=== PATIENT | male | born 1950 | race Caucasian/White ===

== ENCOUNTER 2021-01-20 10:29 | Emergency (ER) | payer MEDICARE, OTHER, SELFPAY ==
[2021-01-20 10:34] VITALS: BP 123/73; PULSE 59; RESP 14; TEMP 36.8; O2SAT 100; BMI 26.6
[2021-01-20 10:54] LABS: UTC Strep Screen (Rapid) Positive (Negative)
[2021-01-20 10:57] VITALS: BP 120/79; PULSE 62; RESP 14; TEMP 36.9
--- NOTE | 2021-01-20 10:59 | HMH.EDUTC ---
[facility] [place] Clinical Impression: Strep throat Disposition: Home, Self-Care Condition on Discharge: Good Instructions: DI for Strep Throat, Strep Throat Additional Instructions: Drink plenty of fluids. Take tylenol or ibuprofen for pain or fever. Take the medications as directed. Follow up with your regular doctor. GO TO THE ER FOR ANY WORSENING SYMPTOMS Prescriptions: Amoxicillin [Amoxicillin 500mg Tab] 500 mg PO TID 10 Days #30 tab Transmission Status: Pending to [id number] Referrals: Rita Scott [Primary Care Provider] - Time of Disposition: 11:08 Medical Decision Making - Medical Records Medical records reviewed: No: I reviewed the patient's medical records. - Arnold Inquiry Pt receiving controlled substance: No Vital Signs: 01/20/21 10:34 01/20/21 10:57 Temperature 98.3 F 98.4 F Temperature Source Oral Pulse Rate 62 Pulse Rate [Right] 59 L Respiratory Rate 14 14 Blood Pressure 120/79 Blood Pressure [Right Arm] 123/73 Blood Pressure Mean [Right Arm] 89 Blood Pressure Source [Right Arm] Automatic Cuff Blood Pressure Position [Right Arm] Sitting 02 Sat by Pulse Oximetry 100 Oxygen Delivery Method Room Air - Lab Data Lab results reviewed: Yes: I reviewed the patient's lab results. Lab Results 01/20/21 10:49: Strep Scn Rapid Clinic Positive A Orders (Tests/Meds): ORDERS Category Date Time Status Covid-19 Nasal PCR ([facility]) Routine Lab 01/20/21 10:49 [place] [facility] [place] - General Stated complaint: flu symptoms Time Seen by Provider: 01/20/21 10:59 Mode of Arrival: Ambulatory Source of Information: Patient Limitations: No Limitations Description of Symptoms (Recalled from Triage Doc. by RN): pt c/o SILVA, sore throat, and cough. HEENT Symptoms (Recalled from RN notes): Yes (SILVA and sore throat) Resp Symptoms (Recalled from RN notes): Yes (cough) Skin Symptoms (Recalled from RN notes): No MS Symptoms (Recalled from RN notes): No Functional Status (Recalled from RN notes): na - History of Present Illness Provider Complaint: He states that for the past 2 days he has felt bad and had a sore throat. - Related Data Previous Rx's Medication Instructions Recorded predniSONE [Prednisone 20mg 20 mg PO BID #10 tab 01/27/19 Tab] Amoxicillin [Amoxicillin 500mg Tab] 500 mg PO TID 10 Days #30 tab 01/20/21 Allergies Allergy/AdvReac Type Severity Reaction Status Date / Time bacitracin Allergy Intermediate I-RASH Verified 01/20/21 10:33 [From NEOSPORIN ([id number])] neomycin Allergy Intermediate I-RASH Verified 01/20/21 10:33 [From NEOSPORIN ([id number])] polymyxin B Allergy Intermediate I-RASH Verified 01/20/21 10:33 [From NEOSPORIN ([id number])] - Worker's Comp Is this a Worker's Comp case?: No [facility] History - Hepatitis A Screen Drug use history?: No High risk sexual behaviors?: No History of sexually transmitted infection?: No Currently employed?: No Childcare worker?: No Do you have indoor plumbing?: Yes Do you have electricity?: Yes Attestation statement:: This patient has been screened for Hepatitis A risk factors. I have reviewed the patient's past medical history: Yes Medical History: Reports:: Cancer - Social History Smoking Status: Never smoker Alcohol Intake: never Occupational Status: retired ROS Obtained: Yes All systems reviewed & no additional complaints - Constitutional Constitutional: Reports system reviewed and no additional complaints, except as docu - Eyes Eyes: Reports system reviewed and no additional complaints, except as docu - ENT Ears, Nose, Mouth, and Throat: Reports system reviewed and no additional complaints, except as docu - Cardiovascular Cardiovascular: Reports system reviewed and no additional complaints, except as docu - Respiratory Respiratory: Reports system reviewed and no additional complaints, except as docu - Gastrointe
== END 2021-01-20 11:27 | disposition home or self-care (01) ==
PROVIDERS: Emergency Provider Nurse Practitioner Family; PCP Family Medicine
DX: J02.0 Streptococcal pharyngitis (principal); Z20.822 Contact with and (suspected) exposure to COVID-19
CPT/HCPCS: G0463; 87880; 99202; J0561; U0003

== ENCOUNTER 2021-06-10 12:22 | Emergency (ER) | payer MEDICARE, OTHER, SELFPAY ==
[2021-06-10 12:28] VITALS: BP 118/62; PULSE 74; RESP 16; O2SAT 98; BMI 26.6
--- NOTE | 2021-06-10 12:45 | CA_ITS ---
APPROVED REPORT Right Lower Extremity Venous Study for DVT. Prototype Special Build: MICHAEL Indications Lower Extremity Pain: Right Pain in RLE x 3 days. Denies trauma. He says that pain is worse today and tender to touch in the thigh region of RLE. Risk Factors Patient had testicular and prostate cancer in the past. States he's in remission. Vein Imaging CFV (R): compressive, spontaneous, phasic, augmentation FEM (R): compressive, spontaneous, phasic, augmentation POP (R): compressive, spontaneous, phasic, augmentation PTV (R): Compressible GSV (R): compressive, spontaneous, phasic, augmentation Peroneals (R):Compressible Findings No evidence of DVT or superficial thrombophlebitis in the veins scanned of the right lower extremity. Conclusion No evidence of DVT or superficial thrombophlebitis in the veins scanned of the right lower extremity. Electronically signed by : Michael Hayden MD 06/10/2021 16:25:45
[2021-06-10 12:55] VITALS: BP 118/62; PULSE 74; RESP 16; TEMP 36.7; O2SAT 98; BMI 26.6
--- NOTE | 2021-06-10 13:59 | HMH.EDUTC ---
[facility] [place] Clinical Impression: Strain of calf muscle Qualifiers: Encounter type: initial encounter Laterality: right Qualified Code(s): S86.811A - Strain of other muscle(s) and tendon(s) at lower leg level, right leg, initial encounter Disposition: Home, Self-Care Condition on Discharge: Good Instructions: Calf Muscle Strain, DI for Calf Muscle Strain, How To Perform RICE (Rest, Ice, Compress, Elevate) Additional Instructions: *Ibuprofen hemant 6 hours with meal as needed for pain/inflammation if you can take it *Not additional anti-inflammatory like motrin, aleve, advil with the above amount of ibuprofen. You can still take Tylenol every 4 hours as needed if you need something else for pain *Ice 20 minutes every 2 hours for the first 48 hours after the initial injury followed by moist heat every 20 minutes 3-4 times a day to affected area Soaks in warm water and epson salt may help with spasms *Keep this area active, no movement leads to more stiffness, However take it easy and avoid heavy lifting pushing or pulling *Follow up with you family doctor if no improvement for further treatment Return if needed Straight to ER if any life threatening symptoms Referrals: Rita Scott [Primary Care Provider] - As needed Time of Disposition: 14:05 Medical Decision Making - Arnold Inquiry Pt receiving controlled substance: No Arnold was queried for this patient: No Vital Signs: 06/10/21 12:28 06/10/21 12:55 06/10/21 14:08 Temperature 98.0 F 98.0 F Temperature Source Oral Pulse Rate 74 Pulse Rate [Right] 74 74 Respiratory Rate 16 16 16 Blood Pressure 118/62 Blood Pressure [Right Arm] 118/62 118/62 Blood Pressure Mean [Right Arm] 80 80 Blood Pressure Source [Right Arm] Automatic Cuff Automatic Cuff Blood Pressure Position [Right Arm] Sitting Sitting 02 Sat by Pulse Oximetry 98 98 Oxygen Delivery Method Room Air - US Data US Images: Lower Extremity ED US Reviewed: Yes: I have reviewed the patient's US results Preliminary Findings: Normal/NAD Findings Narrative: Conclusion No evidence of DVT or superficial thrombophlebitis in the veins scanned of the right lower extremity. [facility] [place] HPI - General Stated complaint: possible blood clot rt leg Time Seen by Provider: 06/10/21 13:00 Mode of Arrival: Ambulatory Source of Information: Patient Limitations: No Limitations Description of Symptoms (Recalled from Triage Doc. by RN): PATIENT C/O RIGHT CALF PAIN X 3 DAYS. NO KNOWN INJURY HEENT Symptoms (Recalled from RN notes): No Resp Symptoms (Recalled from RN notes): No Skin Symptoms (Recalled from RN notes): No MS Symptoms (Recalled from RN notes): Yes Functional Status (Recalled from RN notes): WNL - History of Present Illness Provider Complaint: Patient states that he has been having pain in his right calf area for the last 3-4 days Denies known injury States that he does work around the house alot and has been up and down on ladders and step stools not sure if he may have pulled something or not States that he spoke with his Doctor at the [place] [facility] and they wanted him to come in and get checked for DVT - Related Data Home Medications Medication Instructions Recorded Confirmed Atorvastatin Calcium [Lipitor 80mg 40 mg PO DAILY 06/10/21 06/10/21 Tab] Citalopram Hydrobromide 40 mg PO DAILY 06/10/21 06/10/21 [Citalopram 40mg Tablet] Esomeprazole Magnesium [Nexium] 40 mg PO DAILY 06/10/21 06/10/21 buPROPion HCL [Wellbutrin SR 75mg 75 mg PO BID 06/10/21 06/10/21 Tablet] Allergies Allergy/AdvReac Type Severity Reaction Status Date / Time bacitracin Allergy Intermediate I-RASH Verified 01/20/21 10:33 [From NEOSPORIN ([id number])] neomycin Allergy Intermediate I-RASH Verified 01/20/21 10:33 [From NEOSPORIN ([id number])] polymyxin B Allergy Intermediate I-RASH Verified 01/20/21 10:33 [From NEOSPORIN ([id number])] - Worker's Comp Is
[2021-06-10 14:08] VITALS: BP 118/62; PULSE 74; RESP 16; TEMP 36.7; O2SAT 98
== END 2021-06-10 14:15 | disposition home or self-care (01) ==
LOC: ER 12:29 → UTC 12:30
PROVIDERS: Emergency Provider Nurse Practitioner; PCP Family Medicine
DX: S86.811A Strain of other muscle(s) and tendon(s) at lower leg level, right leg, initial encounter (principal)
CPT/HCPCS: G0463; 93971; 99202

== ENCOUNTER 2021-07-21 20:08 | Emergency (ER) | payer MEDICARE, OTHER, SELFPAY ==
[2021-07-21 20:10] VITALS: BP 121/76; PULSE 81; RESP 16; TEMP 36.7; O2SAT 99; BMI 25.8
--- NOTE | 2021-07-21 20:36 | HMH.EDEYEP ---
ED Disposition Clinical Impression: Corneal abrasion Qualifiers: Encounter type: initial encounter Laterality: left Qualified Code(s): S05.02XA - Injury of conjunctiva and corneal abrasion without foreign body, left eye, initial encounter Disposition: Home, Self-Care Condition on Discharge: Good Instructions: DI for Corneal Abrasion Additional Instructions: use ointment and see eye dr in am Referrals: Rita Scott [Primary Care Provider] - - Critical Care Critical Care Time: No Attestation: On , the high probability of a clinically significant, sudden or life threatening deterioration of the following system(s) required my full and direct attention, intervention and personal management. The time I documented below is in addition to time spent performing reported procedures but includes the following listed in this critical care notation. Medical Decision Making - Medical Records Medical records reviewed: Yes: I reviewed the patient's medical records. - Arnold Inquiry Pt receiving controlled substance: No Vital Signs: 07/21/21 20:10 Temperature 98.1 F Temperature Source Oral Pulse Rate [Right] 81 Respiratory Rate 16 Blood Pressure [Right Arm] 121/76 Blood Pressure Mean [Right Arm] 91 02 Sat by Pulse Oximetry 99 Medical Decision Narrative: will irrigate lt eye with casey lens and then ointment and call eye care provider in am Eye Problem HPI - General Chief complaint: Eye Problems Stated complaint: AO 07/21 possible wood chip R eye Time Seen by Provider: 07/21/21 20:20 Mode of Arrival: Ambulatory Source of Information: Patient, Medical Record Limitations: No Limitations Description of Symptoms (Recalled from ER Triage Doc. by RN): pt states was using a table saw and piece of wood flew up in lt eye. 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 chief complaint: foreign body Onset (ago): hour(s) Onset description: sudden Location: left eye Eye Symptoms: foreign body sensation Place: home Mechanism: occurred while hammering/grinding Severity: moderate Associated symptoms: none Treatments Prior to Arrival: irrigated eye - Related Data Patient tetanus UTD: Yes Home Medications Medication Instructions Recorded Confirmed Atorvastatin Calcium [Lipitor 80mg 40 mg PO DAILY 06/10/21 06/10/21 Tab] Citalopram Hydrobromide 40 mg PO DAILY 06/10/21 06/10/21 [Citalopram 40mg Tablet] Esomeprazole Magnesium [Nexium] 40 mg PO DAILY 06/10/21 06/10/21 buPROPion HCL [Wellbutrin SR 75mg 75 mg PO BID 06/10/21 06/10/21 Tablet] Allergies Allergy/AdvReac Type Severity Reaction Status Date / Time bacitracin Allergy Intermediate I-RASH Verified 01/20/21 10:33 [From NEOSPORIN ([id number])] neomycin Allergy Intermediate I-RASH Verified 01/20/21 10:33 [From NEOSPORIN ([id number])] polymyxin B Allergy Intermediate I-RASH Verified 01/20/21 10:33 [From NEOSPORIN ([id number])] [facility] History - Hepatitis A Screen Drug use history?: No High risk sexual behaviors?: No History of sexually transmitted infection?: No Currently employed?: No Childcare worker?: No Do you have indoor plumbing?: Yes Do you have electricity?: Yes Attestation statement:: This patient has been screened for Hepatitis A risk factors. I have reviewed the patient's past medical history: Yes Medical History: Reports:: Cancer - Social History Smoking Status: Never smoker Alcohol Intake: never Occupational Status: retired ROS Obtained: Yes All systems reviewed & no additional complaints - Constitutional Constitutional: Denies fever(s) - Eyes Eyes: Reports as per HPI, Denies change in vision, Reports irritation, Denies photophobia - ENT Ears, Nose, Mouth, and Throat: Denies neck pain - Cardiovascular Cardiovascular: Denies chest pain - Respiratory Respiratory: Denies shortness of breath
[2021-07-21 20:56] VITALS: BP 116/70; PULSE 59; RESP 14; TEMP 37.1; O2SAT 98
== END 2021-07-21 21:03 | disposition home or self-care (01) ==
PROVIDERS: Emergency Provider Emergency Medicine; PCP Family Medicine
DX: S05.02XA Injury of conjunctiva and corneal abrasion without foreign body, left eye, initial encounter (principal); W45.8XXA Other foreign body or object entering through skin, initial encounter
CPT/HCPCS: 99282

== ENCOUNTER → 2021-08-02 18:48 | Outpatient (CLI) | payer MEDICARE, OTHER, SELFPAY | PROVIDERS: Visit Provider Nurse Practitioner Family | DX: Z20.822 Contact with and (suspected) exposure to COVID-19 (principal) | CPT/HCPCS: C9803; U0003; U0005 ==

== ENCOUNTER → 2021-09-28 10:48 | Outpatient (CLI) | payer MEDICARE, OTHER, SELFPAY | PROVIDERS: Visit Provider Nurse Practitioner | DX: U07.1 COVID-19 (principal) | CPT/HCPCS: C9803; U0003; U0005 ==

== ENCOUNTER 2022-05-26 10:00 | Emergency (ER) | payer MEDICARE, OTHER, SELFPAY ==
[2022-05-26 10:08] VITALS: BP 105/51; PULSE 52; RESP 18; TEMP 36.9; O2SAT 97; BMI 24.7
[2022-05-26 10:45] VITALS: BP 105/51; PULSE 52; RESP 18; TEMP 36.9; O2SAT 97; BMI 25.5
--- NOTE | 2022-05-26 10:45 | XR_ITS ---
FINAL REPORT CLINICAL HISTORY: FALL last tuesday. right anterior rib pain FINDINGS: RIBS WITH CHEST A single PA view of the chest and three views of the right ribs were obtained. The heart and mediastinum within normal limits. The lungs are clear. There is no pneumothorax. There is no acute displaced rib fracture. IMPRESSION: No acute cardiopulmonary process or displaced rib fracture. Reviewed, Interpreted and Dictated by Miguel Chinchilla MD Transcribed by Tracy Mercedes Authenticated and [facility]
--- NOTE | 2022-05-26 11:13 | EXP.UTC ---
Discharge Plan Disposition Patient Disposition: Home, Self-Care Condition: Good Prescriptions Prescriptions: No Action atorvastatin 80 MG tablet 40 mg PO DAILY citalopram 40 MG tablet 40 mg PO DAILY esomeprazole magnesium 40 MG capsule,delayed release(DR/EC) 40 mg PO DAILY bupropion HCl 75 MG tablet 75 mg PO BID Referrals Follow up/Referrals: Rita Scott [Primary Care Provider] - See instructions Activity Restrictions/Add. Instructions Additional Instructions/Restrictions: *Ibuprofen hemant 6 hours with meal as needed for pain/inflammation *Ice 20 minutes every 2 hours for the first 48 hours after the initial injury followed by moist heat every 20 minutes 3-4 times a day to affected area *Keep this area active, no movement leads to more stiffness, However take it easy and avoid heavy lifting pushing or pulling *Follow up with you family doctor if no improvement for further treatment You May call back later this evening for the official reading of your xray ? Clinical Impressions Clinical Impression: Contusion of rib Instructions Patient Instructions: Contusion, DI for Contusion Discharge [place]ian[place] [facility] [place] General Stated complaint: AO 05/23@home@1200 hurts when deep breathing Mode of Arrival: Ambulatory Source of Information: Patient Limitations: No Limitations Time Seen by Provider: 05/26/22 11:13 Description of Symptoms (Recalled from Triage Doc. by RN): PATIENT C/O PAIN TO RIB AREA WHEN TAKING A DEEP BREATH. HE REPORTS HE FELL MOWING THE YARD ON TUESDAY. 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 06/10/21 06/10/21 citalopram 40 mg tablet 40 mg PO DAILY . 06/10/21 06/10/21 esomeprazole magnesium 40 mg 40 mg PO DAILY GERD 06/10/21 06/10/21 capsule,delayed release Allergies Allergy/AdvReac Type Severity Reaction Status Date / Time bacitracin Allergy Intermediate I-RASH Verified 01/20/21 10:33 [From NEOSPORIN ([id number])] neomycin Allergy Intermediate I-RASH Verified 01/20/21 10:33 [From NEOSPORIN ([id number])] polymyxin B Allergy Intermediate I-RASH Verified 01/20/21 10:33 [From NEOSPORIN ([id number])] Worker's Comp Is this a Worker's Comp case?: No PFSH PFSH Medical History (Updated 05/26/22 @ 11:55 by Lianne Lara APRN) Anxiety BPH (benign prostatic hyperplasia) Cancer Depression Surgical History (Updated 05/26/22 @ 10:57 by Tsering Guevara RN) H/O right heart catheterization History of open heart surgery Social History (Updated 05/26/22 @ 10:57 by Tsering Guevara RN) Smoking Status: Never smoker alcohol intake: current current occupational status: retired Travel in the last 8 weeks: None ROS Obtained: Yes All systems reviewed & no additional complaints except as documented and Yes Systems reviewed as appropriate & no additional complaints except as documented Constitutional Constitutional: Reports system reviewed and no additional complaints, except as documented and Reports as per HPI Cardiovascular Cardiovascular: Reports system reviewed and no additional complaints, except as documented, Reports as per HPI, Denies dysp
[2022-05-26 12:00] VITALS: BP 105/51; PULSE 52; RESP 18; TEMP 36.9; O2SAT 97
== END 2022-05-26 12:05 | disposition home or self-care (01) ==
PROVIDERS: Emergency Provider Nurse Practitioner; PCP Family Medicine
DX: S20.211A Contusion of right front wall of thorax, initial encounter (principal); R07.81 Pleurodynia; W01.0XXA Fall on same level from slipping, tripping and stumbling without subsequent striking against object, initial encounter
CPT/HCPCS: 71101; 99212; G0463

== ENCOUNTER 2022-06-18 11:36 | Emergency (ER) | payer MEDICARE, OTHER, SELFPAY ==
--- NOTE | 2022-06-18 11:55 | EXP.UTC ---
Discharge Plan Disposition Patient Disposition: Home, Self-Care Condition: Good Prescriptions Prescriptions: New cefdinir 300 mg capsule 300 mg PO BID Qty: 20 0RF No Action atorvastatin 80 MG tablet 40 mg PO DAILY citalopram 40 MG tablet 40 mg PO DAILY esomeprazole magnesium 40 MG capsule,delayed release(DR/EC) 40 mg PO DAILY bupropion HCl 75 MG tablet 75 mg PO BID Referrals Follow up/Referrals: ENT [Provider Group] - See instructions (Call for appointment ) Mac Huerta MD [Physician] - See instructions Rita Scott [Primary Care Provider] - 06/22/22 10:20 am Activity Restrictions/Add. Instructions Additional Instructions/Restrictions: Start Oral antiobiotics tomorrow Follow up Family Phyiscian as scheduled Make appointment [facility] ENT call today for appointment Return if needed Straight to ER if any worsening of sympotms Clinical Impressions Clinical Impression: Swelling of lymph nodes Instructions Patient Instructions: Cefdinir Discharge ED Provider: Lianne Lara [facility] General Stated complaint: right side pain behind ear Time Seen by Provider: 06/18/22 11:55 History of Present Illness Provider Complaint: Patient states that he has a swollen tender area behind the ear States that it has been there for a little bit but has got worse over the last few days and last night was more tender State that this morning it was still sore so he came in to get it checked out Related Data Home Medications Medication Instructions Recorded Confirmed atorvastatin 80 mg tablet 40 mg PO DAILY Cholesterol 06/10/21 06/18/22 bupropion HCl 75 mg tablet 75 mg PO BID . 06/10/21 06/18/22 citalopram 40 mg tablet 40 mg PO DAILY . 06/10/21 06/18/22 esomeprazole magnesium 40 mg 40 mg PO DAILY GERD 06/10/21 06/18/22 capsule,delayed release Previous Rx's Medication Instructions Recorded cefdinir 300 mg capsule 300 mg PO BID #20 caps 06/18/22 Allergies Allergy/AdvReac Type Severity Reaction Status Date / Time bacitracin Allergy Intermediate I-RASH Verified 06/18/22 12:00 [From NEOSPORIN ([id number])] neomycin Allergy Intermediate I-RASH Verified 06/18/22 12:00 [From NEOSPORIN ([id number])] polymyxin B Allergy Intermediate I-RASH Verified 06/18/22 12:00 [From NEOSPORIN ([id number])] PFSH PFSH Medical History (Updated 06/18/22 @ 12:35 by Lianne Lara APRN) Anxiety BPH (benign prostatic hyperplasia) Cancer Depression Surgical History (Updated 05/26/22 @ 10:57 by Tsering Guevara, RN) H/O right heart catheterization History of open heart surgery Social History (Updated 05/26/22 @ 10:57 by Tsering Guevara, RN) Smoking Status: Never smoker alcohol intake: current current occupational status: retired Travel in the last 8 weeks: None ROS Obtained: Yes All systems reviewed & no additional complaints except as documented and Yes Systems reviewed as appropriate & no additional complaints except as documented Constitutional Constitutional: Reports system reviewed and no additional complaints, except as documented, Reports as per HPI, Denies fever(s) and Denies headache(s) ENT Ears, Nose, Mouth, and Throat: Reports system reviewed and no additional complaints, except as documented, Reports as per HPI, Denies ear discharge, Denies otalgia, Denies headache(s) and Reports other (Pain and raised area behind right ear) Cardiovascular Cardiovascular: Reports system reviewed and no additional complaints, except as documented, Denies as per HPI and Denies acrocyanosis Respiratory Respiratory: Reports system reviewed and no additional complaints, except as documented and Reports as per HPI Musculoskeletal Musculoskeletal: Reports system reviewed and no additional complaints, except as documented and Reports as per HPI Neurologic Neurologic: Reports system reviewed and no additional complaints, except as documented, Reports
[2022-06-18 11:57] VITALS: BP 120/70; PULSE 56; RESP 17; TEMP 36.8; O2SAT 98; BMI 24.0
[2022-06-18 12:45] VITALS: BP 102/70; PULSE 56; RESP 17; TEMP 36.8
== END 2022-06-18 12:46 | disposition home or self-care (01) ==
PROVIDERS: Emergency Provider Nurse Practitioner; PCP Family Medicine
DX: R59.0 Localized enlarged lymph nodes (principal)
CPT/HCPCS: 96372; 99212; G0463; J0696

== ENCOUNTER 2022-07-30 16:20 | Emergency (ER) | payer MEDICARE, OTHER, SELFPAY ==
[2022-07-30 16:21] VITALS: BP 109/77; PULSE 60; RESP 16; TEMP 36.8; O2SAT 98; BMI 25.1
--- NOTE | 2022-07-30 16:47 | PC.NURSE ---
WALE ANTHONY at
--- NOTE | 2022-07-30 16:51 | HMH.EDGENADL ---
Discharge Plan Disposition Chief Complaint: Urogenital-Male Prescriptions Prescriptions: No Action atorvastatin 80 MG tablet 40 mg PO DAILY citalopram 40 MG tablet 40 mg PO DAILY esomeprazole magnesium 40 MG capsule,delayed release(DR/EC) 40 mg PO DAILY bupropion HCl 75 MG tablet 75 mg PO BID cefdinir 300 mg capsule 300 mg PO BID Qty: 20 0RF Referrals Follow up/Referrals: Rita Scott [Primary Care Provider] - See instructions Instructions Patient Instructions: DI for Urinary Tract Infection (UTI), DI for Urinary Tract Infection in Children Discharge ED Provider: Harinder Hart General Adult HPI General Chief complaint: Urogenital-Male Stated complaint: blood in urine Time Seen by Provider: 07/30/22 16:45 Mode of Arrival: Ambulatory Source of Information: Patient Limitations: No Limitations Description of Symptoms (Recalled from ER Triage Doc. by RN): pt reports blood noted in urine this morning and then again this afternoon. Pt states no pain with urination, no difficulty with urination. Pt reports does have hx of prostate cancer in the past. History of Present Illness HPI narrative: Patient presents complaining of blood in the urine that he first noticed earlier today. He notes some mild suprapubic discomfort. He denies fever, vomiting or diarrhea. He denies dysuria. Symptoms are described as mild to moderate without exacerbating or alleviating factors. Related Data Home Medications Medication Instructions Recorded Confirmed atorvastatin 80 mg tablet 40 mg PO DAILY Cholesterol 06/10/21 06/18/22 bupropion HCl 75 mg tablet 75 mg PO BID . 06/10/21 06/18/22 citalopram 40 mg tablet 40 mg PO DAILY . 06/10/21 06/18/22 esomeprazole magnesium 40 mg 40 mg PO DAILY GERD 06/10/21 06/18/22 capsule,delayed release Previous Rx's Medication Instructions Recorded cefdinir 300 mg capsule 300 mg PO BID #20 caps 06/18/22 Allergies Allergy/AdvReac Type Severity Reaction Status Date / Time bacitracin Allergy Intermediate I-RASH Verified 06/18/22 12:00 [From NEOSPORIN ([id number])] neomycin Allergy Intermediate I-RASH Verified 06/18/22 12:00 [From NEOSPORIN ([id number])] polymyxin B Allergy Intermediate I-RASH Verified 06/18/22 12:00 [From NEOSPORIN ([id number])] [facility] Medical History Anxiety BPH (benign prostatic hyperplasia) Cancer Depression Surgical History H/O right heart catheterization History of open heart surgery Social History Smoking Status: Never smoker alcohol intake: current current occupational status: retired Travel in the last 8 weeks: None ROS Obtained: Yes All systems reviewed & no additional complaints except as documented Physical Exam General General appearance: alert and in no apparent distress Head Head exam: atraumatic, normocephalic and normal inspection Eye Eye exam: Present normal appearance, PERRL and EOMI ENT ENT exam: Present normal exam, normal oropharynx, mucous membranes moist, TM's normal bilaterally and normal external ear exam Neck Neck exam: Present normal inspection, full ROM and trachea midline; Absent meningismus or lymphadenopathy Chest Chest inspection: Present normal inspection and symmetric chest wall rise; Absent tenderness Respiratory Respiratory exam: Present normal lung sounds bilaterally; Absent respiratory distress Cardiovascular Cardiovascular exam: Present regular rate and normal rhythm; Absent JVD Abdominal Exam Abdominal exam: Present soft and normal bowel sounds; Absent distention, tenderness or guarding Extremities Exam Extremities exam: Present normal inspection, full ROM and normal capillary refill; Absent calf tenderness Back Exam Back exam: Present normal inspection; Absent tenderness Neurological Exam
[2022-07-30 16:52] LABS: Microscopic, Urine URINE MICROSCOPIC (MICROSCOPIC)
[2022-07-30 16:53] LABS: Appearance,Urine SL CLOUDY (Clear); Bilirubin,Urine Negative (Negative); Blood, Urine 3+ (Negative); Color,Urine YELLOW (Yellow); Glucose,Urine (UA) Negative (Negative); Ketones,Urine Negative (Negative); Leukocyte Esterase,Urine Negative (Negative); Nitrate,Urine Negative (Negative); Protein,Urine Negative (Negative); Urobilinogen,Urine 0.2 EU/dl (0.2)
[2022-07-30 17:22] LABS: Chloride 107 mmol/L (98-107); Potassium 3.9 mmoL/L (3.5-5.1); Sodium 137 mmol/L (136-145)
[2022-07-30 17:25] LABS: Blood Urea Nitrogen 16 mg/dl (9-20); Creatinine Clearance Estimated 73 mL/min (50-200); Estimated Glomerular Filt Rate 95 ml/min (>60); GFR (African American) 115 ML/MIN (>60)
[2022-07-30 17:26] LABS: Anion Gap 9.9 mEq/L (5-15); Calcium 10.1 mg/dl (8.4-10.2); Carbon Dioxide 24 mmol/L (22.0-30.0); Glucose 81 mg/dl (74-100)
[2022-07-30 17:28] LABS: Basophils # 0.1 K/mm3 (0-0.2); Basophils % 0.8 % (0.1-2.0); Eosinophils # 0.3 K/mm3 (0.0-0.4); Eosinophils % 4.1 % (0.1-12.0); Hematocrit 34.9 % (42.0-52.0); Hemoglobin 11.7 g/dL (14.1-18.0); Lymphocytes # 1.9 K/mm3 (0.7-4.5); Lymphocytes % 30.4 % (10-50); Mean Corpuscular HGB Conc 33.4 g/dL (31.8-35.4); Mean Corpuscular Hemoglobin 28.9 pg (27.0-31.2); Mean Corpuscular Volume 86.6 fl (80-94); Mean Platelet Volume 7.3 fl (7.4-10.4); Monocytes # 0.6 K/mm3 (0.1-1.0); Monocytes % 9.2 % (1.7-9.3); Neutrophils # 3.6 K/mm3 (1.8-7.8); Neutrophils % 55.5 % (37.0-80.0); Platelet Count 191 K/mm3 (142-424); Red Blood Count 4.03 M/mm3 (4.60-6.20); Red Cell Distribution Width 13.7 % (11.5-17.5); White Blood Count 6.4 K/mm3 (4.8-10.8)
[2022-07-30 18:00] LABS: Squamous Epithelial Cell,Urine Occasional #/hpf (0-5); WBC,Urine Occasional #/hpf (0-3)
[2022-07-30 18:15] VITALS: BP 125/71; PULSE 54; RESP 16; TEMP 36.8; O2SAT 94
== END 2022-07-30 18:15 | disposition home or self-care (01) ==
PROVIDERS: Emergency Provider Emergency Medicine; PCP Family Medicine
DX: N39.0 Urinary tract infection, site not specified (principal); Z79.899 Other long term (current) drug therapy; Z88.1 Allergy status to other antibiotic agents
CPT/HCPCS: 80048; 81001; 85025; 99283

== ENCOUNTER 2022-09-20 16:39 | Emergency (ER) | payer MEDICARE, OTHER, SELFPAY ==
[2022-09-20] VITALS (9 sets, daily range): BP systolic 104–118; BP diastolic 60–69; PULSE 47–60; RESP 15; TEMP 36.9; O2SAT 94–99; BMI 24.3
--- NOTE | 2022-09-20 17:11 | PC.NURSE ---
pt ambulated to bathroom, but did not pee in cup. pt asked nurse to come look in toilet. urine is red in color. small clots noted.
[2022-09-20 17:41] LABS: Basophils # 0.1 K/mm3 (0-0.2); Eosinophils # 0.3 K/mm3 (0.0-0.4); Eosinophils % 5.4 % (0.1-12.0); Hematocrit 34.8 % (42.0-52.0); Hemoglobin 11.5 g/dL (14.1-18.0); Lymphocytes # 1.8 K/mm3 (0.7-4.5); Lymphocytes % 31.4 % (10-50); Mean Corpuscular HGB Conc 32.9 g/dL (31.8-35.4); Mean Corpuscular Hemoglobin 27.7 pg (27.0-31.2); Mean Corpuscular Volume 84.2 fl (80-94); Mean Platelet Volume 7.4 fl (7.4-10.4); Monocytes # 0.4 K/mm3 (0.1-1.0); Monocytes % 7.7 % (1.7-9.3); Neutrophils # 3.1 K/mm3 (1.8-7.8); Neutrophils % 54.5 % (37.0-80.0); Platelet Count 205 K/mm3 (142-424); Red Blood Count 4.13 M/mm3 (4.60-6.20); Red Cell Distribution Width 14.1 % (11.5-17.5); White Blood Count 5.8 K/mm3 (4.8-10.8)
[2022-09-20 17:47] LABS: Chloride 106 mmol/L (98-107); Sodium 139 mmol/L (136-145)
[2022-09-20 17:50] LABS: Alanine Aminotransferase 16 U/L (12-78); Albumin Level 4.2 g/dl (3.5-5.0); Albumin/Globulin Ratio 1.3 (1.1-1.8); Alkaline Phosphatase 102 U/L (38-126); Aspartate Amino Transferase 25 U/L (17-59); Bilirubin,Total 0.4 mg/dl (0.2-1.3); Blood Urea Nitrogen 22 mg/dl (9-20); Calcium 9.2 mg/dl (8.4-10.2); Carbon Dioxide 26 mmol/L (22.0-30.0); Creatinine Clearance Estimated 71 mL/min (50-200); Estimated Glomerular Filt Rate 83 ml/min (>60); GFR (African American) 100 ML/MIN (>60); Globulin 3.2 g/dL (1.3-3.2); Glucose 91 mg/dl (74-100); Total Protein,Serum 7.4 g/dl (6.3-8.2)
[2022-09-20 18:28] LABS: Microscopic, Urine URINE MICROSCOPIC (MICROSCOPIC)
[2022-09-20 18:36] LABS: Appearance,Urine CLOUDY (Clear); Blood, Urine 3+ (Negative); Color,Urine RED (Yellow); Glucose,Urine (UA) TRACE (Negative); Ketones,Urine 1+ (Negative); Leukocyte Esterase,Urine 2+ (Negative); Nitrate,Urine POSITIVE (Negative); Protein,Urine 3+ (Negative); Specific Gravity, Urine 1.015 (1.005-1.030); Urobilinogen,Urine >=8.0 EU/dl (0.2)
[2022-09-20 18:37] LABS: Bilirubin,Urine 1+ (Negative)
[2022-09-20 18:39] LABS: Bacteria,Urine Trace /lpf; RBC,Urine TNTC #/hpf (0-3); Squamous Epithelial Cell,Urine Occasional #/hpf (0-5)
--- NOTE | 2022-09-20 19:42 | CT_ITS ---
PROCEDURE INFORMATION: Exam: CT Abdomen And Pelvis Without Contrast Exam date and time: 09/20/2022 8:07 PM Age: 72 years old Clinical indication: Other: Hematuria, difficulty urinating; Prior surgery; Surgery type: Cyberknife on prostate TECHNIQUE: Imaging protocol: Computed tomography of the abdomen and pelvis without contrast. Radiation optimization: All CT scans at this facility use at least one of these dose optimization techniques: automated exposure control; mA and/or kV adjustment per patient size (includes targeted exams where dose is matched to clinical indication); or iterative reconstruction. COMPARISON: CR XR RIBS RT MIN 3V W CXR1V 05/26/2022 10:38 AM FINDINGS: Diaphragm: There is a small hiatal hernia. Multiple surgical clips are seen about the gastroesophageal junction. Liver: Normal. No mass. Gallbladder and bile ducts: Normal. No calcified stones. No ductal dilation. Pancreas: Normal. No ductal dilation. Spleen: Normal. No splenomegaly. Adrenal glands: Normal. No mass. Kidneys and ureters: Normal. No hydronephrosis. Stomach and bowel: There is a large amount of retained stool throughout the colon. There is significant diverticulosis throughout the distal colon. No evidence of bowel obstruction. Appendix: No evidence of appendicitis. Intraperitoneal space: Unremarkable. No free air. No significant fluid collection. Vasculature: Dense atherosclerotic calcification is noted throughout the distal aorta and iliac arteries. There is mild fusiform dilation of the terminal abdominal aorta and common iliac arteries with iliac diameter measuring 1.6 cm on the right and 1.7 cm on the left. Lymph nodes: Unremarkable. No enlarged lymph nodes. Urinary bladder: There is a 5.7 cm slightly hyperdense irregular mass within the posterior bladder lumen. Bladder is moderately distended but otherwise unremarkable. Reproductive: Unremarkable as visualized. Bones/joints: Mild scoliosis and degenerative disc changes noted in the lumbar spine. Soft tissues: Unremarkable. IMPRESSION: 1. 5.7 cm mass in the dependent portion of the urinary bladder with moderate bladder distention. Differential diagnosis would include bladder neoplasm (transitional cell carcinoma) versus large blood clot within the bladder lumen. No evidence of urolithiasis or renal mass. 2. Significant atherosclerotic disease with mild fusiform dilation of the terminal abdominal aorta and bilateral common iliac arteries. 3. Significant fecal retention throughout the colon and diffuse diverticulosis of the distal colon. No evidence of acute diverticulitis.
--- NOTE | 2022-09-20 20:11 | PC.NURSE ---
Pt back from RAD via wheelchair
--- NOTE | 2022-09-20 21:39 | HMH.EDGENADL ---
Discharge Plan Disposition Chief Complaint: Urogenital-Male Prescriptions Prescriptions: No Action atorvastatin 80 MG tablet 40 mg PO DAILY citalopram 40 MG tablet 40 mg PO DAILY esomeprazole magnesium 40 MG capsule,delayed release(DR/EC) 40 mg PO DAILY bupropion HCl 75 MG tablet 75 mg PO BID Referrals Follow up/Referrals: Provider,Referral, MD [Primary Care Provider] - See instructions Instructions Patient Instructions: DI for Urinary Tract Infection (UTI), DI for Urinary Tract Infection in Children Discharge ED Provider: Nikki Casillas General Adult HPI General Chief complaint: Urogenital-Male Stated complaint: blood in urine and cant urinate Time Seen by Provider: 09/20/22 19:47 Mode of Arrival: Ambulatory Source of Information: Patient Limitations: No Limitations Description of Symptoms (Recalled from ER Triage Doc. by RN): pt comes in with c/o blood clots/blood in urine. pt states that he has had this issue before and has been to this hospital for issue. pt reports clots have stopped but he feels like trying to pass a boulder. pt reports two days ago he was straining at work. 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 States around 1 PM earlier today, he started experience hematuria and was passing gibson clots. This has occurred 1 time previously after an acute episode of straining. He does admit to heavy lifting approximately 2 days ago. No associated dysuria. No fevers, chills, abdominal pain, changes in bowel movements. Related Data Home Medications Medication Instructions Recorded Confirmed atorvastatin 80 mg tablet 40 mg PO DAILY Cholesterol 06/10/21 09/20/22 bupropion HCl 75 mg tablet 75 mg PO BID . 06/10/21 09/20/22 citalopram 40 mg tablet 40 mg PO DAILY . 06/10/21 09/20/22 esomeprazole magnesium 40 mg 40 mg PO DAILY GERD 06/10/21 09/20/22 capsule,delayed release Allergies Allergy/AdvReac Type Severity Reaction Status Date / Time bacitracin Allergy Intermediate I-RASH Verified 09/20/22 17:11 [From NEOSPORIN ([id number])] neomycin Allergy Intermediate I-RASH Verified 09/20/22 17:11 [From NEOSPORIN ([id number])] polymyxin B Allergy Intermediate I-RASH Verified 09/20/22 17:11 [From NEOSPORIN ([id number])] [facility] Disclaimer: The information contained in this section may have been updated after the patient was seen, as this information can be updated by other users. Medical History Anxiety BPH (benign prostatic hyperplasia) Cancer Depression Surgical History H/O right heart catheterization History of open heart surgery Social History Smoking Status: Former smoker alcohol intake: current current occupational status: retired Travel in the last 8 weeks: None ROS Obtained: Yes All systems reviewed & no additional complaints except as documented Physical Exam General General appearance: alert and in no apparent distress Head Head exam: atraumatic, normocephalic and normal inspection Eye Eye exam: Present normal appearance, PERRL and EOMI ENT ENT exam: Present normal exam, normal oropharynx and mucous membranes moist Neck Neck exam: Present normal inspection, full ROM and trachea midline Chest Chest inspection: Present normal inspection and symmetric chest wall rise Respiratory Respiratory exam: Present normal lung sounds bilaterally; Absent respiratory distress Cardiovascular Cardiovascular exam: Present regular rate and normal rhythm Abdominal Exam Abdominal exam: Present soft and tenderness (mild tenderness to lower abdomen); Absent guarding Extremities Exam Extremities ex
--- NOTE | 2022-09-20 21:58 | PC.NURSE ---
spoke with misti @ [facility] for possible patient transferred
[2022-09-20 22:08] LABS: Coronavirus 19, PCR Not Detected (NotDetected); Influenza A, PCR Not Detected (NotDetected); Influenza B, PCR Not Detected (NotDetected)
--- NOTE | 2022-09-20 22:27 | PC.NURSE ---
Dr. Casillas speaking with Dr. Bush at the [facility]
--- NOTE | 2022-09-20 22:33 | PC.NURSE ---
Pt accepted to [facility] by Dr. Bush
--- NOTE | 2022-09-20 23:23 | PC.NURSE ---
Spoke with installation coordinator, Lexi, and advised her that his covid test was negative. She advised that she does not have a bed at this moment and will check back in about 30 minutes
--- NOTE | 2022-09-20 23:54 | PC.NURSE ---
Accepted to [facility] room [id number]. Attempted to call report [phone] with no answer
[2022-09-21 00:02] VITALS: BP 114/72; PULSE 54; O2SAT 94
--- NOTE | 2022-09-21 00:06 | PC.NURSE ---
Attempted to call report again. Nurse would like us to call back in 15-20 minutes
[2022-09-21 00:24] VITALS: BP 115/70; PULSE 57; RESP 16; TEMP 36.9; O2SAT 98
[2022-09-21 00:30] VITALS: BP 113/74; PULSE 51; O2SAT 91
--- NOTE | 2022-09-21 00:59 | PC.NURSE ---
Faxed face sheet for insurance pre-auth, received confirmation back.
== END 2022-09-21 01:23 | disposition short-term general hospital (02) ==
PROVIDERS: Emergency Medicine; Emergency Provider Student in an Organized Health Care Education/Training Program
DX: N50.9 Disorder of male genital organs, unspecified (principal); R31.9 Hematuria, unspecified; Z85.47 Personal history of malignant neoplasm of testis; Z92.21 Personal history of antineoplastic chemotherapy; F41.9 Anxiety disorder, unspecified; N40.1 Benign prostatic hyperplasia with lower urinary tract symptoms; Z86.79 Personal history of other diseases of the circulatory system; Z87.891 Personal history of nicotine dependence
CPT/HCPCS: 51702; 74176; 80053; 81001; 85025; 87086; 99285; C9803; U0003; U0005

== ENCOUNTER → 2023-06-29 09:22 | Outpatient (CLI) | payer MEDICARE, OTHER, SELFPAY | PROVIDERS: PCP Nurse Practitioner Family; Visit Provider Nurse Practitioner Family | DX: R35.0 Frequency of micturition (principal) | CPT/HCPCS: 87086 ==

== ENCOUNTER 2024-11-12 13:30 | Outpatient (CLI) | payer MEDICARE, OTHER, SELFPAY ==
[2024-11-12 14:44] LABS: Basophils # 0.1 K/mm3 (0-0.2); Basophils % 0.9 % (0.1-2.0); Eosinophils # 0.2 K/mm3 (0.0-0.4); Eosinophils % 3.5 % (0.1-12.0); Hemoglobin 9.9 g/dL (14.1-18.0); Lymphocytes # 1.8 K/mm3 (0.7-4.5); Lymphocytes % 27.4 % (10-50); Mean Corpuscular HGB Conc 29.1 g/dL (31.8-35.4); Mean Corpuscular Hemoglobin 23.8 pg (27.0-31.2); Mean Corpuscular Volume 81.7 fl (80-94); Mean Platelet Volume 9.3 fl (7.4-10.4); Monocytes # 0.6 K/mm3 (0.1-1.0); Monocytes % 8.8 % (1.7-9.3); Neutrophils # 3.9 K/mm3 (1.8-7.8); Neutrophils % 59.1 % (37.0-80.0); Platelet Count 202 K/mm3 (142-424); Red Blood Count 4.16 M/mm3 (4.60-6.20); White Blood Count 6.6 K/mm3 (4.8-10.8)
[2024-11-12 15:08] LABS: Iron 122 ug/dL (49-181)
[2024-11-12 15:21] LABS: Total Iron Binding Capacity 478 ug/dL (261-462)
[2024-11-12 15:42] LABS: Ferritin 11.5 ng/ml (17.9-464)
== END 2024-11-12 23:59 | disposition home or self-care (01) ==
LOC: LAB 13:31
PROVIDERS: Visit Provider Nurse Practitioner Family
DX: D50.9 Iron deficiency anemia, unspecified (principal)
CPT/HCPCS: 36415; 82728; 83540; 83550; 85025

== ENCOUNTER 2024-11-21 06:08 | Day surgery (SDC) | payer MEDICARE, OTHER, SELFPAY ==
--- NOTE | 2024-11-19 12:10 | SUR.PREOP ---
1205: Message left with Dr. Sanchez's office for cardiac clearance letter. Spoke with Marcella in Dr. Phillips office about need to obtain clearance.
[2024-11-19 12:12] VITALS: BMI 25.1
[2024-11-21 06:41] VITALS: BP 95/54; PULSE 49; RESP 18; TEMP 36.4; O2SAT 95
[2024-11-21] MEDS: LACTATED RINGERS 1000ML 1,000 ML 25 ML IV (06:55)
--- NOTE | 2024-11-21 07:04 | P.PNANES_ITS ---
[facility] Disclaimer: The information contained in this section may have been updated after the patient was seen, as this information can be updated by other users. Medical History Hx of cancer of lung Family hx of prostate cancer Hx of testicular cancer Hematuria Acute lower urinary tract infection Swelling of lymph nodes Contusion of rib Cancer Depression Anxiety BPH (benign prostatic hyperplasia) Corneal abrasion Strain of calf muscle Strep throat Contact dermatitis Surgical History History of sentinel lymph node dissection Hx of removal of testicle History of partial gastrectomy History of back surgery History of open heart surgery H/O right heart catheterization Family History Mother Heart disease Social History (Updated 11/21/24 @ 06:46 by Christine Rosales RN) Smoking Status: Former smoker alcohol intake: current alcohol intake frequency: a few times a week substance use type: denies use current occupational status: retired Travel in the last 8 weeks: None caffeine: Yes Have you lived/traveled outside [place] in past 30 days?: No Contact w/someone who lives/traveled outside US past 30 days?: No Exposure to someone with infectious disease in past 14 days?: No Do you have a fever (greater than 100.4 F or 38 C)?: No Have you tested positive for COVID-19: No Exposed to someone with COVID-19 in past 14 days?: No Do you have a sore throat?: No Do you have a cough?: No Do you have any weakness?: No Are you experiencing any nausea/vomitting?: No Do you have any diarrhea?: No Are you experiencing any unusual bleeding?: No Do you have any muscle aches/pain?: No Do you have any abdominal pain?: No Are you experiencing loss of taste or smell?: No [facility] Anesthesia Checklist Patient Identification Patient Identification: Arm Band and Family Structural Data Admitted From: Home Planned Operative Procedure/s: EGD Consent for Planned Operative Procedure(s) Verified: Yes Verified Documents: Surgical Consent NPO Status Verified Time NPO: 00:00 Additional verifications Patient : No Anesthesia Reactions: No Hx Blood Transfusions: Yes Blood Transfusion Reaction: No Cephalosporin Allergy: No Previous Colonoscopy: Yes Airway Assessment Mallampati Score:: Class II C-Spine Mobility Assessed: Yes TMJ Mobility Assessed: Yes Dentition: Good Dentition Neurological Assessment Level of Consciousness: Awake, Alert, Appropriate and Follows Commands Hx Seizures: No Numbness or tingling in extremities: No Anesthesia Plan Anesthesia Risk discussed: Yes ASA Class: III Anesthesia Type: MAC Preoperative Comments Pre-Operative Comments: History of CABG 2000
[2024-11-21 07:27] VITALS: O2SAT 100
--- NOTE | 2024-11-21 07:38 | P.HP_ITS ---
History of Present Illness *Admission Date: 11/21/24 *Reason for visit:: Iron deficiency anemia with history of peptic ulcer disease *History of present illness: Mr. Lr is a 74-year-old gentleman who is here for diagnostic EGD secondary to iron deficiency anemia and history of peptic ulcer disease. The examination is deemed medically necessary for iron deficiency. The patient has been seen, interviewed and examined prior to the procedure by both myself and the anesthesia provider. [facility] Disclaimer: The information contained in this section may have been updated after the patie nt was seen, as this information can be updated by other users. Medical History (Updated 11/21/24 @ 07:39 by Hernando Phillips II, MD) Hx of cancer of lung Family hx of prostate cancer Hx of testicular cancer Hematuria Acute lower urinary tract infection Swelling of lymph nodes Contusion of rib Cancer Depression Anxiety BPH (benign prostatic hyperplasia) Corneal abrasion Strain of calf muscle Strep throat Contact dermatitis Surgical History History of sentinel lymph node dissection Hx of removal of testicle History of partial gastrectomy History of back surgery History of open heart surgery H/O right heart catheterization Family History Mother Heart disease Social History (Updated 11/21/24 @ 06:46 by Christine Rosales RN) Smoking Status: Former smoker alcohol intake: current alcohol intake frequency: a few times a week substance use type: denies use current occupational status: retired Travel in the last 8 weeks: None caffeine: Yes Have you lived/traveled outside US in past 30 days?: No Contact w/someone who lives/traveled outside [place] past 30 days?: No Exposure to someone with infectious disease in past 14 days?: No Do you have a fever (greater than 100.4 F or 38 C)?: No Have you tested positive for COVID-19: No Exposed to someone with COVID-19 in past 14 days?: No Do you have a sore throat?: No Do you have a cough?: No Do you have any weakness?: No Are you experiencing any nausea/vomitting?: No Do you have any diarrhea?: No Are you experiencing any unusual bleeding?: No Do you have any muscle aches/pain?: No Do you have any abdominal pain?: No Are you experiencing loss of taste or smell?: No Other Medical History Have you received the Flu Vaccine for this season: Yes Have you received the Pneumonia Vaccine: Yes Review of Systems Review of Systems Review of systems (narrative): Negative *Cardiovascular Comments: Negative *Gastrointestinal Comments: Negative *Genitourinary Comments: Negative *Musculoskeletal Comments: Negative *Neurologic Comments: Negative Meds Home Medications and Allergies Home Medications ?Medication ?Instructions ?Recorded ?Confirmed ?Type atorvastatin 80 mg tablet 40 mg PO DAILY Cholesterol 06/10/21 11/21/24 History citalopram 40 mg tablet 40 mg PO DAILY . 06/10/21 11/19/24 History bupropion HCl 75 mg tablet 150 mg PO DAILY . 10/29/24 11/19/24 History famotidine 40 mg tablet 40 mg PO DAILY 10/29/24 11/19/24 History ferrous gluconate 324 mg (38 mg 324 mg PO DAILY 10/29/24 11/19/24 History iron) tablet New Prescriptions to Start Prescriptions: Allergies Allergy/AdvReac Type Severity Reaction Status Date / Time bacitracin (From NEOSPORIN Allergy Intermediate I-RASH Verified 11/21/24 06:45 ([id number])) neomycin (From NEOSPORIN Allergy Intermediate I-RASH Verified 11/21/24 06:45 ([id number])) polymyxin B (From NEOSPORIN Allergy Intermediate I-RASH Verified 11/21/24 06:45 ([id number])) Exam Data for Last 24 hours Vital signs and Labs for Last 24 Hours: Temp Pulse Resp BP Pulse Ox O2 Del Method O2 Flow Rate 97.5 F L 49 L 18 95/54 L 95 Nasal Cannula 5 11/21/24 06:41 11/21/24 06:41 11/21/24 06:41 11/21/24 06:41 11/21/24 06:41 11/21/24 07:27 11/21/24 07:27 I & O for Last 24 hours: Intake & Output 11/18/24 11/19/24 11/20/24 11/21/24 23:59 23:59 23:59 23:59 Weight 170 lb *Routine HEENT Exam Head: Present normocephalic Eye: Present EOMI and PERRL ENT: Present mucous membranes moist *Routine Neck Exam Neck: Present supple *Routine Respiratory Exam Respiratory: Present CTA bilaterally *Routine Cardiovascular Exam Cardiovascular: Present RRR *Routine Abdominal Exam Abdominal: Present soft and normoactive bowel sounds; Absent tenderness *Routine Rectal Exam Rectal:: deferred *Routine Genitalia Exam Genitalia:: deferred *Routine Extremities Exam Extremities: Absent cyanosis, clubbing or edema *Routine Skin Exam Skin: Present warm; Absent rash *Routine Neurological Exam Neurological: Present alert and oriented X3 Assessment and Plan *Assessment and plan (1) Iron deficiency anemia: Status: Acute Category: Medical Code(s): D50.9 - Iron deficiency anemia, unspecified (2) senior living (current) use of non-steroidal anti-inflammatories (nsaid): Status: Acute Category: Medical Code(s): Z79.1 - senior living (current) use of non-steroidal anti-inflammatories (NSAID) (3) History of gastric ulcer: Status: Acute Category: Medical Code(s): Z87.11 - Personal history of peptic ulcer disease (4) GERD (gastroesophageal reflux disease): Status: Acute Category: Medical Code(s): K21.9 - Gastro-esophageal reflux disease without esophagitis Plan A/P: 1. Iron deficiency anemia with history of gastric ulcer and GERD is the preprocedural diagnosis. The patient will be anesthetized/sedated using MAC sedation. The patient has been seen and examined. Cardiac and lung assessment prior to the examination is stable. Proceed with planned diagnostic EGD
--- NOTE | 2024-11-21 07:40 | HMH.PROCNOTE ---
[facility] Procedure Note Date: 11/21/24 Time: 07:46 Procedure Note:: Upper Endoscopy Procedure Report: Esophagogastroduodenoscopy with cold biopsies Endoscopost: Hernando Phillips II, MD Referring Physician: Rita Scott MD Date of Procedure: November 21, 2024 Equipment: Olympus GIF 190 standard upper endoscope Sedation: MAC sedation Indications: Mr. Lr is a 74-year-old gentleman who is here for diagnostic upper endoscopy secondary to iron deficiency anemia. The patient did have a perforated gastric ulcer in the and had antrectomy. The patient has had dyspnea on exertion and fatigue. He does take naproxen but not daily and uses this less than once weekly. His recent iron levels were low with ferritin 10.8 and iron saturation of 7%. His hemoglobin dropped from 9.6 to 7.8. The patient reports no abdominal pain. He does have GERD. He did have panendoscopy done at the [facility] last spring or summer. He did have a few colonic polyps. They were unable to complete the EGD because of retained gastric food content. He does get some postprandial nausea and fullness and early satiety. He does take famotidine 40 mg at night. He also has some chronic intermittent constipation. Procedure: Prior to the procedure, a history and physical exam was performed, and patient's medications and allergies were reviewed. The risks, benefits and alternatives of the sedation and procedure were discussed with the patient. All questions were answered and informed consent was obtained. The patient was brought to the procedure room. Patient identification and proposed procedure were verified by the physician and the nurse. The patient was placed in a left lateral decubitus position and the scope was passed under direct vision. Throughout the procedure, the patient's blood pressure, pulse, and oxygen saturations were monitored continuously. The upper GI endoscopy was accomplished without difficulty. The patient tolerated the procedure well. Findings: The scope was passed directly into the upper esophagus and advanced to the third portion of the duodenum. The post bulbar duodenum and duodenal bulb were normal with normal mucosa and conniventes. There was mild duodenal lymphoid stasis. The scope was withdrawn through a normal duodenal bulb into the stomach. There was evidence of prior antrectomy. There was mild distal gastropathy of the body of the stomach. There was also a lot of retained solid food content in the stomach suggestive of gastric dysmotility. Upon retroflexion there was a 2 to 3 cm hiatal hernia without Yunier's erosions. The scope was then withdrawn into the esophagus. There was no evidence of reflux esophagitis or Valdovinos's. Biopsies were taken from the GE junction. There were tertiary contractions and evidence of mild esophageal dysmotility. The remainder of the esophageal mucosa was normal. Impression: 1. Nonerosive GERD with moderate esophageal dysmotility and small 2 to 3 cm hiatal hernia 2. Prior antrectomy with evidence of mild reactive gastropathy and gastric dysmotility (retained gastric food content) Plan: There was no etiology for the patient's iron deficiency anemia. I would recommend Hemoccult testing. I would also consider parenteral iron infusion. I will follow-up the biopsies. I do feel that this may be related to prior naproxen use and Excedrin. I will discuss the findings with the patient and family. I would recommend routine MiraLAX plus Metamucil daily as well.
[2024-11-21 07:52] VITALS: BP 91/49; PULSE 46; RESP 18; TEMP 36.3; O2SAT 95
[2024-11-21 08:02] VITALS: BP 97/53; PULSE 45; RESP 18; O2SAT 96
[2024-11-21 08:12] VITALS: BP 101/59; PULSE 74; RESP 18; O2SAT 97
[2024-11-21 08:22] VITALS: BP 106/61; PULSE 46; RESP 18; TEMP 36.3; O2SAT 98
== END 2024-11-21 08:33 | disposition home or self-care (01) ==
PROVIDERS: Visit Provider Internal Medicine Gastroenterology
PROC: 0DJ08ZZ Inspection of Upper Intestinal Tract, Via Natural or Artificial Opening Endoscopic (ICD-10-PCS; CPT 43239; principal; 2024-11-21 07:30)
DX: D50.9 Iron deficiency anemia, unspecified (principal); Z87.11 Personal history of peptic ulcer disease; K21.9 Gastro-esophageal reflux disease without esophagitis; K22.4 Dyskinesia of esophagus; K44.9 Diaphragmatic hernia without obstruction or gangrene; K31.9 Disease of stomach and duodenum, unspecified; K31.5 Obstruction of duodenum
CPT/HCPCS: 43239; J7120

== ENCOUNTER 2024-12-04 11:59 | Outpatient (CLI) | payer MEDICARE, OTHER, SELFPAY ==
[2024-12-04 12:11] VITALS: BP 110/56; PULSE 55; RESP 16; TEMP 36.8; O2SAT 98
[2024-12-04] MEDS: SODIUM CHLORIDE 0.9% 10ML FLUSH SYRINGE 10 ML IV (12:11)
[2024-12-04] MEDS: IRON SUCROSE COMPLEX 300 MG in 0.9 % SODIUM CHLORIDE 250 ML 176.667 MG IV (12:11)
[2024-12-04] MEDS: SODIUM CHLORIDE 0.9% 50ML BAG 50 ML IV (12:11)
[2024-12-04 12:40] VITALS: BP 123/59; PULSE 52; RESP 14; O2SAT 98
[2024-12-04 13:10] VITALS: BP 129/64; PULSE 58; RESP 14; O2SAT 97
[2024-12-04 13:45] VITALS: BP 121/70; PULSE 50; RESP 16; TEMP 36.7; O2SAT 98
== END 2024-12-04 13:50 | disposition home or self-care (01) ==
LOC: INF 12:00
PROVIDERS: PCP Family Medicine; Visit Provider Internal Medicine Gastroenterology
DX: D50.9 Iron deficiency anemia, unspecified (principal)
CPT/HCPCS: 96365; J1756

== ENCOUNTER 2024-12-18 12:31 | Outpatient (CLI) | payer MEDICARE, OTHER, SELFPAY ==
--- OUTSIDE RECORDS SUMMARY | 2024-12-18 12:33 | XMS_ITS ---
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 This section includes the names of all active insurance providers for the patient. Insurance Provider Type of Coverage Plan Name Start of Policy Coverage End of Policy Coverage Group Number Member ID Insurance Provider's Telephone Number Policy Tariq's Name Patient's Relationship to Policy Tariq [facility] [place] ([facility]U[place]ARD) PREFERRED PROVIDER ORGANIZAT ION (PPO) TOYOT A [employer]OR [employer] AC Sep 05, 2014 [id number] [place] BUSTAMANTE PATIENT [employer] ([id number]) PRESCRIPT ION TMMK ACTIV E PPO Sep 05, 2014 [place] [id number] [phone] [place] BUSTAMANTE PATIENT INGENIO RX PRESCRIPT ION NONE* Sep 05, 2014 NONE [id number] [place] BUSTAM[place]TE PATIENT MEDICARE (WNR) MEDICARE (M) PART A Apr 05, 2015 PART A [id number] [phone] [place] BUSTAM[place]TE PATIENT MEDICARE (WNR) MEDICARE (M) PART B Apr 05, 2015 PART B [id number] [facility] DIANNACHARLOTTE Galo PATIENT Selected Encounter This section includes the information on record at [place] for the Encounter. Date/Time Encounter Type Encounter Description Reason Provider Source Nov 30, 2024 12:30 PM EVOKED AUDITORY TST COMPLETE AUDIOLOGY ICD-10-CM H90.3 Sensorineural hearing loss, bilateral MARIELY DENNISON IHE Encounter Template Text not used by [place] Assessments - Encounter Diagnoses This section includes the primary and secondary diagnoses documented for the Encounter. Date/Time Primary/Secondary Diagnosis Diagnosis Name Provider Source Nov 30, 2024 01:23 PM PRIMARY Sensorineural hearing loss, bilateral KIKI ZULETA [facility] Plan of Treatment: Future Appointments (+ 6 months) and Future Tests (+/- 45 days) The Plan of Treatment section includes future care activities for the [facility] [place] [facility] This section includes future appointments and future orders which are active, pending or scheduled. Future Appointments This section includes appointments that were scheduled to occur 6 months from the date of the Encounter, up to a maximum of 20 appointments. The data comes from all [facility]. Appointment Date/Time Appointment Type Appointme nt Facility Name Dec 05, 2024 09:00 AM [facility] Dec 19, 2024 02:00 PM [facility] Dec 27, 2024 07:30 AM [facility] Active, Pending, and Scheduled Orders This section includes a listing of several types of active, pending, and scheduled orders, including clinic medications orders, diagnostic test orders, procedure orders and consult orders; where the start date of the order is 45 days before the date of the Encounter or 45 days after the date of theEncounter. The data comes from all [facility]. Test Date/Time Test Type Test Details Facility Name Nov 30, 2024 01:30 PM Consult Order ENT HEARING LOSS OUTPATIENT Cons Supervisor [employer] [facility] Dec 05, 2024 09:30 AM Procedure Order CP WIRELESS CAPSULE CP WIRELESS CAPSULE Proc Supervisor [employer] [facility] Dec 13, 2024 01:47 PM Consult Order MED CARDIOLOGY OUTPATIENT Cons Supervisor [employer] [facility] Dec 14, 2024 01:23 PM Consult Order MED GASTROENTEROLOGY OUTPATIENT Cons Supervisor [employer] [facility] Dec 27, 2024 07:30 AM Imaging - CT Scan Order CT CHEST W/CONTRAST [facility] Lab Results: +/- 30 days of the encounter This section includes the Chemistry and Hematology Lab Results on record with [place] for the patient. Radiology Reports and Pathology Reports are provided separately, in subsequent sections. Lab Results This section contains the Chemistry/Hematology Results that were resulted 30 days before or 30 daysafter the date of the Encounter. Date/Time Source Result Type Result - Unit Interpretation Reference Range Specimen Type Comment Nov 06, 2024 03:32 PM [facility] WN TRANSFERRIN SERUM Specimen Type: SERUM No comment entered. Ordering Provider: BLAYNE SANDHU Report Released Date/Time: Nov 06, 2024 02:56 PM Reporting Lab: [facility] [address] [facility] [id number] Performing Lab: [facility] [address] [place] [id number] TRANSFERRIN 386 mg/dL H 177-329 Nov 06, 2024 03:32 PM [facility] FOLATE PLASMA Specimen Type: PLASM A Comment: Estimated Glomerular Filtration Rate (eGFR) calculated using the 2020 Chronic Kidney Disease-Epidemiology (CKD-EPI) Collaboration creatinine equation; units of measure are mL/min/1.73 m2. Results are only valid for adults (>=18 years) whose serum creatinine is in a steady state. eGFR calculations are not valid for patients with acute kidney injury and for patients on dialysis. Creatinine-based estimates of kidney function may also be inaccurate in patients with reduced creatinine generation due to decreased muscle mass (e.g., malnutrition, severe hypoalbuminemia, sarcopenia, chronic neuromuscular disease, amputations, severe heart failure or liver disease) and in patients with increased creatinine generation due to increased muscle mass (e.g., muscle builders, anabolic steroids) or increased dietary intake. As drug clearance is proportional to total GFR and not GFR indexed to body surface area (BSA), in individuals with a BSA substantially different than 1.73 m2, drug dosing should be based on the reported eGFR value de-indexed from BSA by multiplying by the individual's BSA and dividing by 1.73. CKD is diagnosed based on abnormalities of kidney structure or function, present for >3 months, with implications for health and disease. CKD is classified and staged based on cause, eGFR and albuminuria (quantified as urine albumin to creatinine ratio). An eGFR >60 mL/min/1.73 m2 in the absence of increased urine albumin excretion or structural abnormalities does not represent CKD. eGFR CKD Interpretation (mL/min/1.73 m2) stage >=90 G1 Normal 60-89 G2 Mild decrease 45-59 G3A Mild to moderate decrease 30-44 G3B Moderate to severe decrease 15-29 G4 Severe decrease <15 G5 Kidney failure Ordering Provider: BLAYNE SANDHU Report Released Date/Time: Nov 06, 2024 02:56 PM Reporting Lab: [address] [phone] Performing Lab: [address] [phone] FOLATE 8.2 ng/mL 7.0-31.4 Nov 06, 2024 03:32 PM [facility] IR[facility]/TIBC PLASMA Specimen Type: PLASM A Comment: Estimated Glomerular Filtration Rate (eGFR) calculated using the 2020 Chronic Kidney Disease-Epidemiology (CKD-EPI) Collaboration creatinine equation; units of measure are mL/min/1.73 m2. Results are only valid for adults (>=18 years) whose serum creatinine is in a steady state. eGFR calculations are not valid for patients with acute kidney injury and for patients on dialysis. Creatinine-based estimates of kidney function may also be inaccurate in patients with reduced creatinine generation due to decreased muscle mass (e.g., malnutrition, severe hypoalbuminemia, sarcopenia, chronic neuromuscular disease, amputations, severe heart failure or liver disease) and in patients with increased creatinine generation due to increased muscle mass (e.g., muscle builders, anabolic steroids) or increased dietary intake. As drug clearance is proportional to total GFR and not GFR indexed to body surface area (BSA), in individuals with a BSA substantially different than 1.73 m2, drug dosing should be based on the reported eGFR value de-indexed from BSA by multiplying by the individual's BSA and dividing by 1.73. CKD is diagnosed based on abnormalities of kidney structure or function, present for >3 months, with implications for health and disease. CKD is classified and staged based on cause, eGFR and albuminuria (quantified as urine albumin to creatinine ratio). An eGFR >60 mL/min/1.73 m2 in the absence of increased urine albumin excretion or structural abnormalities does not represent CKD. eGFR CKD Interpretation (mL/min/1.73 m2) stage >=90 G1 Normal 60-89 G2 Mild decrease 45-59 G3A Mild to moderate decrease 30-44 G3B Moderate to severe decrease 15-29 G4 Severe decrease <15 G5 Kidney failure Ordering Provider: BLAYNE SANDHU Report Released Date/Time: Nov 06, 2024 02:56 PM Reporting Lab: [address] [phone] Performing Lab: [address] [address] IRON 358 ug/dL H 65-175 TIBC 433 mg/dL H 250-425 IRON SATURATION 83 H 20-50 Nov 06, 2024 03:32 PM [facility] FERRITIN PLASMA Specimen Type: PLASM A Comment: Estimated Glomerular Filtration Rate (eGFR) calculated using the 2020 Chronic Kidney Disease-Epidemiology (CKD-EPI) Collaboration creatinine equation; units of measure are mL/min/1.73 m2. Results are only valid for adults (>=18 years) whose serum creatinine is in a steady state. eGFR calculations are not valid for patients with acute kidney injury and for patients on dialysis. Creatinine-based estimates of kidney function may also be inaccurate in patients with reduced creatinine generation due to decreased muscle mass (e.g., malnutrition, severe hypoalbuminemia, sarcopenia, chronic neuromuscular disease, amputations, severe heart failure or liver disease) and in patients with increased creatinine generation due to increased muscle mass (e.g., muscle builders, anabolic steroids) or increased dietary intake. As drug clearance is proportional to total GFR and not GFR indexed to body surface area (BSA), in individuals with a BSA substantially different than 1.73 m2, drug dosing should be based on the reported eGFR value de-indexed from BSA by multiplying by the individual's BSA and dividing by 1.73. CKD is diagnosed based on abnormalities of kidney structure or function, present for >3 months, with implications for health and disease. CKD is classified and staged based on cause, eGFR and albuminuria (quantified as urine albumin to creatinine ratio). An eGFR >60 mL/min/1.73 m2 in the absence of increased urine albumin excretion or structural abnormalities does not represent CKD. eGFR CKD Interpretation (mL/min/1.73 m2) stage >=90 G1 Normal 60-89 G2 Mild decrease 45-59 G3A Mild to moderate decrease 30-44 G3B Moderate to severe decrease 15-29 G4 Severe decrease <15 G5 Kidney failure Ordering Provider: BLAYNE SANDHU Report Released Date/Time: Nov 06, 2024 02:56 PM Reporting Lab: [address] [address] Performing Lab: [address] [address] FERRITIN 15.7 ng/mL L 21.8-274.7 Nov 06, 2024 03:32 PM [facility] CBC/PLT BLOOD Specimen Type: BLOOD No comment entered. Ordering Provider: BLAYNE SANDHU Report Released Date/Time: Nov 06, 2024 02:56 PM Reporting Lab: [address] [address] Performing Lab: [address] [address] WBC 8.3 10*3/uL 5.0-10.0 RBC 3.81 10*6/uL L 4.6-6.2 HGB 9.1 g/dL L 14.0-18.0 HCT 30.9 L 42.0-52.0 MCV 81.1 fL 80.0-94.0 MCH 23.9 pg L 27.0-31.0 MCHC 29.4 g/dL L 32.0-36.0 PLT 215 10*3/uL 150-450 MPV 9.7 fL 9.0-13.1 RDW 19.0 H 11.0-16.0 NRBC 0.0 0.0-0.0 Nov 06, 2024 03:32 PM [facility] PAN[facility] 5 PLASMA Specimen Type: PLASM A Comment: Estimated Glomerular Filtration Rate (eGFR) calculated using the 2020 Chronic Kidney Disease-Epidemiology (CKD-EPI) Collaboration creatinine equation; units of measure are mL/min/1.73 m2. Results are only valid for adults (>=18 years) whose serum creatinine is in a steady state. eGFR calculations are not valid for patients with acute kidney injury and for patients on dialysis. Creatinine-based estimates of kidney function may also be inaccurate in patients with reduced creatinine generation due to decreased muscle mass (e.g., malnutrition, severe hypoalbuminemia, sarcopenia, chronic neuromuscular disease, amputations, severe heart failure or liver disease) and in patients with increased creatinine generation due to increased muscle mass (e.g., muscle builders, anabolic steroids) or increased dietary intake. As drug clearance is proportional to total GFR and not GFR indexed to body surface area (BSA), in individuals with a BSA substantially different than 1.73 m2, drug dosing should be based on the reported eGFR value de-indexed from BSA by multiplying by the individual's BSA and dividing by 1.73. CKD is diagnosed based on abnormalities of kidney structure or function, present for >3 months, with implications for health and disease. CKD is classified and staged based on cause, eGFR and albuminuria (quantified as urine albumin to creatinine ratio). An eGFR >60 mL/min/1.73 m2 in the absence of increased urine albumin excretion or structural abnormalities does not represent CKD. eGFR CKD Interpretation (mL/min/1.73 m2) stage >=90 G1 Normal 60-89 G2 Mild decrease 45-59 G3A Mild to moderate decrease 30-44 G3B Moderate to severe decrease 15-29 G4 Severe decrease <15 G5 Kidney failure Ordering Provider: BLAYNE SANDHU Report Released Date/Time: Nov 06, 2024 02:56 PM Reporting Lab: [address] [address] Performing Lab: [address] [address] CREATININE 0.93 mg/dL 0.72-1.25 UREA NITROGEN 17 mg/dL 9-25 GLUCOSE 89 mg/dL 74-100 SODIUM 140 mmol/L 136-145 POTASSIUM 4.3 mmol/L 3.5-5.1 CHLORIDE 108 mmol/L H 98-107 CO2 22 mmol/L 22-29 CALCIUM 10.1 mg/dL 8.4-10.2 TOTAL PROTEIN 7.6 g/dL 6.4-8.3 ALBUMIN 3.9 g/dL 3.5-5.2 TOTAL BILIRUBIN 0.5 mg/dL 0.2-1.2 AST 15 U/L 5-34 ALT 14 U/L 0-55 ANION GAP 10 meq/L 3-19 ALK PHOS 105 U/L 40-150 eGFR (CKD-EPI) 86 Nov 06, 2024 03:32 PM [facility] AUTOMATED DIFF BLOOD Specimen Type: BLOOD No comment entered. Ordering Provider: BLAYNE SANDHU Report Released Date/Time: Nov 06, 2024 02:56 PM Reporting Lab: [address] [address] Performing Lab: [address] [address] A-LYMPH % 25.2 24.0-44.0 A-MONO % 9.4 H 0.1-6.0 A-GRAN % 60.4 42.0-75.0 A-LYMPH # 2.10 10*3/uL 1.20-3.40 A-MONO # 0.78 10*3/uL H 0.00-0.60 A-GRAN # 5.03 10*3/uL 1.40-6.50 A-BASO % 0.8 0.0-3.0 A-BASO # 0.07 10*3/uL 0.00-0.20 A-EOS % 3.8 0.0-10.0 A-EOS # 0.32 10*3/uL 0.00-0.70 A-IG % 0.4 0.0-0.5 A-IG # 0.03 10*3/uL 0.00-0.06 Social History: Smoking Status (Most current) and Tobacco Use (All prior to encounter date) This section includes the most current, and the historical, smoking and tobacco- related health factors from the [place] facility where the Encounter took place. Current Smoking Status This section includes the most current smoking, or tobacco-related health factor, from the [place] facility where the Encounter took place. Date/Time Current Smoking Status Comment Henry ity Nov 06, 2024 02:30 PM VA-TOBACCO NEVER U SED OTHER TYPE [facility] Tobacco Use History This section includes a history of the smoking, or tobacco-related health factors, that were collected on or before the date of the Encounter. The data comes from the [place] facility where the Encounter took place. Date/Time Smoking Status/Tobacco Use Comment Mary cid Nov 06, 2024 02:30 PM VA-TOBACCO USE FOR CASTRO CIGARETTES [facility] Jun 11, 2022 08:30 AM VA-TOBACCO FORMER USER [facility] Jun 11, 2022 08:30 AM VA-TOBACCO QUIT 15 YRS OR MORE [facility] Jun 17, 2021 09:30 AM VA-TOBACCO FORMER USER [facility] Jun 17, 2021 09:30 AM VA-TOBACCO QUIT 15 YRS OR MORE [facility] Sep 20, 2019 08:27 AM VA-TOBACCO FORMER USER [facility] Sep 20, 2019 08:27 AM VA-TOBACCO QUIT 15 YRS OR MORE [facility] Feb 17, 2018 08:09 AM V9 LIFETIME NON-USER OF TOBACCO [facility] Feb 16, 2017 10:14 AM V9 QUIT TOBACCO >7 YEARS AGO [facility] Dec 05, 2015 08:59 AM V9 LIFETIME NON-USER OF TOBACCO [facility] January 03, 2015 08:38 AM V9 QUIT TOBACCO >7 YEARS AGO [facility] Dec 31, 2013 09:49 AM V9 QUIT TOBACCO >7 YEARS AGO [facility] Nov 27, 2012 09:16 AM V9 QUIT TOBACCO >7 YEARS AGO [facility] Oct 12, 2011 09:04 AM V9 QUIT TOBACCO >7 YEARS AGO [facility] Encounter Notes: All associated encounter notes This section contains the clinical notes associated to the Encounter. Date/Time Encounter Note(s) Provider Source Nov 30, 2024 01:12 PM AUDIOLOGY E & M NO TE: LOCAL TITLE: AUDIOLOGICAL EVALUATION NOTE STANDARD TITLE: AUDIOLOGY E & M NOTE DATE OF NOTE: NOV 30, 2024@13:12 ENTRY DATE: NOV 30, 2024@13:13:02 AUTHOR: MARIE ZULETA COSIGNER: MARIELY DENNISON URGENCY: STATUS: COMPLETED AUDIOLOGICAL EVALUATION NOTE Has ADDENDA S: [place] requested evaluation of their hearing and consideration for amplification. The reported that he has noticed a gradual decline in hearing bilaterally over the past several years and that his right ear is better than his left. The is new to Audiology -Previous hearing aid use: Denied -Family Hx. of HL: Denied -Tinnitus: Occasional bilateral ringing/crickets -Dizziness/Vertigo: Denied -Ear Infection/Surgery: Denied -Sinus/Allergies: Denied -Head Trauma: About 10 years ago passed out at work, fell, and hit his head. No diagnosis of TBI or concussion but reported needing 17 kanwal in scalp. 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 Tympanograms: right ear: Type A left ear: Type A Ipsilateral Acoustic Reflexes right ear: 500Hz - 85 1000Hz - 85 2000Hz - 85 4000Hz - 95 left ear: 500Hz - 105+ 1000Hz - 95 2000Hz - 100 4000Hz - 85 DPOAEs (12 frequency; .5-10kHz) right ear: Present .5-3kHz left ear: Absent .5-10kHz SRT: right ear: 15 dBHL left ear: 20 dBHL Pure tone threshold range right ear: 5-70 dBHL left ear: 10-80 dBHL Word recognition testing right ear: 96% @ 65 dBHL left ear: 96% @ 65 dBHL SEE AUDIOGRAM DISPLAY IN TOOL BAR FOR FULL AUDIOMETRIC DATA. A: Comprehensive pure tone air/bone conduction test results revealed a bilateral sensory hearing loss beginning at 2kHz and whose degree impairment was mild to severe. Word recognition scores were excellent bilaterally. Tympanograms were within normal limits bilaterally. There is a 10-20 dBHL asymmetry from 2-8kHz; left ear worse. The results of the evaluation were discussed with the . The was educated and has adequate knowledge about his type and degree of hearing loss and its impact on communication. Communication strategies were discussed. The benefits/limitations of amplification were discussed. The meets [place] Central Office Criteria for amplification. It was recommended the be evaluated by ENT prior to pursuing binaural amplification due to the high-frequency asymmetry. The agreed. P: ENT consult entered. Once is medically cleared by ENT for binaural amplification, he will call to schedule a 30-minute hearing aid discussion with [facility]. [place] was advised to wear hearing protection when exposed to high levels of noise. I have seen and evaluated this patient with Dr. Mariely Dennison who agrees with the assessment and plan above. /saji/ MARIE ZULETA AUDIOLOGY ANIMAL CARE ASSISTANT Signed: 11/30/2024 13:38 /saji/ Ariadna Aguilar, [facility]-A Staff Guideman Cosigned: 11/30/2024 13:44 11/30/2024 ADDENDUM STATUS: COMPLETED I discussed this patient with AUD ANIMAL CARE ASSISTANT Marie Zuleta and agree with her assessment and plan. /saji/ Ariadna Aguilar, CCC-A Staff Guideman Signed: 11/30/2024 13:44 MARIE ZULETA [facility]
--- OUTSIDE RECORDS SUMMARY | 2024-12-18 12:33 | XMS_ITS | Encounter Summary ---
Author Name [facility] [place] Organization [place] Address [address] [place] [id number] Care Team Providers Care Installation Service Representative Name Role Phone NIYAH CALLEJAS Primary Care [...] Tariq's Name Patient's Relationship to Policy Tariq [facility] [place] (BLUECARD[place] PREFERRED PROVIDER ORGANIZAT ION (PPO) TOYOT A MOTOR MANUF AC Sep 05, 2014 [id number] [phone] [place] BUSTAMANTE PATIENT EXPRESS SCRIPTS ([id number]) PRESCRIPT ION TMMK ACTIV E PPO Sep 05, 2014 [place] [id number] [phone] [place] BUSTAMANTE PATIENT INGENIO RX PRESCRIPT ION NONE* Sep 05, 2014 NONE [id number] [phone] [place] BUSTAMANTE PATIENT MEDICARE (WNR) MEDICARE (M) PART A Apr 05, 2015 PART A [id number] [place] BUSTAMANTE PATIENT MEDICARE (WNR) MEDICARE (M) PART B Apr 05, 2015 PART B [id number] [facility] [place] BUSTAMANTE PATIENT Selected Encounter This section includes the information on record at [place] for the Encounter. Date/Time Encounter Type Encounter Description Reason Pro vider Source Dec 12, 2024 03:55 PM Outpatient Encounter TELEPHONE PRIMARY CARE IHE Encounter Template Text not used by [place] Plan of Treatment: Future Appointments (+ 6 months) and Future Tests (+/- 45 days) The Plan of Treatment section includes future care activities for the patient from all [place] [facility]. This section includes future appointments and future orders which are active, pending or scheduled. Future Appointments This section includes appointments that were scheduled to occur 6 months from the date of the Encounter, up to a maximum of 20 appointments. The data comes from all [facility] facilities. Appointment Date/Time Appointment Type Appointme nt Facility Name Dec 19, 2024 02:00 PM [facility] Dec 27, 2024 07:30 AM [facility] [facility] Active, Pending, and Scheduled Orders This section includes a listing of several types of active, pending, and scheduled orders, including clinic medications orders, diagnostic test orders, procedure orders and consult orders; where the start date of the order is 45 days before the date of the Encounter or 45 days after the date of theEncounter. The data comes from all [facility]. Test Date/Time Test Type Test Details Facility Name Nov 30, 2024 01:30 PM Consult Order ENT HEARING LOSS OUTPATIENT Cons Lump Room Supervisor's Choice [facility] Dec 05, 2024 09:30 AM Procedure Order CP WIRELESS CAPSULE CP WIRELESS CAPSULE Proc Lump Room Supervisor's Choice [facility] Dec 13, 2024 01:47 PM Consult Order MED CARDIOLOGY OUTPATIENT Cons Lump Room Supervisor's Choice [facility] Dec 14, 2024 01:23 PM Consult Order MED GASTROENTEROLOGY OUTPATIENT Cons Lump Room Supervisor's Choice [facility] Dec 27, 2024 07:30 AM Imaging - CT Scan Order CT CHEST W/CONTRAST [facility] Social History: Smoking Status (Most current) and Tobacco Use (All prior to encounter date) This section includes the most current, and the historical, smoking and tobacco- related health factors from the [place] facility where the Encounter took place. Current Smoking Status This section includes the most current smoking, or tobacco-related health factor, from the [place] facility where the Encounter took place. Date/Time Current Smoking Status Comment Henry ko Nov 06, 2024 02:30 PM VA-TOBACCO NEVER U SED OTHER TYPE [facility] Tobacco Use History This section includes a history of the smoking, or tobacco-related health factors, that were collected on or before the date of the Encounter. The data comes from the [place] facility where the Encounter took place. Date/Time Smoking Status/Tobacco Use Comment Mary cid Nov 06, 2024 02:30 PM VA-TOBACCO USE FOR CASTRO CIGARETTES [facility] Jun 11, 2022 08:30 AM VA-TOBACCO FORMER USER [facility] Jun 11, 2022 08:30 AM VA-TOBACCO QUIT 15 YRS OR MORE [facility] Jun 17, 2021 09:30 AM VA-TOBACCO FORMER USER [facility] Jun 17, 2021 09:30 AM VA-TOBACCO QUIT 15 YRS OR MORE [facility] Sep 20, 2019 08:27 AM VA-TOBACCO FORMER USER [facility] Sep 20, 2019 08:27 AM VA-TOBACCO QUIT 15 YRS OR MORE [facility] Feb 17, 2018 08:09 AM V9 LIFETIME NON-USER OF TOBACCO [facility] Feb 16, 2017 10:14 AM V9 QUIT TOBACCO >7 YEARS AGO [facility] Dec 05, 2015 08:59 AM V9 LIFETIME NON-USER OF TOBACCO [facility] January 03, 2015 08:38 AM V9 QUIT TOBACCO >7 YEARS AGO [facility] Dec 31, 2013 09:49 AM V9 QUIT TOBACCO >7 YEARS AGO [facility] Nov 27, 2012 09:16 AM V9 QUIT TOBACCO >7 YEARS AGO [facility] Oct 12, 2011 09:04 AM V9 QUIT TOBACCO >7 YEARS AGO [facility] Encounter Notes: All associated encounter notes This section contains the clinical notes associated to the Encounter. Date/Time Encounter Note(s) Provider Source Dec 12, 2024 03:55 PM PRIMARY CARE ADMINISTRATIVE NOTE: LOCAL TITLE: PC ADMINISTRATIVE NOTE STANDARD TITLE: PRIMARY CARE ADMINISTRATIVE NOTE DATE OF NOTE: DEC 12, 2024@15:55 ENTRY DATE: DEC 12, 2024@15:56:06 AUTHOR: FUAD CORDERO EXP COSIGNER: URGENCY: STATUS: COMPLETED Attempted to call , NO answer, NO voicemail. VOICEMAIL BOX NOT SET UP /es/ TARIK ANDREWS,RN PC HEALTH CARE SPECIALIST Signed: 12/12/2024 15:56 FUAD CORDERO [facility]
--- OUTSIDE RECORDS SUMMARY | 2024-12-18 12:33 | XMS_ITS | Encounter Summary ---
Author Name [facility] [place] [facility] [place] Address [address] [place] [address] Care Team Providers Care Ssn/Ssbn Assistant Navigator Name Role Phone NIYAH CALLEJAS Primary Care [...] Tariq's Name Patient's Relationship to Policy Tariq [facility] [place] ([place]ARD[place] PREFERRED PROVIDER ORGANIZAT ION (PPO) SUMEETOT A MOTOR MANUF AC Sep 05, 2014 [id number] [phone] [place] PATIENT EXPRESS SCRIPTS ([id number]) PRESCRIPT ION TMMK ACTIV E PPO Sep 05, 2014 [place] [id number] [place] PATIENT INGENIO RX PRESCRIPT ION NONE* Sep 05, 2014 NONE [id number] [place] LR PATIENT MEDICARE (WNR) MEDICARE (M) PART A Apr 05, 2015 PART A [id number] [phone] [place] PATIENT MEDICARE (WNR) MEDICARE (M) PART B Apr 05, 2015 PART B [id number] [place]TE [place] PATIENT Selected Encounter This section includes the information on record at [place] for the Encounter. Date/Time Encounter Type Encounter Description Reason Provider Source January 27, 2024 10:45 AM INTRM OPH EXAM NEW PATIENT OPHTHALMOLOGY ICD-10-CM H40.1112 Primary open-angle glaucoma, right eye, moderate stage REMBERTO SALCEDO IHE Encounter Template Text not used by [facility] Assessments - Encounter Diagnoses This section includes the primary and secondary diagnoses documented for the Encounter. Date/Time Primary/Secondary Diagnosis Diagnosis Name Provider Source January 27, 2024 01:11 PM PRIMARY Primary open-angle glaucoma, right eye, moderate stage SARA KABA [facility] Plan of Treatment: Future Appointments (+ 6 months) and Future Tests (+/- 45 days) The Plan of Treatment section includes future care activities for the patient from all [place] treatmentfacilities. This section includes future appointments and future orders which are active, pending or scheduled. Future Appointments This section includes appointments that were scheduled to occur 6 months from the date of the Encounter, up to a maximum of 20 appointments. The data comes from all [place] treatment facilities. Appointment Date/Time Appointment Type Appointme nt Facility Name May 08, 2024 11:30 AM AMBULATORY - MEDICINE [facility] Social History: Smoking Status (Most current) and Tobacco Use (All prior to encounter date) This section includes the most current, and the historical, smoking and tobacco- related health factors from the [place] facility where the Encounter took place. Current Smoking Status This section includes the most current smoking, or tobacco-related health factor, from the [place] facility where the Encounter took place. Date/Time Current Smoking Status Comment Henry ko Sep 08, 2023 09:30 AM VA-TOBACCO NEVER USED [facility] Tobacco Use History This section includes a history of the smoking, or tobacco-related health factors, that were collected on or before the date of the Encounter. The data comes from the [place] facility where the Encounter took place. Date/Time Smoking Status/Tobacco Use Comment F acility Dec 12, 2006 07:57 AM V9 LIFETIME NON-US ER OF TOBACCO [facility] Aug 21, 2004 09:09 AM HF V9 CURRENT NON-SMOKER quit smoking 5 yrs ago [facility] May 28, 2003 10:30 AM HF V9 CURRENT NON-SMOKER quit 5 years ago [place] Jun 23, 2001 08:08 AM HF V9 CURRENT NON-SMOKER quit 1 1/2year ago [place] Encounter Notes: All associated encounter notes This section contains the clinical notes associated to the Encounter. Date/Time Encounter Note(s) Provider Source January 27, 2024 01:04 PM OPHTHALMOLOGY CONS ULT: LOCAL TITLE: OPHTHALMOLOGY CONSULT RESPONSE STANDARD TITLE: OPHTHALMOLOGY CONSULT DATE OF NOTE: JANUARY 27, 2024@13:04 ENTRY DATE: JANUARY 27, 2024@13:04:36 AUTHOR: SARA KABA COSIGNER: REMBERTO SALCEDO URGENCY: STATUS: COMPLETED OPHTHALMOLOGY CONSULT RESPONSE Has ADDENDA Consult for Glaucoma eval Date VA:OD ^ VA:OS IOP Notes 01/27/24 25-2/-- ^ 20-/-- Sub-specialty Specific Hx: Right Eye: # age related NS - not VS. obs # POAG, mild - HVF 10/2023 with SAS - IOP 22 18 on no gtts - RNFL with inf polar thinning OU - plan for SLT OD. 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 Will bring back in one month for slt od. Left Eye: # age related NS - not VS. obs # POAG, mild - HVF 10/2023 with full field - pt intolerant of Lprost. Has been off for three months. - IOP 22 18 on no gtts - RNFL with inf polar thinning OU - plan for SLT OD. 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 Will bring back in one month for slt od. Plan: bring back in one month for slt od F/U: 1 month for slt od * In VA column= without correction * In IOP column= didn't take most recent dose, or otherwise non-adherent In A/P= Not Addressed at this visit /saji/ SARA KABA RESIDENT Signed: 01/27/2024 13:11 /saji/ REMBERTO SALCEDO ATTENDING PHYSICIAN Cosigned: 02/07/2024 08:36 01/31/2024 ADDENDUM STATUS: COMPLETED Johnny Ophthal/Gla/Att1/Cd 02/27/2024@09:15 Future RTC GLAUCOMA ONE MONTH FOR SLT OD PER 01/27/24 RTC ORDERS /saji/ GARFIELD JACKSON Signed: 01/31/2024 13:49 02/15/2024 ADDENDUM STATUS: COMPLETED Johnny Ophthal/Gla/Att1/Cd 02/27/2024@09:15 Cancelled By Clinic Johnny Ophthal/Gla/Att1/Cd 03/26/2024@11:00 Above scheduled with patient on phone per rtc order. /saji/ LUZ CHOE [employer] Agent Signed: 02/15/2024 10:25 [facility] January 27, 2024 10:59 AM OPHTHALMOLOGY NOTE : LOCAL TITLE: OPHTHALMOLOGY NURSE/TECH CLINIC NOTE STANDARD TITLE: OPHTHALMOLOGY NOTE DATE OF NOTE: JANUARY 27, 2024@10:59 ENTRY DATE: JANUARY 27, 2024@10:59:08 AUTHOR: EJ RODRIGUEZ EXP COSIGNER: URGENCY: STATUS: COMPLETED OPHTHALMOLOGY NURSE/TECH CLINIC NOTE Has ADDENDA Consult for Glaucoma eval Date VA:OD ^ VA:OS IOP Notes 01/27/24 25-2/-- ^ 20-/- Sub-specialty Specific Hx: Right Eye: Left Eye: Plan: F/U: * In VA column= without correction * In IOP column= didn't take most recent dose, or otherwise non-adherent In A/P= Not Addressed at this visit /saji/ EJ RODRIGUEZ Ophthalmology tech Signed: 01/27/2024 11:05 01/27/2024 ADDENDUM STATUS: COMPLETED I evaluated Mr. Lr with the glaucoma team and agree with the assessment and plan as detailed in the scanned note. 01/27/24: In brief, a 73 yo phakic gentleman with glaucoma referred for progressive disease and poor tolerance of drops. Endorses trying lprost on several occasions and too much burning to be able to tolerate. No drops in several months. Not yet bothered by vision or interested in CE/IOL. No FH glaucoma, no trauma. Loves to woodwork. IOP 22/18. CCT 594/600. RNFL I<1%, N <5%, avg 65; I<1%, avg 81. HVF 12/28 SAS RE, MD -4.55 with concern for progression; full MD -2.14. Exam as described with 0.9 RE with polar thinning, 0.75/0.8 LE. GOnio with some crowding but good view of SS/PTM x 360 with 2-3 TMP. Discussed and wants to proceed with SLT - will come back with truck driver teamster. CE/IOL with MIGS when ready/needed (discussed). Mod, Mild/Mod OAG R/L Tmax high 20s Intolerant of drops CCT 594/600 Lives in [place] /saji/ REMBERTO SALCEDO ATTENDING PHYSICIAN Signed: 01/27/2024 12:04 EJ RODRIGUEZ-[facility] January 27, 2024 09:36 AM SURGERY SCANNED NO TE: LOCAL TITLE: OPHTHALMOLOGY SCANNING NOTE STANDARD TITLE: SURGERY SCANNED NOTE DATE OF NOTE: JANUARY 27, 2024@09:36 ENTRY DATE: JANUARY 31, 2024@09:36:15 AUTHOR: TRICIA,PEPITO A EXP COSIGNER: URGENCY: STATUS: COMPLETED The scanned document may be viewed in [employer]. /saji/ PEPITO CLARKE [employer]S ENGINEER Signed: 01/31/2024 09:36 PEPITO CLARKE-[facility]
--- OUTSIDE RECORDS SUMMARY | 2024-12-18 12:33 | XMS_ITS | Encounter Summary ---
Author Name [facility] [place] Organization [place] Address [address] [place] [id number] Care Team Providers Care Group Home Supervisor Name Role Phone NIYAH CALLEJAS Primary Care [...] Tariq's Name Patient's Relationship to Policy Tariq BS [place] (BLU[place]ARD) PREFERRED PROVIDER ORGANIZAT ION (PPO) TOYOT A MOTOR MANUF AC Sep 05, 2014 [id number] [phone] [place] BUSTAMANTE PATIENT EXPRESS SCRIPTS ([id number]) PRESCRIPT ION TMMK ACTIV E PPO Sep 05, 2014 [place] [id number] [phone] [place] BUSTAMANTE PATIENT INGENIO RX PRESCRIPT ION NONE* Sep 05, 2014 NONE [id number] [phone] [place] BUSTAMANTE PATIENT MEDICARE (WNR) MEDICARE (M) PART A Apr 05, 2015 PART A [id number] [place] BUSTAMANTE PATIENT MEDICARE (WNR) MEDICARE (M) PART B Apr 05, 2015 PART B [id number] [phone] [place] BUSTAMANTE PATIENT Selected Encounter This section includes the information on record at [place] for the Encounter. Date/Time Encounter Type Encounter Description Reason Pro vider Source Dec 18, 2024 08:34 AM Outpatient Encounter GI ENDOSCOPY IHE Encounter Template Text not used by [place] Plan of Treatment: Future Appointments (+ 6 months) and Future Tests (+/- 45 days) The Plan of Treatment section includes future care activities for the patient from all [place] [facility]. This section includes future appointments and future orders which are active, pending or scheduled. Future Appointments This section includes appointments that were scheduled to occur 6 months from the date of the Encounter, up to a maximum of 20 appointments. The data comes from all [place] treatment facilities. Appointment Date/Time Appointment Type Appointme nt Facility Name Dec 19, 2024 02:00 PM [facility] Dec 27, 2024 07:30 AM [facility] [place] [facility] Active, Pending, and Scheduled Orders This section includes a listing of several types of active, pending, and scheduled orders, including clinic medications orders, diagnostic test orders, procedure orders and consult orders; where the start date of the order is 45 days before the date of the Encounter or 45 days after the date of theEncounter. The data comes from all [facility]. Test Date/Time Test Type Test Details Facility Name Nov 30, 2024 01:30 PM Consult Order ENT HEARING LOSS OUTPATIENT Cons Monomer Recovery Operator's Choice [facility] Dec 05, 2024 09:30 AM Procedure Order CP WIRELESS CAPSULE CP WIRELESS CAPSULE Proc Monomer Recovery Operator's Choice [facility] Dec 13, 2024 01:47 PM Consult Order MED CARDIOLOGY OUTPATIENT Cons Monomer Recovery Operator's Choice [facility] Dec 14, 2024 01:23 PM Consult Order MED GASTROENTEROLOGY OUTPATIENT Cons Monomer Recovery Operator's Choice [facility] Dec 27, 2024 07:30 AM Imaging - CT Scan Order CT CHEST W/CONTRAST [facility] Social History: Smoking Status (Most current) and Tobacco Use (All prior to encounter date) This section includes the most current, and the historical, smoking and tobacco- related health factors from the [place] facility where the Encounter took place. Current Smoking Status This section includes the most current smoking, or tobacco-related health factor, from the [place] facility where the Encounter took place. Date/Time Current Smoking Status Comment Facil ity Sep 08, 2023 09:30 AM VA-TOBACCO NEVER USED [facility] Tobacco Use History This section includes a history of the smoking, or tobacco-related health factors, that were collected on or before the date of the Encounter. The data comes from the [place] facility where the Encounter took place. Date/Time Smoking Status/Tobacco Use Comment F acility Dec 12, 2006 07:57 AM V9 LIFETIME NON-US ER OF TOBACCO [facility] Aug 21, 2004 09:09 AM HF V9 CURRENT NON-SMOKER quit smoking 5 yrs ago [facility] May 28, 2003 10:30 AM HF V9 CURRENT NON-SMOKER quit 5 years ago [facility] Jun 23, 2001 08:08 AM HF V9 CURRENT NON-SMOKER quit 1 1/2year ago [facility] Encounter Notes: All associated encounter notes This section contains the clinical notes associated to the Encounter. Date/Time Encounter Note(s) Provider Source Dec 18, 2024 08:34 AM LETTERS: LOCAL TITLE: SPECIALTY CONTACT LETTER STANDARD TITLE: LETTERS DATE OF NOTE: DEC 18, 2024@08:34 ENTRY DATE: DEC 18, 2024@08:34:20 AUTHOR: DEBBIE JONES COSIGNER: URGENCY: STATUS: COMPLETED [facility] [address] [place] [address] Mr. ANEUDY BUSTAMANTE [address] [place] [address] DEC 18, 2024 Dear ANEUDY BUSTAMANTE, We have been unable to contact you by telephone to schedule an appointment in our Endo Endoscopy clinic. Your health and well-being are important to us. Please call us at or . Select Option #2 and then #3. We look forward to hearing from you soon. Sincerely yours, Endo Endoscopy [facility] DEBBIE JONES [facility]
--- OUTSIDE RECORDS SUMMARY | 2024-12-18 12:34 | XMS_ITS ---
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 Date/Time Encounter Type Encounter Description Reason Pro vider Source Nov 13, 2024 12:18 PM Outpatient Encounter ADMIN PAT ACTIVTIES (MASNONCT) IHE Encounter Template Text not used by OR Plan of Treatment: Future Appointments (+ 6 months) and Future Tests (+/- 45 days) The Plan of Treatment section includes future care activities for the [facility] This section includes future appointments and future orders which are active, pending or scheduled. Future Appointments This section includes appointments that were scheduled to occur 6 months from the date of the Encounter, up to a maximum of 20 appointments. The data comes from all [facility]. Appointment Date/Time Appointment Type Appointme nt Facility Name Nov 30, 2024 12:30 PM AMBULATORY - REHAB MEDICIN E [facility] Dec 05, 2024 09:00 AM [facility] Dec [facility], 2024 02:00 PM [facility] Dec 27, 2024 07:30 AM [facility] Active, Pending, and Scheduled Orders This section includes a listing of several types of active, pending, and scheduled orders, including clinic medications orders, diagnostic test orders, procedure orders and consult orders; where the start date of the order is 45 days before the date of the Encounter or 45 days after the date of theEncounter. The data comes from all [facility]. Test Date/Time Test Type Test Details Facility Name Nov 30, 2024 01:30 PM Consult Order ENT HEARING LOSS OUTPATIENT Cons [facility] Dec 05, 2024 09:30 AM Procedure Order CP WIRELESS CAPSULE CP WIRELESS CAPSULE Proc [facility] Dec 13, 2024 01:47 PM Consult Order MED CARDIOLOGY OUTPATIENT Cons [facility] Dec 14, 2024 01:23 PM Consult Order MED GASTROENTEROLOGY OUTPATIENT Cons [facility] Dec 27, 2024 07:30 AM Imaging - CT Scan Order CT CHEST W/CONTRAST [facility] Lab Results: +/- 30 days of the encounter This section includes the Chemistry and Hematology Lab Results on record with OR for the patient. Radiology Reports and Pathology Reports are provided separately, in subsequent sections. Lab Results This section contains the Chemistry/Hematology Results that were resulted 30 days before or 30 daysafter the date of the Encounter. Date/Time Source Result Type Result - Unit Interpretation Reference Range Specimen Type Comment Nov 06, 2024 03:32 PM [facility] WN TRANSFERRIN SERUM Specimen Type: SERUM No comment entered. Ordering Provider: BLAYNE ASNDHU Report Released Date/Time: Nov 06, 2024 02:56 PM Reporting Lab: [facility] [address] [facility] [address] Performing Lab: [facility] [address] [facility] [address] TRANSFERRIN 386 mg/dL H 177-329 Nov 06, 2024 03:32 PM [facility] FOLATE PLASMA Specimen Type: PLASM A Comment: [...] Nov 06, 2024 02:56 PM Reporting Lab: [address] [address] Performing Lab: [address] [address] FOLATE 8.2 ng/mL 7.0-31.4 Nov 06, 2024 03:32 PM [facility] IRON/TIBC PLASMA Specimen Type: PLASM A Comment: [...] Nov 06, 2024 02:56 PM Reporting Lab: [address] [address] Performing Lab: [address] [address] IRON 358 ug/dL H 65-175 TIBC 433 mg/dL H 250-425 IRON SATURATION 83 H 20-50 Nov 06, 2024 03:32 PM [facility] FERRITIN PLASMA Specimen Type: PLASM A [...] Nov 06, 2024 02:56 PM Reporting Lab: [address] [address] Performing Lab: [address] [address] FERRITIN 15.7 ng/mL L 21.8-274.7 Nov 06, 2024 03:32 PM [facility] CBC/PLT BLOOD Specimen Type: BLOOD No comment entered. Ordering Provider: BLAYNE SANDHU Report Released Date/Time: Nov 06, 2024 02:56 PM Reporting Lab: [address] [address] Performing Lab: [address] [address] WBC 8.3 10*3/uL 5.0-10.0 RBC 3.81 10*6/uL L 4.6-6.2 HGB 9.1 g/dL L 14.0-18.0 HCT 30.9 L 42.0-52.0 MCV 81.1 fL 80.0-94.0 MCH 23.9 pg L 27.0-31.0 MCHC 29.4 g/dL L 32.0-36.0 PLT 215 10*3/uL 150-450 MPV 9.7 fL 9.0-13.1 RDW 19.0 H 11.0-16.0 NRBC 0.0 0.0-0.0 Nov 06, 2024 03:32 PM [facility] AUTOMATED DIFF BLOOD Specimen Type: BLOOD No comment entered. Ordering Provider: BLAYNE SANDHU Report Released Date/Time: Nov 06, 2024 02:56 PM Reporting Lab: [address] [address] Performing Lab: [address] [address] A-LYMPH % 25.2 24.0-44.0 A-MONO % 9.4 H 0.1-6.0 A-GRAN % 60.4 42.0-75.0 A-LYMPH # 2.10 10*3/uL 1.20-3.40 A-MONO # 0.78 10*3/uL H 0.00-0.60 A-GRAN # 5.03 10*3/uL 1.40-6.50 A-BASO % 0.8 0.0-3.0 A-BASO # 0.07 10*3/uL 0.00-0.20 A-EOS % 3.8 0.0-10.0 A-EOS # 0.32 10*3/uL 0.00-0.70 A-IG % 0.4 0.0-0.5 A-IG # 0.03 10*3/uL 0.00-0.06 Nov 06, 2024 03:32 PM [facility] PANEL 5 PLASMA Specimen Type: PLASM A [...] Nov 06, 2024 02:56 PM Reporting Lab: [address] [address] Performing Lab: [address] [address] CREATININE 0.93 mg/dL 0.72-1.25 UREA NITROGEN 17 [...] PHOS 105 U/L 40-150 eGFR (CKD-EPI) 86 Social History: Smoking Status (Most current) and Tobacco Use (All prior to encounter date) This section includes the most current, and the historical, smoking and tobacco- related health factors from the OR facility where the Encounter took place. Current Smoking Status This section includes the most current smoking, or tobacco-related health factor, from the [facility] where the Encounter took place. Date/Time Current Smoking Status Comment Henry ko Sep 08, 2023 09:30 AM VA-TOBACCO NEVER USED [facility] Tobacco Use History This section includes a history of the smoking, or tobacco-related health factors, that were collected on or before the date of the Encounter. The data comes from the OR facility where the Encounter took place. Date/Time Smoking Status/Tobacco Use Comment F acility Dec 12, 2006 07:57 AM V9 LIFETIME NON-US ER OF TOBACCO [facility] Aug 21, 2004 09:09 AM HF V9 CURRENT NON-SMOKER quit smoking 5 yrs ago [facility] May 28, 2003 10:30 AM HF V9 CURRENT NON-SMOKER quit 5 years ago [facility] Jun 23, 2001 08:08 AM HF V9 CURRENT NON-SMOKER quit 1 1/2year ago [facility] Encounter Notes: All associated encounter notes This section contains the clinical notes associated to the Encounter. 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 Ordered. Pt is aware of that. /saji/ NIYAH CALLEJAS MD Signed: 11/30/2024 13:50 Receipt Acknowledged By: 11/30/2024 15:25 /es/ Nellie Koch interlocking and signal mechanic RN for FUAD CORDERO --- Original Document --- 11/13/24 CLERICAL/ADMIN NOTE: Attempted to contact to schedule CT CHEST W/O PER 11/09 DD, was at his local [facility] and said he would have to call back. LOC mailed- if [place] fails to respond by 11/28/24, will notify requesting provider. ORDER PLACED ON HOLD PER SOP GUIDELINES. /saji/ Anusha Gutierrez Advanced Director Financial Planning Signed: 11/13/2024 12:18 11/19/2024 ADDENDUM STATUS: COMPLETED Pt's returned call to schedule, however she declined b/c the order is for Chest CT w/o and pt normally has Ct for Abd/Chest WITH cont. Wants to double check that the order is correct before scheduling. Please contact. Thanks! /saji/ YARELIS ALVARADO Director Financial Planning Signed: 11/19/2024 09:21 Receipt Acknowledged By: 11/19/2024 09:39 /heri Gutierrez Advanced Director Financial Planning 11/19/2024 14:35 /heri SANDHU APRN family nurse practitioner 11/19/2024 ADDENDUM STATUS: COMPLETED The last 2 ct of chest have been without contrast. Is vet willing to do ct without contrast? /heri SANDHU APRN family nurse practitioner Signed: 11/19/2024 14:34 Receipt Acknowledged By: 11/21/2024 10:16 /TARIK Silva,RN PC APPLICATIONS DEVELOPMENT ANALYST 11/21/2024 ADDENDUM STATUS: COMPLETED Spoke with r/t provider comments above. [place] does NOT want to do CT W/O contrast. [place] is REQUESTING CT W/CONTRAST. Advised he may need to have some blood work prior to CT W/CONTRAST, is agreeable if provider wants to order. No other issues or concerns at this time. /TARIK Silva,RN PC APPLICATIONS DEVELOPMENT ANALYST Signed: 11/21/2024 10:18 Receipt Acknowledged By: 11/22/2024 06:42 /heri SANDHU APRN family nurse practitioner 11/22/2024 ADDENDUM STATUS: COMPLETED defer to pcp /heri SANDHU APRN family nurse practitioner Signed: 11/22/2024 06:42 Receipt Acknowledged By: 11/25/2024 09:09 /heri CALLEJAS MD 11/25/2024 ADDENDUM STATUS: COMPLETED Please verify with pt if he still F/U urology for his h/o prostate cancer and F/U thoracic oncolgy for his h/o lung cancer! if so the above cancers need to have surveillance and f/u by the above surgical services and no indication for PCP to intervene or do any F/Us CTs at this time. Thank you. /heri CALLEJAS MD Signed: 11/25/2024 09:17 Receipt Acknowledged By: 11/26/2024 10:09 /TARIK Silva,RN PC APPLICATIONS DEVELOPMENT ANALYST 11/26/2024 ADDENDUM STATUS: COMPLETED Spoke with r/t pcp statement above. Per he does NOT see urology, thoracic oncology or pulmonology. was ordered LDCT w/o contrast, [place] is REQUESTING LDCT W/CONTRAST. Will alert provider to review for LDCT. No other issues or concerns at this time. /TARIK Silva,RN PC APPLICATIONS DEVELOPMENT ANALYST Signed: 11/26/2024 10:12 Receipt Acknowledged By: 11/30/2024 13:48 /heri CALLEJAS MD 11/28/2024 ADDENDUM STATUS: COMPLETED We have attempted to contact the [place] to schedule CT CHEST W/O PER 11/09/24 DD, the patient has failed to respond to our calls and LOC. We have cancelled the order and a new one will need to be placed if wishes to proceed with scheduling. /heri Escoto Advanced Director Financial Planning Signed: 11/28/2024 09:12 Receipt Acknowledged By: 11/28/2024 09:42 /saji/ BLAYNE SANDHU APRN family nurse practitioner * AWAITING SIGNATURE * NIYAH CALLEJAS [facility] Nov 28, 2024 09:11 AM ADDENDUM: LOCAL TITLE: Addendum STANDARD TITLE: ADDENDUM DATE OF NOTE: NOV 28, 2024@09:11:49 ENTRY DATE: NOV 28, 2024@09:11:50 AUTHOR: NIDHI ESCOTO EXP COSIGNER: URGENCY: STATUS: COMPLETED We have attempted to contact the [place] to schedule CT CHEST W/O PER 11/09/24 DD, the patient has failed to respond to our calls and LOC. We have cancelled the order and a new one will need to be placed if wishes to proceed with scheduling. /saji/ Nidhi Escoto Advanced Director Financial Planning Signed: 11/28/2024 09:12 Receipt Acknowledged By: 11/28/2024 09:42 /saji/ BLAYNE SANDHU APRN family nurse practitioner 12/03/2024 05:54 /saji/ NIYAH CALLEJAS MD --- Original Document --- 11/13/24 CLERICAL/ADMIN NOTE: Attempted to contact [place] to schedule CT CHEST W/O PER 11/09 DD, [place] was at his local [facility] and said he would have to call back. LOC mailed- if [place] fails to respond by 11/28/24, will notify requesting provider. ORDER PLACED ON HOLD PER SOP GUIDELINES. /saji/ Anusha Gutierrez Advanced Director Financial Planning Signed: 11/13/2024 12:18 11/19/2024 ADDENDUM STATUS: COMPLETED Pt's returned call to schedule, however she declined b/c the order is for Chest CT w/o and pt normally has Ct for Abd/Chest WITH cont. Wants to double check that the order is correct before scheduling. Please contact. Thanks! /saji/ YARELIS ALVARADO Director Financial Planning Signed: 11/19/2024 09:21 Receipt Acknowledged By: 11/19/2024 09:39 /saji/ Anusha Gutierrez Advanced Director Financial Planning 11/19/2024 14:35 /saji/ BLAYNE SANDHU APRN family nurse practitioner 11/19/2024 ADDENDUM STATUS: COMPLETED The last 2 ct of chest have been without contrast. Is vet willing to do ct without contrast? /saji/ BLAYNE SANDHU APRN family nurse practitioner Signed: 11/19/2024 14:34 Receipt Acknowledged By: 11/21/2024 10:16 /TARIK Silva,RN PC APPLICATIONS DEVELOPMENT ANALYST 11/21/2024 ADDENDUM STATUS: COMPLETED Spoke with r/t provider comments above. [place] does NOT want to do CT W/O contrast. [place] is REQUESTING CT W/CONTRAST. Advised he may need to have some blood work prior to CT W/CONTRAST, is agreeable if provider wants to order. No other issues or concerns at this time. /TARIK Silva,RN PC APPLICATIONS DEVELOPMENT ANALYST Signed: 11/21/2024 10:18 Receipt Acknowledged By: 11/22/2024 06:42 /heri SANDHU APRN family nurse practitioner 11/22/2024 ADDENDUM STATUS: COMPLETED defer to pcp /heri SANDHU APRN family nurse practitioner Signed: 11/22/2024 06:42 Receipt Acknowledged By: 11/25/2024 09:09 /heri CALLEJAS MD 11/25/2024 ADDENDUM STATUS: COMPLETED Please verify with pt if he still F/U urology for his h/o prostate cancer and F/U thoracic oncolgy for his h/o lung cancer! if so the above cancers need to have surveillance and f/u by the above surgical services and no indication for PCP to intervene or do any F/Us CTs at this time. Thank you. /heri CALLEJAS MD Signed: 11/25/2024 09:17 Receipt Acknowledged By: 11/26/2024 10:09 /TARIK Silva,RN PC APPLICATIONS DEVELOPMENT ANALYST 11/26/2024 ADDENDUM STATUS: COMPLETED Spoke with r/t pcp statement above. Per he does NOT see urology, thoracic oncology or pulmonology. [place] was ordered LDCT w/o contrast, [place] is REQUESTING LDCT W/CONTRAST. Will alert provider to review for LDCT. No other issues or concerns at this time. /TARIK Silva,RN PC APPLICATIONS DEVELOPMENT ANALYST Signed: 11/26/2024 10:12 Receipt Acknowledged By: 11/30/2024 13:48 /heri CALLEJAS MD 11/30/2024 ADDENDUM STATUS: COMPLETED Pt walked in to the 3rd floor building 1 front end ui developer requesting to have chest CT with contrast be done. Ordered. Pt is aware of that. /saji/ NIYAH CALLEJAS MD Signed: 11/30/2024 13:50 Receipt Acknowledged By: 11/30/2024 15:25 /saji/ Nellie Koch interlocking and signal mechanic RN for NIDHI LADD-[place] [facility] Nov 26, 2024 10:09 AM ADDENDUM: LOCAL TITLE: Addendum STANDARD TITLE: ADDENDUM DATE OF NOTE: NOV 26, 2024@10:09:39 ENTRY DATE: NOV 26, 2024@10:09:41 AUTHOR: FUAD CORDERO COSIGNER: URGENCY: STATUS: COMPLETED Spoke with r/t pcp statement above. Per he does NOT see urology, thoracic oncology or pulmonology. [place] was ordered LDCT w/o contrast, is REQUESTING LDCT W/CONTRAST. Will alert provider to review for LDCT. No other issues or concerns at this time. /saji/ TARIK ANDREWS,RN PC APPLICATIONS DEVELOPMENT ANALYST Signed: 11/26/2024 10:12 Receipt Acknowledged By: 11/30/2024 13:48 /saji/ NIYAH CALLEJAS MD --- Original Document --- 11/13/24 CLERICAL/ADMIN NOTE: Attempted to contact [place] to schedule CT CHEST W/O PER 11/09 DD, was at his local [employer] and said he would have to call back. LOC mailed- if fails to respond by 11/28/24, will notify requesting provider. ORDER PLACED ON HOLD PER SOP GUIDELINES. /saji/ Anusha Gutierrez Advanced Director Financial Planning Signed: 11/13/2024 12:18 11/19/2024 ADDENDUM STATUS: COMPLETED Pt's returned call to schedule, however she declined b/c the order is for Chest CT w/o and pt normally has Ct for Abd/Chest WITH cont. Wants to double check that the order is correct before scheduling. Please contact. Thanks! /heri ALVARADO Director Financial Planning Signed: 11/19/2024 09:21 Receipt Acknowledged By: 11/19/2024 09:39 /saji/ Anusha Gutierrez Advanced Director Financial Planning 11/19/2024 14:35 /saji/ BLAYNE SANDHU APRN family nurse practitioner 11/19/2024 ADDENDUM STATUS: COMPLETED The last 2 ct of chest have been without contrast. Is vet willing to do ct without contrast? /heri SANDHU APRN family nurse practitioner Signed: 11/19/2024 14:34 Receipt Acknowledged By: 11/21/2024 10:16 /TARIK Silva,RN PC APPLICATIONS DEVELOPMENT ANALYST 11/21/2024 ADDENDUM STATUS: COMPLETED Spoke with r/t provider comments above. does NOT want to do CT W/O contrast. is REQUESTING CT W/CONTRAST. Advised he may need to have some blood work prior to CT W/CONTRAST, is agreeable if provider wants to order. No other issues or concerns at this time. /TARIK Silva,RN PC APPLICATIONS DEVELOPMENT ANALYST Signed: 11/21/2024 10:18 Receipt Acknowledged By: 11/22/2024 06:42 /heri SANDHU APRN family nurse practitioner 11/22/2024 ADDENDUM STATUS: COMPLETED defer to pcp /heri SANDHU APRN family nurse practitioner Signed: 11/22/2024 06:42 Receipt Acknowledged By: 11/25/2024 09:09 /saji/ NIYAH CALLEJAS MD 11/25/2024 ADDENDUM STATUS: COMPLETED Please verify with pt if he still F/U urology for his h/o prostate cancer and F/U thoracic oncolgy for his h/o lung cancer! if so the above cancers need to have surveillance and f/u by the above surgical services and no indication for PCP to intervene or do any F/Us CTs at this time. Thank you. /heri CALLEJAS MD Signed: 11/25/2024 09:17 Receipt Acknowledged By: 11/26/2024 10:09 /saji/ TARIK ANDREWS,RN PC APPLICATIONS DEVELOPMENT ANALYST 11/28/2024 ADDENDUM STATUS: COMPLETED We have attempted to contact the [place] to schedule CT CHEST W/O PER 11/09/24 DD, the patient has failed to respond to our calls and LOC. We have cancelled the order and a new one will need to be placed if [place] wishes to proceed with scheduling. /saji/ Nidhi Escoto Advanced Director Financial Planning Signed: 11/28/2024 09:12 Receipt Acknowledged By: 11/28/2024 09:42 /saji/ BLAYNE SANDHU APRN family nurse practitioner * AWAITING SIGNATURE * NIYAH CALLEJAS 11/30/2024 ADDENDUM STATUS: UNSIGNED You may not VIEW this UNSIGNED Addendum. [facility] Nov 25, 2024 09:14 AM ADDENDUM: LOCAL TITLE: Addendum STANDARD TITLE: ADDENDUM DATE OF NOTE: NOV 25, 2024@09:14:13 ENTRY DATE: NOV 25, 2024@09:14:13 AUTHOR: NIYAH CALLEJAS EXP COSIGNER: URGENCY: STATUS: COMPLETED Please verify with pt if he still F/U urology for his h/o prostate cancer and F/U thoracic oncolgy for his h/o lung cancer! if so the above cancers need to have surveillance and f/u by the above surgical services and no indication for PCP to intervene or do any F/Us CTs at this time. Thank you. /heri CALLEJAS MD Signed: 11/25/2024 09:17 Receipt Acknowledged By: 11/26/2024 10:09 /saji/ TARIK ANDREWS,RN PC APPLICATIONS DEVELOPMENT ANALYST --- Original Document --- 11/13/24 CLERICAL/ADMIN NOTE: Attempted to contact to schedule CT CHEST W/O PER 11/09 DD, [place] was at his local [employer] and said he would have to call back. LOC mailed- if fails to respond by 11/28/24, will notify requesting provider. ORDER PLACED ON HOLD PER SOP GUIDELINES. /heri Gutierrez Advanced Director Financial Planning Signed: 11/13/2024 12:18 11/19/2024 ADDENDUM STATUS: COMPLETED Pt's returned call to schedule, however she declined b/c the order is for Chest CT w/o and pt normally has Ct for Abd/Chest WITH cont. Wants to double check that the order is correct before scheduling. Please contact. Thanks! /saji/ YARELIS ALVARADO Director Financial Planning Signed: 11/19/2024 09:21 Receipt Acknowledged By: 11/19/2024 09:39 /heri Gutierrez Advanced Director Financial Planning 11/19/2024 14:35 /heri SANDHU APRN family nurse practitioner 11/19/2024 ADDENDUM STATUS: COMPLETED The last 2 ct of chest have been without contrast. Is vet willing to do ct without contrast? /heri SANDHU APRN family nurse practitioner Signed: 11/19/2024 14:34 Receipt Acknowledged By: 11/21/2024 10:16 /TARIK Silva,RN PC APPLICATIONS DEVELOPMENT ANALYST 11/21/2024 ADDENDUM STATUS: COMPLETED Spoke with r/t provider comments above. [place] does NOT want to do CT W/O contrast. is REQUESTING CT W/CONTRAST. Advised he may need to have some blood work prior to CT W/CONTRAST, is agreeable if provider wants to order. No other issues or concerns at this time. /TARIK Silva,RN PC APPLICATIONS DEVELOPMENT ANALYST Signed: 11/21/2024 10:18 Receipt Acknowledged By: 11/22/2024 06:42 /heri SANDHU APRN family nurse practitioner 11/22/2024 ADDENDUM STATUS: COMPLETED defer to pcp /heri SANDHU APRN family nurse practitioner Signed: 11/22/2024 06:42 Receipt Acknowledged By: 11/25/2024 09:09 /heri CALLEJAS MD 11/26/2024 ADDENDUM STATUS: UNSIGNED You may not VIEW this UNSIGNED Addendum. NIYAH CALLEJAS-CDD [facility] Nov 22, 2024 06:42 AM ADDENDUM: LOCAL TITLE: Addendum STANDARD TITLE: ADDENDUM DATE OF NOTE: NOV 22, 2024@06:42:41 ENTRY DATE: NOV 22, 2024@06:42:42 AUTHOR: BLAYNE SANDHU COSIGNER: URGENCY: STATUS: COMPLETED defer to pcp /heri SANDHU APRN family nurse practitioner Signed: 11/22/2024 06:42 Receipt Acknowledged By: 11/25/2024 09:09 /heri CALLEJAS MD --- Original Document --- 11/13/24 CLERICAL/ADMIN NOTE: Attempted to contact [place] to schedule CT CHEST W/O PER 11/09 DD, was at his local [facility] and said he would have to call back. LOC mailed- if fails to respond by 11/28/24, will notify requesting provider. ORDER PLACED ON HOLD PER SOP GUIDELINES. /saji/ Anusha Gutierrez Advanced Director Financial Planning Signed: 11/13/2024 12:18 11/19/2024 ADDENDUM STATUS: COMPLETED Pt's returned call to schedule, however she declined b/c the order is for Chest CT w/o and pt normally has Ct for Abd/Chest WITH cont. Wants to double check that the order is correct before scheduling. Please contact. Thanks! /heri ALVARADO Director Financial Planning Signed: 11/19/2024 09:21 Receipt Acknowledged By: 11/19/2024 09:39 /heri Gutierrez Advanced Director Financial Planning 11/19/2024 14:35 /heri SANDHU APRN family nurse practitioner 11/19/2024 ADDENDUM STATUS: COMPLETED The last 2 ct of chest have been without contrast. Is vet willing to do ct without contrast? /heri SANDHU APRN family nurse practitioner Signed: 11/19/2024 14:34 Receipt Acknowledged By: 11/21/2024 10:16 /TARIK Silva,RN PC APPLICATIONS DEVELOPMENT ANALYST 11/21/2024 ADDENDUM STATUS: COMPLETED Spoke with r/t provider comments above. [place] does NOT want to do CT W/O contrast. is REQUESTING CT W/CONTRAST. Advised he may need to have some blood work prior to CT W/CONTRAST, is agreeable if provider wants to order. No other issues or concerns at this time. /TARIK Silva,RN PC APPLICATIONS DEVELOPMENT ANALYST Signed: 11/21/2024 10:18 Receipt Acknowledged By: 11/22/2024 06:42 /heri SANDHU APRN family nurse practitioner BLAYNE SANDHU-[place] Nov 21, 2024 10:16 AM ADDENDUM: LOCAL TITLE: Addendum STANDARD TITLE: ADDENDUM DATE OF NOTE: NOV 21, 2024@10:16:27 ENTRY DATE: NOV 21, 2024@10:16:28 AUTHOR: FUAD CORDERO COSIGNER: URGENCY: STATUS: COMPLETED Spoke with r/t provider comments above. [place] does NOT want to do CT W/O contrast. [place] is REQUESTING CT W/CONTRAST. Advised he may need to have some blood work prior to CT W/CONTRAST, is agreeable if provider wants to order. No other issues or concerns at this time. /TARIK Silva,RN PC APPLICATIONS DEVELOPMENT ANALYST Signed: 11/21/2024 10:18 Receipt Acknowledged By: 11/22/2024 06:42 /heri SANDHU APRN family nurse practitioner --- Original Document --- 11/13/24 CLERICAL/ADMIN NOTE: Attempted to contact to schedule CT CHEST W/O PER 11/09 DD, was at his local [employer] and said he would have to call back. LOC mailed- if fails to respond by 11/28/24, will notify requesting provider. ORDER PLACED ON HOLD PER SOP GUIDELINES. /saji/ Anusha Gutierrez Advanced Director Financial Planning Signed: 11/13/2024 12:18 11/19/2024 ADDENDUM STATUS: COMPLETED Pt's returned call to schedule, however she declined b/c the order is for Chest CT w/o and pt normally has Ct for Abd/Chest WITH cont. Wants to double check that the order is correct before scheduling. Please contact. Thanks! /saji/ YARELIS ALVARADO Director Financial Planning Signed: 11/19/2024 09:21 Receipt Acknowledged By: 11/19/2024 09:39 /saji/ Anusha Gutierrez Advanced Director Financial Planning 11/19/2024 14:35 /saji/ BLAYNE SANDHU APRN family nurse practitioner 11/19/2024 ADDENDUM STATUS: COMPLETED The last 2 ct of chest have been without contrast. Is vet willing to do ct without contrast? /heri SANDHU APRN family nurse practitioner Signed: 11/19/2024 14:34 Receipt Acknowledged By: 11/21/2024 10:16 /saji/ TARIK ANDREWS,RN PC APPLICATIONS DEVELOPMENT ANALYST 11/22/2024 ADDENDUM STATUS: UNSIGNED You may not VIEW this UNSIGNED Addendum. FUAD CORDERO-CDD [facility] Nov 19, 2024 02:33 PM ADDENDUM: LOCAL TITLE: Addendum STANDARD TITLE: ADDENDUM DATE OF NOTE: NOV 19, 2024@14:33:15 ENTRY DATE: NOV 19, 2024@14:33:16 AUTHOR: BLAYNE SANDHU COSIGNER: URGENCY: STATUS: COMPLETED The last 2 ct of chest have been without contrast. Is vet willing to do ct without contrast? /heri SANDHU APRN family nurse practitioner Signed: 11/19/2024 14:34 Receipt Acknowledged By: 11/21/2024 10:16 /es/ TARIK ANDREWS,RN PC APPLICATIONS DEVELOPMENT ANALYST --- Original Document --- 11/13/24 CLERICAL/ADMIN NOTE: Attempted to contact [place] to schedule CT CHEST W/O PER 11/09 DD, [place] was at his local [employer] and said he would have to call back. LOC mailed- if fails to respond by 11/28/24, will notify requesting provider. ORDER PLACED ON HOLD PER SOP GUIDELINES. /saji/ Anusha Gutierrez Advanced Director Financial Planning Signed: 11/13/2024 12:18 11/19/2024 ADDENDUM STATUS: COMPLETED Pt's returned call to schedule, however she declined b/c the order is for Chest CT w/o and pt normally has Ct for Abd/Chest WITH cont. Wants to double check that the order is correct before scheduling. Please contact. Thanks! /saji/ YARELIS ALVARADO Director Financial Planning Signed: 11/19/2024 09:21 Receipt Acknowledged By: 11/19/2024 09:39 /es/ Anusha Gutierrez Advanced Director Financial Planning 11/19/2024 14:35 /es/ BLAYNE SANDHU APRN family nurse practitioner [facility] Nov 19, 2024 09:20 AM ADDENDUM: LOCAL TITLE: Addendum STANDARD TITLE: ADDENDUM DATE OF NOTE: NOV 19, 2024@09:20:42 ENTRY DATE: NOV 19, 2024@09:20:42 AUTHOR: YARELIS ALVARADO COSIGNER: URGENCY: STATUS: COMPLETED Pt's returned call to schedule, however she declined b/c the order is for Chest CT w/o and pt normally has Ct for Abd/Chest WITH cont. Wants to double check that the order is correct before scheduling. Please contact. Thanks! /heri ALVARADO Director Financial Planning Signed: 11/19/2024 09:21 Receipt Acknowledged By: 11/19/2024 09:39 /heri Gutierrez Advanced Director Financial Planning 11/19/2024 14:35 /heri SANDHU APRN family nurse practitioner --- Original Document --- 11/13/24 CLERICAL/ADMIN NOTE: Attempted to contact to schedule CT CHEST W/O PER 11/09 DD, [place] was at his local [employer] and said he would have to call back. LOC mailed- if fails to respond by 11/28/24, will notify requesting provider. ORDER PLACED ON HOLD PER SOP GUIDELINES. /saji/ Anusha Gutierrez Advanced Director Financial Planning Signed: 11/13/2024 12:18 11/19/2024 ADDENDUM STATUS: COMPLETED The last 2 ct of chest have been without contrast. Is vet willing to do ct without contrast? /saji/ BLAYNE SANDHU APRN family nurse practitioner Signed: 11/19/2024 14:34 Receipt Acknowledged By: * AWAITING SIGNATURE * FUAD CORDERO ALL[place] [facility] Nov 13, 2024 12:19 PM LETTERS: LOCAL TITLE: SPECIALTY CONTACT LETTER STANDARD TITLE: LETTERS DATE OF NOTE: NOV 13, 2024@12:19 ENTRY DATE: NOV 13, 2024@12:19:12 AUTHOR: ANUSHA GUTIERREZ COSIGNER: URGENCY: STATUS: COMPLETED [facility] [address] [place] [address] Abdiaziz ANEUDY BUSTAMANTE [address] [place] [id number] NOV 13, 2024 Dear ANEUDY BUSTAMANTE, We have been unable to contact you by telephone to schedule an appointment in our Radiology clinic. Your health and well-being are important to us. Please call us at or . Select Option #2 and then #3. We look forward to hearing from you soon. Sincerely yours, Radiology [facility] ANUSHA GUTIERREZ-CDD [facility] Nov 13, 2024 12:18 PM ADMINISTRATIVE NOT E: LOCAL TITLE: CLERICAL/ADMIN NOTE STANDARD TITLE: ADMINISTRATIVE NOTE DATE OF NOTE: NOV 13, 2024@12:18 ENTRY DATE: NOV 13, 2024@12:18:26 AUTHOR: ANUSHA GUTIERREZ EXP COSIGNER: URGENCY: STATUS: COMPLETED CLERICAL/ADMIN NOTE Has ADDENDA Attempted to contact to schedule CT CHEST W/O PER 11/09 DD, [place] was at his local [employer] and said he would have to call back. LOC mailed- if [place] fails to respond by 11/28/24, will notify requesting provider. ORDER PLACED ON HOLD PER SOP GUIDELINES. /saji/ Anusha Gutierrez Advanced Director Financial Planning Signed: 11/13/2024 12:18 11/19/2024 ADDENDUM STATUS: COMPLETED Pt's returned call to schedule, however she declined b/c the order is for Chest CT w/o and pt normally has Ct for Abd/Chest WITH cont. Wants to double check that the order is correct before scheduling. Please contact. Thanks! /saji/ YARELIS ALVARADO Director Financial Planning Signed: 11/19/2024 09:21 Receipt Acknowledged By: 11/19/2024 09:39 /saji/ Anusha Gutierrez Advanced Director Financial Planning 11/19/2024 14:35 /saji/ BLAYNE SANDHU APRN family nurse practitioner 11/19/2024 ADDENDUM STATUS: COMPLETED The last 2 ct of chest have been without contrast. Is vet willing to do ct without contrast? /saji/ BLAYNE SANDHU APRN family nurse practitioner Signed: 11/19/2024 14:34 Receipt Acknowledged By: 11/21/2024 10:16 /saji/ CARLOS ANDREWSN,RN PC APPLICATIONS DEVELOPMENT ANALYST 11/21/2024 ADDENDUM STATUS: COMPLETED Spoke with r/t provider comments above. [place] does NOT want to do CT W/O contrast. [place] is REQUESTING CT W/CONTRAST. Advised he may need to have some blood work prior to CT W/CONTRAST, is agreeable if provider wants to order. No other issues or concerns at this time. /TARIK Silva,RN PC APPLICATIONS DEVELOPMENT ANALYST Signed: 11/21/2024 10:18 Receipt Acknowledged By: 11/22/2024 06:42 /heri SANDHU APRN family nurse practitioner 11/22/2024 ADDENDUM STATUS: COMPLETED defer to pcp /heri SANDHU APRN family nurse practitioner Signed: 11/22/2024 06:42 Receipt Acknowledged By: 11/25/2024 09:09 /heri CALLEJAS MD 11/25/2024 ADDENDUM STATUS: COMPLETED Please verify with pt if he still F/U urology for his h/o prostate cancer and F/U thoracic oncolgy for his h/o lung cancer! if so the above cancers need to have surveillance and f/u by the above surgical services and no indication for PCP to intervene or do any F/Us CTs at this time. Thank you. /heri CALLEJAS MD Signed: 11/25/2024 09:17 Receipt Acknowledged By: 11/26/2024 10:09 /TARIK Silva,RN PC APPLICATIONS DEVELOPMENT ANALYST 11/26/2024 ADDENDUM STATUS: COMPLETED Spoke with r/t pcp statement above. Per he does NOT see urology, thoracic oncology or pulmonology. [place] was ordered LDCT w/o contrast, is REQUESTING LDCT W/CONTRAST. Will alert provider to review for LDCT. No other issues or concerns at this time. /TARIK Silva,RN PC APPLICATIONS DEVELOPMENT ANALYST Signed: 11/26/2024 10:12 Receipt Acknowledged By: 11/30/2024 13:48 /heri CALLEJAS MD 11/28/2024 ADDENDUM STATUS: COMPLETED We have attempted to contact the [place] to schedule CT CHEST W/O PER 11/09/24 DD, the patient has failed to respond to our calls and LOC. We have cancelled the order and a new one will need to be placed if wishes to proceed with scheduling. 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 Ordered. Pt is aware of that. /es/ NIYAH CALLEJAS MD Signed: 11/30/2024 13:50 Receipt Acknowledged By: * AWAITING SIGNATURE * FUAD CORDERO,ANUSHA AVENDANO-REBEKA [facility]
--- OUTSIDE RECORDS SUMMARY | 2024-12-18 12:34 | XMS_ITS ---
Author Name [facility] [place] [facility] [facility] [place] Address [address] [place] [address] Care Team Providers Care Teletype Operator Name Role Phone NIYAH CALLEJAS Primary Care [...] A MOTOR MANUF AC Sep 05, 2014 [id number] [place] BUSTAM[place] PATIENT EXPRESS SCRIPTS ([id number]) PRESCRIPT ION TMMK ACTIV E PPO Sep 05, 2014 [place] [id number] [place] PATIENT INGENIO RX PRESCRIPT ION NONE* Sep 05, 2014 NONE [id number] [phone] [place] PATIENT MEDICARE (WNR) MEDICARE (M) PART A Apr 05, 2015 PART A [id number] [phone] [place] PATIENT MEDICARE (WNR) MEDICARE (M) PART B Apr 05, 2015 PART B [id number] [place] PATIENT Selected Encounter This section includes the information on record at CT for the Encounter. Date/Time Encounter Type Encounter Description Reason Pro vider Source Oct 10, 2024 08:44 AM Outpatient Encounter ADMIN PAT ACTIVTIES (MASNONCT) IHE Encounter Template Text not used by CT Plan of Treatment: Future Appointments (+ 6 months) and Future Tests (+/- 45 days) The Plan of Treatment section includes future care activities for the patient from all CT treatmentfacilities. This section includes future appointments and future orders which are active, pending or scheduled. Future Appointments This section includes appointments that were scheduled to occur 6 months from the date of the Encounter, up to a maximum of 20 appointments. The data comes from all CT treatment facilities. Appointment Date/Time Appointment Type Appointme nt Facility Name Nov 06, 2024 02:30 PM AMBULATORY - NONE [facility] N [facility] Nov 30, 2024 12:30 PM AMBULATORY - REHAB MEDICIN E [facility] Dec 05, 2024 09:00 AM [facility] - [facility] Dec 19, 2024 02:00 PM [facility] Dec 27, 2024 07:30 AM AMBULATORY - NONE [facility] Lab Results: +/- 30 days of the encounter This section includes the Chemistry and Hematology Lab Results on record with CT for the patient. Radiology Reports and Pathology Reports are provided separately, in subsequent sections. Lab Results This section contains the Chemistry/Hematology Results that were resulted 30 days before or 30 daysafter the date of the Encounter. Date/Time Source Result Type Result - Unit Interpretation Reference Range Specimen Type Comment Nov 06, 2024 03:32 PM [facility] WN TRANSFERRIN SERUM Specimen Type: SERUM No comment entered. Ordering Provider: BLAYNE SANDHU Report Released Date/Time: Nov 06, 2024 02:56 PM Reporting Lab: [facility] [address] [facility] [address] Performing Lab: [facility] [address] [facility] [address] TRANSFERRIN 386 mg/dL H 177-329 Nov 06, 2024 03:32 PM [facility] FOLATE PLASMA Specimen Type: PLASM A [...] Nov 06, 2024 02:56 PM Reporting Lab: [address] [address] Performing Lab: [address] [address] FOLATE 8.2 ng/mL 7.0-31.4 Nov 06, 2024 03:32 PM [facility] IRON/TIBC PLASMA Specimen Type: PLASM A [...] Nov 06, 2024 02:56 PM Reporting Lab: [address] [address] Performing Lab: [address] [address] IRON 358 ug/dL H 65-175 TIBC 433 mg/dL H 250-425 IRON SATURATION 83 H 20-50 Nov 06, 2024 03:32 PM [facility] FERRITIN PLASMA Specimen Type: PLASM A [...] Nov 06, 2024 02:56 PM Reporting Lab: [facility] [address] [facility] [address] Performing Lab: [address] [address] FERRITIN 15.7 ng/mL L 21.8-274.7 Nov 06, 2024 03:32 PM [facility] CBC/PLT BLOOD Specimen Type: BLOOD No comment entered. Ordering Provider: BLAYNE SANDHU Report Released Date/Time: Nov 06, 2024 02:56 PM Reporting Lab: [address] [address] Performing Lab: [place] [id number] WBC 8.3 10*3/uL 5.0-10.0 RBC 3.81 10*6/uL L 4.6-6.2 HGB 9.1 g/dL L 14.0-18.0 HCT 30.9 L 42.0-52.0 MCV 81.1 fL 80.0-94.0 MCH 23.9 pg L 27.0-31.0 MCHC 29.4 g/dL L 32.0-36.0 PLT 215 10*3/uL 150-450 MPV 9.7 fL 9.0-13.1 RDW 19.0 H 11.0-16.0 NRBC 0.0 0.0-0.0 Nov 06, 2024 03:32 PM [facility] AUTOMATED DIFF BLOOD Specimen Type: BLOOD No comment entered. Ordering Provider: BLAYNE SANDHU Report Released Date/Time: Nov 06, 2024 02:56 PM Reporting Lab: [address] [address] Performing Lab: [address] [address] A-LYMPH % 25.2 24.0-44.0 A-MONO % 9.4 H 0.1-6.0 A-GRAN % 60.4 42.0-75.0 A-LYMPH # 2.10 10*3/uL 1.20-3.40 A-MONO # 0.78 10*3/uL H 0.00-0.60 A-GRAN # 5.03 10*3/uL 1.40-6.50 A-BASO % 0.8 0.0-3.0 A-BASO # 0.07 10*3/uL 0.00-0.20 A-EOS % 3.8 0.0-10.0 A-EOS # 0.32 10*3/uL 0.00-0.70 A-IG % 0.4 0.0-0.5 A-IG # 0.03 10*3/uL 0.00-0.06 Nov 06, 2024 03:32 PM [facility] PANEL 5 PLASMA Specimen Type: PLASM [...] Nov 06, 2024 02:56 PM Reporting Lab: [address] [address] Performing Lab: [address] [address] CREATININE 0.93 mg/dL 0.72-1.25 UREA NITROGEN 17 [...] and tobacco- related health factors from the CT facility where the Encounter took place. Current Smoking Status This section includes the most current smoking, or tobacco-related health factor, from the CT facility where the Encounter took place. Date/Time Current Smoking Status Comment Henry ity Sep 08, 2023 09:30 AM VA-TOBACCO NEVER USED [facility] Tobacco Use History This section includes a history of the smoking, or tobacco-related health factors, that were collected on or before the date of the Encounter. The data comes from the CT facility where the Encounter took place. Date/Time Smoking Status/Tobacco Use Comment F acility Dec 12, 2006 07:57 AM V9 LIFETIME NON-US ER OF TOBACCO [facility] Aug 21, 2004 09:09 AM HF V9 CURRENT NON-SMOKER quit smoking 5 yrs ago [facility] May 28, 2003 10:30 AM HF V9 CURRENT NON-SMOKER quit 5 years ago [facility] Jun 23, 2001 08:08 AM HF V9 CURRENT NON-SMOKER quit 1 1/2year ago [facility] Radiology Reports: +/- 30 days of the encounter Radiology Reports For cases when an order for radiology services may have been completed prior to the date of the Encounter, the report list includes the Radiology Reports that were completed up to 30 days before dateof the Encounter. For cases when an order for radiology services may have been completed after the date of the Encounter, the report list also includes the Radiology Reports that were completed up to30 days after date of the Encounter. The data comes from all CT treatment facilities. Date/Time Radiology Report Provider Source Oct 10, 2024 10:00 AM [id number] RADIOLOGY EX AM PERF/INTER BY OTHER FACILITY: ANEUDY BUSTAMANTE [id number] -1950 M Exm Date: OCT 10, 2024@10:00 Req Phys: NIYAH CALLEJAS Pat Loc: POLLY PACT ALPHA 1-3 (Req'g Loc) Img Loc: OUTSIDE2 LD RAD Service: Unknown (Case [id number] COMPLETE) [id number] RADIOLOGY EXAM PERF/INTER B(RAD Detailed) CPT:55447 Reason for Study: EXAM PERFORMED BY OUTSIDE FACILITY Clinical History: EXAM PERFORMED BY OUTSIDE FACILITY XR CHEST 1 VW EXAM SENT BY [facility] Report Status: Electronically Filed Date Reported: DEC 17, 2024 Report: Electronically generated report for outside study. Impression: Electronically generated report for outside study. Primary Diagnostic Code: VERIFIED BY: / *ELECTRONICALLY FILED* [facility] Oct 08, 2024 09:[address] PERFORMED BY OTHER FACILITY: ANEUDY BUSTAMANTE [id number] -1950 M Exm Date: OCT 08, 2024@09:09 Req Phys: DANTE CALLEJASTA Pat Loc: POLLY PACT ALPHA 1-3 (Req'g Loc) Img Loc: OUTSIDE2 LD CT Service: Unknown (Case [id number] COMPLETE) [address] CT PERFORMED BY OTHER FACIL(CT Detailed) CPT:47248 Reason for Study: EXAM PERFORMED BY OUTSIDE FACILITY Clinical History: EXAM PERFORMED BY OUTSIDE FACILITY CT ANGIOGRAM CHEST EXAM SENT BY [facility] Report Status: Electronically Filed Date Reported: DEC 17, 2024 Report: Electronically generated report for outside study. Impression: Electronically generated report for outside study. Primary Diagnostic Code: VERIFIED BY: / *ELECTRONICALLY FILED* [facility] Oct 08, 2024 08:[id number] PERFORMED BY OTHER FACILITY: ANEUDY BUSTAMANTE [id number] -1950 M Exm Date: OCT 08, 2024@08:00 Req Phys: KOUSADANTETA Pat Loc: POLLY PACT ALPHA 1-3 (Req'g Loc) Img Loc: OUTSIDE2 LD CT Service: Unknown (Case [id number] COMPLETE) [address] CT PERFORMED BY OTHER FACIL(CT Detailed) CPT:55316 Reason for Study: EXAM PERFORMED BY OUTSIDE FACILITY Clinical History: EXAM PERFORMED BY OUTSIDE FACILITY CT ABDOMEN PELVIS W CONTRAST EXAM SENT BY [facility] Report Status: Electronically Filed Date Reported: DEC 17, 2024 Report: Electronically generated report for outside study. Impression: Electronically generated report for outside study. Primary Diagnostic Code: VERIFIED BY: / *ELECTRONICALLY FILED* [facility] Oct 08, 2024 07:33 AM [id number] RADIOLOGY EX AM PERF/INTER BY OTHER FACILITY: ANEUDY BUSTAMANTE [id number] -1950 M Exm Date: OCT 08, 2024@07:33 Req Phys: KOUSA,KITTA Pat Loc: POLLY PACT ALPHA 1-3 (Req'g Loc) Img Loc: OUTSIDE2 LD RAD Service: Unknown (Case [id number] COMPLETE) 11837 RADIOLOGY EXAM PERF/INTER B(RAD Detailed) CPT:27193 Reason for Study: EXAM PERFORMED BY OUTSIDE FACILITY Clinical History: EXAM PERFORMED BY OUTSIDE FACILITY XR CHEST 1 VW EXAM SENT BY [facility] Report Status: Electronically Filed Date Reported: DEC 17, 2024 Report: Electronically generated report for outside study. Impression: Electronically generated report for outside study. Primary Diagnostic Code: VERIFIED BY: / *ELECTRONICALLY FILED* [facility] Encounter Notes: All associated encounter notes This section contains the clinical notes associated to the Encounter. Date/Time Encounter Note(s) Provider Source Oct 10, 2024 10:54 AM ADDENDUM: LOCAL TITLE: Addendum STANDARD TITLE: ADDENDUM DATE OF NOTE: OCT 10, 2024@10:54:18 ENTRY DATE: OCT 10, 2024@10:54:19 AUTHOR: FUAD CORDERO COSIGNER: URGENCY: STATUS: COMPLETED Called for follow up. Per he is still not feeling great, has appt with outside development writer, Dr. Sanchez - [facility]. [place] is agreeable to see CT PCP for annual visit and follow up but wanted to see Review Engineer first. Call forwarded to [facility]CT [facility] to assist with scheduling appt and to request records for provider to review from Dr. Sanchez. /saji/ TARIK ANDREWS,RN PC ETHNOARCHAEOLOGIST Signed: 10/10/2024 11:00 Receipt Acknowledged By: 10/10/2024 11:06 /saji/ Kimi Vega AMSA --- Original Document --- 10/08/24 [facility] CARE COORD PLAN NOTE: Emergency Notification Intake Date Presenting to the Facility: Oct Method of Contact: Notified from [employer] worklist Notification ID: [id number] [facility] Call [facility] makes eligibility determination and sends payment authorization and/or denial information directly to the healthcare provider. ANY QUESTIONS REGARDING DETERMINATION, CLAIMS, AND BILLING MAY BE MADE TO THE FOLLOWING [facility] Telephone Number: [phone] ([phone]) POM (Payment Operations and Management) Claims Status Line: [facility] Provider Services Region 2: [facility] Hospital Name: Hospital: [facility] Address: City: [place] State: [place] Zip Code: Phone : Community Facility Point of Contact: Name: Phone: Chief complaint: SOA Primary Diagnosis: Disposition ED DC Handoff to PACT/PCP [facility] Care was informed this was seen for emergent care. Records requested for upload and review: Pursuant to 38 CFR 17.4020(c) Authorized emergency treatments. Handoff to PACT/PCP for follow up/care coordination as deemed appropriate by the PACT/PCP. SUMMARY OF ED VISIT PER EPIC BELOW: Medical Decision Making Pt is a 74 yo male presenting to ED with complaints of SOB and weakness with vomiting. I had a discussion with the patient / family regarding ED course, diagnosis, diagnostic results and treatment plan including medications and admission / discharge. Discussed if new or worse symptoms / concerns to return to ED for further evaluation. Discussed need for close follow up with PCP / specialists. DDx SBO, ACS, PE, Dissection, NSTEMI, CHF< Pneumonia, Reflux, Flu, Covid, Sepsis Problems Addressed: Acute gastritis without hemorrhage, unspecified gastritis type: complicated acute illness or injury Generalized weakness: complicated acute illness or injury History of coronary artery disease: complicated acute illness or injury Nausea and vomiting, unspecified vomiting type: complicated acute illness or injury SOB (shortness of breath) on exertion: complicated acute illness or injury Amount and/or Complexity of Data Reviewed External Data Reviewed: notes. Details: Reviewed previous non ED visits including prior labs, imaging, available notes, medications, allergies and surgical hx. PCP 10-04-24 SOB Labs: ordered. Decision-making details documented in ED Course. Radiology: ordered and independent interpretation performed. Decision-making details documented in ED Course. ECG/medicine tests: ordered and independent interpretation performed. Decision- making details documented in ED Course. Risk Prescription drug management. Final diagnoses: SOB (shortness of breath) on exertion Generalized weakness Nausea and vomiting, unspecified vomiting type Acute gastritis without hemorrhage, unspecified gastritis type History of coronary artery disease ED Disposition ED Disposition ED Disposition Discharge Condition Stable Comment --Nikki Collins PA Physician Glass Installer Technician Emergency Medicine ED Provider Notes The patient can view the shared note after they get an active [email or web address] account This note has been shared with the patient Attested Date of Service: 10/08/24 1359 /saji/ Yun MONTANEZ cardboard inserter Nurse Coordinator Signed: 10/10/2024 08:50 Receipt Acknowledged By: * AWAITING SIGNATURE * KEVSARAYNIYAH 10/10/2024 10:54 /saji/ TARIK ANDREWS,RN PC ETHNOARCHAEOLOGIST [facility] Oct 08, 2024 01:48 PM NONVA NOTE: LOCAL TITLE: [facility] SELF PRESENTING CARE COORD PLAN STANDARD TITLE: NONVA NOTE DATE OF NOTE: OCT 08, 2024@13:48 ENTRY DATE: OCT 10, 2024@08:45:15 AUTHOR: YUN JOSHUA EXP COSIGNER: URGENCY: STATUS: COMPLETED [facility] SELF PRESENTING CARE COORD PLAN NOTE Has ADDENDA Emergency Notification Intake Date Presenting to the Facility: Oct Method of Contact: Notified from [employer] worklist Notification ID: [id number] [facility] makes eligibility determination and sends payment authorization and/or denial information directly to the healthcare provider. ANY QUESTIONS REGARDING DETERMINATION, CLAIMS, AND BILLING MAY BE MADE TO THE FOLLOWING [facility] Telephone Number: [phone] ([phone]) POM (Payment Operations and Management) Claims Status Line: [facility] Provider Services Region 2: [facility] Hospital Name: Hospital: [facility] Address: City: [place] State: [place] Zip Code: Phone : Community Facility Point of Contact: Name: Phone: Chief complaint: SOA Primary Diagnosis: Disposition ED DC Handoff to PACT/PCP [facility] was informed this was seen for emergent care. Records requested for upload and review: Pursuant to 38 CFR 17.4020(c) Authorized emergency treatments. Handoff to PACT/PCP for follow up/care coordination as deemed appropriate by the PACT/PCP. SUMMARY OF ED VISIT PER [facility] BELOW: Medical Decision Making Pt is a 74 yo male presenting to ED with complaints of SOB and weakness with vomiting. I had a discussion with the patient / family regarding ED course, diagnosis, diagnostic results and treatment plan including medications and admission / discharge. Discussed if new or worse symptoms / concerns to return to ED for further evaluation. Discussed need for close follow up with PCP / specialists. DDx SBO, ACS, PE, Dissection, NSTEMI, CHF< Pneumonia, Reflux, Flu, Covid, Sepsis Problems Addressed: Acute gastritis without hemorrhage, unspecified gastritis type: complicated acute illness or injury Generalized weakness: complicated acute illness or injury History of coronary artery disease: complicated acute illness or injury Nausea and vomiting, unspecified vomiting type: complicated acute illness or injury SOB (shortness of breath) on exertion: complicated acute illness or injury Amount and/or Complexity of Data Reviewed External Data Reviewed: notes. Details: Reviewed previous non ED visits including prior labs, imaging, available notes, medications, allergies and surgical hx. PCP 10-04-24 SOB Labs: ordered. Decision-making details documented in ED Course. Radiology: ordered and independent interpretation performed. Decision-making details documented in ED Course. ECG/medicine tests: ordered and independent interpretation performed. Decision- making details documented in ED Course. Risk Prescription drug management. Final diagnoses: SOB (shortness of breath) on exertion Generalized weakness Nausea and vomiting, unspecified vomiting type Acute gastritis without hemorrhage, unspecified gastritis type History of coronary artery disease ED Disposition ED Disposition ED Disposition Discharge Condition Stable Comment --Nikki Collins PA Physician Glass Installer Technician Emergency Medicine ED Provider Notes The patient can view the shared note after they get an active [employer] account This note has been shared with the patient Attested Date of Service: 10/08/24 1359 /es/ Yun MONTANEZ cardboard inserter Nurse Coordinator Signed: 10/10/2024 08:50 Receipt Acknowledged By: 10/10/2024 11:17 /es/ NIYAH CALLEJAS MD 10/10/2024 10:54 /es/ TARIK ANDREWS,RN PC ETHNOARCHAEOLOGIST 10/10/2024 ADDENDUM STATUS: COMPLETED Called for follow up. Per he is still not feeling great, has appt with outside development writer, Dr. Sanchez - [facility]. is agreeable to see CT PCP for annual visit and follow up but wanted to see Review Engineer first. Call forwarded to [facility] to assist with scheduling appt and to request records for provider to review from Dr. Sanchez. /saji/ TARIK ANDREWS,RN PC ETHNOARCHAEOLOGIST Signed: 10/10/2024 11:00 Receipt Acknowledged By: 10/10/2024 11:06 /heri HULL 10/10/2024 ADDENDUM STATUS: COMPLETED Spoke w/[place] and per his request plus DD/T, scheduled the following for past due annual recall: POLLY PACT ALPHA 1-3 Nov 06, 2024@2:30 PM EST FUTURE PPDD/T LETTER MAILED /heri HULL Signed: 10/10/2024 11:08 10/25/2024 ADDENDUM STATUS: COMPLETED Records received from Dr. Sanchez's office. Total of 5 pages. Originals placed in scan box for medical records in building [address], 3rd floor. [place] has an appointment on November 06 with PC. /heri HULL Signed: 10/25/2024 14:56 [facility]UN JOSHUA[facility]
--- OUTSIDE RECORDS SUMMARY | 2024-12-18 12:34 | XMS_ITS ---
Author Name [facility] [place] [facility] [place] Address [address] [place] [address] Care Team Providers Care Box Stacker Name Role Phone NIYAH CALLEJAS Primary Care [...] A MOTOR MANUF AC Sep 05, 2014 [id number] [place] BUSTAMANTE PATIENT [employer] ([id number]) PRESCRIPT ION TMMK ACTIV E PPO Sep 05, 2014 [place] [id number] [place] BUSTAMANTE PATIENT INGENIO RX PRESCRIPT ION NONE* Sep 05, 2014 NONE [id number] [place] BUSTAMANTE PATIENT MEDICARE (WNR) MEDICARE (M) PART A Apr 05, 2015 PART A [id number] [place] BUSTAMANTE PATIENT MEDICARE (WNR) MEDICARE (M) PART B Apr 05, 2015 PART B [id number] [place] BUSTAMANTE PATIENT Selected Encounter This section includes the information on record at [place] for the Encounter. Date/Time Encounter Type Encounter Description Reason Pro vider Source Dec 04, 2024 10:42 AM Outpatient Encounter ADMIN PAT ACTIVTIES (MASNONCT) I[facility] Encounter Template Text not used by [place] Plan of Treatment: Future Appointments (+ 6 months) and Future Tests (+/- 45 days) The Plan of Treatment section includes future care activities for the patient [facility] [place] [facility] This section includes future appointments and future orders which are active, pending or scheduled. Future Appointments This section includes appointments that were scheduled to occur 6 months from the date of the Encounter, up to a maximum of 20 appointments. The data comes from all [place] treatment facilities. Appointment Date/Time Appointment Type Appointme nt Facility Name Dec 05, 2024 09:00 AM [facility] Dec 19, 2024 02:00 PM [facility] Dec 27, [...] of theEncounter. The data comes from all [facility]. Test Date/Time Test Type Test Details Facility Name Nov 30, 2024 01:30 PM Consult Order ENT HEARING LOSS OUTPATIENT Cons Ssn/Ssbn Assistant Navigator's Choice [facility] Dec 05, 2024 09:30 AM Procedure Order CP WIRELESS CAPSULE CP WIRELESS CAPSULE Proc Ssn/Ssbn Assistant Navigator's Choice [facility] Dec 13, 2024 01:47 PM Consult Order MED CARDIOLOGY OUTPATIENT Cons Ssn/Ssbn Assistant Navigator's Choice [facility] Dec 14, 2024 01:23 PM Consult Order MED GASTROENTEROLOGY OUTPATIENT Cons Ssn/Ssbn Assistant Navigator's Choice [facility] Dec 27, 2024 07:30 AM Imaging - CT Scan Order CT CHEST W/CONTRAST [facility] Lab Results: +/- 30 days of the encounter This section includes the Chemistry and Hematology Lab Results on record with [place] for the patient. Radiology Reports and Pathology Reports are provided separately, in subsequent sections. Lab Results This section contains the Chemistry/Hematology Results that were resulted 30 days before or 30 daysafter the date of the Encounter. Date/Time Source Result Type Result - Unit Interpretation Reference Range Specimen Type Comment Nov 06, 2024 03:32 PM [facility] TRANSFERRIN SERUM Specimen Type: SERUM No comment entered. Ordering Provider: BLAYNE SANDHU Report Released Date/Time: Nov 06, 2024 02:56 PM Reporting Lab: [facility] [address] [facility] [address] Performing Lab: [facility] [address] [facility] [address] TRANSFERRIN 386 mg/dL H 177-329 Nov 06, 2024 03:32 PM [facility] FOLATE PLASMA Specimen Type: PLASM A Comment: [...] Nov 06, 2024 02:56 PM Reporting Lab: [address] [address] Performing Lab: [address] [address] FOLATE 8.2 ng/mL 7.0-31.4 Nov 06, 2024 03:32 PM [facility] IRON/TIBC PLASMA Specimen Type: PLASM A Comment: [...] Nov 06, 2024 02:56 PM Reporting Lab: [address] [address] Performing Lab: [address] [address] IRON 358 ug/dL H 65-175 TIBC 433 mg/dL H 250-425 IRON SATURATION 83 H 20-50 Nov 06, 2024 03:32 PM [facility] FERRITIN PLASMA Specimen Type: PLASM A Comment: [...] Nov 06, 2024 02:56 PM Reporting Lab: [address] [address] Performing Lab: [address] [address] FERRITIN 15.7 ng/mL L 21.8-274.7 Nov 06, 2024 03:32 PM [facility] CBC/PLT BLOOD Specimen Type: BLOOD No comment entered. Ordering Provider: BLAYNE SANDHU Report Released Date/Time: Nov 06, 2024 02:56 PM Reporting Lab: [address] [address] Performing Lab: [address] [address] WBC 8.3 10*3/uL 5.0-10.0 RBC 3.81 10*6/uL L 4.6-6.2 HGB 9.1 g/dL L 14.0-18.0 HCT 30.9 L 42.0-52.0 MCV 81.1 fL 80.0-94.0 MCH 23.9 pg L 27.0-31.0 MCHC 29.4 g/dL L 32.0-36.0 PLT 215 10*3/uL 150-450 MPV 9.7 fL 9.0-13.1 RDW 19.0 H 11.0-16.0 NRBC 0.0 0.0-0.0 Nov 06, 2024 03:32 PM [facility] AUTOMATED DIFF BLOOD Specimen Type: BLOOD No comment entered. Ordering Provider: BLAYNE SANDHU Report Released Date/Time: Nov 06, 2024 02:56 PM Reporting Lab: [facility] [address] [place] [address] Performing Lab: [address] [address] A-LYMPH % 25.2 24.0-44.0 A-MONO % 9.4 H 0.1-6.0 A-GRAN % 60.4 42.0-75.0 A-LYMPH # 2.10 10*3/uL 1.20-3.40 A-MONO # 0.78 10*3/uL H 0.00-0.60 A-GRAN # 5.03 10*3/uL 1.40-6.50 A-BASO % 0.8 0.0-3.0 A-BASO # 0.07 10*3/uL 0.00-0.20 A-EOS % 3.8 0.0-10.0 A-EOS # 0.32 10*3/uL 0.00-0.70 A-IG % 0.4 0.0-0.5 A-IG # 0.03 10*3/uL 0.00-0.06 Nov 06, 2024 03:32 PM [facility] PLASMA Specimen Type: PLASM [...] Nov 06, 2024 02:56 PM Reporting Lab: [address] [address] Performing Lab: [address] [address] CREATININE 0.93 mg/dL 0.72-1.25 UREA NITROGEN 17 [...] and tobacco- related health factors from the [place] facility where the Encounter took place. Current Smoking Status This section includes the most current smoking, or tobacco-related health factor, from the [place] facility where the Encounter took place. Date/Time Current Smoking Status Comment Henry ity Sep 08, 2023 09:30 AM VA-TOBACCO NEVER USED [facility] Tobacco Use History This section includes a history of the smoking, or tobacco-related health factors, that were collected on or before the date of the Encounter. The data comes from the [place] facility where the Encounter took place. Date/Time Smoking Status/Tobacco Use Comment F acility Dec 12, 2006 07:57 AM V9 LIFETIME NON-US ER OF TOBACCO [facility] Aug 21, 2004 09:09 AM HF V9 CURRENT NON-SMOKER quit smoking 5 yrs ago [facility] May 28, 2003 10:30 AM HF V9 CURRENT NON-SMOKER quit 5 years ago [facility] Jun 23, 2001 08:08 AM HF V9 CURRENT NON-SMOKER quit 1 1/2year ago [facility] Encounter Notes: All associated encounter notes This section contains the clinical notes associated to the Encounter. Date/Time Encounter Note(s) Provider Source Dec 04, 2024 10:42 AM LETTERS: LOCAL TITLE: SPECIALTY CONTACT LETTER STANDARD TITLE: LETTERS DATE OF NOTE: DEC 04, 2024@10:42 ENTRY DATE: DEC 04, 2024@10:42:33 AUTHOR: WINNIE JOLLY COSIGNER: URGENCY: STATUS: COMPLETED [facility] [address] [place] [address] Mr. ANEUDY BUSTAMANTE [address] [place] [address] DEC 04, 2024 Dear ANEUDY BUSTAMANTE, We have been unable to contact you by telephone to schedule an appointment in our ENT/Head/Neck clinic. Your health and well-being are important to us. Please call us at or . Select Option #2 and then #3. We look forward to hearing from you soon. Sincerely yours, ENT/Head/Neck [facility] LISSA JOLLY [facility]
--- OUTSIDE RECORDS SUMMARY | 2024-12-18 12:34 | XMS_ITS | Continuity of Care Document ---
Author Name [facility] Organization [facility] Care Team Providers Care Senior Marketing Associate Name Role Phone [facility] Unavailable Unavailable Problems Combined list of problems from Department of Defense and Veterans Affairs facilities. It does not include entries that were removed or entered in error. 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) Active Condition [facility] Back pain (SNOMED CT 921482811) Active Condition [place] Carcinoma of prostate (SNOMED CT 511649542) Active Condition [facility] Depression (SNOMED CT 98968500) [facility] Gastroesophageal reflux disease Active Condition [facility] H/O: malignant neoplasm of male genital organ (SNOMED CT 963748033) Active Condition [facility] History of colonoscopy Active Condition February 01, 2024 Entered By: HALEY WHITLEY Comment: Cscope 12/12/23 - Tics otherwise wnl - No further screen/surv due to age. [facility] History of malignant neoplasm of lung (SNOMED CT 060147596) Active Condition [facility] Hyperlipidemia (SNOMED CT 29541556) Active Condition [place] Iron deficiency anemia (SNOMED CT 98360812) Active Condition [place] Open angle glaucoma Active Condition [facility] Postherpetic neuralgia [facility] Abdominal Aortic Aneurysm, Ruptured Inactive Condition 12/05/2015 IRA[facility] COUGHLIN [facility] Abdominal Aortic Aneurysm, without Rupture Inactive Condition 07/09/2016 [facility] Cataract Inactive Condition 02/12/2022 [place] [facility] Degeneration of posterior vitreous body Inactive Condition 02/12/2022 [facility] Depressive disorder Inactive Condition 12/12/2006 [facility] Dissection of Abdominal Aorta Inactive Condition 12/05/2015 [facility] Diagnosis: ICD-10-CM D64.9 Anemia, unspecified Active Diagnosis [facility] Diagnosis: ICD-10-CM Z71.89 Other specified counseling Active Diagnosis [facility] Diagnosis: ICD-10-CM D64.89 Other specified anemias Active Diagnosis [facility] Diagnosis: ICD-10-CM H90.3 Sensorineural hearing loss, bilateral Active Diagnosis [facility] Diagnosis: ICD-10-CM D50.9 Iron deficiency anemia, unspecified Active Diagnosis [facility] Diagnosis: ICD-10-CM K21.00 Gastro-esophageal reflux dis with esophagitis, without bleed Active Diagnosis [facility] Diagnosis: ICD-10-CM H40.1112 Primary open-angle glaucoma, right eye, moderate stage Active Diagnosis [facility] Diagnosis: ICD-10-CM Z98.890 Other specified postprocedural states Active Diagnosis [facility] Diagnosis: ICD-10-CM K21.9 Gastro-esophageal reflux disease without esophagitis Active Diagnosis [facility] Diagnosis: ICD-10-CM Z01.818 Encounter for other preprocedural examination Active Diagnosis [facility] Medications Combined list of outpatient medications from Department of Defense and [facility] Affairs facilities.Medications provided include 1) outpatient medications from the last 15 months, and 2) patient-reported medications. Medication Details Route Status Patient Instructions Prescription Expires Prescription Number Last Dispense Date Ordering Provider Order Date Order Qty Source APAP 250MG/ASA 250MG/CAFN 65MG TAB TAKE TWO TABLETS BY MOUTH PRN ORAL ACTIVE Chiquita DIAZ 2017 [place] [facility] ASCORBIC ACID 500MG TAB TAKE ONE TABLET BY MOUTH DAILY FOR NUTRITIO N ORAL SUSPEND ED 11/08/2025 [id number] WINNIE SANDHU 2024 100 [place] [facility] ATORVASTATI N CA 80MG TAB TAKE ONE-HALF TABLET BY MOUTH DAILY FOR CHOLESTE ROL -DO NOT DRINK GRAPEFRU IT JUICE WHILE ON THIS DRUG ORAL 11/23/2024 [id number] 5 Harjinder BENÍTEZ 2023 45 [place] BISACODYL 5MG TAB,EC TAKE FOUR TABLETS BY MOUTH DIRECTED FOR BOWEL PREP AT 7PM THE NIGHT BEFORE YOUR COLONOSC OPY. DO NOT TAKE UNTIL YOU RECEIVE YOUR APPT. DATE AND INSTRUCT IONS IN MAIL. AT 7PM THE NIGHT BEFORE YOUR COLONOSC OPY. DO NOT TAKE UNTIL YOU RECEIVE YOUR APPT. DATE AND INSTRUCT IONS IN MAIL. ORAL 11/12/2023 [id number] YOIM PAPPAS 2023 4 [place] BUPROPION HCL 75MG TAB TAKE TWO TABLETS BY MOUTH DAILY FOR MOOD OR SMOKING CESSATIO N ORAL ACTIVE 11/05/2025 [id number] 5 DANTE CALLEJAS 2024 60 [place] [facility] [place] BUPROPION HCL 75MG TAB TAKE TWO TABLETS BY MOUTH DAILY FOR MOOD OR SMOKING CESSATIO N ORAL DISCONT INUED 08/26/2025 [id number] 5 DANTE CALLEJAS 2024 60 [place] [facility] [place] BUPROPION HCL 75MG TAB TAKE TWO TABLETS BY MOUTH DAILY FOR MOOD OR SMOKING CESSATIO N ORAL DISCONT INUED 06/22/2025 [id number] 4 DANTE CALLEJAS 2023 60 [place] [facility] [place] BUPROPION HCL 75MG TAB TAKE TWO TABLETS BY MOUTH DAILY FOR MOOD OR SMOKING CESSATIO N ORAL DISCONT INUED 01/25/2025 [id number] 4 Harjinder BENÍTEZ 2023 60 [place] [facility] [place] BUPROPION HCL 75MG TAB TAKE TWO TABLETS BY MOUTH DAILY FOR MOOD OR SMOKING CESSATIO N ORAL DISCONT INUED 05/13/2024 [id number] 4 Harjinder BENÍTEZ 2022 60 [place] [facility] [place] CARBOXYMETH YLCELLULOSE NA 1% GEL,OPH 0.4ML APPLY 1 DROP TO BOTH EYES FOUR TIMES A DAY FOR DRY EYES OPHTHA LMIC ACTIVE 09/26/2024 [id number] BENITO MCCORD A 2023 30 [place] [facility] CITALOPRAM HYDROBROMID E 40MG TAB TAKE ONE TABLET BY MOUTH DAILY FOR MOOD ORAL SUSPEND ED 03/05/2025 [id number] 5 Harjinder BENÍTEZ A 2023 90 [place] [facility] [place] CITALOPRAM HYDROBROMID E 40MG TAB TAKE ONE TABLET BY MOUTH DAILY FOR MOOD ORAL DISCONT INUED 03/03/2024 [id number] Harjinder BENÍTEZ A 2022 90 [place] [facility] [place] FAMOTIDINE 40MG TAB TAKE ONE TABLET BY MOUTH AT BEDTIME NEEDED FOR STOMACH ORAL ACTIVE 12/06/2025 [id number] 5 ELYSE ,YOMI 2024 90 [place] FAMOTIDINE 40MG TAB TAKE ONE TABLET BY MOUTH AT BEDTIME NEEDED FOR STOMACH ORAL DISCONT INUED (EDIT) 05/09/2025 [id number] 5 ELYSE ,YOMI 2023 90 [place] FAMOTIDINE 40MG TAB TAKE ONE TABLET BY MOUTH AT BEDTIME NEEDED FOR STOMACH ORAL DISCONT INUED (EDIT) 12/12/2024 [id number] 4 JENNA, PETE 2023 90 [place] FERROUS SO4 324MG TAB,EC TAKE ONE TABLET BY MOUTH DAILY FOR IRON SUPPLEME NT TAKE WITH VIT C ORAL DISCONT INUED BY PROVIDE R 11/08/2025 [id number] 5 WINNIE SANDHU 2024 100 [place] [facility] [place] NAPROXEN 250MG TAB TAKE ONE TABLET BY MOUTH PRN ORAL ACTIVE Chiquita DIAZ 2017 [place] [facility] PANTOPRAZOL E NA 40MG TAB,EC TAKE ONE TABLET BY MOUTH TWICE A DAY FOR HEARTBUR N -TAKE ON AN EMPTY STOMACH. ORAL SUSPEND ED 12/06/2025 [id number] 5 ELYSE ,YOMI 2024 180 [place] PANTOPRAZOL E NA 40MG TAB,EC TAKE ONE TABLET BY MOUTH TWICE A DAY FOR HEARTBUR N -TAKE ON AN EMPTY STOMACH. ORAL DISCONT INUED (EDIT) 05/09/2025 [id number] 5 ELYSE ,YOMI 2023 180 [place] PANTOPRAZOL E NA 40MG TAB,EC TAKE ONE TABLET BY MOUTH TWICE A DAY BEFORE MEALS FOR HEARTBUR N -TAKE ON AN EMPTY STOMACH. ORAL DISCONT INUED (EDIT) 12/12/2024 [id number] 4 PETE WEST 2023 180 [place] PEG-3350/EL ECTROLYTES PWDR TAKE COLONOSC OPY PREP BY MOUTH DIRECTED FOR BOWEL PREP -TAKE PER WRITTEN DIRECTIO NS PROVIDED BY CLINIC. WRITTEN INSTRUCT IONS FROM CLINIC WILL COME SEPARATE WITH YOUR APPOINTM ENT LETTER. DO NOT TAKE UNTIL YOU RECEIVE YOUR APPOINTM ENT DATE AND INSTRUCT IONS IN MAIL. ORAL 11/12/2023 [id number] 4 ELYSE ,YOMI 2023 1 [place] [facility] POLYETHYLEN E GLYCOL 3350 PWDR,ORAL MIX 1 HEAPING TABLESPO ONFUL IN LIQUID AND TAKE BY MOUTH DAILY ORAL ACTIVE Chiquita DIAZ 2017 [place] [facility] Allergies, Adverse Reactions, Alerts Combined list of allergies from Department of Defense and Veterans Affairs facilities. It does not include entries that were removed or entered in error. Substance Category Reaction Severity Reaction type Status Date Reported Comments Source TOPAMAX 25MG TABLET Propensity to adverse reactions to drug (finding) Sedated, Abdominal pain, Disturbance in speech active 1 [facility] Immunizations Combined list of available immunizations from the Department of Defense and Veterans Affairs facilities. Immunization Series Date Given Administered By Site Reaction Lot Number CVX Code Drug Fire Adjuster Status Comments Source INFLUENZA, HIGH-DOSE, TRIVALENT, PF 2024 JOSHUA JO RRA E RIGHT DELTO ID [id number] 135 complet ed [facility] [place] [facility] COVID-19 (MODERNA), MRNA, LNP-S, PF, 50 MCG/0.5 ML (AGES 12+ YEARS) 2024 JOSHUA JO RRA E LEFT DELTO ID [id number] 312 complet ed [facility] [place] [facility] PNEUMOCOCCAL CONJUGATE PCV20, POLYSACCHARID E [id number] CONJUGATE, ADJUVANT, PF 2022 LEDA TOBIAS RIGHT DELTO ID [id number] 216 complet ed Completed Series, [facility] [place] [facility] COVID-19, MRNA, LNP-S, BIVALENT BOOSTER, PF, 30 MCG/0.3 ML DOSE 1 2021 300 complet ed PFR; [id number]; 3 [place] [facility] INFLUENZA, INJECTABLE, QUADRIVALENT, PRESERVATIVE FREE 2021 150 complet ed [place] [facility] TDAP 2021 115 complet ed [place] [facility] COVID-19 (PFIZER), MRNA, LNP-S, PF, 30 MCG/0.3 ML DOSE 3 2020 208 complet ed PFR; [id number]; 2 [place] [facility] INFLUENZA, INJECTABLE, QUADRIVALENT, PRESERVATIVE FREE 2020 150 complet ed [place] [facility] COVID-19 (PFIZER), MRNA, LNP-S, PF, 30 MCG/0.3 ML DOSE 2 2020 208 complet ed PFR; [id number]; 1 [place] [facility] COVID-19 (PFIZER), MRNA, LNP-S, PF, 30 MCG/0.3 ML DOSE 1 2020 208 complet ed PFR; [id number]; 1 [place] [facility] INFLUENZA, INJECTABLE, QUADRIVALENT, PRESERVATIVE FREE 2019 150 complet ed [place] [facility] PNEUMOCOCCAL POLYSACCHARID E [id number] 2019 33 complet ed [place] [facility] INFLUENZA, INJECTABLE, QUADRIVALENT, PRESERVATIVE FREE 4 2018 150 complet ed HISTORICA L INFORMATI ON - FROM OTHER REGISTRY, [place] [facility] INFLUENZA, SEASONAL, INJECTABLE 2018 141 complet ed computer [place] [facility] INFLUENZA, UNSPECIFIED FORMULATION 3 2018 88 complet ed HISTORICA L INFORMATI ON - FROM OTHER REGISTRY, [place] [facility] INFLUENZA, HIGH DOSE SEASONAL 2 2017 135 complet ed HISTORICA L INFORMATI ON - FROM OTHER REGISTRY, [place] [facility] INFLUENZA A & B (HISTORICAL) 2017 88 complet ed [place] [facility] INFLUENZA, INJECTABLE, QUADRIVALENT, PRESERVATIVE FREE 1 2015 150 complet ed HISTORICA L INFORMATI ON - FROM OTHER REGISTRY, [place] [facility] INFLUENZA A & B (HISTORICAL) 2015 88 complet ed [place] [facility] [id number] (HISTORICAL) 2015 133 complet ed [place] [facility] INFLUENZA A & B (HISTORICAL) 2014 88 complet ed [place] [facility] INFLUENZA A & B (HISTORICAL) 2013 88 complet ed [place] [facility] [id number] (HISTORICAL) 2013 33 complet ed [place] [facility] PNEUMOCOCCAL, UNSPECIFIED FORMULATION 2013 109 complet ed [place] [facility] INFLUENZA A & B (HISTORICAL) 2012 88 complet ed [place] [facility] FLU,3 YRS (HISTORICAL) 2012 88 complet ed [place] [facility] TDAP 2011 115 complet ed computer [place] [facility] INFLUENZA A & B (HISTORICAL) 2010 88 complet ed [place] [facility] TDAP (HISTORICAL) 2010 115 complet ed [place] [facility] INFLUENZA A & B (HISTORICAL) 2009 88 complet ed [place] [facility] FLU,3 YRS (HISTORICAL) 2008 88 complet ed [place] [facility] TD(ADULT) UNSPECIFIED FORMULATION 2008 NONE 139 complet ed Booster for Series, lot# [id number] 12-04-2009 [place] [facility] NOVEL INFLUENZA-H1N -, ALL FORMULATIONS 2008 128 complet ed work [place] [facility] [place] INFLUENZA A & B (HISTORICAL) 2007 88 complet ed COMPLETE [place] [facility] INFLUENZA A & B (HISTORICAL) 2006 88 complet ed [place] [facility] PNEUMOCOCCAL, UNSPECIFIED FORMULATION 2006 109 complet ed COMPLETE [place] [facility] INFLUENZA A & B (HISTORICAL) 2005 88 complet ed [place] [facility] INFLUENZA A & B (HISTORICAL) 2004 88 complet ed [place] [facility] INFLUENZA, UNSPECIFIED FORMULATION 2002 88 complet ed [place] [facility] INFLUENZA, UNSPECIFIED FORMULATION 2001 88 complet ed flu shot given in (R) deltoid no reaction noted [place] [facility] TD(ADULT) UNSPECIFIED FORMULATION 1998 139 complet ed [place] [facility] Results Combined list of recent chemistry, hematology and other laboratory results from Department of Defense and Veterans Affairs, ranging from 15 months to all on record, depending upon the facility. Order Name Results Value Reference Range Date Interpretation Specimen Comments Source TRANSFERR IN TRANSFERRIN [MASS/VOLUM E] IN SERUM OR PLASMA 386 mg/dL 177 - 329 11/06 H Specimen Type: SERUM No comment entered. Ordering Provider: LUCRECIA SANDHU Report Released Date/Time: Nov 06, 2024 02:56 PM Reporting Lab: [facility] [address] [address] Performing Lab: [facility] [address] [address] [facility] FOLATE FOLATE [MASS/VOLUM E] IN SERUM OR PLASMA 8.2 ng/mL 7.0 - 31.4 11/06 Specimen Type: PLASMA Comment: Estimated Glomerular Filtration Rate (eGFR) calculated using the 2020 Chronic Kidney Disease-Epi demiology (CKD-EPI) Collaborati on creatinine equation; units of measure are mL/min/1.73 m2. Results are only valid for adults (>=18 years) whose serum creatinine is in a steady state. eGFR calculation s are not valid for patients with acute kidney injury and for patients on dialysis. Creatinine- based estimates of kidney function may also be inaccurate in patients with reduced creatinine generation due to decreased muscle mass (e.g., malnutritio n, severe hypoalbumin emia, sarcopenia, chronic neuromuscul ar disease, amputations , severe heart failure or liver disease) and in patients with increased creatinine generation due to increased muscle mass (e.g., muscle builders, anabolic steroids) or increased dietary intake. As drug clearance is proportiona l to total GFR and not GFR indexed to body surface area (BSA), in individuals with a BSA substantial ly different than 1.73 m2, drug dosing should be based on the reported eGFR value de-indexed from BSA by multiplying by the individual' s BSA and dividing by 1.73. CKD is diagnosed based on abnormaliti es of kidney structure or function, present for >3 months, with implication s for health and disease. CKD is classified and staged based on cause, eGFR and albuminuria (quantified as urine albumin to creatinine ratio). An eGFR >60 mL/min/1.73 m2 in the absence of increased urine albumin excretion or structural abnormaliti es does not represent CKD. eGFR CKD Interpretat ion (mL/min/1.7 3 m2) stage >=90 G1 Normal 60-89 G2 Mild decrease 45-59 G3A Mild to moderate decrease 30-44 G3B Moderate to severe decrease 15-29 G4 Severe decrease <15 G5 Kidney failure Ordering Provider: LUCRECIA SANDHU Report Released Date/Time: Nov 06, 2024 02:56 PM Reporting Lab: [facility] [address] [address] Performing Lab: [facility] [address] [address] [facility] IRON/TIBC IRON [MOLES/VOLU ME] IN SERUM OR PLASMA 358 ug/dL 65 - 175 11/06 H Specimen Type: PLASMA Comment: Estimated Glomerular Filtration Rate (eGFR) calculated using the 2020 Chronic Kidney Disease-Epi demiology (CKD-EPI) Collaborati on creatinine equation; units of measure are mL/min/1.73 m2. Results are only valid for adults (>=18 years) whose serum creatinine is in a steady state. eGFR calculation s are not valid for patients with acute kidney injury and for patients on dialysis. Creatinine- based estimates of kidney function may also be inaccurate in patients with reduced creatinine generation due to decreased muscle mass (e.g., malnutritio n, severe hypoalbumin emia, sarcopenia, chronic neuromuscul ar disease, amputations , severe heart failure or liver disease) and in patients with increased creatinine generation due to increased muscle mass (e.g., muscle builders, anabolic steroids) or increased dietary intake. As drug clearance is proportiona l to total GFR and not GFR indexed to body surface area (BSA), in individuals with a BSA substantial ly different than 1.73 m2, drug dosing should be based on the reported eGFR value de-indexed from BSA by multiplying by the individual' s BSA and dividing by 1.73. CKD is diagnosed based on abnormaliti es of kidney structure or function, present for >3 months, with implication s for health and disease. CKD is classified and staged based on cause, eGFR and albuminuria (quantified as urine albumin to creatinine ratio). An eGFR >60 mL/min/1.73 m2 in the absence of increased urine albumin excretion or structural abnormaliti es does not represent CKD. eGFR CKD Interpretat ion (mL/min/1.7 3 m2) stage >=90 G1 Normal 60-89 G2 Mild decrease 45-59 G3A Mild to moderate decrease 30-44 G3B Moderate to severe decrease 15-29 G4 Severe decrease <15 G5 Kidney failure Ordering Provider: LUCRECIA SANDHU Report Released Date/Time: Nov 06, 2024 02:56 PM Reporting Lab: [facility] [address] [facility] [address] Performing Lab: [facility] [address] [facility] [address] [facility] IRON/TIBC IRON BINDING CAPACITY [MASS/VOLUM E] IN SERUM OR PLASMA 433 mg/dL 250 - 425 11/06 H Specimen Type: PLASMA Comment: Estimated Glomerular Filtration Rate (eGFR) calculated using the 2020 Chronic Kidney Disease-Epi demiology (CKD-EPI) Collaborati on creatinine equation; units of measure are mL/min/1.73 m2. Results are only valid for adults (>=18 years) whose serum creatinine is in a steady state. eGFR calculation s are not valid for patients with acute kidney injury and for patients on dialysis. Creatinine- based estimates of kidney function may also be inaccurate in patients with reduced creatinine generation due to decreased muscle mass (e.g., malnutritio n, severe hypoalbumin emia, sarcopenia, chronic neuromuscul ar disease, amputations , severe heart failure or liver disease) and in patients with increased creatinine generation due to increased muscle mass (e.g., muscle builders, anabolic steroids) or increased dietary intake. As drug clearance is proportiona l to total GFR and not GFR indexed to body surface area (BSA), in individuals with a BSA substantial ly different than 1.73 m2, drug dosing should be based on the reported eGFR value de-indexed from BSA by multiplying by the individual' s BSA and dividing by 1.73. CKD is diagnosed based on abnormaliti es of kidney structure or function, present for >3 months, with implication s for health and disease. CKD is classified and staged based on cause, eGFR and albuminuria (quantified as urine albumin to creatinine ratio). An eGFR >60 mL/min/1.73 m2 in the absence of increased urine albumin excretion or structural abnormaliti es does not represent CKD. eGFR CKD Interpretat ion (mL/min/1.7 3 m2) stage >=90 G1 Normal 60-89 G2 Mild decrease 45-59 G3A Mild to moderate decrease 30-44 G3B Moderate to severe decrease 15-29 G4 Severe decrease <15 G5 Kidney failure Ordering Provider: LUCRECIA SANDHU Report Released Date/Time: Nov 06, 2024 02:56 PM Reporting Lab: [facility] [address] [address] Performing Lab: [facility] [address] [address] [facility] IRON/TIBC IRON SATURATION [MOLAR FRACTION] IN SERUM OR PLASMA 83 20 - 50 11/06 H Specimen Type: PLASMA Comment: Estimated Glomerular Filtration Rate (eGFR) calculated using the 2020 Chronic Kidney Disease-Epi demiology (CKD-EPI) Collaborati on creatinine equation; units of measure are mL/min/1.73 m2. Results are only valid for adults (>=18 years) whose serum creatinine is in a steady state. eGFR calculation s are not valid for patients with acute kidney injury and for patients on dialysis. Creatinine- based estimates of kidney function may also be inaccurate in patients with reduced creatinine generation due to decreased muscle mass (e.g., malnutritio n, severe hypoalbumin emia, sarcopenia, chronic neuromuscul ar disease, amputations , severe heart failure or liver disease) and in patients with increased creatinine generation due to increased muscle mass (e.g., muscle builders, anabolic steroids) or increased dietary intake. As drug clearance is proportiona l to total GFR and not GFR indexed to body surface area (BSA), in individuals with a BSA substantial ly different than 1.73 m2, drug dosing should be based on the reported eGFR value de-indexed from BSA by multiplying by the individual' s BSA and dividing by 1.73. CKD is diagnosed based on abnormaliti es of kidney structure or function, present for >3 months, with implication s for health and disease. CKD is classified and staged based on cause, eGFR and albuminuria (quantified as urine albumin to creatinine ratio). An eGFR >60 mL/min/1.73 m2 in the absence of increased urine albumin excretion or structural abnormaliti es does not represent CKD. eGFR CKD Interpretat ion (mL/min/1.7 3 m2) stage >=90 G1 Normal 60-89 G2 Mild decrease 45-59 G3A Mild to moderate decrease 30-44 G3B Moderate to severe decrease 15-29 G4 Severe decrease <15 G5 Kidney failure Ordering Provider: LUCRECIA SANDHU Report Released Date/Time: Nov 06, 2024 02:56 PM Reporting Lab: [facility] [address] [facility] [address] Performing Lab: [address] [address] [facility] FERRITIN FERRITIN [MASS/VOLUM E] IN SERUM OR PLASMA 15.7 ng/mL 21.8 - 274.7 11/06 L Specimen Type: PLASMA Comment: Estimated Glomerular Filtration Rate (eGFR) calculated using the 2020 Chronic Kidney Disease-Epi demiology (CKD-EPI) Collaborati on creatinine equation; units of measure are mL/min/1.73 m2. Results are only valid for adults (>=18 years) whose serum creatinine is in a steady state. eGFR calculation s are not valid for patients with acute kidney injury and for patients on dialysis. Creatinine- based estimates of kidney function may also be inaccurate in patients with reduced creatinine generation due to decreased muscle mass (e.g., malnutritio n, severe hypoalbumin emia, sarcopenia, chronic neuromuscul ar disease, amputations , severe heart failure or liver disease) and in patients with increased creatinine generation due to increased muscle mass (e.g., muscle builders, anabolic steroids) or increased dietary intake. As drug clearance is proportiona l to total GFR and not GFR indexed to body surface area (BSA), in individuals with a BSA substantial ly different than 1.73 m2, drug dosing should be based on the reported eGFR value de-indexed from BSA by multiplying by the individual' s BSA and dividing by 1.73. CKD is diagnosed based on abnormaliti es of kidney structure or function, present for >3 months, with implication s for health and disease. CKD is classified and staged based on cause, eGFR and albuminuria (quantified as urine albumin to creatinine ratio). An eGFR >60 mL/min/1.73 m2 in the absence of increased urine albumin excretion or structural abnormaliti es does not represent CKD. eGFR CKD Interpretat ion (mL/min/1.7 3 m2) stage >=90 G1 Normal 60-89 G2 Mild decrease 45-59 G3A Mild to moderate decrease 30-44 G3B Moderate to severe decrease 15-29 G4 Severe decrease <15 G5 Kidney failure Ordering Provider: LUCRECIA SANDHU Report Released Date/Time: Nov 06, 2024 02:56 PM Reporting Lab: [place] [address] Performing Lab: [address] CBC/PLT LEUKOCYTES [#/VOLUME] IN BLOOD BY AUTOMATED COUNT 8.3 10*3/u L 5.0 - 10.0 11/06 Specimen Type: BLOOD No comment entered. Ordering Provider: LUCRECIA SANDHU Report Released Date/Time: Nov 06, 2024 02:56 PM Reporting Lab: [address] Performing Lab: [address] CBC/PLT ERYTHROCYTE S [#/VOLUME] IN BLOOD BY AUTOMATED COUNT 3.81 10*6/u L 4.6 - 6.2 11/06 L Specimen Type: BLOOD No comment entered. Ordering Provider: LUCRECIA SANDHU Report Released Date/Time: Nov 06, 2024 02:56 PM Reporting Lab: [place] [id number] Performing Lab: [address] CBC/PLT HEMOGLOBIN [MASS/VOLUM E] IN BLOOD 9.1 g/dL 14.0 - 18.0 11/06 L Specimen Type: BLOOD No comment entered. Ordering Provider: LUCRECIA SANDHU Report Released Date/Time: Nov 06, 2024 02:56 PM Reporting Lab: [place] [address] Performing Lab: [place] [id number] CBC/PLT HEMATOCRIT [VOLUME FRACTION] OF BLOOD BY AUTOMATED COUNT 30.9 42.0 - 52.0 11/06 L Specimen Type: BLOOD No comment entered. Ordering Provider: LUCRECIA SANDHU Report Released Date/Time: Nov 06, 2024 02:56 PM Reporting Lab: [address] Performing Lab: [address] CBC/PLT MCV [ENTITIC VOLUME] BY AUTOMATED COUNT 81.1 fL 80.0 - 94.0 11/06 Specimen Type: BLOOD No comment entered. Ordering Provider: LUCRECIA SANDHU Report Released Date/Time: Nov 06, 2024 02:56 PM Reporting Lab: [place] [id number] Performing Lab: [place] [id number] CBC/PLT MCH [ENTITIC MASS] BY AUTOMATED COUNT 23.9 pg 27.0 - 31.0 11/06 L Specimen Type: BLOOD No comment entered. Ordering Provider: LUCRECIA SANDHU Report Released Date/Time: Nov 06, 2024 02:56 PM Reporting Lab: [place] [id number] Performing Lab: [place] [id number] [place] [address] CBC/PLT MCHC [MASS/VOLUM E] BY AUTOMATED COUNT 29.4 g/dL 32.0 - 36.0 11/06 L Specimen Type: BLOOD No comment entered. Ordering Provider: LUCRECIA SANDHU Report Released Date/Time: Nov 06, 2024 02:56 PM Reporting Lab: [address] [address] Performing Lab: [address] [address] [facility] CBC/PLT PLATELETS [#/VOLUME] IN BLOOD 215 10*3/u L 150 - 450 11/06 Specimen Type: BLOOD No comment entered. Ordering Provider: LUCRECIA SANDHU Report Released Date/Time: Nov 06, 2024 02:56 PM Reporting Lab: [address] [address] Performing Lab: [address] [address] [facility] CBC/PLT PLATELET MEAN VOLUME [ENTITIC VOLUME] IN BLOOD 9.7 fL 9.0 - 13.1 11/06 Specimen Type: BLOOD No comment entered. Ordering Provider: LUCRECIA SANDHU Report Released Date/Time: Nov 06, 2024 02:56 PM Reporting Lab: [address] [address] Performing Lab: [address] [address] [facility] CBC/PLT ERYTHROCYTE DISTRIBUTIO N WIDTH [ENTITIC VOLUME] BY AUTOMATED COUNT 19.0 11.0 - 16.0 11/06 H Specimen Type: BLOOD No comment entered. Ordering Provider: LUCRECIA SANDHU Report Released Date/Time: Nov 06, 2024 02:56 PM Reporting Lab: [address] [address] Performing Lab: [address] [address] [facility] CBC/PLT NUCLEATED ERYTHROCYTE S/100 ERYTHROCYTE S IN BLOOD 0.0 0.0 - 0.0 11/06 Specimen Type: BLOOD No comment entered. Ordering Provider: LUCRECIA SANDHU Report Released Date/Time: Nov 06, 2024 02:56 PM Reporting Lab: [address] [address] Performing Lab: [address] [address] [facility] AUTOMATED DIFF LYMPHOCYTES /100 LEUKOCYTES IN BLOOD BY AUTOMATED COUNT 25.2 24.0 - 44.0 11/06 Specimen Type: BLOOD No comment entered. Ordering Provider: LUCRECIA SANDHU Report Released Date/Time: Nov 06, 2024 02:56 PM Reporting Lab: [place] [id number] Performing Lab: [place] [id number] [facility] AUTOMATED DIFF MONOCYTES/1 00 LEUKOCYTES IN BLOOD BY AUTOMATED COUNT 9.4 0.1 - 6.0 11/06 H Specimen Type: BLOOD No comment entered. Ordering Provider: LUCRECIA SANDHU Report Released Date/Time: Nov 06, 2024 02:56 PM Reporting Lab: [place] [id number] Performing Lab: [place] [id number] [facility] AUTOMATED DIFF GRANULOCYTE S/100 LEUKOCYTES IN BLOOD BY AUTOMATED COUNT 60.4 42.0 - 75.0 11/06 Specimen Type: BLOOD No comment entered. Ordering Provider: LUCRECIA SANDHU Report Released Date/Time: Nov 06, 2024 02:56 PM Reporting Lab: [place] [id number] Performing Lab: [place] [id number] [facility] AUTOMATED DIFF LYMPHOCYTES [#/VOLUME] IN BLOOD BY AUTOMATED COUNT 2.10 10*3/u L 1.20 - 3.40 11/06 Specimen Type: BLOOD No comment entered. Ordering Provider: LUCRECIA SANDHU Report Released Date/Time: Nov 06, 2024 02:56 PM Reporting Lab: [place] [id number] Performing Lab: [place] [id number] [facility] AUTOMATED DIFF MONOCYTES [#/VOLUME] IN BLOOD BY AUTOMATED COUNT 0.78 10*3/u L 0.00 - 0.60 11/06 H Specimen Type: BLOOD No comment entered. Ordering Provider: LUCRECIA SANDHU Report Released Date/Time: Nov 06, 2024 02:56 PM Reporting Lab: [place] [address] Performing Lab: [address] AUTOMATED DIFF GRANULOCYTE S [#/VOLUME] IN BLOOD BY AUTOMATED COUNT 5.03 10*3/u L 1.40 - 6.50 11/06 Specimen Type: BLOOD No comment entered. Ordering Provider: LUCRECIA SANDHU Report Released Date/Time: Nov 06, 2024 02:56 PM Reporting Lab: [place] [address] Performing Lab: [address] AUTOMATED DIFF BASOPHILS/1 00 LEUKOCYTES IN BLOOD BY AUTOMATED COUNT 0.8 0.0 - 3.0 11/06 Specimen Type: BLOOD No comment entered. Ordering Provider: LUCRECIA SANDHU Report Released Date/Time: Nov 06, 2024 02:56 PM Reporting Lab: [address] Performing Lab: [address] AUTOMATED DIFF BASOPHILS [#/VOLUME] IN BLOOD BY AUTOMATED COUNT 0.07 10*3/u L 0.00 - 0.20 11/06 Specimen Type: BLOOD No comment entered. Ordering Provider: LUCRECIA SANDHU Report Released Date/Time: Nov 06, 2024 02:56 PM Reporting Lab: [address] Performing Lab: [address] AUTOMATED DIFF EOSINOPHILS /100 LEUKOCYTES IN BLOOD BY AUTOMATED COUNT 3.8 0.0 - 10.0 11/06 Specimen Type: BLOOD No comment entered. Ordering Provider: LUCRECIA SANDHU Report Released Date/Time: Nov 06, 2024 02:56 PM Reporting Lab: [place] [id number] Performing Lab: [place] [id number] [facility] AUTOMATED DIFF EOSINOPHILS [#/VOLUME] IN BLOOD BY AUTOMATED COUNT 0.32 10*3/u L 0.00 - 0.70 11/06 Specimen Type: BLOOD No comment entered. Ordering Provider: LUCRECIA SANDHU Report Released Date/Time: Nov 06, 2024 02:56 PM Reporting Lab: [place] [id number] Performing Lab: [place] [id number] [facility] AUTOMATED DIFF IMMATURE GRANULOCYTE S/100 LEUKOCYTES IN BLOOD 0.4 0.0 - 0.5 11/06 Specimen Type: BLOOD No comment entered. Ordering Provider: LUCRECIA SANDHU Report Released Date/Time: Nov 06, 2024 02:56 PM Reporting Lab: [place] [id number] Performing Lab: [place] [id number] [facility] AUTOMATED DIFF IMMATURE GRANULOCYTE S [#/VOLUME] IN BLOOD 0.03 10*3/u L 0.00 - 0.06 11/06 Specimen Type: BLOOD No comment entered. Ordering Provider: LUCRECIA SANDHU Report Released Date/Time: Nov 06, 2024 02:56 PM Reporting Lab: [place] [id number] Performing Lab: [place] [id number] [facility] PANEL 5 CREATININE [MASS/VOLUM E] IN SERUM OR PLASMA 0.93 mg/dL 0.72 - 1.25 11/06 Specimen Type: PLASMA Comment: Estimated Glomerular Filtration Rate (eGFR) calculated using the 2020 Chronic Kidney Disease-Epi demiology (CKD-EPI) Collaborati on creatinine equation; units of measure are mL/min/1.73 m2. Results are only valid for adults (>=18 years) whose serum creatinine is in a steady state. eGFR calculation s are not valid for patients with acute kidney injury and for patients on dialysis. Creatinine- based estimates of kidney function may also be inaccurate in patients with reduced creatinine generation due to decreased muscle mass (e.g., malnutritio n, severe hypoalbumin emia, sarcopenia, chronic neuromuscul ar disease, amputations , severe heart failure or liver disease) and in patients with increased creatinine generation due to increased muscle mass (e.g., muscle builders, anabolic steroids) or increased dietary intake. As drug clearance is proportiona l to total GFR and not GFR indexed to body surface area (BSA), in individuals with a BSA substantial ly different than 1.73 m2, drug dosing should be based on the reported eGFR value de-indexed from BSA by multiplying by the individual' s BSA and dividing by 1.73. CKD is diagnosed based on abnormaliti es of kidney structure or function, present for >3 months, with implication s for health and disease. CKD is classified and staged based on cause, eGFR and albuminuria (quantified as urine albumin to creatinine ratio). An eGFR >60 mL/min/1.73 m2 in the absence of increased urine albumin excretion or structural abnormaliti es does not represent CKD. eGFR CKD Interpretat ion (mL/min/1.7 3 m2) stage >=90 G1 Normal 60-89 G2 Mild decrease 45-59 G3A Mild to moderate decrease 30-44 G3B Moderate to severe decrease 15-29 G4 Severe decrease <15 G5 Kidney failure Ordering Provider: LUCRECIA SANDHU Report Released Date/Time: Nov 06, 2024 02:56 PM Reporting Lab: [facility] [address] [address] Performing Lab: [facility] [address] [address] [facility] PANEL 5 UREA NITROGEN [MASS/VOLUM E] IN SERUM OR PLASMA 17 mg/dL 9 - 25 11/06 Specimen Type: PLASMA Comment: Estimated Glomerular Filtration Rate (eGFR) calculated using the 2020 Chronic Kidney Disease-Epi demiology (CKD-EPI) Collaborati on creatinine equation; units of measure are mL/min/1.73 m2. Results are only valid for adults (>=18 years) whose serum creatinine is in a steady state. eGFR calculation s are not valid for patients with acute kidney injury and for patients on dialysis. Creatinine- based estimates of kidney function may also be inaccurate in patients with reduced creatinine generation due to decreased muscle mass (e.g., malnutritio n, severe hypoalbumin emia, sarcopenia, chronic neuromuscul ar disease, amputations , severe heart failure or liver disease) and in patients with increased creatinine generation due to increased muscle mass (e.g., muscle builders, anabolic steroids) or increased dietary intake. As drug clearance is proportiona l to total GFR and not GFR indexed to body surface area (BSA), in individuals with a BSA substantial ly different than 1.73 m2, drug dosing should be based on the reported eGFR value de-indexed from BSA by multiplying by the individual' s BSA and dividing by 1.73. CKD is diagnosed based on abnormaliti es of kidney structure or function, present for >3 months, with implication s for health and disease. CKD is classified and staged based on cause, eGFR and albuminuria (quantified as urine albumin to creatinine ratio). An eGFR >60 mL/min/1.73 m2 in the absence of increased urine albumin excretion or structural abnormaliti es does not represent CKD. eGFR CKD Interpretat ion (mL/min/1.7 3 m2) stage >=90 G1 Normal 60-89 G2 Mild decrease 45-59 G3A Mild to moderate decrease 30-44 G3B Moderate to severe decrease 15-29 G4 Severe decrease <15 G5 Kidney failure Ordering Provider: LUCRECIA SANDHU Report Released Date/Time: Nov 06, 2024 02:56 PM Reporting Lab: [facility] [address] [address] Performing Lab: [facility] [address] [address] [facility] PANEL 5 GLUCOSE [MASS/VOLUM E] IN SERUM OR PLASMA 89 mg/dL 74 - 100 03/04 /2025 Specimen Type: PLASMA Comment: Estimated Glomerular Filtration Rate (eGFR) calculated using the 2020 Chronic Kidney Disease-Epi demiology (CKD-EPI) Collaborati on creatinine equation; units of measure are mL/min/1.73 m2. Results are only valid for adults (>=18 years) whose serum creatinine is in a steady state. eGFR calculation s are not valid for patients with acute kidney injury and for patients on dialysis. Creatinine- based estimates of kidney function may also be inaccurate in patients with reduced creatinine generation due to decreased muscle mass (e.g., malnutritio n, severe hypoalbumin emia, sarcopenia, chronic neuromuscul ar disease, amputations , severe heart failure or liver disease) and in patients with increased creatinine generation due to increased muscle mass (e.g., muscle builders, anabolic steroids) or increased dietary intake. As drug clearance is proportiona l to total GFR and not GFR indexed to body surface area (BSA), in individuals with a BSA substantial ly different than 1.73 m2, drug dosing should be based on the reported eGFR value de-indexed from BSA by multiplying by the individual' s BSA and dividing by 1.73. CKD is diagnosed based on abnormaliti es of kidney structure or function, present for >3 months, with implication s for health and disease. CKD is classified and staged based on cause, eGFR and albuminuria (quantified as urine albumin to creatinine ratio). An eGFR >60 mL/min/1.73 m2 in the absence of increased urine albumin excretion or structural abnormaliti es does not represent CKD. eGFR CKD Interpretat ion (mL/min/1.7 3 m2) stage >=90 G1 Normal 60-89 G2 Mild decrease 45-59 G3A Mild to moderate decrease 30-44 G3B Moderate to severe decrease 15-29 G4 Severe decrease <15 G5 Kidney failure Ordering Provider: LUCRECIA SANDHU Report Released Date/Time: Nov 06, 2024 02:56 PM Reporting Lab: [facility] [address] [address] Performing Lab: [facility] [address] [place] [address] [facility] PANEL 5 SODIUM [MOLES/VOLU ME] IN SERUM OR PLASMA 140 mmol/L 136 - 145 11/06 Specimen Type: PLASMA Comment: Estimated Glomerular Filtration Rate (eGFR) calculated using the 2020 Chronic Kidney Disease-Epi demiology (CKD-EPI) Collaborati on creatinine equation; units of measure are mL/min/1.73 m2. Results are only valid for adults (>=18 years) whose serum creatinine is in a steady state. eGFR calculation s are not valid for patients with acute kidney injury and for patients on dialysis. Creatinine- based estimates of kidney function may also be inaccurate in patients with reduced creatinine generation due to decreased muscle mass (e.g., malnutritio n, severe hypoalbumin emia, sarcopenia, chronic neuromuscul ar disease, amputations , severe heart failure or liver disease) and in patients with increased creatinine generation due to increased muscle mass (e.g., muscle builders, anabolic steroids) or increased dietary intake. As drug clearance is proportiona l to total GFR and not GFR indexed to body surface area (BSA), in individuals with a BSA substantial ly different than 1.73 m2, drug dosing should be based on the reported eGFR value de-indexed from BSA by multiplying by the individual' s BSA and dividing by 1.73. CKD is diagnosed based on abnormaliti es of kidney structure or function, present for >3 months, with implication s for health and disease. CKD is classified and staged based on cause, eGFR and albuminuria (quantified as urine albumin to creatinine ratio). An eGFR >60 mL/min/1.73 m2 in the absence of increased urine albumin excretion or structural abnormaliti es does not represent CKD. eGFR CKD Interpretat ion (mL/min/1.7 3 m2) stage >=90 G1 Normal 60-89 G2 Mild decrease 45-59 G3A Mild to moderate decrease 30-44 G3B Moderate to severe decrease 15-29 G4 Severe decrease <15 G5 Kidney failure Ordering Provider: LUCRECIA SANDHU Report Released Date/Time: Nov 06, 2024 02:56 PM Reporting Lab: [facility] [address] [facility] [address] Performing Lab: [facility] [address] [facility] [address] [facility] PANEL 5 POTASSIUM [MOLES/VOLU ME] IN SERUM OR PLASMA 4.3 mmol/L 3.5 - 5.1 11/06 Specimen Type: PLASMA Comment: Estimated Glomerular Filtration Rate (eGFR) calculated using the 2020 Chronic Kidney Disease-Epi demiology (CKD-EPI) Collaborati on creatinine equation; units of measure are mL/min/1.73 m2. Results are only valid for adults (>=18 years) whose serum creatinine is in a steady state. eGFR calculation s are not valid for patients with acute kidney injury and for patients on dialysis. Creatinine- based estimates of kidney function may also be inaccurate in patients with reduced creatinine generation due to decreased muscle mass (e.g., malnutritio n, severe hypoalbumin emia, sarcopenia, chronic neuromuscul ar disease, amputations , severe heart failure or liver disease) and in patients with increased creatinine generation due to increased muscle mass (e.g., muscle builders, anabolic steroids) or increased dietary intake. As drug clearance is proportiona l to total GFR and not GFR indexed to body surface area (BSA), in individuals with a BSA substantial ly different than 1.73 m2, drug dosing should be based on the reported eGFR value de-indexed from BSA by multiplying by the individual' s BSA and dividing by 1.73. CKD is diagnosed based on abnormaliti es of kidney structure or function, present for >3 months, with implication s for health and disease. CKD is classified and staged based on cause, eGFR and albuminuria (quantified as urine albumin to creatinine ratio). An eGFR >60 mL/min/1.73 m2 in the absence of increased urine albumin excretion or structural abnormaliti es does not represent CKD. eGFR CKD Interpretat ion (mL/min/1.7 3 m2) stage >=90 G1 Normal 60-89 G2 Mild decrease 45-59 G3A Mild to moderate decrease 30-44 G3B Moderate to severe decrease 15-29 G4 Severe decrease <15 G5 Kidney failure Ordering Provider: LUCRECIA SANDHU Report Released Date/Time: Nov 06, 2024 02:56 PM Reporting Lab: [facility] [address] [facility] [address] Performing Lab: [facility] [address] [place] [address] [facility] PANEL 5 CHLORIDE [MOLES/VOLU ME] IN SERUM OR PLASMA 108 mmol/L 98 - 107 11/06 H Specimen Type: PLASMA Comment: Estimated Glomerular Filtration Rate (eGFR) calculated using the 2020 Chronic Kidney Disease-Epi demiology (CKD-EPI) Collaborati on creatinine equation; units of measure are mL/min/1.73 m2. Results are only valid for adults (>=18 years) whose serum creatinine is in a steady state. eGFR calculation s are not valid for patients with acute kidney injury and for patients on dialysis. Creatinine- based estimates of kidney function may also be inaccurate in patients with reduced creatinine generation due to decreased muscle mass (e.g., malnutritio n, severe hypoalbumin emia, sarcopenia, chronic neuromuscul ar disease, amputations , severe heart failure or liver disease) and in patients with increased creatinine generation due to increased muscle mass (e.g., muscle builders, anabolic steroids) or increased dietary intake. As drug clearance is proportiona l to total GFR and not GFR indexed to body surface area (BSA), in individuals with a BSA substantial ly different than 1.73 m2, drug dosing should be based on the reported eGFR value de-indexed from BSA by multiplying by the individual' s BSA and dividing by 1.73. CKD is diagnosed based on abnormaliti es of kidney structure or function, present for >3 months, with implication s for health and disease. CKD is classified and staged based on cause, eGFR and albuminuria (quantified as urine albumin to creatinine ratio). An eGFR >60 mL/min/1.73 m2 in the absence of increased urine albumin excretion or structural abnormaliti es does not represent CKD. eGFR CKD Interpretat ion (mL/min/1.7 3 m2) stage >=90 G1 Normal 60-89 G2 Mild decrease 45-59 G3A Mild to moderate decrease 30-44 G3B Moderate to severe decrease 15-29 G4 Severe decrease <15 G5 Kidney failure Ordering Provider: LUCRECIA SANDHU Report Released Date/Time: Nov 06, 2024 02:56 PM Reporting Lab: [facility] [address] [address] Performing Lab: [facility] [address] [address] [facility] PANEL 5 CARBON DIOXIDE, TOTAL [MOLES/VOLU ME] IN SERUM OR PLASMA 22 mmol/L 11/06 Specimen Type: PLASMA Comment: Estimated Glomerular Filtration Rate (eGFR) calculated using the 2020 Chronic Kidney Disease-Epi demiology (CKD-EPI) Collaborati on creatinine equation; units of measure are mL/min/1.73 m2. Results are only valid for adults (>=18 years) whose serum creatinine is in a steady state. eGFR calculation s are not valid for patients with acute kidney injury and for patients on dialysis. Creatinine- based estimates of kidney function may also be inaccurate in patients with reduced creatinine generation due to decreased muscle mass (e.g., malnutritio n, severe hypoalbumin emia, sarcopenia, chronic neuromuscul ar disease, amputations , severe heart failure or liver disease) and in patients with increased creatinine generation due to increased muscle mass (e.g., muscle builders, anabolic steroids) or increased dietary intake. As drug clearance is proportiona l to total GFR and not GFR indexed to body surface area (BSA), in individuals with a BSA substantial ly different than 1.73 m2, drug dosing should be based on the reported eGFR value de-indexed from BSA by multiplying by the individual' s BSA and dividing by 1.73. CKD is diagnosed based on abnormaliti es of kidney structure or function, present for >3 months, with implication s for health and disease. CKD is classified and staged based on cause, eGFR and albuminuria (quantified as urine albumin to creatinine ratio). An eGFR >60 mL/min/1.73 m2 in the absence of increased urine albumin excretion or structural abnormaliti es does not represent CKD. eGFR CKD Interpretat ion (mL/min/1.7 3 m2) stage >=90 G1 Normal 60-89 G2 Mild decrease 45-59 G3A Mild to moderate decrease 30-44 G3B Moderate to severe decrease 15-29 G4 Severe decrease <15 G5 Kidney failure Ordering Provider: LUCRECIA SANDHU Report Released Date/Time: Nov 06, 2024 02:56 PM Reporting Lab: [facility] [address] [address] Performing Lab: [facility] [address] [address] [facility] PANEL 5 CALCIUM [MASS/VOLUM E] IN SERUM OR PLASMA 10.1 mg/dL 8.4 - 10.2 11/06 Specimen Type: PLASMA Comment: Estimated Glomerular Filtration Rate (eGFR) calculated using the 2020 Chronic Kidney Disease-Epi demiology (CKD-EPI) Collaborati on creatinine equation; units of measure are mL/min/1.73 m2. Results are only valid for adults (>=18 years) whose serum creatinine is in a steady state. eGFR calculation s are not valid for patients with acute kidney injury and for patients on dialysis. Creatinine- based estimates of kidney function may also be inaccurate in patients with reduced creatinine generation due to decreased muscle mass (e.g., malnutritio n, severe hypoalbumin emia, sarcopenia, chronic neuromuscul ar disease, amputations , severe heart failure or liver disease) and in patients with increased creatinine generation due to increased muscle mass (e.g., muscle builders, anabolic steroids) or increased dietary intake. As drug clearance is proportiona l to total GFR and not GFR indexed to body surface area (BSA), in individuals with a BSA substantial ly different than 1.73 m2, drug dosing should be based on the reported eGFR value de-indexed from BSA by multiplying by the individual' s BSA and dividing by 1.73. CKD is diagnosed based on abnormaliti es of kidney structure or function, present for >3 months, with implication s for health and disease. CKD is classified and staged based on cause, eGFR and albuminuria (quantified as urine albumin to creatinine ratio). An eGFR >60 mL/min/1.73 m2 in the absence of increased urine albumin excretion or structural abnormaliti es does not represent CKD. eGFR CKD Interpretat ion (mL/min/1.7 3 m2) stage >=90 G1 Normal 60-89 G2 Mild decrease 45-59 G3A Mild to moderate decrease 30-44 G3B Moderate to severe decrease 15-29 G4 Severe decrease <15 G5 Kidney failure Ordering Provider: LUCRECIA SANDHU Report Released Date/Time: Nov 06, 2024 02:56 PM Reporting Lab: [facility] [address] [address] Performing Lab: [facility] ALBERTOBakari [address] [address] [facility] PANEL 5 PROTEIN [MASS/VOLUM E] IN SERUM OR PLASMA 7.6 g/dL 6.4 - 8.3 11/06 Specimen Type: PLASMA Comment: Estimated Glomerular Filtration Rate (eGFR) calculated using the 2020 Chronic Kidney Disease-Epi demiology (CKD-EPI) Collaborati on creatinine equation; units of measure are mL/min/1.73 m2. Results are only valid for adults (>=18 years) whose serum creatinine is in a steady state. eGFR calculation s are not valid for patients with acute kidney injury and for patients on dialysis. Creatinine- based estimates of kidney function may also be inaccurate in patients with reduced creatinine generation due to decreased muscle mass (e.g., malnutritio n, severe hypoalbumin emia, sarcopenia, chronic neuromuscul ar disease, amputations , severe heart failure or liver disease) and in patients with increased creatinine generation due to increased muscle mass (e.g., muscle builders, anabolic steroids) or increased dietary intake. As drug clearance is proportiona l to total GFR and not GFR indexed to body surface area (BSA), in individuals with a BSA substantial ly different than 1.73 m2, drug dosing should be based on the reported eGFR value de-indexed from BSA by multiplying by the individual' s BSA and dividing by 1.73. CKD is diagnosed based on abnormaliti es of kidney structure or function, present for >3 months, with implication s for health and disease. CKD is classified and staged based on cause, eGFR and albuminuria (quantified as urine albumin to creatinine ratio). An eGFR >60 mL/min/1.73 m2 in the absence of increased urine albumin excretion or structural abnormaliti es does not represent CKD. eGFR CKD Interpretat ion (mL/min/1.7 3 m2) stage >=90 G1 Normal 60-89 G2 Mild decrease 45-59 G3A Mild to moderate decrease 30-44 G3B Moderate to severe decrease 15-29 G4 Severe decrease <15 G5 Kidney failure Ordering Provider: LUCRECIA SANDHU Report Released Date/Time: Nov 06, 2024 02:56 PM Reporting Lab: [facility] [address] [address] Performing Lab: [facility] [address] [address] [facility] PANEL 5 ALBUMIN [MASS/VOLUM E] IN SERUM OR PLASMA 3.9 g/dL 3.5 - 5.2 11/06 Specimen Type: PLASMA Comment: Estimated Glomerular Filtration Rate (eGFR) calculated using the 2020 Chronic Kidney Disease-Epi demiology (CKD-EPI) Collaborati on creatinine equation; units of measure are mL/min/1.73 m2. Results are only valid for adults (>=18 years) whose serum creatinine is in a steady state. eGFR calculation s are not valid for patients with acute kidney injury and for patients on dialysis. Creatinine- based estimates of kidney function may also be inaccurate in patients with reduced creatinine generation due to decreased muscle mass (e.g., malnutritio n, severe hypoalbumin emia, sarcopenia, chronic neuromuscul ar disease, amputations , severe heart failure or liver disease) and in patients with increased creatinine generation due to increased muscle mass (e.g., muscle builders, anabolic steroids) or increased dietary intake. As drug clearance is proportiona l to total GFR and not GFR indexed to body surface area (BSA), in individuals with a BSA substantial ly different than 1.73 m2, drug dosing should be based on the reported eGFR value de-indexed from BSA by multiplying by the individual' s BSA and dividing by 1.73. CKD is diagnosed based on abnormaliti es of kidney structure or function, present for >3 months, with implication s for health and disease. CKD is classified and staged based on cause, eGFR and albuminuria (quantified as urine albumin to creatinine ratio). An eGFR >60 mL/min/1.73 m2 in the absence of increased urine albumin excretion or structural abnormaliti es does not represent CKD. eGFR CKD Interpretat ion (mL/min/1.7 3 m2) stage >=90 G1 Normal 60-89 G2 Mild decrease 45-59 G3A Mild to moderate decrease 30-44 G3B Moderate to severe decrease 15-29 G4 Severe decrease <15 G5 Kidney failure Ordering Provider: LUCRECIA SANDHU Report Released Date/Time: Nov 06, 2024 02:56 PM Reporting Lab: [facility] [address] [address] Performing Lab: [facility] [address] [address] [facility] PANEL 5 BILIRUBIN.T OTAL [MASS/VOLUM E] IN SERUM OR PLASMA 0.5 mg/dL 0.2 - 1.2 11/06 Specimen Type: PLASMA Comment: Estimated Glomerular Filtration Rate (eGFR) calculated using the 2020 Chronic Kidney Disease-Epi demiology (CKD-EPI) Collaborati on creatinine equation; units of measure are mL/min/1.73 m2. Results are only valid for adults (>=18 years) whose serum creatinine is in a steady state. eGFR calculation s are not valid for patients with acute kidney injury and for patients on dialysis. Creatinine- based estimates of kidney function may also be inaccurate in patients with reduced creatinine generation due to decreased muscle mass (e.g., malnutritio n, severe hypoalbumin emia, sarcopenia, chronic neuromuscul ar disease, amputations , severe heart failure or liver disease) and in patients with increased creatinine generation due to increased muscle mass (e.g., muscle builders, anabolic steroids) or increased dietary intake. As drug clearance is proportiona l to total GFR and not GFR indexed to body surface area (BSA), in individuals with a BSA substantial ly different than 1.73 m2, drug dosing should be based on the reported eGFR value de-indexed from BSA by multiplying by the individual' s BSA and dividing by 1.73. CKD is diagnosed based on abnormaliti es of kidney structure or function, present for >3 months, with implication s for health and disease. CKD is classified and staged based on cause, eGFR and albuminuria (quantified as urine albumin to creatinine ratio). An eGFR >60 mL/min/1.73 m2 in the absence of increased urine albumin excretion or structural abnormaliti es does not represent CKD. eGFR CKD Interpretat ion (mL/min/1.7 3 m2) stage >=90 G1 Normal 60-89 G2 Mild decrease 45-59 G3A Mild to moderate decrease 30-44 G3B Moderate to severe decrease 15-29 G4 Severe decrease <15 G5 Kidney failure Ordering Provider: LUCRECIA SANDHU Report Released Date/Time: Nov 06, 2024 02:56 PM Reporting Lab: [facility] [address] [address] Performing Lab: [facility] [address] [address] [facility] PANEL 5 ASPARTATE AMINOTRANSF ERASE [ENZYMATIC ACTIVITY/VO LUME] IN SERUM OR PLASMA 15 U/L 5 - 34 11/06 Specimen Type: PLASMA Comment: Estimated Glomerular Filtration Rate (eGFR) calculated using the 2020 Chronic Kidney Disease-Epi demiology (CKD-EPI) Collaborati on creatinine equation; units of measure are mL/min/1.73 m2. Results are only valid for adults (>=18 years) whose serum creatinine is in a steady state. eGFR calculation s are not valid for patients with acute kidney injury and for patients on dialysis. Creatinine- based estimates of kidney function may also be inaccurate in patients with reduced creatinine generation due to decreased muscle mass (e.g., malnutritio n, severe hypoalbumin emia, sarcopenia, chronic neuromuscul ar disease, amputations , severe heart failure or liver disease) and in patients with increased creatinine generation due to increased muscle mass (e.g., muscle builders, anabolic steroids) or increased dietary intake. As drug clearance is proportiona l to total GFR and not GFR indexed to body surface area (BSA), in individuals with a BSA substantial ly different than 1.73 m2, drug dosing should be based on the reported eGFR value de-indexed from BSA by multiplying by the individual' s BSA and dividing by 1.73. CKD is diagnosed based on abnormaliti es of kidney structure or function, present for >3 months, with implication s for health and disease. CKD is classified and staged based on cause, eGFR and albuminuria (quantified as urine albumin to creatinine ratio). An eGFR >60 mL/min/1.73 m2 in the absence of increased urine albumin excretion or structural abnormaliti es does not represent CKD. eGFR CKD Interpretat ion (mL/min/1.7 3 m2) stage >=90 G1 Normal 60-89 G2 Mild decrease 45-59 G3A Mild to moderate decrease 30-44 G3B Moderate to severe decrease 15-29 G4 Severe decrease <15 G5 Kidney failure Ordering Provider: LUCRECIA SANDHU Report Released Date/Time: Nov 06, 2024 02:56 PM Reporting Lab: [facility] [address] [phone] Performing Lab: [facility] [address] [address] [facility] PANEL 5 ALANINE AMINOTRANSF ERASE [ENZYMATIC ACTIVITY/VO LUME] IN SERUM OR PLASMA 14 U/L 0 - 55 11/06 Specimen Type: PLASMA Comment: Estimated Glomerular Filtration Rate (eGFR) calculated using the 2020 Chronic Kidney Disease-Epi demiology (CKD-EPI) Collaborati on creatinine equation; units of measure are mL/min/1.73 m2. Results are only valid for adults (>=18 years) whose serum creatinine is in a steady state. eGFR calculation s are not valid for patients with acute kidney injury and for patients on dialysis. Creatinine- based estimates of kidney function may also be inaccurate in patients with reduced creatinine generation due to decreased muscle mass (e.g., malnutritio n, severe hypoalbumin emia, sarcopenia, chronic neuromuscul ar disease, amputations , severe heart failure or liver disease) and in patients with increased creatinine generation due to increased muscle mass (e.g., muscle builders, anabolic steroids) or increased dietary intake. As drug clearance is proportiona l to total GFR and not GFR indexed to body surface area (BSA), in individuals with a BSA substantial ly different than 1.73 m2, drug dosing should be based on the reported eGFR value de-indexed from BSA by multiplying by the individual' s BSA and dividing by 1.73. CKD is diagnosed based on abnormaliti es of kidney structure or function, present for >3 months, with implication s for health and disease. CKD is classified and staged based on cause, eGFR and albuminuria (quantified as urine albumin to creatinine ratio). An eGFR >60 mL/min/1.73 m2 in the absence of increased urine albumin excretion or structural abnormaliti es does not represent CKD. eGFR CKD Interpretat ion (mL/min/1.7 3 m2) stage >=90 G1 Normal 60-89 G2 Mild decrease 45-59 G3A Mild to moderate decrease 30-44 G3B Moderate to severe decrease 15-29 G4 Severe decrease <15 G5 Kidney failure Ordering Provider: LUCRECIA SANDHU Report Released Date/Time: Nov 06, 2024 02:56 PM Reporting Lab: [facility] [address] [address] Performing Lab: [facility] [address] [address] [facility] PANEL 5 ANION GAP 3 IN SERUM OR PLASMA 10 meq/L 3 - 19 11/06 Specimen Type: PLASMA Comment: Estimated Glomerular Filtration Rate (eGFR) calculated using the 2020 Chronic Kidney Disease-Epi demiology (CKD-EPI) Collaborati on creatinine equation; units of measure are mL/min/1.73 m2. Results are only valid for adults (>=18 years) whose serum creatinine is in a steady state. eGFR calculation s are not valid for patients with acute kidney injury and for patients on dialysis. Creatinine- based estimates of kidney function may also be inaccurate in patients with reduced creatinine generation due to decreased muscle mass (e.g., malnutritio n, severe hypoalbumin emia, sarcopenia, chronic neuromuscul ar disease, amputations , severe heart failure or liver disease) and in patients with increased creatinine generation due to increased muscle mass (e.g., muscle builders, anabolic steroids) or increased dietary intake. As drug clearance is proportiona l to total GFR and not GFR indexed to body surface area (BSA), in individuals with a BSA substantial ly different than 1.73 m2, drug dosing should be based on the reported eGFR value de-indexed from BSA by multiplying by the individual' s BSA and dividing by 1.73. CKD is diagnosed based on abnormaliti es of kidney structure or function, present for >3 months, with implication s for health and disease. CKD is classified and staged based on cause, eGFR and albuminuria (quantified as urine albumin to creatinine ratio). An eGFR >60 mL/min/1.73 m2 in the absence of increased urine albumin excretion or structural abnormaliti es does not represent CKD. eGFR CKD Interpretat ion (mL/min/1.7 3 m2) stage >=90 G1 Normal 60-89 G2 Mild decrease 45-59 G3A Mild to moderate decrease 30-44 G3B Moderate to severe decrease 15-29 G4 Severe decrease <15 G5 Kidney failure Ordering Provider: LUCRECIA SANDHU Report Released Date/Time: Nov 06, 2024 02:56 PM Reporting Lab: [facility] [address] [address] Performing Lab: [facility] [address] [address] [facility] PANEL 5 ALKALINE PHOSPHATASE [ENZYMATIC ACTIVITY/VO LUME] IN SERUM OR PLASMA 105 U/L 40 - 150 11/06 Specimen Type: PLASMA Comment: Estimated Glomerular Filtration Rate (eGFR) calculated using the 2020 Chronic Kidney Disease-Epi demiology (CKD-EPI) Collaborati on creatinine equation; units of measure are mL/min/1.73 m2. Results are only valid for adults (>=18 years) whose serum creatinine is in a steady state. eGFR calculation s are not valid for patients with acute kidney injury and for patients on dialysis. Creatinine- based estimates of kidney function may also be inaccurate in patients with reduced creatinine generation due to decreased muscle mass (e.g., malnutritio n, severe hypoalbumin emia, sarcopenia, chronic neuromuscul ar disease, amputations , severe heart failure or liver disease) and in patients with increased creatinine generation due to increased muscle mass (e.g., muscle builders, anabolic steroids) or increased dietary intake. As drug clearance is proportiona l to total GFR and not GFR indexed to body surface area (BSA), in individuals with a BSA substantial ly different than 1.73 m2, drug dosing should be based on the reported eGFR value de-indexed from BSA by multiplying by the individual' s BSA and dividing by 1.73. CKD is diagnosed based on abnormaliti es of kidney structure or function, present for >3 months, with implication s for health and disease. CKD is classified and staged based on cause, eGFR and albuminuria (quantified as urine albumin to creatinine ratio). An eGFR >60 mL/min/1.73 m2 in the absence of increased urine albumin excretion or structural abnormaliti es does not represent CKD. eGFR CKD Interpretat ion (mL/min/1.7 3 m2) stage >=90 G1 Normal 60-89 G2 Mild decrease 45-59 G3A Mild to moderate decrease 30-44 G3B Moderate to severe decrease 15-29 G4 Severe decrease <15 G5 Kidney failure Ordering Provider: LUCRECIA SANDHU Report Released Date/Time: Nov 06, 2024 02:56 PM Reporting Lab: [facility] [place] [id number] [facility] [address] Performing Lab: [facility] [place] [id number] [facility] [address] [facility] PANEL 5 GLOMERULAR FILTRATION RATE/1.73 SQ M.PREDICTED [VOLUME RATE/AREA] IN SERUM, PLASMA OR BLOOD BY CREATININE- BASED FORMULA (CKD-EPI 2020) 86 11/06 Specimen Type: PLASMA Comment: Estimated Glomerular Filtration Rate (eGFR) calculated using the 2020 Chronic Kidney Disease-Epi demiology (CKD-EPI) Collaborati on creatinine equation; units of measure are mL/min/1.73 m2. Results are only valid for adults (>=18 years) whose serum creatinine is in a steady state. eGFR calculation s are not valid for patients with acute kidney injury and for patients on dialysis. Creatinine- based estimates of kidney function may also be inaccurate in patients with reduced creatinine generation due to decreased muscle mass (e.g., malnutritio n, severe hypoalbumin emia, sarcopenia, chronic neuromuscul ar disease, amputations , severe heart failure or liver disease) and in patients with increased creatinine generation due to increased muscle mass (e.g., muscle builders, anabolic steroids) or increased dietary intake. As drug clearance is proportiona l to total GFR and not GFR indexed to body surface area (BSA), in individuals with a BSA substantial ly different than 1.73 m2, drug dosing should be based on the reported eGFR value de-indexed from BSA by multiplying by the individual' s BSA and dividing by 1.73. CKD is diagnosed based on abnormaliti es of kidney structure or function, present for >3 months, with implication s for health and disease. CKD is classified and staged based on cause, eGFR and albuminuria (quantified as urine albumin to creatinine ratio). An eGFR >60 mL/min/1.73 m2 in the absence of increased urine albumin excretion or structural abnormaliti es does not represent CKD. eGFR CKD Interpretat ion (mL/min/1.7 3 m2) stage >=90 G1 Normal 60-89 G2 Mild decrease 45-59 G3A Mild to moderate decrease 30-44 G3B Moderate to severe decrease 15-29 G4 Severe decrease <15 G5 Kidney failure Ordering Provider: LUCRECIA SANDHU Report Released Date/Time: Nov 06, 2024 02:56 PM Reporting Lab: [facility] [address] [facility] [phone] Performing Lab: [facility] [address] [facility] [address] [facility] PANEL 1 CREATININE [MASS/VOLUM E] IN SERUM OR PLASMA 0.87 mg/dL 0.72 - 1.25 12/04 Specimen Type: PLASMA Comment: Estimated Glomerular Filtration Rate (eGFR) calculated using the 2020 Chronic Kidney Disease-Epi demiology (CKD-EPI) Collaborati on creatinine equation; units of measure are mL/min/1.73 m2. Results are only valid for adults (>=18 years) whose serum creatinine is in a steady state. eGFR calculation s are not valid for patients with acute kidney injury and for patients on dialysis. Creatinine- based estimates of kidney function may also be inaccurate in patients with reduced creatinine generation due to decreased muscle mass (e.g., malnutritio n, severe hypoalbumin emia, sarcopenia, chronic neuromuscul ar disease, amputations , severe heart failure or liver disease) and in patients with increased creatinine generation due to increased muscle mass (e.g., muscle builders, anabolic steroids) or increased dietary intake. As drug clearance is proportiona l to total GFR and not GFR indexed to body surface area (BSA), in individuals with a BSA substantial ly different than 1.73 m2, drug dosing should be based on the reported eGFR value de-indexed from BSA by multiplying by the individual' s BSA and dividing by 1.73. CKD is diagnosed based on abnormaliti es of kidney structure or function, present for >3 months, with implication s for health and disease. CKD is classified and staged based on cause, eGFR and albuminuria (quantified as urine albumin to creatinine ratio). An eGFR >60 mL/min/1.73 m2 in the absence of increased urine albumin excretion or structural abnormaliti es does not represent CKD. eGFR CKD Interpretat ion (mL/min/1.7 3 m2) stage >=90 G1 Normal 60-89 G2 Mild decrease 45-59 G3A Mild to moderate decrease 30-44 G3B Moderate to severe decrease 15-29 G4 Severe decrease <15 G5 Kidney failure Ordering Provider: JANEL OSUNA Report Released Date/Time: Dec 05, 2023 07:08 AM Reporting Lab: [facility] [address] [facility] [address] Performing Lab: [facility] [address] [facility] [address] [facility] PANEL 1 UREA NITROGEN [MASS/VOLUM E] IN SERUM OR PLASMA 18 mg/dL 12/04 Specimen Type: PLASMA Comment: Estimated Glomerular Filtration Rate (eGFR) calculated using the 2020 Chronic Kidney Disease-Epi demiology (CKD-EPI) Collaborati on creatinine equation; units of measure are mL/min/1.73 m2. Results are only valid for adults (>=18 years) whose serum creatinine is in a steady state. eGFR calculation s are not valid for patients with acute kidney injury and for patients on dialysis. Creatinine- based estimates of kidney function may also be inaccurate in patients with reduced creatinine generation due to decreased muscle mass (e.g., malnutritio n, severe hypoalbumin emia, sarcopenia, chronic neuromuscul ar disease, amputations , severe heart failure or liver disease) and in patients with increased creatinine generation due to increased muscle mass (e.g., muscle builders, anabolic steroids) or increased dietary intake. As drug clearance is proportiona l to total GFR and not GFR indexed to body surface area (BSA), in individuals with a BSA substantial ly different than 1.73 m2, drug dosing should be based on the reported eGFR value de-indexed from BSA by multiplying by the individual' s BSA and dividing by 1.73. CKD is diagnosed based on abnormaliti es of kidney structure or function, present for >3 months, with implication s for health and disease. CKD is classified and staged based on cause, eGFR and albuminuria (quantified as urine albumin to creatinine ratio). An eGFR >60 mL/min/1.73 m2 in the absence of increased urine albumin excretion or structural abnormaliti es does not represent CKD. eGFR CKD Interpretat ion (mL/min/1.7 3 m2) stage >=90 G1 Normal 60-89 G2 Mild decrease 45-59 G3A Mild to moderate decrease 30-44 G3B Moderate to severe decrease 15-29 G4 Severe decrease <15 G5 Kidney failure Ordering Provider: JANEL OSUNA Report Released Date/Time: Dec 05, 2023 07:08 AM Reporting Lab: [facility] [address] [facility] [phone] Performing Lab: [facility] [address] [facility] [address] [facility] PANEL 1 GLUCOSE [MASS/VOLUM E] IN SERUM OR PLASMA 87 mg/dL 74 - 100 12/04 Specimen Type: PLASMA Comment: Estimated Glomerular Filtration Rate (eGFR) calculated using the 2020 Chronic Kidney Disease-Epi demiology (CKD-EPI) Collaborati on creatinine equation; units of measure are mL/min/1.73 m2. Results are only valid for adults (>=18 years) whose serum creatinine is in a steady state. eGFR calculation s are not valid for patients with acute kidney injury and for patients on dialysis. Creatinine- based estimates of kidney function may also be inaccurate in patients with reduced creatinine generation due to decreased muscle mass (e.g., malnutritio n, severe hypoalbumin emia, sarcopenia, chronic neuromuscul ar disease, amputations , severe heart failure or liver disease) and in patients with increased creatinine generation due to increased muscle mass (e.g., muscle builders, anabolic steroids) or increased dietary intake. As drug clearance is proportiona l to total GFR and not GFR indexed to body surface area (BSA), in individuals with a BSA substantial ly different than 1.73 m2, drug dosing should be based on the reported eGFR value de-indexed from BSA by multiplying by the individual' s BSA and dividing by 1.73. CKD is diagnosed based on abnormaliti es of kidney structure or function, present for >3 months, with implication s for health and disease. CKD is classified and staged based on cause, eGFR and albuminuria (quantified as urine albumin to creatinine ratio). An eGFR >60 mL/min/1.73 m2 in the absence of increased urine albumin excretion or structural abnormaliti es does not represent CKD. eGFR CKD Interpretat ion (mL/min/1.7 3 m2) stage >=90 G1 Normal 60-89 G2 Mild decrease 45-59 G3A Mild to moderate decrease 30-44 G3B Moderate to severe decrease 15-29 G4 Severe decrease <15 G5 Kidney failure Ordering Provider: JANEL OSUNA Report Released Date/Time: Dec 05, 2023 07:08 AM Reporting Lab: [facility] [address] [address] Performing Lab: [facility] [address] [address] [facility] PANEL 1 SODIUM [MOLES/VOLU ME] IN SERUM OR PLASMA 141 mmol/L 136 - 145 12/04 Specimen Type: PLASMA Comment: Estimated Glomerular Filtration Rate (eGFR) calculated using the 2020 Chronic Kidney Disease-Epi demiology (CKD-EPI) Collaborati on creatinine equation; units of measure are mL/min/1.73 m2. Results are only valid for adults (>=18 years) whose serum creatinine is in a steady state. eGFR calculation s are not valid for patients with acute kidney injury and for patients on dialysis. Creatinine- based estimates of kidney function may also be inaccurate in patients with reduced creatinine generation due to decreased muscle mass (e.g., malnutritio n, severe hypoalbumin emia, sarcopenia, chronic neuromuscul ar disease, amputations , severe heart failure or liver disease) and in patients with increased creatinine generation due to increased muscle mass (e.g., muscle builders, anabolic steroids) or increased dietary intake. As drug clearance is proportiona l to total GFR and not GFR indexed to body surface area (BSA), in individuals with a BSA substantial ly different than 1.73 m2, drug dosing should be based on the reported eGFR value de-indexed from BSA by multiplying by the individual' s BSA and dividing by 1.73. CKD is diagnosed based on abnormaliti es of kidney structure or function, present for >3 months, with implication s for health and disease. CKD is classified and staged based on cause, eGFR and albuminuria (quantified as urine albumin to creatinine ratio). An eGFR >60 mL/min/1.73 m2 in the absence of increased urine albumin excretion or structural abnormaliti es does not represent CKD. eGFR CKD Interpretat ion (mL/min/1.7 3 m2) stage >=90 G1 Normal 60-89 G2 Mild decrease 45-59 G3A Mild to moderate decrease 30-44 G3B Moderate to severe decrease 15-29 G4 Severe decrease <15 G5 Kidney failure Ordering Provider: JANEL OSUNA Report Released Date/Time: Dec 05, 2023 07:08 AM Reporting Lab: [facility] [address] [phone] Performing Lab: [facility] [address] [address] [facility] PANEL 1 POTASSIUM [MOLES/VOLU ME] IN SERUM OR PLASMA 4.2 mmol/L 3.5 - 5.1 12/04 Specimen Type: PLASMA Comment: Estimated Glomerular Filtration Rate (eGFR) calculated using the 2020 Chronic Kidney Disease-Epi demiology (CKD-EPI) Collaborati on creatinine equation; units of measure are mL/min/1.73 m2. Results are only valid for adults (>=18 years) whose serum creatinine is in a steady state. eGFR calculation s are not valid for patients with acute kidney injury and for patients on dialysis. Creatinine- based estimates of kidney function may also be inaccurate in patients with reduced creatinine generation due to decreased muscle mass (e.g., malnutritio n, severe hypoalbumin emia, sarcopenia, chronic neuromuscul ar disease, amputations , severe heart failure or liver disease) and in patients with increased creatinine generation due to increased muscle mass (e.g., muscle builders, anabolic steroids) or increased dietary intake. As drug clearance is proportiona l to total GFR and not GFR indexed to body surface area (BSA), in individuals with a BSA substantial ly different than 1.73 m2, drug dosing should be based on the reported eGFR value de-indexed from BSA by multiplying by the individual' s BSA and dividing by 1.73. CKD is diagnosed based on abnormaliti es of kidney structure or function, present for >3 months, with implication s for health and disease. CKD is classified and staged based on cause, eGFR and albuminuria (quantified as urine albumin to creatinine ratio). An eGFR >60 mL/min/1.73 m2 in the absence of increased urine albumin excretion or structural abnormaliti es does not represent CKD. eGFR CKD Interpretat ion (mL/min/1.7 3 m2) stage >=90 G1 Normal 60-89 G2 Mild decrease 45-59 G3A Mild to moderate decrease 30-44 G3B Moderate to severe decrease 15-29 G4 Severe decrease <15 G5 Kidney failure Ordering Provider: JANEL OSUNA Report Released Date/Time: Dec 05, 2023 07:08 AM Reporting Lab: [facility] [address] [address] Performing Lab: [facility] [address] [address] [facility] PANEL 1 CHLORIDE [MOLES/VOLU ME] IN SERUM OR PLASMA 108 mmol/L 98 - 107 12/04 H Specimen Type: PLASMA Comment: Estimated Glomerular Filtration Rate (eGFR) calculated using the 2020 Chronic Kidney Disease-Epi demiology (CKD-EPI) Collaborati on creatinine equation; units of measure are mL/min/1.73 m2. Results are only valid for adults (>=18 years) whose serum creatinine is in a steady state. eGFR calculation s are not valid for patients with acute kidney injury and for patients on dialysis. Creatinine- based estimates of kidney function may also be inaccurate in patients with reduced creatinine generation due to decreased muscle mass (e.g., malnutritio n, severe hypoalbumin emia, sarcopenia, chronic neuromuscul ar disease, amputations , severe heart failure or liver disease) and in patients with increased creatinine generation due to increased muscle mass (e.g., muscle builders, anabolic steroids) or increased dietary intake. As drug clearance is proportiona l to total GFR and not GFR indexed to body surface area (BSA), in individuals with a BSA substantial ly different than 1.73 m2, drug dosing should be based on the reported eGFR value de-indexed from BSA by multiplying by the individual' s BSA and dividing by 1.73. CKD is diagnosed based on abnormaliti es of kidney structure or function, present for >3 months, with implication s for health and disease. CKD is classified and staged based on cause, eGFR and albuminuria (quantified as urine albumin to creatinine ratio). An eGFR >60 mL/min/1.73 m2 in the absence of increased urine albumin excretion or structural abnormaliti es does not represent CKD. eGFR CKD Interpretat ion (mL/min/1.7 3 m2) stage >=90 G1 Normal 60-89 G2 Mild decrease 45-59 G3A Mild to moderate decrease 30-44 G3B Moderate to severe decrease 15-29 G4 Severe decrease <15 G5 Kidney failure Ordering Provider: JANEL OSUNA Report Released Date/Time: Dec 05, 2023 07:08 AM Reporting Lab: [facility] [address] [address] Performing Lab: [facility] [address] [address] [facility] PANEL 1 CARBON DIOXIDE, TOTAL [MOLES/VOLU ME] IN SERUM OR PLASMA 23 mmol/L 22 - 29 12/04 Specimen Type: PLASMA Comment: Estimated Glomerular Filtration Rate (eGFR) calculated using the 2020 Chronic Kidney Disease-Epi demiology (CKD-EPI) Collaborati on creatinine equation; units of measure are mL/min/1.73 m2. Results are only valid for adults (>=18 years) whose serum creatinine is in a steady state. eGFR calculation s are not valid for patients with acute kidney injury and for patients on dialysis. Creatinine- based estimates of kidney function may also be inaccurate in patients with reduced creatinine generation due to decreased muscle mass (e.g., malnutritio n, severe hypoalbumin emia, sarcopenia, chronic neuromuscul ar disease, amputations , severe heart failure or liver disease) and in patients with increased creatinine generation due to increased muscle mass (e.g., muscle builders, anabolic steroids) or increased dietary intake. As drug clearance is proportiona l to total GFR and not GFR indexed to body surface area (BSA), in individuals with a BSA substantial ly different than 1.73 m2, drug dosing should be based on the reported eGFR value de-indexed from BSA by multiplying by the individual' s BSA and dividing by 1.73. CKD is diagnosed based on abnormaliti es of kidney structure or function, present for >3 months, with implication s for health and disease. CKD is classified and staged based on cause, eGFR and albuminuria (quantified as urine albumin to creatinine ratio). An eGFR >60 mL/min/1.73 m2 in the absence of increased urine albumin excretion or structural abnormaliti es does not represent CKD. eGFR CKD Interpretat ion (mL/min/1.7 3 m2) stage >=90 G1 Normal 60-89 G2 Mild decrease 45-59 G3A Mild to moderate decrease 30-44 G3B Moderate to severe decrease 15-29 G4 Severe decrease <15 G5 Kidney failure Ordering Provider: JANEL OSUNA Report Released Date/Time: Dec 05, 2023 07:08 AM Reporting Lab: [facility] [address] [address] Performing Lab: [facility] [address] [address] [facility] PANEL 1 CALCIUM [MASS/VOLUM E] IN SERUM OR PLASMA 10.0 mg/dL 8.4 - 10.2 12/04 Specimen Type: PLASMA Comment: Estimated Glomerular Filtration Rate (eGFR) calculated using the 2020 Chronic Kidney Disease-Epi demiology (CKD-EPI) Collaborati on creatinine equation; units of measure are mL/min/1.73 m2. Results are only valid for adults (>=18 years) whose serum creatinine is in a steady state. eGFR calculation s are not valid for patients with acute kidney injury and for patients on dialysis. Creatinine- based estimates of kidney function may also be inaccurate in patients with reduced creatinine generation due to decreased muscle mass (e.g., malnutritio n, severe hypoalbumin emia, sarcopenia, chronic neuromuscul ar disease, amputations , severe heart failure or liver disease) and in patients with increased creatinine generation due to increased muscle mass (e.g., muscle builders, anabolic steroids) or increased dietary intake. As drug clearance is proportiona l to total GFR and not GFR indexed to body surface area (BSA), in individuals with a BSA substantial ly different than 1.73 m2, drug dosing should be based on the reported eGFR value de-indexed from BSA by multiplying by the individual' s BSA and dividing by 1.73. CKD is diagnosed based on abnormaliti es of kidney structure or function, present for >3 months, with implication s for health and disease. CKD is classified and staged based on cause, eGFR and albuminuria (quantified as urine albumin to creatinine ratio). An eGFR >60 mL/min/1.73 m2 in the absence of increased urine albumin excretion or structural abnormaliti es does not represent CKD. eGFR CKD Interpretat ion (mL/min/1.7 3 m2) stage >=90 G1 Normal 60-89 G2 Mild decrease 45-59 G3A Mild to moderate decrease 30-44 G3B Moderate to severe decrease 15-29 G4 Severe decrease <15 G5 Kidney failure Ordering Provider: JANEL OSUNA Report Released Date/Time: Dec 05, 2023 07:08 AM Reporting Lab: [facility] [address] [address] Performing Lab: [facility] [address] [address] [facility] PANEL 1 ANION GAP 3 IN SERUM OR PLASMA 10 meq/L 3 - 19 12/04 Specimen Type: PLASMA Comment: Estimated Glomerular Filtration Rate (eGFR) calculated using the 2020 Chronic Kidney Disease-Epi demiology (CKD-EPI) Collaborati on creatinine equation; units of measure are mL/min/1.73 m2. Results are only valid for adults (>=18 years) whose serum creatinine is in a steady state. eGFR calculation s are not valid for patients with acute kidney injury and for patients on dialysis. Creatinine- based estimates of kidney function may also be inaccurate in patients with reduced creatinine generation due to decreased muscle mass (e.g., malnutritio n, severe hypoalbumin emia, sarcopenia, chronic neuromuscul ar disease, amputations , severe heart failure or liver disease) and in patients with increased creatinine generation due to increased muscle mass (e.g., muscle builders, anabolic steroids) or increased dietary intake. As drug clearance is proportiona l to total GFR and not GFR indexed to body surface area (BSA), in individuals with a BSA substantial ly different than 1.73 m2, drug dosing should be based on the reported eGFR value de-indexed from BSA by multiplying by the individual' s BSA and dividing by 1.73. CKD is diagnosed based on abnormaliti es of kidney structure or function, present for >3 months, with implication s for health and disease. CKD is classified and staged based on cause, eGFR and albuminuria (quantified as urine albumin to creatinine ratio). An eGFR >60 mL/min/1.73 m2 in the absence of increased urine albumin excretion or structural abnormaliti es does not represent CKD. eGFR CKD Interpretat ion (mL/min/1.7 3 m2) stage >=90 G1 Normal 60-89 G2 Mild decrease 45-59 G3A Mild to moderate decrease 30-44 G3B Moderate to severe decrease 15-29 G4 Severe decrease <15 G5 Kidney failure Ordering Provider: JANEL OSUNA Report Released Date/Time: Dec 05, 2023 07:08 AM Reporting Lab: [facility] [address] [address] Performing Lab: [facility] [address] [address] [facility] PANEL 1 GLOMERULAR FILTRATION RATE/1.73 SQ M.PREDICTED [VOLUME RATE/AREA] IN SERUM, PLASMA OR BLOOD BY CREATININE- BASED FORMULA (CKD-EPI 2020) >90 12/04 Specimen Type: PLASMA Comment: Estimated Glomerular Filtration Rate (eGFR) calculated using the 2020 Chronic Kidney Disease-Epi demiology (CKD-EPI) Collaborati on creatinine equation; units of measure are mL/min/1.73 m2. Results are only valid for adults (>=18 years) whose serum creatinine is in a steady state. eGFR calculation s are not valid for patients with acute kidney injury and for patients on dialysis. Creatinine- based estimates of kidney function may also be inaccurate in patients with reduced creatinine generation due to decreased muscle mass (e.g., malnutritio n, severe hypoalbumin emia, sarcopenia, chronic neuromuscul ar disease, amputations , severe heart failure or liver disease) and in patients with increased creatinine generation due to increased muscle mass (e.g., muscle builders, anabolic steroids) or increased dietary intake. As drug clearance is proportiona l to total GFR and not GFR indexed to body surface area (BSA), in individuals with a BSA substantial ly different than 1.73 m2, drug dosing should be based on the reported eGFR value de-indexed from BSA by multiplying by the individual' s BSA and dividing by 1.73. CKD is diagnosed based on abnormaliti es of kidney structure or function, present for >3 months, with implication s for health and disease. CKD is classified and staged based on cause, eGFR and albuminuria (quantified as urine albumin to creatinine ratio). An eGFR >60 mL/min/1.73 m2 in the absence of increased urine albumin excretion or structural abnormaliti es does not represent CKD. eGFR CKD Interpretat ion (mL/min/1.7 3 m2) stage >=90 G1 Normal 60-89 G2 Mild decrease 45-59 G3A Mild to moderate decrease 30-44 G3B Moderate to severe decrease 15-29 G4 Severe decrease <15 G5 Kidney failure Ordering Provider: JANEL OSUNA Report Released Date/Time: Dec 05, 2023 07:08 AM Reporting Lab: [facility] [address] [address] Performing Lab: [facility] [address] [address] [facility] FERRITIN FERRITIN [MASS/VOLUM E] IN SERUM OR PLASMA 13.8 ng/mL 21.8 - 274.7 09/08 L Specimen Type: PLASMA No comment entered. Ordering Provider: Kareem PAPPAS LLA Report Released Date/Time: Sep 08, 2023 09:49 AM Reporting Lab: [address] [address] Performing Lab: [address] [phone] [place] [address] IRON/TIBC IRON [MOLES/VOLU ME] IN SERUM OR PLASMA 57 ug/dL 65 - 175 09/08 L Specimen Type: PLASMA No comment entered. Ordering Provider: Kareem PAPPAS LLA Report Released Date/Time: Sep 08, 2023 09:49 AM Reporting Lab: [address] [address] Performing Lab: [address] [phone] [place] [address] IRON/TIBC TIBC 393 mg/dL 250 - 425 09/08 Specimen Type: PLASMA No comment entered. Ordering Provider: Kareem PAPPAS Report Released Date/Time: Sep 08, 2023 09:49 AM Reporting Lab: [address] [address] Performing Lab: [address] [phone] [place] [address] IRON/TIBC IRON SATURATION [MOLAR FRACTION] IN SERUM OR PLASMA 15 20 - 50 09/08 L Specimen Type: PLASMA No comment entered. Ordering Provider: Kareem PAPPASA Report Released Date/Time: Sep 08, 2023 09:49 AM Reporting Lab: [address] [address] Performing Lab: [phone] [place] [address] Vital Signs Combined list of inpatient and outpatient Vital Signs from Department of Defense and Veterans Affairs, ranging from 12 months to all on record, depending upon the facility. Vital Sign Value Date Comments Source SYSTOLIC BLOOD PRESSURE 110 12/05/2024 08:46:00 [facility] DIASTOLIC BLOOD PRESSURE 65 12/05/2024 08:46:00 [place] [facility] PULSE OXIMETRY 98 12/05/2024 08:46:00 [place] [facility] WEIGHT 173.8 12/05/2024 08:46:00 [place] [facility] BMI 26 kg/m2 12/05/2024 08:46:00 [place] [facility] PAIN 0 12/05/2024 08:46:00 [place] [facility] TEMPERATURE 98.3 12/05/2024 08:46:00 [place] [facility] PULSE 51 12/05/2024 08:46:00 [place] [facility] SYSTOLIC BLOOD PRESSURE 99 11/06/2024 14:31:41 [place] [facility] DIASTOLIC BLOOD PRESSURE 61 11/06/2024 14:31:41 [place] [facility] PULSE OXIMETRY 96 11/06/2024 14:31:41 [place] [facility] WEIGHT 170 11/06/2024 14:31:41 [place] [facility] BMI 25 kg/m2 11/06/2024 14:31:41 [place] [facility] PAIN 0 11/06/2024 14:31:41 [place] [facility] HEIGHT 69 11/06/2024 14:31:41 [place] [facility] TEMPERATURE 98.8 11/06/2024 14:31:41 [place] [facility] PULSE 57 11/06/2024 14:31:41 [place] [facility] SYSTOLIC BLOOD PRESSURE 120 05/08/2024 11:31:29 [place] [facility] DIASTOLIC BLOOD PRESSURE 67 05/08/2024 11:31:29 [place] [facility] PULSE OXIMETRY 98 05/08/2024 11:31:29 [place] [facility] WEIGHT 168 05/08/2024 11:31:29 [place] [facility] BMI 28 kg/m2 05/08/2024 11:31:29 [place] [facility] PAIN 0 05/08/2024 11:31:29 [place] [facility] HEIGHT 65 05/08/2024 11:31:29 [place] [facility] TEMPERATURE 98.3 05/08/2024 11:31:29 [place] [facility] PULSE 50 05/08/2024 11:31:29 [place] [facility] RESPIRATION 18 05/08/2024 11:31:29 [place] [facility] Encounters Combined list of: 1) Encounters from Department of Veterans Affairs facilities going backup to the last 18 months, not all [place] inpatient encounters are included; 2) Encounters from the Department of [facility] facilities going backup to 280 months. 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 15 MIN [id number] Diagnos is: ICD-10- CM K21.00 Gastro- esophag eal reflux dis with esophag itis, without bleed TRINIDAD JONES 09/08 [place] [facility] COMPRE OPH EXAM EST PT 1/> [id number] Diagnos is: ICD-10- CM H40.111 2 Primary open-an gle glaucom a, right eye, moderat e stage ZOHREH NEVES Y 09/26 [place] [facility] Outpatient Encounter [id number] 10/13 [place] [facility] Outpatient Encounter [id number] 10/19 [place] [facility] OFFICE O/P EST MOD 30 MIN [id number] Diagnos is: ICD-10- CM Z01.818 Encount er for other preproc edural examina yohana MARY ALICE OSUNA 12/04 [place] [facility] HC PRO PHONE CALL 5-10 MIN [id number] Diagnos is: ICD-10- CM Z01.818 Encount er for other preproc edural examina yohana LILLIE JACKSON 12/04 [place] [facility] Outpatient Encounter [id number] MARY COON JORDAN 12/11 [place] [facility] Outpatient Encounter [id number] 12/11 [place] [facility] Outpatient Encounter [id number] MARY COON JORDAN 12/11 [place] [facility] Outpatient Encounter [id number] AJ ESCOTO 12/11 [place] [facility] Outpatient Encounter [id number] 12/11 [place] [facility] Outpatient Encounter [id number] STU SHIPLEY 12/11 [place] [facility] [place] [id number] Diagnos is: ICD-10- CM K21.9 Gastro- esophag eal reflux disease without esophag itis STU SHIPLEY 12/11 [place] [facility] Outpatient Encounter [id number] 12/12 [place] [facility] Outpatient Encounter [id number] 12/12 [place] [facility] HC PRO PHONE CALL 5-10 MIN [id number] Diagnos is: ICD-10- CM Z98.890 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 IVETTE SALINAS CECILIA 12/12 [place] [facility] Outpatient Encounter [id number] SHARON BESS EN 12/15 [place] [facility] Outpatient Encounter [id number] 12/21 [place] [facility] INTRM OPH EXAM EST PATIENT [id number] Diagnos is: ICD-10- CM H40.111 2 Primary open-an gle glaucom a, right eye, moderat e stage ARLENE ZUNIGA N 12/25 [place] [facility] INTRM OPH EXAM NEW PATIENT [id number] Diagnos is: ICD-10- CM H40.111 2 Primary open-an gle glaucom a, right eye, moderat e stage VIKRAM SALCEDO 01/26 [place] [facility] OFFICE O/P EST MOD 30 MIN [id number] Diagnos is: ICD-10- CM K21.00 Gastro- esophag eal reflux dis with esophag itis, without bleed MORENO PAPPASA 05/08 [place] [facility] Outpatient Encounter [id number] 06/21 [place] [facility] Outpatient Encounter [id number] 09/26 [place] [facility] Outpatient Encounter [id number] 10/10 [place] [facility] Outpatient Encounter [id number] 10/25 [place] [facility] Outpatient Encounter [id number] 11/02 [place] [facility] OFF/OP EST MAY X REQ PHY/QHP [id number] Diagnos is: ICD-10- CM D50.9 Iron deficie ncy anemia, unspeci fied LEXUS SANDHU M 11/06 [place] [facility] Outpatient Encounter [id number] 11/06 [place] [facility] Outpatient Encounter [id number] 11/13 [place] [facility] Outpatient Encounter [id number] 11/26 [place] [facility] EVOKED AUDITORY TST COMPLETE [id number] Diagnos is: ICD-10- CM H90.3 Sensori neural hearing loss, bilater al WALTER JORDAN AN M 11/30 [place] [facility] Outpatient Encounter [id number] 05 12/04 [place] OFFICE O/P EST MOD 30 MIN [id number] Diagnos is: ICD-10- CM D64.89 Other specifi ed anemias ELYSE, YOMI 12/05 [place] Outpatient Encounter [id number] 12/12 [place] [facility] PH1 ASSMT&MGMT NQHP 11-20 [id number] Diagnos is: ICD-10- CM Z71.89 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 Social History Type Response Date Comment Source Tobacco smoking status [facility]-TOBACCO USE FORMER CIGARETTES 11/06/2024 [facility] of [facility] OTHER TYPE 11/06/2024 [facility] History of tobacco [facility] 09/08/2023 [facility] History of tobacco use [place]-TOBACCO FORMER USER 06/11/2022 [facility] History of tobacco use SC-TOBACCO FORMER USER 06/17/2021 [facility] History of [facility] Y[facility] OR MORE 09/20/2019 [facility] History of tobacco use V9 LIFETIME NON-USER OF TOBACCO 02/17/2018 [facility] History of tobacco use V9 QUIT TOBACCO >7 YEARS AGO 02/16/2017 [facility] History of tobacco use V9 LIFETIME NON-USER OF TOBACCO 12/05/2015 [facility] History of tobacco use V9 QUIT TOBACCO >7 YEARS AGO 01/03/2015 [facility] History of tobacco use V9 QUIT TOBACCO >7 YEARS AGO 12/31/2013 [facility] History of tobacco use V9 QUIT TOBACCO >7 YEARS AGO 11/27/2012 [facility] History of tobacco use V9 QUIT TOBACCO >7 YEARS AGO 10/12/2011 [facility] History of tobacco use V9 LIFETIME NON-USER OF TOBACCO 12/12/2006 [facility] History of tobacco use HF V9 CURRENT NON-SMOKER 08/21/2004 quit smoking 5 yrs ago [facility] History of tobacco use HF V9 CURRENT NON-SMOKER 05/28/2003 quit 5 years ago [facility] History of tobacco use HF V9 CURRENT NON-SMOKER 06/23/2001 quit 1 1/2year ago [facility] Plan of Care List of future care activities from Department of [facility] Affairs facilities. Additional future care activities may be listed in the Assessment and Plan section. Date/Time Care Activity Care Activity Detail Henryi bridger 12/19/2024 AMBULATORY - SURGERY AMBULATORY - SURGERY [facility]
--- OUTSIDE RECORDS SUMMARY | 2024-12-18 12:34 | XMS_ITS | Encounter Summary ---
Author Name [facility] [place] [facility] [place] Address [address] [place] [address] Care Team Providers Care Retail Marketing Specialist Name Role Phone NIYAH CALLEJAS Primary Care [...] A MOTOR MANUF AC Sep 05, 2014 [id number] [phone] [place] [facility] PATIENT [employer] ([id number]) PRESCRIPT ION TMMK ACTIV E PPO Sep 05, 2014 [place] [id number] [place] PATIENT INGENIO RX PRESCRIPT ION NONE* Sep 05, 2014 NONE [id number] [place] PATIENT MEDICARE (WNR) MEDICARE (M) PART A Apr 05, 2015 PART A [id number] [place] PATIENT MEDICARE (WNR) MEDICARE (M) PART B Apr 05, 2015 PART B [id number] [place] PATIENT Selected Encounter This section includes the information on record at [place] for the Encounter. Date/Time Encounter Type Encounter Description Reason Pro vider Source Nov 02, 2024 11:17 AM Outpatient Encounter ADMIN PAT ACTIVTIES (MASNONCT) IHE Encounter Template Text not used by [place] Plan of Treatment: Future Appointments (+ 6 months) and Future Tests (+/- 45 days) The Plan of Treatment section includes future care activities for the patient [facility] [place] [facility] This section includes future appointments and future orders which are active, pending or scheduled. Future Appointments This section includes appointments that were scheduled to occur 6 months from the date of the Encounter, up to a maximum of 20 appointments. The data comes from all [facility]. Appointment Date/Time Appointment Type Appointme nt Facility Name Nov 06, 2024 02:30 PM AMBULATORY - NONE [place] [facility] Nov 30, 2024 12:30 PM AMBULATORY - REHAB MEDICIN E [facility] Dec 05, 2024 09:00 AM [facility] Dec 19, 2024 02:00 [facility] Dec 27, 2024 07:30 AM [facility]ULATORY - NONE [facility] Active, Pending, and Scheduled Orders This section includes a listing of several types of active, pending, and scheduled orders, including clinic medications orders, diagnostic test orders, procedure orders and consult orders; where the start date of the order is 45 days before the date of the Encounter or 45 days after the date of theEncounter. The data comes from all [facility]. Test Date/Time Test Type Test Details Facility Name Nov 30, 2024 01:30 PM Consult Order ENT HEARIN G LOSS OUTPATIENT Cons Drop Worker's Choice [facility] Dec 05, 2024 09:30 AM Procedure Order CP WIRELES S CAPSULE CP WIRELESS CAPSULE Proc Drop Worker's Choice [facility] Dec 13, 2024 01:47 PM Consult Order MED CARDIO LOGY OUTPATIENT Cons Drop Worker's Choice [facility] Dec 14, 2024 01:23 PM Consult Order MED GASTRO ENTEROLOGY OUTPATIENT Cons Drop Worker's Choice [facility] Lab Results: +/- 30 days of the encounter This section includes the Chemistry and Hematology Lab Results on record with [place] for the patient. Radiology Reports and Pathology Reports are provided separately, in subsequent sections. Lab Results This section contains the Chemistry/Hematology Results that were resulted 30 days before or 30 daysafter the date of the Encounter. Date/Time Source Result Type Result - Unit Interpretation Reference Range Specimen Type Comment Nov 06, 2024 03:32 PM [facility] TRANSFERRIN SERUM Specimen Type: SERUM No comment entered. Ordering Provider: BLAYNE SANDHU Report Released Date/Time: Nov 06, 2024 02:56 PM Reporting Lab: [facility] [address] [facility] [address] Performing Lab: [facility] [address] [place] [id number] TRANSFERRIN 386 mg/dL H 177-329 Nov 06, 2024 03:32 PM [facility] FOLATE PLASMA Specimen Type: PLASM A [...] Nov 06, 2024 02:56 PM Reporting Lab: [address] [address] Performing Lab: [address] [address] FOLATE 8.2 ng/mL 7.0-31.4 Nov 06, 2024 03:32 PM [facility] IRON/TIBC PLASMA Specimen Type: PLASM A [...] Nov 06, 2024 02:56 PM Reporting Lab: [address] [address] Performing Lab: [address] [address] IRON 358 ug/dL H 65-175 TIBC 433 mg/dL H 250-425 IRON SATURATION 83 H 20-50 Nov 06, 2024 03:32 PM [facility] FERRITIN PLASMA Specimen Type: PLASM A [...] Nov 06, 2024 02:56 PM Reporting Lab: [address] [address] Performing Lab: [address] [address] FERRITIN 15.7 ng/mL L 21.8-274.7 Nov 06, 2024 03:32 PM [facility] CBC/PLT BLOOD Specimen Type: BLOOD No comment entered. Ordering Provider: BLAYNE SANDHU Report Released Date/Time: Nov 06, 2024 02:56 PM Reporting Lab: [address] [address] Performing Lab: [address] [address] WBC 8.3 10*3/uL 5.0-10.0 RBC 3.81 10*6/uL L 4.6-6.2 HGB 9.1 g/dL L 14.0-18.0 HCT 30.9 L 42.0-52.0 MCV 81.1 fL 80.0-94.0 MCH 23.9 pg L 27.0-31.0 MCHC 29.4 g/dL L 32.0-36.0 PLT 215 10*3/uL 150-450 MPV 9.7 fL 9.0-13.1 RDW 19.0 H 11.0-16.0 NRBC 0.0 0.0-0.0 Nov 06, 2024 03:32 PM [facility] PANEL 5 PLASMA Specimen Type: PLASM [...] Nov 06, 2024 02:56 PM Reporting Lab: [address] [address] Performing Lab: [address] [address] CREATININE 0.93 mg/dL 0.72-1.25 UREA NITROGEN 17 [...] (CKD-EPI) 86 Nov 06, 2024 03:32 PM [facility] AUTOMATED DIFF BLOOD Specimen Type: BLOOD No comment entered. Ordering Provider: BLAYNE SANDHU Report Released Date/Time: Nov 06, 2024 02:56 PM Reporting Lab: [address] [address] Performing Lab: [address] [address] A-LYMPH % 25.2 24.0-44.0 A-MONO % 9.4 [...] and tobacco- related health factors from the [place] facility where the Encounter took place. Current Smoking Status This section includes the most current smoking, or tobacco-related health factor, from the [place] facility where the Encounter took place. Date/Time Current Smoking Status Comment Henry ity Jun 11, 2022 08:30 AM VA-TOBACCO QUIT 15 YRS OR MORE [facility] Tobacco Use History This section includes a history of the smoking, or tobacco-related health factors, that were collected on or before the date of the Encounter. The data comes from the [place] facility where the Encounter took place. Date/Time Smoking Status/Tobacco Use Comment Mary acility Jun 11, 2022 08:30 AM VA-TOBACCO QUIT 15 YRS OR MORE [facility] Jun 17, 2021 09:30 AM VA-TOBACCO FORMER USER [facility] Jun 17, 2021 09:30 AM VA-TOBACCO QUIT 15 YRS OR MORE [facility] Sep 20, 2019 08:27 AM VA-TOBACCO FORMER USER [facility] Sep 20, 2019 08:27 AM VA-TOBACCO QUIT 15 YRS OR MORE [facility] Feb 17, 2018 08:09 AM V9 LIFETIME NON-USER OF TOBACCO [facility] Feb 16, 2017 10:14 AM V9 QUIT TOBACCO >7 YEARS AGO [facility] Dec 05, 2015 08:59 AM V9 LIFETIME NON-USER OF TOBACCO [facility] January 03, 2015 08:38 AM V9 QUIT TOBACCO >7 YEARS AGO [facility] Dec 31, 2013 09:49 AM V9 QUIT TOBACCO >7 YEARS AGO [facility] Nov 27, 2012 09:16 AM V9 QUIT TOBACCO >7 YEARS AGO [facility] Oct 12, 2011 09:04 AM V9 QUIT TOBACCO >7 YEARS AGO [facility] Radiology Reports: +/- 30 days of the [...] the Encounter. The data comes from all [place] treatment facilities. Date/Time Radiology Report Provider Source Oct 10, 2024 10:00 AM [id number] RADIOLOGY EX AM PERF/INTER BY OTHER FACILITY: ANEUDY BUSTAMANTE [id number] -1950 M Exm Date: OCT 10, 2024@10:00 Req Phys: KOUSADANTETA Pat Loc: POLLY PACT ALPHA 1-3 (Req'g Loc) Img Loc: OUTSIDE2 LD RAD Service: Unknown (Case [id number] COMPLETE) [id number] RADIOLOGY EXAM PERF/INTER B(RAD Detailed) CPT:65073 Reason for Study: EXAM PERFORMED BY OUTSIDE FACILITY Clinical History: EXAM PERFORMED BY OUTSIDE FACILITY XR CHEST 1 VW EXAM SENT BY RECOMBINETICS Report Status: Electronically Filed Date Reported: DEC 17, 2024 Report: Electronically generated report for outside study. Impression: Electronically generated report for outside study. Primary Diagnostic Code: VERIFIED BY: / *ELECTRONICALLY FILED* [facility] Oct 08, 2024 09:[id number] PERFORMED BY OTHER FACILITY: ANEUDY BUSTAMANTE [id number] -1950 M Exm Date: OCT 08, 2024@09:09 Req Phys: NIYAH CALLEJAS Pat Loc: POLLY PACT ALPHA 1-3 (Req'g Loc) Img Loc: OUTSIDE2 LD CT Service: Unknown (Case [id number] COMPLETE) [address] CT PERFORMED BY OTHER FACIL(CT Detailed) CPT:11691 Reason for Study: EXAM PERFORMED BY OUTSIDE FACILITY Clinical History: EXAM PERFORMED BY OUTSIDE FACILITY CT ANGIOGRAM CHEST EXAM SENT BY RECOMBINET[employer] Report Status: Electronically Filed Date Reported: DEC 17, 2024 Report: Electronically generated report for outside study. Impression: Electronically generated report for outside study. Primary Diagnostic Code: VERIFIED BY: / *ELECTRONICALLY FILED* [facility] Oct 08, 2024 08:[id number] PERFORMED BY OTHER FACILITY: ANEUDY BUSTAMANTE [id number] -1950 M Exm Date: OCT 08, 2024@08:00 Req Phys: KOUSA,KITTA Pat Loc: POLLY PACT ALPHA 1-3 (Req'g Loc) Img Loc: OUTSIDE2 LD CT Service: Unknown (Case [id number] COMPLETE) [address] CT PERFORMED BY OTHER FACIL(CT Detailed) CPT:74809 Reason for Study: EXAM PERFORMED BY OUTSIDE FACILITY Clinical History: EXAM PERFORMED BY OUTSIDE FACILITY CT ABDOMEN PELVIS W CONTRAST EXAM SENT BY RECOMBINET[employer] Report Status: Electronically Filed Date Reported: DEC 17, 2024 Report: Electronically generated report for outside study. Impression: Electronically generated report for outside study. Primary Diagnostic Code: VERIFIED BY: / *ELECTRONICALLY FILED* [facility] Oct 08, 2024 07:33 AM [id number] RADIOLOGY EX AM PERF/INTER BY OTHER FACILITY: ANEUDY BUSTAMANTE [id number] -1950 M Exm Date: OCT 08, 2024@07:33 Req Phys: KOUSA,KITTA Pat Loc: POLLY PACT ALPHA 1-3 (Req'g Loc) Img Loc: OUTSIDE2 LD RAD Service: Unknown (Case [id number] COMPLETE) [id number] RADIOLOGY EXAM PERF/INTER B(RAD Detailed) CPT:83229 Reason for Study: EXAM PERFORMED BY OUTSIDE FACILITY Clinical History: EXAM PERFORMED BY OUTSIDE FACILITY XR CHEST 1 VW EXAM SENT BY RECOMBINETICS Report Status: Electronically Filed Date Reported: DEC 17, 2024 Report: Electronically generated report for outside study. Impression: Electronically generated report for outside study. Primary Diagnostic Code: VERIFIED BY: / *ELECTRONICALLY FILED* [facility] Encounter Notes: All associated encounter notes This section contains the clinical notes associated to the Encounter. Date/Time Encounter Note(s) Provider Source Oct 23, 2024 11:17 AM NONVA NOTE: LOCAL TITLE: OUTSIDE MEDICAL RECORD-OTHER STANDARD TITLE: NONVA NOTE DATE OF NOTE: OCT 23, 2024@11:17 ENTRY DATE: NOV 02, 2024@11:17:27 AUTHOR: ROXANA HERNANDEZ EXP COSIGNER: URGENCY: STATUS: COMPLETED The scanned image may be viewed in [email or web address]. /saji/ ROXANA HERNANDEZ fileclerk Signed: 11/02/2024 11:17 ROXANA HERNANDEZ-[facility]
--- OUTSIDE RECORDS SUMMARY | 2024-12-18 12:34 | XMS_ITS ---
Author Name [facility] Organization [facility] [place] Address [address] [place] [address] Care Team Providers Care Java Web Services Developer Name Role Phone NIYAH CALLEJAS Primary Care [...] A MOTOR MANUF AC Sep 05, 2014 [id number] [phone] CHAR[place]OTTE BUSTAMANTE PATIENT EXPRESS SCRIPTS ([id number]) PRESCRIPT ION TMMK ACTIV E PPO Sep 05, 2014 [place] TOAAN13 [id number] [place] BUSTAMANTE PATIENT INGENIO RX PRESCRIPT ION NONE* Sep 05, 2014 NONE [id number] [phone] [place] BUSTAMANTE PATIENT MEDICARE (WNR) MEDICARE (M) PART A Apr 05, 2015 PART A [id number] [phone] [place] BUSTAMANTE PATIENT MEDICARE (WNR) MEDICARE (M) PART B Apr 05, 2015 PART B [id number] [place] BUSTAMANTE PATIENT Selected Encounter This section includes the information on record at MS for the Encounter. Date/Time Encounter Type Encounter Description Reason Pro vider Source Oct 25, 2024 09:45 AM Outpatient Encounter ADMIN PAT ACTIVTIES (MASNONCT) IHE Encounter Template Text not used by MS Plan of Treatment: Future Appointments (+ 6 months) and Future Tests (+/- 45 days) The Plan of Treatment section includes future care activities for the patient from all [place] [facility]. This section includes future appointments and future orders which are active, pending or scheduled. Future Appointments This section includes appointments that were scheduled to occur 6 months from the date of the Encounter, up to a maximum of 20 appointments. The data comes from all [facility]. Appointment Date/Time Appointment Type Appointme nt Facility Name Nov 06, 2024 02:30 PM [facility] Nov 30, 2024 12:30 PM AMBULATORY - REHAB MEDICIN E [facility] Dec 05, 2024 09:00 AM [facility] Dec 19, 2024 02:00 PM [facility] Dec 27, 2024 07:30 AM [facility] Active, Pending, and Scheduled Orders This section includes a listing of several types of active, pending, and scheduled orders, including clinic medications orders, diagnostic test orders, procedure orders and consult orders; where the start date of the order is 45 days before the date of the Encounter or 45 days after the date of theEncounter. The data comes from all [facility]. Test Date/Time Test Type Test Details Facility Name Nov 30, 2024 01:30 PM Consult Order ENT HEARIN G LOSS OUTPATIENT Cons Sales Representative Facility Services's Choice [facility] Dec 05, 2024 09:30 AM Procedure Order CP WIRELES S CAPSULE CP WIRELESS CAPSULE Proc Sales Representative Facility Services's Choice [facility] Lab Results: +/- 30 days of the encounter This section includes the Chemistry and Hematology Lab Results on record with MS for the patient. Radiology Reports and Pathology Reports are provided separately, in subsequent sections. Lab Results This section contains the Chemistry/Hematology Results that were resulted 30 days before or 30 daysafter the date of the Encounter. Date/Time Source Result Type Result - Unit Interpretation Reference Range Specimen Type Comment Nov 06, 2024 03:32 PM [facility] WN TRANSFERRIN SERUM Specimen Type: SERUM No comment entered. Ordering Provider: BLAYNE SANDHU Report Released Date/Time: Nov 06, 2024 02:56 PM Reporting Lab: [facility] [address] [facility] [address] Performing Lab: [address] [address] TRANSFERRIN 386 mg/dL H 177-329 Nov 06, 2024 03:32 PM [facility] FOLATE PLASMA Specimen Type: PLASM A [...] Nov 06, 2024 02:56 PM Reporting Lab: [address] [address] Performing Lab: [address] [address] FOLATE 8.2 ng/mL 7.0-31.4 Nov 06, 2024 03:32 PM [facility] IRON/TIBC PLASMA Specimen Type: PLASM A [...] Nov 06, 2024 02:56 PM Reporting Lab: [address] [address] Performing Lab: [address] [address] IRON 358 ug/dL H 65-175 TIBC 433 mg/dL H 250-425 IRON SATURATION 83 H 20-50 Nov 06, 2024 03:32 PM [facility] FERRITIN PLASMA Specimen Type: PLASM A [...] Nov 06, 2024 02:56 PM Reporting Lab: [place] [id number] Performing Lab: [place] [id number] FERRITIN 15.7 ng/mL L 21.8-274.7 Nov 06, 2024 03:32 PM [facility] CBC/PLT BLOOD Specimen Type: BLOOD No comment entered. Ordering Provider: BLAYNE SANDHU Report Released Date/Time: Nov 06, 2024 02:56 PM Reporting Lab: [address] [address] Performing Lab: [address] [address] WBC 8.3 10*3/uL 5.0-10.0 RBC 3.81 10*6/uL L 4.6-6.2 HGB 9.1 g/dL L 14.0-18.0 HCT 30.9 L 42.0-52.0 MCV 81.1 fL 80.0-94.0 MCH 23.9 pg L 27.0-31.0 MCHC 29.4 g/dL L 32.0-36.0 PLT 215 10*3/uL 150-450 MPV 9.7 fL 9.0-13.1 RDW 19.0 H 11.0-16.0 NRBC 0.0 0.0-0.0 Nov 06, 2024 03:32 PM [facility] AUTOMATED DIFF BLOOD Specimen Type: BLOOD No comment entered. Ordering Provider: BLAYNE SANDHU Report Released Date/Time: Nov 06, 2024 02:56 PM Reporting Lab: [place] [id number] Performing Lab: [facility] [address] [facility] [address] A-LYMPH % 25.2 24.0-44.0 A-MONO % 9.4 H 0.1-6.0 A-GRAN % 60.4 42.0-75.0 A-LYMPH # 2.10 10*3/uL 1.20-3.40 A-MONO # 0.78 10*3/uL H 0.00-0.60 A-GRAN # 5.03 10*3/uL 1.40-6.50 A-BASO % 0.8 0.0-3.0 A-BASO # 0.07 10*3/uL 0.00-0.20 A-EOS % 3.8 0.0-10.0 A-EOS # 0.32 10*3/uL 0.00-0.70 A-IG % 0.4 0.0-0.5 A-IG # 0.03 10*3/uL 0.00-0.06 Nov 06, 2024 03:32 PM [facility] PANEL 5 PLASMA Specimen Type: PLASM A [...] Nov 06, 2024 02:56 PM Reporting Lab: [address] [address] Performing Lab: [address] [address] CREATININE 0.93 mg/dL 0.72-1.25 UREA NITROGEN 17 [...] and tobacco- related health factors from the MS facility where the Encounter took place. Current Smoking Status This section includes the most current smoking, or tobacco-related health factor, from the MS facility where the Encounter took place. Date/Time Current Smoking Status Comment Henry ko Sep 08, 2023 09:30 AM VA-TOBACCO NEVER USED [facility] Tobacco Use History This section includes a history of the smoking, or tobacco-related health factors, that were collected on or before the date of the Encounter. The data comes from the MS facility where the Encounter took place. Date/Time Smoking Status/Tobacco Use Comment Mary cid Dec 12, 2006 07:57 AM V9 LIFETIME NON-US ER OF TOBACCO [facility] Aug 21, 2004 09:09 AM HF V9 CURRENT NON-SMOKER quit smoking 5 yrs ago [facility] May 28, 2003 10:30 AM HF V9 CURRENT NON-SMOKER quit 5 years ago [facility] Jun 23, 2001 08:08 AM HF V9 CURRENT NON-SMOKER quit 1 1/2year ago [facility] Radiology Reports: +/- 30 days of the [...] the Encounter. The data comes from all [place] treatment facilities. Date/Time Radiology Report Provider Source Oct 10, 2024 10:00 AM [id number] RADIOLOGY EX AM PERF/INTER BY OTHER FACILITY: ANEUDY BUSTAMANTE [id number] -1950 M Exm Date: OCT 10, 2024@10:00 Req Phys: NIYAH CALLEJAS Pat Loc: POLLY PACT ALPHA 1-3 (Req'g Loc) Img Loc: OUTSIDE2 LD RAD Service: Unknown (Case [id number] COMPLETE) [id number] RADIOLOGY EXAM PERF/INTER B(RAD Detailed) CPT:94351 Reason for Study: EXAM PERFORMED BY OUTSIDE FACILITY Clinical History: EXAM PERFORMED BY OUTSIDE FACILITY XR CHEST 1 VW EXAM SENT BY [facility] Report Status: Electronically Filed Date Reported: DEC 17, 2024 Report: Electronically generated report for outside study. Impression: Electronically generated report for outside study. Primary Diagnostic Code: VERIFIED BY: / *ELECTRONICALLY FILED* [facility] Oct 08, 2024 09:[address] PERFORMED BY OTHER FACILITY: ANEUDY BUSTAMANTE [id number] -1950 M Exm Date: OCT 08, 2024@09:09 Req Phys: KOUSA,KITTA Pat Loc: POLLY PACT ALPHA 1-3 (Req'g Loc) Img Loc: OUTSIDE2 LD CT Service: Unknown (Case [id number] COMPLETE) 66135 CT PERFORMED BY OTHER FACIL(CT Detailed) CPT:94729 Reason for Study: EXAM PERFORMED BY OUTSIDE FACILITY Clinical History: EXAM PERFORMED BY OUTSIDE FACILITY CT ANGIOGRAM CHEST EXAM SENT BY [facility] Report Status: Electronically Filed Date Reported: DEC 17, 2024 Report: Electronically generated report for outside study. Impression: Electronically generated report for outside study. Primary Diagnostic Code: VERIFIED BY: / *ELECTRONICALLY FILED* [facility] Oct 08, 2024 08:[address] PERFORMED BY OTHER FACILITY: ANEUDY BUSTAMANTE [id number] -1950 M Exm Date: OCT 08, 2024@08:00 Req Phys: KOUSA,KITTA Pat Loc: POLLY PACT ALPHA 1-3 (Req'g Loc) Img Loc: OUTSIDE2 LD CT Service: Unknown (Case [id number] COMPLETE) [address] CT PERFORMED BY OTHER FACIL(CT Detailed) CPT:85843 Reason for Study: EXAM PERFORMED BY OUTSIDE FACILITY Clinical History: EXAM PERFORMED BY OUTSIDE FACILITY CT ABDOMEN PELVIS W CONTRAST EXAM SENT BY [facility] Report Status: Electronically Filed Date Reported: DEC 17, 2024 Report: Electronically generated report for outside study. Impression: Electronically generated report for outside study. Primary Diagnostic Code: VERIFIED BY: / *ELECTRONICALLY FILED* [facility] Oct 08, 2024 07:33 AM [id number] RADIOLOGY EX AM PERF/INTER BY OTHER FACILITY: ANEUDY BUSTAMANTE [id number] -1950 M Exm Date: OCT 08, 2024@07:33 Req Phys: KOUSA,KITTA Pat Loc: POLLY PACT ALPHA 1-3 (Req'g Loc) Img Loc: OUTSIDE2 LD RAD Service: Unknown (Case [id number] COMPLETE) 40561 RADIOLOGY EXAM PERF/INTER B(RAD Detailed) CPT:29353 Reason for Study: EXAM PERFORMED BY OUTSIDE FACILITY Clinical History: EXAM PERFORMED BY OUTSIDE FACILITY XR CHEST 1 VW EXAM SENT BY [facility] Report Status: Electronically Filed Date Reported: DEC 17, 2024 Report: Electronically generated report for outside study. Impression: Electronically generated report for outside study. Primary Diagnostic Code: VERIFIED BY: / *ELECTRONICALLY FILED* [facility] Encounter Notes: All associated encounter notes This section contains the clinical notes associated to the Encounter. Date/Time Encounter Note(s) Provider Source Oct 25, 2024 09:45 AM ADMINISTRATIVE NOT E: LOCAL TITLE: CCC: SCHEDULING ADMINISTRATION STANDARD TITLE: ADMINISTRATIVE NOTE DATE OF NOTE: OCT 25, 2024@09:45:39 ENTRY DATE: OCT 25, 2024@09:45:39 AUTHOR: MAXIM AMOR COSIGNER: URGENCY: STATUS: COMPLETED CCC: SCHEDULING ADMINISTRATION Has ADDENDA Patient Demographics Patient Name: ANEUDY BUSTAMANTE Patient Primary Phone: [phone] Patient Primary Address: [address] [place] [address] Patient : 1950 Patient Age: 74 Call Back Number: Caller/Recipient Relation to Patient: Other If Other Describe Relation to Patient: Caller Name: Mari Administrative Administrative Note Reason: Other Administrative Note Comments: The [place]'s spouse requests a follow up call. He was seen at the [facility] ED on 10/08. They referred him to his dispatcher chief oil. The had an appointment with dispatcher chief oil on 10/23 and was told they could not do heart cath because he needs blood. He is scheduled on 11/[address] Callejas. She wants to know if that appointment can be made sooner. IMPORTANT: This note was created by [facility] Clinical Contact Center staff. Please do not alert the staff member by adding them as a signer for future communications. Alerts are not monitored by this user. /saji/ MAXIM AMOR Clinical Call Center [facility]SA Signed: 10/25/2024 09:45 Receipt Acknowledged By: 10/25/2024 11:31 /saji/ Kimi HULL 10/25/2024 10:50 /saji/ TARIK ANDREWS,RN PC INFORMATICS CONSULTANT 10/25/2024 ADDENDUM STATUS: COMPLETED Called all numbers in [place]'s chart and was unable to reach anyone to let them know that our clinic doesn't have any availabilites before the already scheduled appt on November 06 unless someone cancels between now and then. /saji/ Kimi HULL Signed: 10/25/2024 11:32 10/26/2024 ADDENDUM STATUS: COMPLETED 's spouse returned my call and I had to let her know that our clinic is booked up until his appointment that is on November 06 but if we have any cancellations between now and then, I would call them. She was appreciative. /saji/ Kimi HULL Signed: 10/26/2024 09:17 MAXIM AMOR[facility]
--- OUTSIDE RECORDS SUMMARY | 2024-12-18 12:35 | XMS_ITS ---
Author Name Department of Vetera ns Affairs ([place]) Organization [facility] [place] Address [address] [place] [address] Care Team Providers Care Pourer Bull Ladle Name Role Phone NIYAH CALLEJAS Primary Care [...] A MOTOR MANUF AC Sep 05, 2014 [id number] [place] BUSTAMANTE PATIENT EXPRESS SCRIPTS ([id number]) PRESCRIPT ION TMMK ACTIV E PPO Sep 05, 2014 [place] [id number] [phone] [place] BUSTAMANTE PATIENT INGENIO RX PRESCRIPT ION NONE* Sep 05, 2014 NONE [id number] [place] BUSTAMANTE PATIENT MEDICARE (WNR) MEDICARE (M) PART A Apr 05, 2015 PART A [id number] [place] BUSTAMANTE PATIENT MEDICARE (WNR) MEDICARE (M) PART B Apr 05, 2015 PART B [id number] [place] BUSTAMANTE PATIENT Selected Encounter This section includes the information on record at ID for the Encounter. Date/Time Encounter Type Encounter Description Reason Pro vider Source Nov 26, 2024 09:17 AM Outpatient Encounter ADMIN PAT ACTIVTIES (MASNONCT) IHE Encounter Template Text not used by ID Plan of Treatment: Future Appointments (+ 6 months) and Future Tests (+/- 45 days) The Plan of Treatment section includes future care activities for the patient [facility] This section includes future appointments and future orders which are active, pending or scheduled. Future Appointments This section includes appointments that were scheduled to occur 6 months from the date of the Encounter, up to a maximum of 20 appointments. The data comes from all [facility]. Appointment Date/Time Appointment Type Appointme nt Facility Name Nov 30, 2024 12:30 PM AMBULATORY - REHAB MEDICIN E [facility] Dec 05, 2024 09:00 AM [facility] Dec 19, 2024 02:00 PM [facility] Dec 27, 2024 07:30 AM [facility] Active, Pending, and Scheduled Orders This section includes a listing of several types of active, pending, and scheduled orders, including clinic medications orders, diagnostic test orders, procedure orders and consult orders; where the start date of the order is 45 days before the date of the Encounter or 45 days after the date of theEncounter. The data comes from all [facility]. Test Date/Time Test Type Test Details Facility Name Nov 30, 2024 01:30 PM Consult Order ENT HEARING LOSS OUTPATIENT Cons Security Incident Response Specialist's Choice [facility] Dec 05, 2024 09:30 AM Procedure Order CP WIRELESS CAPSULE CP WIRELESS CAPSULE Proc Security Incident Response Specialist's Choice [facility] Dec 13, 2024 01:47 PM Consult Order MED CARDIOLOGY OUTPATIENT Cons Security Incident Response Specialist's Choice [facility] Dec 14, 2024 01:23 PM Consult Order MED GASTROENTEROLOGY OUTPATIENT Cons Security Incident Response Specialist's Choice [facility] Dec 27, 2024 07:30 AM Imaging - CT Scan Order CT CHEST W/CONTRAST [facility] Lab Results: +/- 30 days of the encounter This section includes the Chemistry and Hematology Lab Results on record with ID for the patient. Radiology Reports and Pathology Reports are provided separately, in subsequent sections. Lab Results This section contains the Chemistry/Hematology Results that were resulted 30 days before or 30 daysafter the date of the Encounter. Date/Time Source Result Type Result - Unit Interpretation Reference Range Specimen Type Comment Nov 06, 2024 03:32 PM [facility] WN TRANSFERRIN SERUM Specimen Type: SERUM No comment entered. Ordering Provider: BLAYNE SANDHU Report Released Date/Time: Nov 06, 2024 02:56 PM Reporting Lab: [facility] [address] [facility] [address] Performing Lab: [facility] [address] [facility] [address] TRANSFERRIN 386 mg/dL H 177-329 Nov 06, 2024 03:32 PM [facility] FOLATE PLASMA Specimen Type: PLASM A [...] Nov 06, 2024 02:56 PM Reporting Lab: [address] [address] Performing Lab: [address] [address] FOLATE 8.2 ng/mL 7.0-31.4 Nov 06, 2024 03:32 PM [facility] IRON/TIBC PLASMA Specimen Type: PLASM A Comment: [...] Nov 06, 2024 02:56 PM Reporting Lab: [address] [address] Performing Lab: [address] [address] IRON 358 ug/dL H 65-175 TIBC 433 mg/dL H 250-425 IRON SATURATION 83 H 20-50 Nov 06, 2024 03:32 PM [facility] FERRITIN PLASMA Specimen Type: PLASM A Comment: [...] Nov 06, 2024 02:56 PM Reporting Lab: [address] [address] Performing Lab: [address] [address] FERRITIN 15.7 ng/mL L 21.8-274.7 Nov 06, 2024 03:32 PM [facility] CBC/PLT BLOOD Specimen Type: BLOOD No comment entered. Ordering Provider: BLAYNE SANDHU Report Released Date/Time: Nov 06, 2024 02:56 PM Reporting Lab: [address] [address] Performing Lab: [address] [address] WBC 8.3 10*3/uL 5.0-10.0 RBC 3.81 10*6/uL L 4.6-6.2 HGB 9.1 g/dL L 14.0-18.0 HCT 30.9 L 42.0-52.0 MCV 81.1 fL 80.0-94.0 MCH 23.9 pg L 27.0-31.0 MCHC 29.4 g/dL L 32.0-36.0 PLT 215 10*3/uL 150-450 MPV 9.7 fL 9.0-13.1 RDW 19.0 H 11.0-16.0 NRBC 0.0 0.0-0.0 Nov 06, 2024 03:32 PM [facility] AUTOMATED DIFF BLOOD Specimen Type: BLOOD No comment entered. Ordering Provider: BLAYNE SANDHU Report Released Date/Time: Nov 06, 2024 02:56 PM Reporting Lab: [address] [address] Performing Lab: [address] [address] A-LYMPH % 25.2 24.0-44.0 A-MONO % 9.4 H 0.1-6.0 A-GRAN % 60.4 42.0-75.0 A-LYMPH # 2.10 10*3/uL 1.20-3.40 A-MONO # 0.78 10*3/uL H 0.00-0.60 A-GRAN # 5.03 10*3/uL 1.40-6.50 A-BASO % 0.8 0.0-3.0 A-BASO # 0.07 10*3/uL 0.00-0.20 A-EOS % 3.8 0.0-10.0 A-EOS # 0.32 10*3/uL 0.00-0.70 A-IG % 0.4 0.0-0.5 A-IG # 0.03 10*3/uL 0.00-0.06 Nov 06, 2024 03:32 PM [facility] PANEL 5 PLASMA Specimen Type: PLASM A [...] Nov 06, 2024 02:56 PM Reporting Lab: [address] [address] Performing Lab: [address] [address] CREATININE 0.93 mg/dL 0.72-1.25 UREA NITROGEN 17 [...] and tobacco- related health factors from the ID facility where the Encounter took place. Current Smoking Status This section includes the most current smoking, or tobacco-related health factor, from the [facility] where the Encounter took place. Date/Time Current Smoking Status Comment Henry ko Sep 08, 2023 09:30 AM VA-TOBACCO NEVER USED [facility] Tobacco Use History This section includes a history of the smoking, or tobacco-related health factors, that were collected on or before the date of the Encounter. The data comes from the ID facility where the Encounter took place. Date/Time Smoking Status/Tobacco Use Comment F acility Dec 12, 2006 07:57 AM V9 LIFETIME NON-US ER OF TOBACCO [facility] Aug 21, 2004 09:09 AM HF V9 CURRENT NON-SMOKER quit smoking 5 yrs ago [facility] May 28, 2003 10:30 AM HF V9 CURRENT NON-SMOKER quit 5 years ago [facility] Jun 23, 2001 08:08 AM HF V9 CURRENT NON-SMOKER quit 1 1/2year ago [facility] Encounter Notes: All associated encounter notes This section contains the clinical notes associated to the Encounter. Date/Time Encounter Note(s) Provider Source Nov 26, 2024 09:17 AM ADMINISTRATIVE NOT E: LOCAL TITLE: CCC: SCHEDULING ADMINISTRATION STANDARD TITLE: ADMINISTRATIVE NOTE DATE OF NOTE: NOV 26, 2024@09:17:05 ENTRY DATE: NOV 26, 2024@09:17:06 AUTHOR: GARFIELD JACKSON COSIGNER: URGENCY: STATUS: COMPLETED CCC: SCHEDULING ADMINISTRATION Has ADDENDA Caller Verification Call Back Number: [phone] Emergency Contact: MARI BUSTAMANTE Emergency Contact Caller/Recipient Relation to Patient: Other If Other Describe Relation to Patient: Caller Name: Mari Administrative Administrative Note Reason: Other Administrative Note Comments: Pt's called regarding Ct scan, stated is supposed to with contrast, requesting call back please. IMPORTANT: This note was created by [facility] Clinical Contact Center staff. Please do not alert the staff member by adding them as a signer for future communications. Alerts are not monitored by this user. /saji/ GARFIELD JACKSON Signed: 11/26/2024 09:17 Receipt Acknowledged By: 11/26/2024 10:12 /saji/ TARIK ANDREWS,RN PC FOOD AND NUTRITION SERVICES SUPERVISOR 11/26/2024 ADDENDUM STATUS: COMPLETED See addendum on Clerical/admin note dated 11/13/24 /TARIK Silva,RN PC FOOD AND NUTRITION SERVICES SUPERVISOR Signed: 11/26/2024 10:13 GARFIELD JACKSON[facility]
--- OUTSIDE RECORDS SUMMARY | 2024-12-18 12:35 | XMS_ITS | Encounter Summary ---
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 Date/Time Encounter Type Encounter Description Reason Pro vider Source May 08, 2024 11:30 AM OFFICE O/P EST MOD 30 MIN GASTROENTEROLOGY ICD-10-CM K21.00 Gastro-esopha geal reflux dis with esophagitis, without bleed ELYSE,ALL A [facility] Encounter Template Text not used by [place] Assessments - Encounter Diagnoses This section includes the primary and secondary diagnoses documented for the Encounter. Date/Time Primary/Secondary Diagnosis Diagnosis Name Provider Source May 08, 2024 11:57 AM PRIMARY Gastro-esophageal reflux dis with esophagitis, without bleed YOMI PAPPAS [facility] May 08, 2024 11:57 AM SECONDARY Chronic idiopathic constipation YOMI PAPPAS [facility] May 08, 2024 11:57 AM SECONDARY Dvrtclos of lg int w/o perforation or abscess w/o bleeding YOMI PAPPAS [facility] Plan of Treatment: Future Appointments (+ 6 months) and Future Tests (+/- 45 days) The Plan of Treatment section includes future care activities for the patient from all [place] treatmentfacilities. This section includes future appointments and future orders which are active, pending or scheduled. Active, Pending, and Scheduled Orders This section includes a listing of several types of active, pending, and scheduled orders, including clinic medications orders, diagnostic test orders, procedure orders and consult orders; where the start date of the order is 45 days before the date of the Encounter or 45 days after the date of theEncounter. The data comes from all [place] treatment facilities. Test Date/Time Test Type Test Details Facility Name May 08, 2024 12:00 AM Laboratory - Chemi stry Order CBC/PLT [id number] BLOOD SP ONCE [facility] May 08, 2024 12:00 AM Laboratory - Chemi stry Order FERRITIN [id number] SP ONCE [facility] May 08, 2024 12:00 AM Laboratory - Chemi stry Order IRON/TIBC [id number] SP ONCE [facility] Vital Signs: All taken on the encounter date This section contains inpatient and outpatient Vital Signs collected on the date of the Encounter. Date/Time Temperature Pulse Blood Pressure Respiratory Rate SP02 Pain Height Weight Body Mass Index Source May 08, 2024 11:31 AM 98.3 50 120/67 18 98 0 65 168 28 [facility] Social History: Smoking Status (Most current) and Tobacco Use (All prior to encounter date) This section includes the most current, and the historical, smoking and tobacco- related health factors from the [place] facility where the Encounter took place. Current Smoking Status This section includes the most current smoking, or tobacco-related health factor, from the [place] facility where the Encounter took place. Date/Time Current Smoking Status Comment Henry ko Sep 08, 2023 09:30 AM [place]-TOBACCO NEVER USED [facility] Tobacco Use History This section includes a history of the smoking, or tobacco-related health factors, that were collected on or before the date of the Encounter. The data comes from the [place] facility where the Encounter took place. Date/Time Smoking Status/Tobacco Use Comment F acility Dec 12, 2006 07:57 AM V9 LIFETIME NON-US ER OF TOBACCO [facility] Aug 21, 2004 09:09 AM HF V9 CURRENT NON-SMOKER quit smoking 5 yrs ago [facility] May 28, 2003 10:30 AM HF V9 CURRENT NON-SMOKER quit 5 years ago [facility] Jun 23, 2001 08:08 AM HF V9 CURRENT NON-SMOKER quit 1 1/2year ago [facility] Encounter Notes: All associated encounter notes This section contains the clinical notes associated to the Encounter. Date/Time Encounter Note(s) Provider Source May 08, 2024 11:40 AM GASTROENTEROLOGY PHYSICIAN NOTE: LOCAL TITLE: GASTROENTEROLOGY CLINIC PHYSICIAN NOTE STANDARD TITLE: GASTROENTEROLOGY PHYSICIAN NOTE DATE OF NOTE: MAY 08, 2024@11:40 ENTRY DATE: MAY 08, 2024@11:40:54 AUTHOR: YOMI PAPPAS EXP COSIGNER: URGENCY: STATUS: COMPLETED GASTROENTEROLOGY CLINIC PHYSICIAN NOTE Has ADDENDA Subjective: 74 yo here for follow up. Last seen in Sep 2023. Since the last visit: - Had EGD and colonoscopy in 12/27 - LA Grade B reflux esophagitis. - Gastritis. Biopsied. - A gastrojejunostomy was found, characterized by healthy appearing mucosa. -Mild non-specific chronic gastritis. -Alcian yellow negative for Helicobacter organisms - Moderate diverticulosis in the entire examined colon. - Protonix increased to 40 mg bid and famotidine added at night - feels a lot better Previous records: Reports had perforated gastric ulcer in 1982 and had surgery for that on emergent basis. He also had Enteryx procedure years ago. Concerned about acid reflux and heartburn. Wakes up at night with acid in the throat . Takes TUMS bid and Pantoprazole 40 mg bid. No dysphagia. Eats normal portions, has occasional vomiting about 1 every couple of weeks. No blood in emesis. Bowel movements regular, every other day. No weight loss. Syas it has been somewhat better compared to last year. [facility] switched medications a year ago, seems to help, but severe reflux esophagitis on EGD. Sleeps in recliner, symptoms mainly at night, takes TUMS upon awakening 2-3 times a night. 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 Had been seen by Dr. Phillips for years. Had EGD and colonoscopy by him. Last EGD 3-4 years ago. 10-12 years ago had ?Botox injection. Had colonoscopy about 3-4 years ago. UGI vin 11/18/21 Report: Exam: Double contrast Upper GI examination. Date: November 18, 2021 History:History of perforation and frequent regurgitation concern for gastric outlet obstruction. Comparison:CT chest from July 24, 2021. Findings: The esophagus has a normal caliber, course and contour. There is no evidence for gastric outlet obstruction. Previous surgery at the GE junction is noted. No abnormalities of the duodenum. No aspiration or penetration. Impression: Normal exam. Previous surgery at the GE junction. EGD 12/25/21: Unable to perform exam due to patient intolerance. Due to low HR to begin with we were unable to give fentanyl. Patient will need to come back for procedure with anesthesia. EGD 04/26/22 Impression: - LA Grade C reflux esophagitis. - A large amount of food (residue) in the stomach. - Gastric erosions without bleeding. - No specimens collected. 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 No h/o heart disease, no bradycarida. ROS: 14 point ROS negative with exception of what is stated above in hpi. Active problems - Computerized Problem List is the source for the followin. History of colonoscopy Cscope 12/12/23 - Tics otherwise wnl - No further screen/surv due to age. 2. Open angle glaucoma 3. Gastroesophageal reflux disease 4. Postherpetic neuralgia 5. Carcinoma of prostate (SNOMED CT 970452118) 6. Iron deficiency anemia (SNOMED CT 24124102) 7. History of malignant neoplasm of lung (SNOMED CT 786454807) 8. 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 Back pain (SNOMED CT 389480076) 10. Hyperlipidemia (SNOMED CT 16222318) 11. Depression (SNOMED CT 97180611) 12. Atherosclerotic occlusive disease (SNOMED CT 348442581) Reviewed Active Outpatient Medications (including Supplies): Active Outpatient Medications Status ======= 1) ATORVASTATIN CALCIUM 80MG TAB TAKE ONE-HALF TABLET BY ACTIVE MOUTH DAILY FOR CHOLESTEROL -DO NOT DRINK GRAPEFRUIT JUICE WHILE ON THIS DRUG 2) BUPROPION HCL 75MG TAB TAKE TWO TABLETS BY MOUTH ACTIVE DAILY FOR MOOD OR SMOKING CESSATION 3) CARBOXYMETHYLCELLULOSE 1%(PF)OPH GEL U/D APPLY 1 DROP ACTIVE TO BOTH EYES FOUR TIMES A DAY FOR DRY EYES 4) CITALOPRAM HYDROBROMIDE 40MG TAB TAKE ONE TABLET BY ACTIVE (S) MOUTH DAILY FOR MOOD 5) FAMOTIDINE 40MG TAB TAKE ONE TABLET BY MOUTH AT ACTIVE (S) BEDTIME NEEDED FOR STOMACH 6) GAVISCON ES CHEW TAB CHEW 1 TABLET BY MOUTH ACTIVE DIRECTED FOR STOMACH 7) PANTOPRAZOLE NA 40MG EC TAB TAKE ONE TABLET BY MOUTH ACTIVE (S) TWICE A DAY BEFORE MEALS FOR HEARTBURN -TAKE ON AN EMPTY STOMACH. Active Non-VA Medications Status ======= 1) Non-VA ACETAMINOPHEN/ASPIRIN/CAFFEINE 2 TABLETS MOUTH ACTIVE NEEDED 2) Non-VA NAPROXEN 250MG TAB 250MG MOUTH NEEDED ACTIVE 3) Non-VA POLYETHYLENE GLYCOL 3350 ORAL PWDR 1 HEAPING ACTIVE TABLESPOONFUL IN LIQUID MOUTH DAILY 10 Total Medications SVS - Vital Signs Selected Measurement DT BP TEMP RESP PULSE POx F(C) (L/MIN)(%) 05/08/2024 11:31 120/67 98.3(36.8) 18 50 98 Measurement DT WEIGHT LB(KG)[BMI] 05/08/2024 11:31 168(76.20)[28*] PE: General: NAD Eyes: EOMI, no scleral icterus HENT: Moist oral mucosa, no oral ulceration CV: perfused, No peripheral edema Lungs: symmetric chest rise. Abdomen: Soft nontender nondistended BS+ Psych: Appropriate mood and affect LABS: CBC: CBC/PLT, BLOOD - Partial Panel found WBC , BLOOD, 09/08/23@955 7.2 K/cmm (5.0 - 10.0) RBC, BLOOD, 09/08/23 4.14 LM/cmm (4.6 - 6.2) HGB, BLOOD, 09/08/23 11.1 Lg/dL (14.0 - 18.0) HCT, BLOOD, 09/08/23 36.3 L% (42.0 - 52.0) MCV, BLOOD, 09/08/23 87.7 fL (80.0 - 94.0) MCH, BLOOD, 09/08/23 26.8 Lpg (27.0 - 31.0) MCHC, BLOOD, 09/08/23 30.6 Lg/dL (32.0 - 36.0) RDW, BLOOD, 09/08/23 13.4 % (11.0 - 16.0) PLT, BLOOD, 09/08/23 175 K/cmm (150 - 450) MPV, BLOOD, 01/04/24@0956 8.2 LfL (9.0 - 13.1) NRBC, BLOOD, 09/08/23@0956 0.0 % (0.0 - 0.0) PANEL 1: PANEL 1 Cindy. date GLUCOSE BUN CREAT SODIUM K CHLOR CO2 12/05/23 10:55 87 18 0.87 141 4.2 108 H 23 PANEL 2:PANEL 2 - NONE FOUND PT:14.2 seconds (09/22/2022 06:20) PTT:27.4 seconds (09/22/2022 06:20) URINALYSIS Cindy. date Z SPECIFZ URINE Z URINE Z URINE Z URINE Z URINE Z URINE 09/21/22 11:52 1.018 comment Red TURBID comment comment comment URINALYSIS Cindy. date Z URINE Z URINE Z URINE Z URINE Z LEUK. 09/21/22 11:52 comment comment comment comment comment Pertinent Imaging/Findings: Assessment and plan: 74 yo with GERD/esophagitis Fe deficiency anemia H/O perforated gastric ulcer in 1982 and had surgery for that on emergent basis. Ho Enteryx for GERD Reflux esophagitis 2022 ED visit for hematuria, urologic work up negative Constipation Diverticulosis continue Protonix bid dose, continue Famotidine continue stool softner, and bisacodyl prn labs today Return in 12 months I spent 30 minutes, reviewing history, performing an exam and evaluation, entering clinical information in EHR, interpreting results, and counseling patient/family/caregiver. reviewing xrays, ordering meds/test/procedures, referring and communicating with consulting health specialist wound care and care coordination. /saji/ YOMI PAPPAS MD GI Attending Signed: 05/08/2024 11:57 05/08/2024 ADDENDUM STATUS: COMPLETED Pt exited clinic per provider. Treatment plan and medications discussed with patient per provider. Return to clinic 12 months with GI/ATT3 if unavailable at that time may be scheduled with any available GI fellow or attending. Appointment will be mailed. /saji/ BIPIN JEROME Signed: 05/08/2024 16:08 11/12/2024 ADDENDUM STATUS: COMPLETED Sched appt per 3725 rtc. Letter sent. /saji/ DEBBIE JONES [facility] [employer] Signed: 11/12/2024 14:11 YOMI PAPPAS [facility] May 08, 2024 11:30 AM NURSING OUTPATIENT NOTE: LOCAL TITLE: [facility] CLINIC INTAKE NOTE STANDARD TITLE: NURSING OUTPATIENT NOTE DATE OF NOTE: MAY 08, 2024@11:30 ENTRY DATE: MAY 08, 2024@11:31 AUTHOR: LUCERO RENTERIA EXP COSIGNER: URGENCY: STATUS: COMPLETED Reason for visit/chief complaint: B/P: 104/58 (09/08/2023 09:27) P: 62 (09/08/2023 09:27) R: 12 (02/03/2023 11:32) T: 98.6 F [37.0 C] (09/08/2023 09:27) HT: 69 in [175.3 cm] (02/03/2023 11:32) WT: 172.1 lb [78.06 kg] (09/08/2023 09:27) Are you having any pain or recurrent pain in the last several weeks/months? No Severity Scale (0) Location: Duration: Characteristics: Pain education material offered to patient (for pain > 3) No Risk factors history: Hypertension No BP Rechecked No Comments: Patient notified call center nurse available upon request for any examinations/procedures. The patient was given a list of his/her medications, instructed to review and discuss any changes or problems with their provider. Patient advised to carry a list of current medications and any allergies with them in the event of emergency situations. Allergies: local and remote TOPAMAX 25MG TABLET No Remote Allergy/ADR Data available for this patient Medication Reconciliation ACTIVE OUTPATIENT MEDICATIONS LOCAL/REMOTE ATORVASTATIN CALCIUM 80MG TAB Directions: TAKE ONE-HALF TABLET BY MOUTH DAILY FOR CHOLESTEROL -DO NOT DRINK GRAPEFRUIT JUICE WHILE ON THIS DRUG Quantity: 45 for 90 days Issued: 11/23/23 Filled: 04/26/24 Expires: 11/23/24 Refills: 1 Status: ACTIVE BUPROPION HCL 75MG TAB Directions: TAKE TWO TABLETS BY MOUTH DAILY FOR MOOD OR SMOKING CESSATION Quantity: 60 for 30 days Issued: 01/25/24 Filled: 04/26/24 Expires: 01/25/25 Refills: 0 Status: ACTIVE CARBOXYMETHYLCELLULOSE 1%(PF)OPH GEL U/D Directions: APPLY 1 DROP TO BOTH EYES FOUR TIMES A DAY FOR DRY EYES Quantity: 30 for 90 days Issued: 09/26/23 Filled: 09/26/23 Expires: 09/26/24 Refills: 3 Status: ACTIVE GAVISCON ES CHEW TAB Directions: CHEW 1 TABLET BY MOUTH DIRECTED FOR STOMACH Quantity: 100 for 90 days Issued: 09/08/23 Filled: 09/11/23 Expires: 09/08/24 Refills: 3 Status: ACTIVE CITALOPRAM HYDROBROMIDE 40MG TAB Directions: TAKE ONE TABLET BY MOUTH DAILY FOR MOOD Quantity: 90 for 90 days Issued: 03/04/24 Filled: 05/23/24 Expires: 03/05/25 Refills: 2 Status: ACTIVE/SUSP FAMOTIDINE 40MG TAB Directions: TAKE ONE TABLET BY MOUTH AT BEDTIME NEEDED FOR STOMACH Quantity: 90 for 90 days Issued: 12/12/23 Filled: 05/30/24 Expires: 12/12/24 Refills: 1 Status: ACTIVE/SUSP PANTOPRAZOLE NA 40MG EC TAB Directions: TAKE ONE TABLET BY MOUTH TWICE A DAY BEFORE MEALS FOR HEARTBURN -TAKE ON AN EMPTY STOMACH. Quantity: 180 for 90 days Issued: 12/12/23 Filled: 05/30/24 Expires: 12/12/24 Refills: 1 Status: ACTIVE/SUSP No remote medications found. PENDING OUTPATIENT MEDICATONS (LOCAL/REMOTE): No local medications found. No remote medications found. ACTIVE NONVA MEDICATIONS (LOCAL): ACETAMINOPHEN/ASPIRIN/CAFFEINE Directions: 2 TABLETS MOUTH NEEDED Status: ACTIVE NAPROXEN 250MG TAB Directions: 250MG MOUTH NEEDED Status: ACTIVE POLYETHYLENE GLYCOL 3350 ORAL PWDR Directions: 1 HEAPING TABLESPOONFUL IN LIQUID MOUTH DAILY Status: ACTIVE OUTPATIENT MEDICATIONS (LOCAL)WITHIN 90 DAYS: CITALOPRAM HYDROBROMIDE 40MG TAB Directions: TAKE ONE TABLET BY MOUTH DAILY FOR MOOD Quantity: 90 for 90 days Issued: 03/04/24 Filled: 05/23/24 Expires: 03/05/25 Refills: 2 Status: ACTIVE/SUSP FAMOTIDINE 40MG TAB Directions: TAKE ONE TABLET BY MOUTH AT BEDTIME NEEDED FOR STOMACH Quantity: 90 for 90 days Issued: 12/12/23 Filled: 05/30/24 Expires: 12/12/24 Refills: 1 Status: ACTIVE/SUSP PANTOPRAZOLE NA 40MG EC TAB Directions: TAKE ONE TABLET BY MOUTH TWICE A DAY BEFORE MEALS FOR HEARTBURN -TAKE ON AN EMPTY STOMACH. Quantity: 180 for 90 days Issued: 12/12/23 Filled: 05/30/24 Expires: 12/12/24 Refills: 1 Status: ACTIVE/SUSP DISCONTINUED OUTPATIENT MEDICATIONS (LOCAL) WITHIN 90 DAYS: CITALOPRAM HYDROBROMIDE 40MG TAB Directions: TAKE ONE TABLET BY MOUTH DAILY FOR MOOD Quantity: 90 for 90 days Issued: 03/04/24 Filled: 05/23/24 Expires: 03/05/25 Refills: 2 Status: ACTIVE/SUSP FAMOTIDINE 40MG TAB Directions: TAKE ONE TABLET BY MOUTH AT BEDTIME NEEDED FOR STOMACH Quantity: 90 for 90 days Issued: 12/12/23 Filled: 05/30/24 Expires: 12/12/24 Refills: 1 Status: ACTIVE/SUSP PANTOPRAZOLE NA 40MG EC TAB Directions: TAKE ONE TABLET BY MOUTH TWICE A DAY BEFORE MEALS FOR HEARTBURN -TAKE ON AN EMPTY STOMACH. Quantity: 180 for 90 days Issued: 12/12/23 Filled: 05/30/24 Expires: 12/12/24 Refills: 1 Status: ACTIVE/SUSP ARTIFICIAL TEARS PVA 1.4%/POVIDONE PF UD Directions: PUT 1 DROP IN EYE(S) TWICE A DAY NEEDED FOR DRY EYES Quantity: 100 for 90 days Issued: 03/31/23 Filled: 04/01/23 Expires: 03/31/24 Refills: 3 Status: DISCONTINUED ATORVASTATIN CALCIUM 80MG TAB Directions: TAKE ONE-HALF TABLET BY MOUTH DAILY FOR CHOLESTEROL -DO NOT DRINK GRAPEFRUIT JUICE WHILE ON THIS DRUG Quantity: 45 for 90 days Issued: 03/28/23 Filled: 09/14/23 Expires: 03/28/24 Refills: 0 Status: DISCONTINUED BUPROPION HCL 75MG TAB Directions: TAKE TWO TABLETS BY MOUTH DAILY FOR MOOD OR SMOKING CESSATION Quantity: 60 for 30 days Issued: 02/11/23 Filled: 04/18/23 Expires: 02/12/24 Refills: 0 Status: DISCONTINUED BUPROPION HCL 75MG TAB Directions: TAKE TWO TABLETS BY MOUTH DAILY FOR MOOD OR SMOKING CESSATION Quantity: 60 for 30 days Issued: 05/13/23 Filled: 11/23/23 Expires: 05/13/24 Refills: 0 Status: DISCONTINUED CITALOPRAM HYDROBROMIDE 40MG TAB Directions: TAKE ONE TABLET BY MOUTH DAILY FOR MOOD Quantity: 90 for 90 days Issued: 03/03/23 Filled: 11/26/23 Expires: 03/03/24 Refills: 0 Status: DISCONTINUED LATANOPROST 0.005% OPH SOLN Directions: PUT 1 DROP IN EYE(S) AT BEDTIME FOR GLAUCOMA Quantity: 7.5 for 75 days Issued: 05/31/23 Filled: 07/11/23 Expires: 05/31/24 Refills: 3 Status: DISCONTINUED PANTOPRAZOLE NA 40MG EC TAB Directions: TAKE ONE TABLET BY MOUTH DAILY FOR HEARTBURN -TAKE ON AN EMPTY STOMACH. Quantity: 90 for 90 days Issued: 09/08/23 Filled: 09/08/23 Expires: 09/08/24 Refills: 3 Status: DISCONTINUED (EDIT) CLINIC MEDICATIONS (LOCAL): No local medications found. Reviewed current medications with patient/signficant other, patient/significant other reports patient taking ALL VA, Non VA & OTC medications as listed on [facility] medication tab outpatient section. Yes *Printed copy of medication list provided to patient and reviewed. Yes *Explained to the patient the importance of keeping providers updated on medication changes and to carrying an updated list of medication at all times in case of an emergency situation. Yes /es/ LUCERO RENTERIA Licensed Practical Nurse Signed: 05/08/2024 11:32 Receipt Acknowledged By: 05/09/2024 08:19 /es/ NIYAH RENTERIA,LUCERO AVENDANO-CDD [facility]
--- OUTSIDE RECORDS SUMMARY | 2024-12-18 12:35 | XMS_ITS | Encounter Summary ---
Author Name [facility] [facility] [place] [facility] [place] Address [address] [place] [address] Care Team Providers Care Belt Turner Name Role Phone NIYAH CALLEJAS Primary Care [...] A MOTOR MANUF AC Sep 05, 2014 [id number] [phone] [place] BUSTAMANTE PATIENT EXPRESS SCRIPTS ([id number]) PRESCRIPT ION TMMK ACTIV E PPO Sep 05, 2014 [place] [id number] [place] BUSTAMANTE PATIENT INGENIO RX PRESCRIPT ION NONE* Sep 05, 2014 NONE [id number] [phone] [place] B[place] PATIENT MEDICARE (WNR) MEDICARE (M) PART A Apr 05, 2015 PART A [id number] [phone] [id number] [place] BUST[place] PATIENT MEDICARE (WNR) MEDICARE (M) PART B Apr 05, 2015 PART B [id number] [place] BUSTAMANTE PATIENT Selected Encounter This section includes the information on record at [place] for the Encounter. Date/Time Encounter Type Encounter Description Reason Provider Source Dec 14, 2024 12:53 PM SYNCH AUDIO-ONLY EST LOW 20 TELEPHONE PRIMARY CARE ICD-10-CM D64.9 Anemia, unspecified SHUKRI MURRAY LATHAValerie Encounter Template Text not used by [place] Assessments - Encounter Diagnoses This section includes the primary and secondary diagnoses documented for the Encounter. Date/Time Primary/Secondary Diagnosis Diagnosis Name Provider Source Dec 14, 2024 12:53 PM PRIMARY Anemia, unspecified SHUKRI MURRAY [facility] Dec 14, 2024 12:53 PM SECONDARY Other nonspecific abnormal finding of lung field [facility] Dec 14, 2024 12:53 PM SECONDARY Personal history of malignant neoplasm of bronchus and lung SHUKRI MURRAY [facility] Plan of Treatment: Future Appointments (+ 6 months) and Future Tests (+/- 45 days) The Plan of Treatment section includes future care activities for the patient from all [place] [facility] This section includes future appointments and future orders which are active, pending or scheduled. Future Appointments This section includes appointments that were scheduled to occur 6 months from the date of the Encounter, up to a maximum of 20 appointments. The data comes from all [place] treatment [facility]. Appointment Date/Time Appointment Type Appointme nt Facility Name Dec 19, 2024 02:00 PM AMBULATORY - [facility]ERY [facility] [facility] Dec 27, 2024 07:30 AM AM[facility]ULATORY - NONE [place] [facility] Active, Pending, and Scheduled Orders This section includes a listing of several types of active, pending, and scheduled orders, including clinic medications orders, diagnostic test orders, procedure orders and consult orders; where the start date of the order is 45 days before the date of the Encounter or 45 days after the date of theEncounter. The data comes from all [place] treatment [facility]. Test Date/Time Test Type Test Details Facility Name Nov 30, 2024 01:30 PM Consult Order ENT HEARING LOSS OUTPATIENT Cons Road Machinery Inspector's Choice [facility] Dec 05, 2024 09:30 AM Procedure Order CP WIRELESS CAPSULE CP WIRELESS CAPSULE Proc Road Machinery Inspector's Choice [facility] Dec 13, 2024 01:47 PM Consult Order MED CARDIOLOGY OUTPATIENT Cons Road Machinery Inspector's Choice [facility] Dec 14, 2024 01:23 PM Consult Order MED GASTROENTEROLOGY OUTPATIENT Cons Road Machinery Inspector's Choice [facility] Dec 27, 2024 07:30 AM Imaging - CT Scan Order CT CHEST W/CONTRAST [facility] Social History: Smoking Status (Most current) and Tobacco Use (All prior to encounter date) This section includes the most current, and the historical, smoking and tobacco- related health factors from the [place] facility where the Encounter took place. Current Smoking Status This section includes the most current smoking, or tobacco-related health factor, from the [place] facility where the Encounter took place. Date/Time Current Smoking Status Comment Henry stefani Nov 06, 2024 02:30 PM VA-TOBACCO NEVER U SED OTHER TYPE [facility] Tobacco Use History This section includes a history of the smoking, or tobacco-related health factors, that were collected on or before the date of the Encounter. The data comes from the [place] facility where the Encounter took place. Date/Time Smoking Status/Tobacco Use Comment F jose roberto Nov 06, 2024 02:30 PM VA-TOBACCO USE FOR CASTRO CIGARETTES [facility] Jun 11, 2022 08:30 AM VA-TOBACCO FORMER USER [facility] Jun 11, 2022 08:30 AM VA-TOBACCO QUIT 15 YRS OR MORE [facility] Jun 17, 2021 09:30 AM VA-TOBACCO FORMER USER [facility] Jun 17, 2021 09:30 AM VA-TOBACCO QUIT 15 YRS OR MORE [facility] Sep 20, 2019 08:27 AM VA-TOBACCO FORMER USER [facility] Sep 20, 2019 08:27 AM VA-TOBACCO QUIT 15 YRS OR MORE [facility] Feb 17, 2018 08:09 AM V9 LIFETIME NON-USER OF TOBACCO [facility] Feb 16, 2017 10:14 AM V9 QUIT TOBACCO >7 YEARS AGO [facility] Dec 05, 2015 08:59 AM V9 LIFETIME NON-USER OF TOBACCO [facility] January 03, 2015 08:38 AM V9 QUIT TOBACCO >7 YEARS AGO [facility] Dec 31, 2013 09:49 AM V9 QUIT TOBACCO >7 YEARS AGO [facility] Nov 27, 2012 09:16 AM V9 QUIT TOBACCO >7 YEARS AGO [facility] Oct 12, 2011 09:04 AM V9 QUIT TOBACCO >7 YEARS AGO [facility] Encounter Notes: All associated encounter notes This section contains the clinical notes associated to the Encounter. Date/Time Encounter Note(s) Provider Source Dec 14, 2024 12:53 PM PRIMARY CARE TELEP LUC ENCOUNTER NOTE: LOCAL TITLE: PC PROVIDER TELEPHONE CARE NOTE STANDARD TITLE: PRIMARY CARE TELEPHONE ENCOUNTER NOTE DATE OF NOTE: DEC 14, 2024@12:53 ENTRY DATE: DEC 14, 2024@12:53:48 AUTHOR: SHUKRI MURRAY COSIGNER: URGENCY: STATUS: COMPLETED I contacted - Patient Patient Phone per record: Phone number for this contact: as above Reason for contact: referral requests ASSESSMENT: Anemia: Is currently undergoing iron infusions w/nonVA GI Dr Valerie Phillips. Dr Phillips was 's GI doctor in [place] from [id number] and was happy to re-establish care when Dr Phillips recently moved his practice to [place]. states he has talked to staff in that office and was told they accept referrals from the [facility]. Abnormal findings on diagnostic imaging of lung: Found outside [facility] @ [facility]. Has appt 12/27/2024 07:30 X-RAY/CT2/NC. H/O metastatic lung cancer treated w/chemotherapy, states that this was caught early. endorses years of occupational exposures to chemicals including, but not limited to, industrial solvents, lubricants, and hydraulics. 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 states he smoked 3ppd of cigarettes from ages [age] when he stopped. reports h/o covid infection twice, denies known h/o Vally Fever or TB. Grandson and 91 yr-old [id number] lives in his home and he often cares for his very young great-grandson as well. denies cough, dyspnea, chest pain. PLAN: Anemia: -GI consult, preference for [facility] for continuity of care and distance Abnormal findings on diagnostic imaging of lung/Personal history of other malignant neoplasm of bronchus and lung: -12/27/2024 07:30 X-RAY/CT2/NC -last PFT 08/2020 WDL, consider repeat- defer today, denies symptoms -plan pulmonology evaluation AFTER imaging, BUT is OK w/this done @ the [facility] or if the abnormality is unconcern Ing, he is also OK w/surveillance BUT he would like a call to discuss RTC: prn (likely after results of CT) The amount of time spent on telephone: 11-20 minutes /saji/ SHUKRI MURRAY PRIMARY CARE NATIONAL FACILITIES MANAGER Signed: 12/14/2024 13:26 SHUKRI MURRAY [facility]
--- OUTSIDE RECORDS SUMMARY | 2024-12-18 12:35 | XMS_ITS | Encounter Summary ---
Author Name [facility] [place] [facility] [place] [facility] [place] Address [address] [place] [address] Care Team Providers Care Instructional Technology Specialist Name Role Phone NIYAH CALLEJAS Primary [...] A MOTOR MANUF AC Sep 05, 2014 [id number] [phone] [place] BUSTAMANTE PATIENT EXPRESS SCRIPTS ([id number]) PRESCRIPT ION TMMK ACTIV E PPO Sep 05, 2014 [place] [id number] DIANNABRAYDONCHARLOTTE Clover PATIENT INGENIO RX PRESCRIPT ION NONE* Sep 05, 2014 NONE [id number] DIANNACHARLOTTE Galo PATIENT MEDICARE (WNR) MEDICARE (M) PART A Apr 05, 2015 PART A [id number] DIANNABRAYDONCHARLOTTE Clover PATIENT MEDICARE (WNR) MEDICARE (M) PART B Apr 05, 2015 PART B [id number] [place] BUSTAMANTE PATIENT Selected Encounter This section includes the information on [place] at [place] for the Encounter. Date/Time Encounter Type Encounter Description Reason Provider Source Dec 13, 2024 12:58 PM PH1 ASSMT&MGMT NQHP 11-20 TELEPHONE PRIMARY CARE ICD-10-CM Z71.89 Other specified counseling FUAD CORDERO IHValerie Encounter Template Text not used by [place] Assessments - Encounter Diagnoses This section includes the primary and secondary diagnoses documented for the Encounter. Date/Time Primary/Secondary Diagnosis Diagnosis Name Provider Source Dec 13, 2024 12:58 PM PRIMARY Other specified counseling FUAD CORDERO [facility] Plan of Treatment: Future Appointments (+ 6 months) and Future Tests (+/- 45 days) The Plan of Treatment section includes future care activities for the patient from all [place] treatmentfacilities. This section includes future appointments and future orders which are active, pending or scheduled. Future Appointments This section includes appointments that were scheduled to occur 6 months from the date of the Encounter, up to a maximum of 20 appointments. The data comes from all [place] treatment facilities. Appointment Date/Time Appointment Type Appointme nt Facility Name Dec 19, 2024 02:00 PM [facility] [facility] Dec 27, 2024 07:30 AM [facility] [place] [facility] Active, Pending, and Scheduled Orders This section includes a listing of several types of active, pending, and scheduled orders, including clinic medications orders, diagnostic test orders, procedure orders and consult orders; where the start date of the order is 45 days before the date of the Encounter or 45 days after the date of theEncounter. The data comes from all [facility]. Test Date/Time Test Type Test Details Facility Name Nov 30, 2024 01:30 PM Consult Order ENT HEARING LOSS OUTPATIENT Cons Cigarette Maker's Choice [facility] Dec 05, 2024 09:30 AM Procedure Order CP WIRELESS CAPSULE CP WIRELESS CAPSULE Proc Cigarette Maker's Choice [facility] Dec 13, 2024 01:47 PM Consult Order MED CARDIOLOGY OUTPATIENT Cons Cigarette Maker's Choice [facility] Dec 14, 2024 01:23 PM Consult Order MED GASTROENTEROLOGY OUTPATIENT Cons Cigarette Maker's Choice [facility] Dec 27, 2024 07:30 AM Imaging - CT Scan Order CT CHEST W/CONTRAST [facility] Social History: Smoking Status (Most [...] Date/Time Current Smoking Status Comment Facil ity Nov 06, 2024 02:30 PM VA-TOBACCO NEVER U SED OTHER TYPE [facility] Tobacco Use History This section includes a history of the smoking, or tobacco-related health factors, that were collected on or before the date of the Encounter. The data comes from the [place] facility where the Encounter took place. Date/Time Smoking Status/Tobacco Use Comment F acility Nov 06, 2024 02:30 PM VA-TOBACCO USE FOR CASTRO CIGARETTES [facility] Jun 11, 2022 08:30 AM VA-TOBACCO FORMER USER [facility] Jun 11, 2022 08:30 AM VA-TOBACCO QUIT 15 YRS OR MORE [facility] Jun 17, 2021 09:30 AM VA-TOBACCO FORMER USER [facility] Jun 17, 2021 09:30 AM VA-TOBACCO QUIT 15 YRS OR MORE [facility] Sep 20, 2019 08:27 AM VA-TOBACCO FORMER USER [facility] Sep 20, 2019 08:27 AM VA-TOBACCO QUIT 15 YRS OR MORE [facility] Feb 17, 2018 08:09 AM V9 LIFETIME NON-USER OF TOBACCO [facility] Feb 16, 2017 10:14 AM V9 QUIT TOBACCO >7 YEARS AGO [facility] Dec 05, 2015 08:59 AM V9 LIFETIME NON-USER OF TOBACCO [facility] January 03, 2015 08:38 AM V9 QUIT TOBACCO >7 YEARS AGO [facility] Dec 31, 2013 09:49 AM V9 QUIT TOBACCO >7 YEARS AGO [facility] Nov 27, 2012 09:16 AM V9 QUIT TOBACCO >7 YEARS AGO [facility] Oct 12, 2011 09:04 AM V9 QUIT TOBACCO >7 YEARS AGO [facility] Encounter Notes: All associated encounter notes This section contains the clinical notes associated to the Encounter. Date/Time Encounter Note(s) Provider Source Dec 13, 2024 12:58 PM PRIMARY CARE TELEP LUC ENCOUNTER NOTE: LOCAL TITLE: Pc Telephone Care Note STANDARD TITLE: PRIMARY CARE TELEPHONE ENCOUNTER NOTE DATE OF NOTE: DEC 13, 2024@12:58 ENTRY DATE: DEC 13, 2024@12:58:05 AUTHOR: FUAD CORDERO COSIGNER: URGENCY: STATUS: COMPLETED Pc Telephone Care Note Has ADDENDA Called and spoke with r/t note he sent in to patient advocate. Ronak has outside GI and Cardiology doctors that he has seen for years and is REQUESTING [facility] consults for each speciality. Explained to that once these consults were placed, it is reviewed by [facility] and they may not approve it. verbalized he saw [place] [facility] and does NOT want to continue with that team. Ronak is also REQUESTING a consult with pulmonology due to nodule in lung that was seen on CT scan completed at [facility]. is fine with seeing pulmonology at [place]. Ronak states understanding. No further questions or concerns at this time. identified using two identifiers (name, last four). Spent 12 minutes on the call. /TARIK Silva,RN PC SALES ASSOCIATE FISHING Signed: 12/13/2024 13:05 Receipt Acknowledged By: 12/13/2024 13:39 /saji/ SHUKRI MURRAY PRIMARY CARE SUPERVISOR RIVETING for NIYAH CALLEJAS 12/13/2024 ADDENDUM STATUS: COMPLETED Attempt to contact to discuss requests for [facility] GI and cardiology. There is no answer and his voicemail box is not set up, so I am unable to leave a message. Will try again. /saji/ SHUKRI MURRAY PRIMARY CARE SUPERVISOR RIVETING Signed: 12/13/2024 13:40 12/13/2024 ADDENDUM STATUS: COMPLETED Second contact attempt by Primary Care Lela PINEDA. No answer. Unable to leave VM mailbox is not set up. Primary Care Float TELESALES SUPERVISOR placed a request for [facility] cardiology for best medical interest d/t distance and continuity of care. Primary Care Lela PINEDA was hoping to speak w/ re: clarification on different [place] GI provider appt OR [facility] GI request for Dr Valerie Phillips. I am unbale to find this provider listed through va.gov care fuel pilot engineer tool, so I do not believe his office is contracted w/the VA but had hoped to confirm this w/the today. Primary Care Lela PINEDA calls Dr Phillips' office @ [phone] and was told by [facility] that they do accept [facility] as long as it has been approved by the [place]. So this appears it MAY be possible to request Dr Phillips through [facility], IF this is in fact what the is wanting. In order to place pulmonology consult orders for a nodule, we will need the imaging from [facility] uploaded into his [place] chart for specialty to review. If he likes, we can repeat the CT here OR he can bring in imaging to have it placed in his chart THEN we can place a consult to pulmonology. They will not accept a referral for nodule on outside CT w/o the CT to confirm/triage his care. Primary Care Lela PINEDA has reviewed [facility] and I am unable to find a nonVA CT in the 7 documents in [facility] Documents. PACT AMSA: Would you pls obtain CT chest done by [facility] for this ? At least if we have the report then we will have findings if they are urgent. Pls notify Primary Care Lela PINEDA via MS Teams when received. Thank you for your help! /saji/ SHUKRI MURRAY PRIMARY CARE SUPERVISOR RIVETING Signed: 12/13/2024 14:34 12/13/2024 ADDENDUM STATUS: UNSIGNED You may not VIEW this UNSIGNED Addendum. FUAD CORDERO [facility]
--- OUTSIDE RECORDS SUMMARY | 2024-12-18 12:35 | XMS_ITS ---
Author Name [facility] Address [address] [place] [address] Care Team Providers Care Control Operator Flow Coat Name Role Phone NIYAH CALLEJAS Primary Care [...] A MOTOR MANUF AC Sep 05, 2014 [id number] [place] BUSTAMANTE PATIENT [employer] ([id number]) PRESCRIPT ION TMMK ACTIV E PPO Sep 05, 2014 [place] [id number] [phone] [place] BUSTAMANTE PATIENT INGENIO RX PRESCRIPT ION NONE* Sep 05, 2014 NONE [id number] [place] BUSTAM[place] PATIENT MEDICARE (WNR) MEDICARE (M) PART A Apr 05, 2015 PART A [id number] [phone] [place] BUSTAM[place]TE PATIENT MEDICARE (WNR) MEDICARE (M) PART B Apr 05, 2015 PART B [id number] [place] BUSTAMANTE PATIENT Selected Encounter This section includes the information on record at [place] for the Encounter. Date/Time Encounter Type Encounter Description Reason Pro vider Source Nov 06, 2024 03:21 PM Outpatient Encounter ADMIN PAT ACTIVTIES (MASNONCT) IHE Encounter Template Text not used by [place] Plan of Treatment: Future Appointments (+ 6 months) and Future Tests (+/- 45 days) The Plan of Treatment section includes future care activities for the [facility] [place] [facility] This section includes future appointments and future orders which are active, pending or scheduled. Future Appointments This section includes appointments that were scheduled to occur 6 months from the date of the Encounter, up to a maximum of 20 appointments. The data comes from all [facility]. Appointment Date/Time Appointment Type Appointme nt Facility Name Nov 30, 2024 12:30 PM AMBULATORY - REHAB MEDICIN E [facility] Dec 05, 2024 09:00 AM [facility] Dec 19, 2024 02:00 PM [facility] Dec 27, 2024 07:30 AM [facility] Active, Pending, and Scheduled Orders This section includes a listing of several types of active, pending, and scheduled orders, including clinic medications orders, diagnostic test orders, procedure orders and consult orders; where the start date of the order is 45 days before the date of the Encounter or 45 days after the date of theEncounter. The data comes from all [facility]. Test Date/Time Test Type Test Details Facility Name Nov 30, 2024 01:30 PM Consult Order ENT HEARIN G LOSS OUTPATIENT Cons [facility] Dec 05, 2024 09:30 AM Procedure Order CP WIRELES S CAPSULE CP WIRELESS CAPSULE Proc [facility] Dec 13, 2024 01:47 PM Consult Order MED CARDIO LOGY OUTPATIENT Cons [facility] Dec 14, 2024 01:23 PM Consult Order MED GASTRO ENTEROLOGY OUTPATIENT Cons [facility] Lab Results: +/- 30 days of the encounter This section includes the Chemistry and Hematology Lab Results [facility] with [facility] for the [facility]. Radiology Reports and Pathology Reports are provided separately, in subsequent sections. Lab Results This section contains the Chemistry/Hematology Results that were resulted 30 days before or 30 daysafter the date of the Encounter. Date/Time Source Result Type Result - Unit Interpretation Reference Range Specimen Type Comment Nov 06, 2024 03:32 PM [facility] WN TRANSFERRIN SERUM Specimen Type: SERUM No comment entered. Ordering Provider: BLAYNE SANDHU Report Released Date/Time: Nov 06, 2024 02:56 PM Reporting Lab: [facility]IATRIC [address] [facility] [address] Performing Lab: [facility] [address] [facility] [address] TRANSFERRIN 386 mg/dL H 177-329 Nov 06, 2024 03:32 PM [facility] FOLATE PLASMA Specimen Type: PLASM A Comment: [...] Nov 06, 2024 02:56 PM Reporting Lab: [address] [address] Performing Lab: [address] [address] FOLATE 8.2 ng/mL 7.0-31.4 Nov 06, 2024 03:32 PM [facility] IRON/TIBC PLASMA Specimen Type: PLASM [...] Nov 06, 2024 02:56 PM Reporting Lab: [address] [address] Performing Lab: [address] [address] IRON 358 ug/dL H 65-175 TIBC 433 mg/dL H 250-425 IRON SATURATION 83 H 20-50 Nov 06, 2024 03:32 PM [facility] FERRITIN PLASMA Specimen Type: PLASM [...] Nov 06, 2024 02:56 PM Reporting Lab: [address] [address] Performing Lab: [address] [address] FERRITIN 15.7 ng/mL L 21.8-274.7 Nov 06, 2024 03:32 PM [facility] CBC/PLT BLOOD Specimen Type: BLOOD No comment entered. Ordering Provider: BLAYNE SANDHU Report Released Date/Time: Nov 06, 2024 02:56 PM Reporting Lab: [address] [address] Performing Lab: [address] [address] WBC 8.3 10*3/uL 5.0-10.0 RBC 3.81 10*6/uL L 4.6-6.2 HGB 9.1 g/dL L 14.0-18.0 HCT 30.9 L 42.0-52.0 MCV 81.1 fL 80.0-94.0 MCH 23.9 pg L 27.0-31.0 MCHC 29.4 g/dL L 32.0-36.0 PLT 215 10*3/uL 150-450 MPV 9.7 fL 9.0-13.1 RDW 19.0 H 11.0-16.0 NRBC 0.0 0.0-0.0 Nov 06, 2024 03:32 PM [facility] AUTOMATED DIFF BLOOD Specimen Type: BLOOD No comment entered. Ordering Provider: BLAYNE SANDHU Report Released Date/Time: Nov 06, 2024 02:56 PM Reporting Lab: PSYCHIATRIC [address] [facility] [address] Performing Lab: [address] [address] A-LYMPH % 25.2 24.0-44.0 A-MONO % 9.4 H 0.1-6.0 A-GRAN % 60.4 42.0-75.0 A-LYMPH # 2.10 10*3/uL 1.20-3.40 A-MONO # 0.78 10*3/uL H 0.00-0.60 A-GRAN # 5.03 10*3/uL 1.40-6.50 A-BASO % 0.8 0.0-3.0 A-BASO # 0.07 10*3/uL 0.00-0.20 A-EOS % 3.8 0.0-10.0 A-EOS # 0.32 10*3/uL 0.00-0.70 A-IG % 0.4 0.0-0.5 A-IG # 0.03 10*3/uL 0.00-0.06 Nov 06, 2024 03:32 PM [facility] PLASMA Specimen Type: PLASM [...] Nov 06, 2024 02:56 PM Reporting Lab: [address] [address] Performing Lab: [address] [address] CREATININE 0.93 mg/dL 0.72-1.25 UREA NITROGEN 17 [...] and tobacco- related health factors from the [place] facility where the Encounter took place. Current Smoking Status This section includes the most current smoking, or tobacco-related health factor, from the [place] facility where the Encounter took place. Date/Time Current Smoking Status Comment Facil ity Sep 08, 2023 09:30 AM [facility]TO[facility]ACCO NEVER USED [facility] Tobacco Use History This section includes a history of the smoking, or tobacco-related health factors, that were collected on or before the date of the Encounter. The data comes from the [place] facility where the Encounter took place. Date/Time Smoking Status/Tobacco Use Comment F acility Dec 12, 2006 07:57 AM V9 LIFETIME NON-US ER OF TOBACCO PSYCHIATRIC Aug 21, 2004 09:09 AM HF V9 CURRENT NON-SMOKER quit smoking 5 yrs ago [facility]IATR[facility] May 28, 2003 10:30 AM HF V9 CURRENT NON-SMOKER quit 5 years ago [facility]CHIAT[facility] Jun 23, 2001 08:08 AM HF V9 CURRENT NON-SMOKER quit 1 1/2year ago [facility] Radiology Reports: +/- 30 days of the [...] the Encounter. The data comes from all [place] treatment facilities. Date/Time Radiology Report Provider Source Oct 10, 2024 10:00 AM [id number] RADIOLOGY EX AM PERF/INTER BY OTHER FACILITY: ANEUDY BUSTAMANTE [id number] -1950 M Exm Date: OCT 10, 2024@10:00 Req Phys: NIYAH CALLEJAS Pat Loc: POLLY PACT ALPHA 1-3 (Req'g Loc) Img Loc: OUTSIDE2 LD RAD Service: Unknown (Case [id number] COMPLETE) [id number] RADIOLOGY EXAM PERF/INTER B(RAD Detailed) CPT:03227 Reason for Study: EXAM PERFORMED BY OUTSIDE FACILITY Clinical History: EXAM PERFORMED BY OUTSIDE FACILITY XR CHEST 1 VW EXAM SENT BY [facility] Report Status: Electronically Filed Date Reported: DEC 17, 2024 Report: Electronically generated report for outside study. Impression: Electronically generated report for outside study. Primary Diagnostic Code: VERIFIED BY: / *ELECTRONICALLY FILED* [facility] Oct 08, 2024 09:[id number] PERFORMED BY OTHER FACILITY: ANEUDY BUSTAMANTE [id number] -1950 M Exm Date: OCT 08, 2024@09:09 Req Phys: KOUSA,KITTA Pat Loc: POLLY PACT ALPHA 1-3 (Req'g Loc) Img Loc: OUTSIDE2 LD CT Service: Unknown (Case [id number] COMPLETE) [id number] CT PERFORMED BY OTHER FACIL(CT Detailed) CPT:25319 Reason for Study: EXAM PERFORMED BY OUTSIDE FACILITY Clinical History: EXAM PERFORMED BY OUTSIDE FACILITY CT ANGIOGRAM CHEST EXAM SENT BY [facility] Report Status: Electronically Filed Date Reported: DEC 17, 2024 Report: Electronically generated report for outside study. Impression: Electronically generated report for outside study. Primary Diagnostic Code: VERIFIED BY: / *ELECTRONICALLY FILED* [facility] Oct 08, 2024 08:[id number] PERFORMED BY OTHER FACILITY: ANEUDY BUSTAMANTE [id number] -1950 M Exm Date: OCT 08, 2024@08:00 Req Phys: KOUSA,KITTA Pat Loc: POLLY PACT ALPHA 1-3 (Req'g Loc) Img Loc: OUTSIDE2 LD CT Service: Unknown (Case [id number] COMPLETE) [id number] CT PERFORMED BY OTHER FACIL(CT Detailed) CPT:35076 Reason for Study: EXAM PERFORMED BY OUTSIDE FACILITY Clinical History: EXAM PERFORMED BY OUTSIDE FACILITY CT ABDOMEN PELVIS W [facility] Report Status: Electronically Filed Date Reported: DEC 17, 2024 Report: Electronically generated report for outside study. Impression: Electronically generated report for outside study. Primary Diagnostic Code: VERIFIED BY: / *ELECTRONICALLY FILED* [facility] Oct 08, 2024 07:33 AM [id number] RADIOLOGY EX AM PERF/INTER BY OTHER FACILITY: ANEUDY BUSTAMANTE [id number] -1950 M Exm Date: OCT 08, 2024@07:33 Req Phys: KOUSA,KITTA Pat Loc: POLLY PACT ALPHA 1-3 (Req'g Loc) Img Loc: OUTSIDE2 LD RAD Service: Unknown (Case [id number] COMPLETE) [id number] RADIOLOGY EXAM PERF/INTER B(RAD Detailed) CPT:73469 Reason for Study: EXAM PERFORMED BY OUTSIDE FACILITY Clinical History: EXAM PERFORMED BY OUTSIDE FACILITY XR CHEST 1 VW EXAM SENT BY [facility] Report Status: Electronically Filed Date Reported: DEC 17, 2024 Report: Electronically generated report for outside study. Impression: Electronically generated report for outside study. Primary Diagnostic Code: VERIFIED BY: / *ELECTRONICALLY FILED* [facility] Encounter Notes: All associated encounter notes This section contains the clinical notes associated to the Encounter. 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
--- OUTSIDE RECORDS SUMMARY | 2024-12-18 12:35 | XMS_ITS | Encounter Summary ---
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 Date/Time Encounter Type Encounter Description Reason Provider Source Nov 06, 2024 02:30 PM OFF/OP EST JANUARY X REQ PHY/QHP PRIMARY CARE/MEDICINE ICD-10-CM D50.9 Iron deficiency anemia, unspecified BLAYNE SANDHU Valerie Encounter Template Text not used by [place] Assessments - Encounter Diagnoses This section includes the primary and secondary diagnoses documented for the Encounter. Date/Time Primary/Secondary Diagnosis Diagnosis Name Provider Source Nov 07, 2024 08:17 AM PRIMARY Iron deficiency anemia, unspecified BLAYNE SANDHU [facility] Nov 07, 2024 08:17 AM SECONDARY Athscl heart disease of [place] coronary artery w/o ang pctrs BLAYNE SANDHU [facility] Nov 07, 2024 08:17 AM SECONDARY Encounter for immunization SANDRO,KAELA ATKINS E [facility] Nov 07, 2024 08:17 AM SECONDARY Gastro-esophageal reflux disease without esophagitis BLAYNE SANDHU [facility] Nov 07, 2024 08:17 AM SECONDARY Impacted cerumen, right ear BLAYNE RODRIGUEZ [facility] Plan of Treatment: Future Appointments (+ 6 months) and Future Tests (+/- 45 days) The Plan of Treatment section includes future care activities for the patient from all [place] [facility]. This section includes future appointments and future orders which are active, pending or scheduled. Future Appointments This section includes appointments that were scheduled to occur 6 months from the date of the Encounter, up to a maximum of 20 appointments. The data comes from all [place] treatment facilities. Appointment Date/Time Appointment Type Appointme nt Facility Name Nov 30, 2024 12:30 PM AMBULATORY - REHAB MEDICIN E [facility] Dec 05, 2024 09:00 AM [facility] Dec 19, 2024 02:00 PM [facility] Dec 27, 2024 07:30 AM [facility]ORY - NONE [place] [facility] Active, Pending, and Scheduled Orders This section includes a listing of several types of active, pending, and scheduled orders, including clinic medications orders, diagnostic test orders, procedure orders and consult orders; where the start date of the order is 45 days before the date of the Encounter or 45 days after the date of theEncounter. The data comes from all [place] treatment facilities. Test Date/Time Test Type Test Details Facility Name Nov 30, 2024 01:30 PM Consult Order ENT HEARIN G LOSS OUTPATIENT Cons Clinical Massage Therapist's [facility] Dec 05, 2024 09:30 AM Procedure Order CP WIRELES S CAPSULE CP WIRELESS CAPSULE Proc Clinical Massage Therapist's [facility] Dec 13, 2024 01:47 PM Consult Order MED CARDIO LOGY OUTPATIENT Cons Clinical Massage Therapist's [facility] Dec 14, 2024 01:23 PM Consult Order MED GASTRO ENTEROLOGY OUTPATIENT [facility] Clinical Massage Therapists [facility] Lab Results: +/- 30 days of the encounter This section includes the Chemistry and Hematology Lab Results on record with [place] for the patient. Radiology Reports and Pathology Reports are provided separately, in subsequent sections. Lab Results This section contains the Chemistry/Hematology Results that were resulted 30 days before or 30 daysafter the date of the Encounter. Date/Time Source Result Type Result - Unit Interpretation Reference Range Specimen Type Comment Nov 06, 2024 03:32 PM [facility] WN TRANSFERRIN SERUM Specimen Type: SERUM No comment entered. Ordering Provider: BLAYNE SANDHU Report Released Date/Time: Nov 06, 2024 02:56 PM Reporting Lab: [facility] [address] [facility] [address] Performing Lab: [facility] [address] [facility] [address] TRANSFERRIN 386 mg/dL H 177-329 Nov 06, 2024 03:32 PM [facility] FOLATE PLASMA Specimen Type: PLASM A Comment: [...] Nov 06, 2024 02:56 PM Reporting Lab: [address] [address] Performing Lab: [address] [address] FOLATE 8.2 ng/mL 7.0-31.4 Nov 06, 2024 03:32 PM [facility] IRON/TIBC PLASMA Specimen Type: PLASM [...] Nov 06, 2024 02:56 PM Reporting Lab: [address] [address] Performing Lab: [address] [address] IRON 358 ug/dL H 65-175 TIBC 433 mg/dL H 250-425 IRON SATURATION 83 H 20-50 Nov 06, 2024 03:32 PM [facility] FERRITIN PLASMA Specimen Type: PLASM [...] Nov 06, 2024 02:56 PM Reporting Lab: [address] [address] Performing Lab: [address] [address] FERRITIN 15.7 ng/mL L 21.8-274.7 Nov 06, 2024 03:32 PM [facility] CBC/PLT BLOOD Specimen Type: BLOOD No comment entered. Ordering Provider: BLAYNE SANDHU Report Released Date/Time: Nov 06, 2024 02:56 PM Reporting Lab: [facility] [address] [facility] [address] Performing Lab: [facility] [address] [facility] [address] WBC 8.3 10*3/uL 5.0-10.0 RBC 3.81 10*6/uL L 4.6-6.2 HGB 9.1 g/dL L 14.0-18.0 HCT 30.9 L 42.0-52.0 MCV 81.1 fL 80.0-94.0 MCH 23.9 pg L 27.0-31.0 MCHC 29.4 g/dL L 32.0-36.0 PLT 215 10*3/uL 150-450 MPV 9.7 fL 9.0-13.1 RDW 19.0 H 11.0-16.0 NRBC 0.0 0.0-0.0 Nov 06, 2024 03:32 PM [facility] PLASMA Specimen Type: PLASM [...] Nov 06, 2024 02:56 PM Reporting Lab: [address] [address] Performing Lab: [address] [address] CREATININE 0.93 mg/dL 0.72-1.25 UREA NITROGEN 17 [...] (CKD-EPI) 86 Nov 06, 2024 03:32 PM [facility] AUTOMATED DIFF BLOOD Specimen Type: BLOOD No comment entered. Ordering Provider: BLAYNE SANDHU Report Released Date/Time: Nov 06, 2024 02:56 PM Reporting Lab: [address] [address] Performing Lab: [address] [address] A-LYMPH % 25.2 24.0-44.0 A-MONO % 9.4 H 0.1-6.0 A-GRAN % 60.4 42.0-75.0 A-LYMPH # 2.10 10*3/uL 1.20-3.40 A-MONO # 0.78 10*3/uL H 0.00-0.60 A-GRAN # 5.03 10*3/uL 1.40-6.50 A-BASO % 0.8 0.0-3.0 A-BASO # 0.07 10*3/uL 0.00-0.20 A-EOS % 3.8 0.0-10.0 A-EOS # 0.32 10*3/uL 0.00-0.70 A-IG % 0.4 0.0-0.5 A-IG # 0.03 10*3/uL 0.00-0.06 Vital Signs: All taken on the encounter date This section contains inpatient and outpatient Vital Signs collected on the date of the Encounter. Date/Time Temperature Pulse Blood Pressure Respiratory Rate SP02 Pain Height Weight Body Mass Index Source Nov 06, 2024 02:31 PM 61 101/62 [place] [facility] Nov 06, 2024 02:31 PM 98.8 57 99/61 96 0 69 170 [facility] Immunizations: All administered on the encounter date This section contains immunizations associated to the Encounter. Immunization Series Date Issued Administered By Site Reaction Lot Number CVX Code Drug Medical Billing Representative Comment(s) Source INFLUENZA, HIGH-DOSE, TRIVALENT, PF Nov 06, 2024 JOSHUA BARFIELDA E RIGHT DELTO ID [id number] SANOFI PASTEUR ADMINIST[facility] [place], [facility] COVID-19 (MODERNA), MRNA, LNP-S, PF, 50 MCG/0.5 ML (AGES 12+ YEARS) Nov 06, 2024 JOSHUA BARFIELD RRA E LEFT DELTO ID [id number] [employer]. [facility] [place], [facility] Social History: Smoking Status (Most current) and Tobacco Use (All prior to encounter date) This section includes the most current, and the historical, smoking and tobacco- related health factors from the [place] facility where the Encounter took place. Current Smoking Status This section includes the most current smoking, or tobacco-related health factor, from the [place] facility where the Encounter took place. Date/Time Current Smoking Status Comment Henry ko Nov 06, 2024 02:30 PM VA-TOBACCO NEVER U SED OTHER TYPE [facility] Tobacco Use History This section includes a history of the smoking, or tobacco-related health factors, that were collected on or before the date of the Encounter. The data comes from the [place] facility where the Encounter took place. Date/Time Smoking Status/Tobacco Use Comment Mary cid Nov 06, 2024 02:30 PM VA-TOBACCO USE FOR CASTRO CIGARETTES [facility] Jun 11, 2022 08:30 AM VA-TOBACCO FORMER USER [facility] Jun 11, 2022 08:30 AM VA-TOBACCO QUIT 15 YRS OR MORE [facility] Jun 17, 2021 09:30 AM VA-TOBACCO FORMER USER [facility] Jun 17, 2021 09:30 AM VA-TOBACCO QUIT 15 YRS OR MORE [facility] Sep 20, 2019 08:27 AM VA-TOBACCO FORMER USER [facility] Sep 20, 2019 08:27 AM VA-TOBACCO QUIT 15 YRS OR MORE [facility] Feb 17, 2018 08:09 AM V9 LIFETIME NON-USER OF TOBACCO [facility] Feb 16, 2017 10:14 AM V9 QUIT TOBACCO >7 YEARS AGO [facility] Dec 05, 2015 08:59 AM V9 LIFETIME NON-USER OF TOBACCO [facility] January 03, 2015 08:38 AM V9 QUIT TOBACCO >7 YEARS AGO [facility] Dec 31, 2013 09:49 AM V9 QUIT TOBACCO >7 YEARS AGO [facility] Nov 27, 2012 09:16 AM V9 QUIT TOBACCO >7 YEARS AGO [facility] Oct 12, 2011 09:04 AM V9 QUIT TOBACCO >7 YEARS AGO [facility] Radiology Reports: +/- 30 days of the [...] the Encounter. The data comes from all [place] treatment facilities. Date/Time Radiology Report Provider Source Oct 10, 2024 10:00 AM [id number] RADIOLOGY EX AM PERF/INTER BY OTHER FACILITY: ANEUDY BUSTAMANTE [id number] -1950 M Exm Date: OCT 10, 2024@10:00 Req Phys: KOUSADANTETA Pat Loc: POLLY PACT ALPHA 1-3 (Req'g Loc) Img Loc: OUTSIDE2 LD RAD Service: Unknown (Case [id number] COMPLETE) [id number] RADIOLOGY EXAM PERF/INTER B(RAD Detailed) CPT:37793 Reason for Study: EXAM PERFORMED BY OUTSIDE FACILITY Clinical History: EXAM PERFORMED BY OUTSIDE FACILITY XR CHEST 1 [facility]W [facility] Report Status: Electronically Filed Date Reported: DEC 17, 2024 Report: Electronically generated report for outside study. Impression: Electronically generated report for outside study. Primary Diagnostic Code: VERIFIED BY: / *ELECTRONICALLY FILED* [facility] Oct 08, 2024 09:[id number] PERFORMED BY OTHER FACILITY: ANEUDY BUSTAMANTE [id number] -1950 M Exm Date: OCT 08, 2024@09:09 Req Phys: NIYAH CALLEJAS Pat Loc: POLLY PACT ALPHA 1-3 (Req'g Loc) Img Loc: OUTSIDE2 LD CT Service: Unknown (Case [id number] COMPLETE) [address]10 CT PERFORMED BY OTHER FACIL(CT Detailed) CPT:45412 Reason for Study: EXAM PERFORMED BY OUTSIDE FACILITY Clinical History: EXAM PERFORMED BY OUTSIDE FACILITY CT ANGIOGRAM CHEST EXAM [facility] Report Status: Electronically Filed Date Reported: DEC 17, 2024 Report: Electronically generated report for outside study. Impression: Electronically generated report for outside study. Primary Diagnostic Code: VERIFIED BY: / *ELECTRONICALLY FILED* [facility] Oct 08, 2024 08:[id number] PERFORMED BY OTHER FACILITY: ANEUDY BUSTAMANTE [id number] 1950 M Exm Date: OCT 08, 2024@08:00 Req Phys: KOUSA,KITTA Pat Loc: POLLY PACT ALPHA 1-3 (Req'g Loc) Img Loc: OUTSIDE2 LD CT Service: Unknown (Case [id number] COMPLETE) [id number] CT PERFORMED BY OTHER FACIL(CT Detailed) CPT:94131 Reason for Study: EXAM PERFORMED BY OUTSIDE FACILITY Clinical History: EXAM PERFORMED BY OUTSIDE FACILITY CT ABDOMEN PELVIS W CONTRAST EXAM SENT BY [facility] Report Status: Electronically Filed Date Reported: DEC 17, 2024 Report: Electronically generated report for outside study. Impression: Electronically generated report for outside study. Primary Diagnostic Code: VERIFIED BY: / *ELECTRONICALLY FILED* [facility] Oct 08, 2024 07:33 AM [id number] RADIOLOGY EX AM PERF/INTER BY OTHER FACILITY: ANEUDY BUSTAMANTE [id number] -[id number] M Exm Date: OCT 08, 2024@07:33 Req Phys: KOUSA,KITTA Pat Loc: POLLY PACT ALPHA 1-3 (Req'g Loc) Img Loc: OUTSIDE2 LD RAD Service: Unknown (Case [id number] COMPLETE) [id number] RADIOLOGY EXAM PERF/INTER B(RAD Detailed) CPT:05904 Reason for Study: EXAM PERFORMED BY OUTSIDE FACILITY Clinical History: EXAM PERFORMED BY OUTSIDE FACILITY XR CHEST 1 VW EXAM SENT BY [employer] Report Status: Electronically Filed Date Reported: DEC 17, 2024 Report: Electronically generated report for outside study. Impression: Electronically generated report for outside study. Primary Diagnostic Code: VERIFIED BY: / *ELECTRONICALLY FILED* [facility] Encounter Notes: All associated encounter notes This section contains the clinical notes associated to the Encounter. Date/Time Encounter Note(s) Provider Source Nov 08, 2024 10:09 AM PRIMARY CARE LETTERS: LOCAL TITLE: PC LETTER TEST RESULTS STANDARD TITLE: PRIMARY CARE LETTERS DATE OF NOTE: NOV 08, 2024@10:09 ENTRY DATE: NOV 08, 2024@10:09:57 AUTHOR: BLAYNE SANDHU COSIGNER: URGENCY: STATUS: COMPLETED [facility] [address] [place] [address] Mr. ANEUDY BUSTAMANTE [address] [place] [id number] NOV 08, 2024 Dear Mr. ANEUDY BUSTAMANTE Your anemia is worse, as you know. Not bad enough for a transfusion but levels this low could cause you to be short of air. I added vitamin c to th iron to aid in absorption. I know you have a follow up with GI for an EGD so there is nothing more for me to add Please call us if you have questions or problems. You can reach us at (toll free number) or [phone] (local number). If you are enrolled in My Managed [employer], and utilize those services, you may prefer to contact us by secure message. Thank you for your service to our Country. We are honored to be able to provide medical care to you. Recent labwork Collection DT Specimen Test Name Result Units Ref Range 11/06/2024 15:32 BLOOD WBC 8.3 K/cmm 5.0 - 10.0 RBC 3.81 L M/cmm 4.6 - 6.2 HGB 9.1 L g/dL 14.0 - 18.0 HCT 30.9 L % 42.0 - 52.0 MCV 81.1 fL 80.0 - 94.0 MCH 23.9 L pg 27.0 - 31.0 MCHC 29.4 L g/dL 32.0 - 36.0 RDW 19.0 H % 11.0 - 16.0 PLT 215 K/cmm 150 - 450 MPV 9.7 fL 9.0 - 13.1 A-GRAN % 60.4 % 42.0 - 75.0 A-LYMPH % 25.2 % 24.0 - 44.0 A-MONO % 9.4 H % 0.1 - 6.0 A-EOS % 3.8 % 0.0 - 10.0 A-BASO % 0.8 % 0.0 - 3.0 A-IG % 0.4 % 0.0 - 0.5 A-GRAN # 5.03 K/cmm 1.40 - 6.50 A-LYMPH # 2.10 K/cmm 1.20 - 3.40 A-MONO # 0.78 H K/cmm 0.00 - 0.60 A-EOS # 0.32 K/cmm 0.00 - 0.70 A-BASO # 0.07 K/cmm 0.00 - 0.20 A-IG # 0.03 K/cmm 0.00 - 0.06 NRBC 0.0 % 0.0 - 0.0 11/06/2024 15:32 PLASMA!! IRON 358 H ug/dL 65 - 175 !! TIBC 433 H mg/dL 250 - 425 !! IRON SATURATION 83 H % 20 - 50 !! SODIUM 140 mmol/L 136 - 145 !! POTASSIUM 4.3 mmol/L 3.5 - 5.1 !! CHLORIDE 108 H mmol/L 98 - 107 !! CO2 22 mmol/L 22 - 29 !! ANION GAP 10.0 mEq/L 3 - 19 !! GLUCOSE 89 mg/dL 74 - 100 !! UREA NITROGEN 17 mg/dL 9 - 25 !! CREATININE 0.93 mg/dL 0.72 - 1.25 !! eGFR (CKD-EPI) 86 SEE EVAL !! CALCIUM 10.1 mg/dL 8.4 - 10.2 !! TOTAL PROTEIN 7.6 g/dL 6.4 - 8.3 !! ALBUMIN 3.9 g/dL 3.5 - 5.2 !! TOTAL BILIRUBIN 0.5 mg/dL 0.2 - 1.2 !! AST 15 U/L 5 - 34 !! ALT 14 U/L 0 - 55 !! ALK PHOS 105 U/L 40 - 150 !! FOLATE 8.2 ng/mL 7.0 - 31.4 !! FERRITIN 15.7 L ng/mL 21.8 - 274.7 11/06/2024 15:32 SERUM TRANSFERRIN 386 H mg/dL 177 - 329 !! Indicates COMMENTS AVAILABLE...Refer to Interim Lab Report. Recent radiology results No data available Sincerely, /saji/ BLAYNE SANDHU APRN family nurse practitioner Patient Record Number [id number] BLAYNE SANDHU [facility] Nov 06, 2024 03:18 PM PRIMARY CARE NURSING NOTE: LOCAL TITLE: Pc Cerumen Irrigation STANDARD TITLE: PRIMARY CARE NURSING NOTE DATE OF NOTE: NOV 06, 2024@15:18 ENTRY DATE: NOV 06, 2024@15:19:21 AUTHOR: BLAYNE RODRIGUEZ EXP COSIGNER: URGENCY: STATUS: COMPLETED Procedure: Ear(s) gently lavaged with 30-60cc syringe and warm, soapy water Ear(s) irrigated: Right RESULTS: Approximate amount of time required for above: no sign of inflammation or trauma Comments: pt had a large piece of cerumen in the right ear revoved with x3 flushes. 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 Was seen by GI at [place] in 2023 but no FU and would like them to resched. He has EGD planned for next week. Cont on had same symptom in 1999 and had cabg x 4, saw Dr. Green and the could not do heart cath because he was so anemia. Put him on iron (not vit C) They also did a ct of chest and noted a nodule. He had testicular ca and lng ca in past and was told he would have a ct of chst every year Dr. Phillips is gastorenterologist in [place] is going to do an EGD November 20 and if they cannot find blood there, will do colonoscopy Just had flu A 3 weeks ago, last covid pos was 2021 Active problems - Computerized Problem List is the source for the followin. History of colonoscopy Cscope 12/12/23 - Tics otherwise wnl - No further screen/surv due to age. 2. Open angle glaucoma 3. Gastroesophageal reflux disease 4. Postherpetic neuralgia 5. Carcinoma of prostate (SNOMED CT 257265395) 6. Iron deficiency anemia (SNOMED CT 99236474) 7. History of malignant neoplasm of lung (SNOMED CT 046145582) 8. H/O: malignant neoplasm of male genital organ (SNOMED CT 516805445) 9. Back pain (SNOMED CT 999511202) 10. Hyperlipidemia (SNOMED CT 33786405) 11. Depression (SNOMED CT 81413014) 12. Atherosclerotic occlusive disease (SNOMED CT 438834318) Active Outpatient Medications (including Supplies): Active Outpatient Medications Status = 1) ATORVASTATIN CALCIUM 80MG TAB TAKE ONE-HALF TABLET BY MOUTH ACTIVE DAILY FOR CHOLESTEROL -DO NOT DRINK GRAPEFRUIT JUICE WHILE ON THIS DRUG 2) BUPROPION HCL 75MG TAB TAKE TWO TABLETS BY MOUTH DAILY FOR ACTIVE (S) MOOD OR SMOKING CESSATION 3) CITALOPRAM HYDROBROMIDE 40MG TAB TAKE ONE TABLET BY MOUTH ACTIVE DAILY Indication: FOR MOOD 4) FAMOTIDINE 40MG TAB TAKE ONE TABLET BY MOUTH AT BEDTIME ACTIVE NEEDED Indication: FOR STOMACH 5) PANTOPRAZOLE NA 40MG EC TAB TAKE ONE TABLET BY MOUTH TWICE A ACTIVE DAY -TAKE ON AN EMPTY STOMACH. 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, 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, chemotherapy in 1992 1999 CABG x 3 vessles SOCIAL/PERSONAL HISTORY: TOBACCO USE: quit ~, was consuming ~ 2-3 PPD x35 years ALCOHOL USE: 3-4 a week, in past 3-4 6 packs a week ILLICIT DRUG USE: none MARITAL STATUS - OCCUPATION: retired from [employer]; retired [employer] w/ disability due to the Ca, 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 FAMILY MEDICAL HISTORY: MOTHER: breast ca, UTI, CAD, HTN, HL, PVD FATHER: MVA, ETOH abuse SIBLINGS: 1 sister: hx breast Ca, asthma, back problems ROS: General/Constitutional: denies weight change, fever, fatigue Skin:denies rashes, skin breakdown HEENT:denies prob with vision, hearing, rhinitis,nasal congestion, sore throat, trouble swallowing Cardiovascular:denies chest pain, chest pressure, le edema Resp: denies dyspnea, cough GI:denies abd pain, constipation, diarrhea : denies dysuria, hematuria Musculoskeletal: denies pain in ue and le Neurologic/Psychiatric: denies neuropathy, depression, anxiety PHYSICAL ASSESSMENT: BP 101/62 (11/06/2024 14:31) T 98.8 F [37.1 C] (11/06/2024 14:31) P 61 (11/06/2024 14:31) R 18 (05/08/2024 11:31) Wt 170 lb [77.11 kg] (11/06/2024 14:31) PO2 NOV 06, 2024@14:31:41 -- PULSE OXIMETRY: 96 General:NAD HEENT: atraumatic, RUPALI, B conjunctiva pale, L TM pearly, R TM obscured by cerumen, mucous membranes moist, trachea midline CARDIAC: RRR no CRH RESP: Lungs CTA Bilat ABD: SNT, BS+x4, no organomegaly EXT: no edema, no cyanosis, no mottling SKIN:no rashes or skin breakdown MS: no joint swelling, ambulates indep NEURO: alert and oriented x3 PSYCH: no anxiety, no agitation, no signs of delerium LYMPH: no cervical adenopathy Immunizations:ST - Skin Tests No data available IM - Immunizations ADMINISTERED Immunization Series Date Facility Reaction Info COVID-19 (MODERNA), MRNA, LNP-S,* 11/06/2024 [facility]* COVID-19 (PFIZER), MRNA, LNP-S, * 1 06/11/2022 [facility]* <C> COVID-19 (PFIZER), MRNA, LNP-S, * 3 08/07/2021 [facility]* <C> COVID-19 (PFIZER), MRNA, LNP-S, * 2 12/15/2020 [facility]* <C> COVID-19 (PFIZER), MRNA, LNP-S, * 1 11/24/2020 [facility]* <C> FLU,3 YRS (HISTORICAL) 11/27/2012 [facility]* FLU,3 YRS (HISTORICAL) 06/20/2009 [facility]* INFLUENZA, HIGH-DOSE, TRIVALENT,* 11/06/2024 [facility]* NOVEL [id number], ALL FOR* No Site <C> [id number] (HISTORICAL) 12/05/2015 [facility]* FROTBR22-BDG (HISTORICAL) 12/31/2013 [facility]* PNEUMOCOCCAL CONJUGATE PCV20, PO* C 10/15/2022 [facility]* PNEUMOCOCCAL POLYSACCHARIDE PPV23 08/04/2020 [facility]* PNEUMOCOCCAL, UNSPECIFIED FORMUL* 12/31/2013 [facility] ALBERT[facility]* PNEUMOCOCCAL, UNSPECIFIED FORMUL* 07/10/2007 Loc[facility] MD <C> TD(ADULT) UNSPECIFIED FORMULATION B 06/20/2009 [facility]UAN ALBERTO* <C> TD(ADULT) UNSPECIFIED FORMULATION No Site TDAP 10/14/2021 [facility] ALBERTO* TDAP 03/09/2012 [facility] * <C> TDAP (HISTORICAL) [facility] LABS/TESTIN07/19/2022 07:[address] CHEST W/O CONTRAST Impression 1. Stable CT chest examination. No acute or new abnormality. 2. Unchanged 3 mm superior segment right lower lobe nodule, image 61 series 2. Continue follow-up per protocol. 3. Atherosclerotic disease with four-vessel coronary artery involvement and prior coronary bypass graft surgery. 4. Unchanged hiatal hernia. Postoperative abdomen. Correlate with patient history. BLOOD Mar Sep 08 Feb 03 Reference 2024 2023 2022 15:32 09:56 12:37 Units Ranges WBC 8.3 7.2 6.6 K/cmm 5 - 10 RBC 3.8 L 4.1 L 3.9 L M/cmm 4.6 - 6.2 HGB 9.1 L 11.1 L 10.7 L g/dL 14 - 18 HCT 30.9 L 36.3 L 33.6 L % 42 - 52 MCV 81.1 87.7 85.5 fL 80 - 94 MCH 23.9 L 26.8 L 27.2 pg 27 - 31 MCHC 29.4 L 30.6 L 31.8 L g/dl 32 - 36 RDW 19.0 H 13.4 14.9 % 11 - 16 PLT 215 175 166 K/cmm 150 - 450 MPV 9.7 8.2 L 9.4 fL 9 - 13.1 LYMPH % 25.2 23.0 L % 24 - 44 MONO % 9.4 H 14.3 H % .1 - 6 GRAN % 60.4 56.4 % 42 - 75 EOS % 3.8 5.3 % 0 - 10 BASO % 0.8 0.6 % 0 - 3 LYMPH # 2.1 1.7 K/cmm 1.2 - 3.4 MONO # 0.8 H 1.0 H K/cmm .1 - .6 GRAN # 5.0 4.1 K/cmm 1.4 - 6.5 EOS # 0.3 0.4 K/cmm 0 - .7 BASO # 0.1 0.0 K/cmm 0 - .2 ---- CHEMISTRY PLASMA PROFILE ---- PLASMA Mar Dec 04 Feb 03 Reference 2024 2023 2022 15:32 10:55 12:37 Units Ranges NA 140 141 138 mmol/L 136 - 145 K 4.3 4.2 4.1 mmol/L 3.5 - 5.1 CL 108 H 108 H 106 mmol/L 98 - 107 CO2 22.0 23.0 24.0 mmol/L 22 - 29 GLUC 89 87 91 mg/dl 74 - 100 UN 17.0 18.0 16.0 mg/dL 9 - 25 CREAT 0.93 0.87 0.93 mg/dL .72 - 1.25 eGFR SEE EVAL Ref: See Eval ANI GAP 10.0 10.0 8.0 AST 15 16 U/L 5 - 34 ALT 14 17 U/L 0 - 55 ALK P 105 93 U/L 40 - 150 GGT U/L 12 - 64 TP 7.6 6.9 gm/dL 6.4 - 8.3 ALB 3.9 3.9 g/dL 3.5 - 5.2 T BILI 0.5 0.4 mg/dL .2 - 1.2 GREG,DIR mg/dL 0 - .5 GREG,UNC mg/dL 0 - 1.1 CA 10.1 10.0 9.9 mg/dL 8.4 - 10.2 PHOS mg/dL 2.3 - 4.7 MG mg/dL 1.6 - 2.6 ALC mg/dL 0 - 10 DANIEL U/L 25 - 125 LIP U/L 8 - 78 URIC 4.0 mg/dL 3.5 - 7.2 NH3 umol/L 18 - 72 ION CA mmol/L 1.06 - 1.26 LA mMol/L .5 - 2.2 eGFR (CKD-EPI) 86.0 >90.0 87.0 SEE EVAL Ref: See Eval Nov 06, 2024@15:32 BLOOD A-IG %: 0.4 % 0.0 - 0.5 Nov 06, 2024@15:32 BLOOD A-IG #: 0.03 K/cmm 0.00 - 0.06 Nov 06, 2024@15:32 BLOOD NRBC: 0.0 % 0.0 - 0.0 Nov 06, 2024@15:32 PLASMA FERRITIN: 15.7 L ng/mL 21.8 - 274.7 Nov 06, 2024@15:32 PLASMA TIBC: 433 H mg/dL 250 - 425 Nov 06, 2024@15:32 PLASMA IRON : 358 H ug/dL 65 - 175 Nov 06, 2024@15:32 PLASMA IRON SATURATION: 83 H % 20 - 50 Nov 06, 2024@15:32 PLASMA FOLATE: 8.2 ng/mL 7.0 - 31.4 Sep 08, 2023@09:56 PLASMA FERRITIN: 13.8 L ng/mL 21.8 - 274.7 Sep 08, 2023@09:56 PLASMA TIBC: 393 mg/dL 250 - 425 Sep 08, 2023@09:56 PLASMA IRON : 57 L ug/dL 65 - 175 Sep 08, 2023@09:56 PLASMA IRON SATURATION: 15 L % 20 - 50 Sep 08, 2023@09:56 PLASMA B12 VITAMIN: 702 pg/mL 213 - 816 Sep 08, 2023@09:56 PLASMA FOLATE: 5.0 L ng/mL 7.0 - 31.4 Vitamin B12 test may not yield results when protein level of sample is too elevated. Sep 08, 2023@09:56 BLOOD A-IG %: 0.4 % 0.0 - 0.5 Sep 08, 2023@09:56 BLOOD A-IG #: 0.03 K/cmm 0.00 - 0.06 Sep 08, 2023@:56 BLOOD NRBC: 0.0 % 0.0 - 0.0 Jun 02, 2023@09:58 URINE .GLUCOSE Ur (POC): Negative mg/dL Ref: neg Jun 02, 2023@09:58 URINE .KETONES Ur (POC): Negative mg/dL Ref: neg Jun 02, 2023@09:58 URINE .BLOOD Ur (POC): Negative Ref: neg Jun 02, 2023@09:58 URINE .PH Ur (POC): 5.5 5.0 - 8.5 Jun 02, 2023@09:58 URINE .PROTEIN Ur (POC): Negative mg/dL Ref: neg Jun 02, 2023@09:58 URINE .NITRITE Ur (POC): Negative Ref: neg Jun 02, 2023@09:58 URINE .LEUKOCYTES Ur (POC): Negative Ref: neg Jun 02, 2023@09:58 URINE .SG Ur (POC): 1.025 Ref: >=1.000 Feb 03, 202312:37 PLASMA TIBC: 391 mg/dL 250 - 425 Feb 03, 2023@12:37 PLASMA IRON : 63 L ug/dL 65 - 175 Feb 03, 2023@12:37 PLASMA IRON SATURATION: 16 L % 20 - 50 Feb 03, 2023@12:37 PLASMA B12 VITAMIN: 718 pg/mL 213 - 816 Reporting Lab: [facility] [CLIA# [id number]] [address] [place] [id number] - - - - - - - - - - - - - - - - - - - - - - - - - - - - - - - - - - - - - - - - MEDICAL RECORD SURGICAL PATHOLOGY - - - - - - - - - - - - - - - - - - - - - - - - - - - - - - - - - - - - - - - - PATHOLOGY REPORT Accession No. [id number] - - - - - - - - - - - - - - - - - - - - - - - - - - - - - - - - - - - - - - - - Submitted by: JOSE F Date obtained: Dec 12, 2023 The specimen is received in formalin labeled gastric biopsy and consists of five mercado/white fragments of soft tissue measuring 0.1 cm up to 0.3 cm in greatest dimension. The specimen is entirely submitted in one cassette. CPT CODE - 34956, [id number] MICROSCOPIC EXAM/DIAGNOSIS: Stomach, biopsy: -Mild non-specific chronic gastritis. -Alcian yellow negative for Helicobacter organisms. 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 Discrepancies were corrected or sent to the ordering provider to correct. The above topics were covered with the patient/caregiver, all questions were answered, and the patient/caregiver voiced understanding and agreement. A total of 30 minutes were spent on this encounter which included chart and test review before seeing the patient, performing appropriate history/exam during the visit, counseling the patient, ordering tests and/or medications, arranging follow-up, making referral (when indicated) to another specialist, interpretation of tests results and discussion with the patient/family, documentation in the electronic health record and coordination of care. 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 Patient advised to carry a list of current medications and any allergies with them in the event of emergency situations. Yes - /Caregiver verbalized understanding of topics discussed and education provided Alcohol Use Screen (AUDIT-C): Alcohol Screen: SCREEN FOR ALCOHOL (AUDIT-C) An alcohol screening test (AUDIT-C) was negative (score=2). 1. How often did you have a drink containing alcohol in the past year? Consider a drink to be a 12 ounce can or bottle of regular beer, 8 ounces of malt liquor, a 5 ounce glass of table wine, or a 1.5 ounce shot of liquor (like scotch, gin, or vodka). Two to four times a month 2. How many drinks containing alcohol did you have on a typical day when you were drinking in the past year? One or two drinks 3. How often did you have six or more drinks on one occasion in the past year? Never Depression Screening: Perform PHQ-2 A PHQ-2 screen was performed. The score was 0 which is a negative screen for depression. Over the past two weeks, how often have you been bothered by the following problems? 1. Little interest or pleasure in doing things Not at all 2. Feeling down, depressed, or hopeless Not at all Suicide Screen: C-SSRS Screening [place] Suicide Severity Rating Scale (C-SSRS) screener 1. Over the past month, have you wished you were or wished you could go to sleep and not wake up? No 2. Over the past month, have you had any actual thoughts of killing yourself? No 3. Over the past month, have you been thinking about how you might do this? Response not required due to responses to other questions. 4. Over the past month, have you had these thoughts and had some intention of acting on them? Response not required due to responses to other questions. 5. Over the past month, have you started to work out or worked out the details of how to kill yourself? Response not required due to responses to other questions. 6. If yes, at any time in the past month did you intend to carry out this plan? Response not required due to responses to other questions. 7. In your lifetime, have you ever done anything, started to do anything, or prepared to do anything to end your life (for example, collected pills, obtained a gun, gave away valuables, went to the roof but didn't jump)? No 8. If YES, was this within the past 3 months? Response not required due to responses to other questions. Homelessness/Food Insecurity Screen: In the past 2 months, have you been living in stable housing that you own, rent, or stay in as part of a household? Yes - Living in stable housing. Are you worried or concerned that in the next 2 months you may NOT have stable housing that you own, rent, or stay in as part of a household? No - Not worried about housing near future The Term[employer] reports the following: Within the past 12 months, you worried whether your food would run out before you got money to buy more. Never true Within the past 12 months, the food you bought just didn't last and you didn't have money to get more. Never true Sexual Orientation: The patient thinks of their sexual orientation as: Straight or Heterosexual Toxic Exposure Screening: The Termo/caregiver was asked if they believe the experienced any toxic exposure(s), such as Airborne Hazards and Open [place], [place] [employer] related exposures, Agent [place], Radiation, contaminated water at [place] or other such exposures, while serving in the [employer]. /caregiver doesn't know of concerns about Termo exposure to harmful substances while serving in the [employer]. Printed information was offered and contact information for local resources were provided if requested. No questions at this time Termo/caregiver was informed of local points of contact. Contact information for local resources: Benefits/Claim Questions: Veterans Benefits Administration (VBA): [place] Healthcare Enrollment: Health Benefits: [phone] Ext. [phone] Registry Coordinator: Ext. [phone] Learning Readiness Assessment: Preferred language for discussing health care Chinese NEW ASSESSMENT LEARNING BARRIERS Hearing Barrier Comment: Reports trouble with hearing Visual Barrier Comment: Glasses READING LIMITATIONS No reading limitations PREFERRED METHODS FOR LEARNING Written/Printed Material Verbal INTERESTED IN LEARNING (MOTIVATED) Yes, interested in learning what? PERSON BEING EDUCATED TODAY Patient Education was provided on the following topics RESPONSE Eye Care At-Risk Screen : Patient identified to be at risk for the following eye condition(s): MACULAR DEGENERATION: Macular Degeneration Risk Factors Information: Reminder Term: [facility]-AMD RISK FACTORS Encounter Diagnosis: 04/23/2022@11:00 I25.10 (ICD-10-CM) Atherosclerotic Heart Disease of [place] Coronary Artery without Angina Pectoris rank: SECONDARY Prov. Narr. - Atherosclerotic occlusive disease ([facility] [id number]) GLAUCOMA: Glaucoma Risk Factors Information: Encounter Diagnosis: 01/27/2024@10:45 H40.1112 (ICD-10-CM) Primary open-angle glaucoma, right eye, moderate stage rank: PRIMARY Prov. Narr. - Open angle glaucoma ([facility] [id number]) Action: No Referral Ordered: The patient declined/refused referral for Tele-Eye screening and Eye Clinic appointment. Comment: Doesn't have time to do it today, but plans to schedule an appt with opt Tobacco Use Screening: The patient is a former cigarette smoker. The patient has never used other types of tobacco. Herpes Zoster (Shingles) Vaccine: Prior Herpes Zoster vaccination The patient has been vaccinated in the past but written documentation of vaccination is not available today. Patient instructed to obtain a written record of the prior vaccine and bring it to the next appointment. RSV Immunization: Defer due to a PRECAUTION Reason: Will wait COVID-19 Immunization: Moderna Monovalent (Spikevax) Administered: COVID-19 (MODERNA), MRNA, LNP-S, PF, 50 MCG/0.5 ML (AGES 12+ YEARS) Date Administered: Nov 06, 2024 14:29 Medical Billing Representative: [employer] Lot: [id number] Exp Date: Feb 16, 2025 [facility]: [phone] Admin Route/Site: INTRAMUSCULAR/LEFT DELTOID Dosage: 0.5mL Vaccine Information Statement(s): COVID-19 MRNA VACCINE (12+ YRS) VIS Jun 21, 2024 ([facility]AB[facility]) Order By: Policy Administered By: Charo Barfield Vaccine administered without complications. Influenza Immunization: Influenza, High-Dose, Trivalent, Preservative Free (Fluzone-Syringe) Administered: INFLUENZA, HIGH-DOSE, TRIVALENT, PF Date Administered: Nov 06, 2024 14:30 Medical Billing Representative: SANOFI PASTEUR Lot: [id number] Exp Date: Mar 04, 2025 [facility]: [phone] Admin Route/Site: INTRAMUSCULAR/RIGHT DELTOID Dosage: 0.5mL Vaccine Information Statement(s): INFLUENZA(FLU) VACC(INACTIVATED OR RECOMBINANT)VIS Apr 10, 2021 ([employer]) Order By: Policy Administered By: Charo Barfield The Influenza Vaccine Information Statement (VIS) was reviewed with the patient/caregiver which lists the benefits and risks of the vaccine and the risks of not receiving the Influenza vaccine. The patient/caregiver denied any prior severe reaction to this vaccine or its components or a severe allergic reaction, such as anaphylaxis, to any vaccine or any injectable therapy. The patient/caregiver gave verbal consent to receive the vaccine. /saji/ CHARO BARFIELD LICENSED PRACTICAL NURSE Signed: 11/06/2024 14:31 CHARO BARFIELD [facility]
--- OUTSIDE RECORDS SUMMARY | 2024-12-18 12:35 | XMS_ITS | Encounter Summary ---
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 Date/Time Encounter Type Encounter Description Reason Pro vider Source Dec 05, 2024 09:00 AM OFFICE O/P EST MOD 30 MIN GASTROENTEROLOGY ICD-10-CM D64.89 Other specified anemias ELYSE,ALL [facility] Encounter Template Text not used by [place] Assessments - Encounter Diagnoses This section includes the primary and secondary diagnoses documented for the Encounter. Date/Time Primary/Secondary Diagnosis Diagnosis Name Provider Source Dec 06, 2024 01:44 PM PRIMARY Other specified anemias ELYSE,[facility] Dec 06, 2024 01:44 PM SECONDARY Abdominal distension (gaseous) ELYSE,[facility] Dec 06, 2024 01:44 PM SECONDARY Gastro-esophageal reflux dis with esophagitis, with bleed [facility] Plan of Treatment: Future Appointments (+ 6 months) and Future Tests (+/- 45 days) The Plan of Treatment section includes future care activities for the patient from all [place] [facility] This section includes future appointments and future orders which are active, pending or scheduled. Future Appointments This section includes appointments that were scheduled to occur 6 months from the date of the Encounter, up to a maximum of 20 appointments. The data comes from all [place] treatment facilities. Appointment Date/Time Appointment Type Appointme nt Facility Name Dec 19, 2024 02:00 PM [facility] Dec 27, 2024 07:30 AM [facility] Active, Pending, and Scheduled Orders This section includes a listing of several types of active, pending, and scheduled orders, including clinic medications orders, diagnostic test orders, procedure orders and consult orders; where the start date of the order is 45 days before the date of the Encounter or 45 days after the date of theEncounter. The data comes from all [place] treatment [facility]. Test Date/Time Test Type Test Details Facility Name Nov 30, 2024 01:30 PM Consult Order ENT HEARING LOSS OUTPATIENT Cons [facility] Dec 05, 2024 09:30 AM Procedure Order CP WIRELESS CAPSULE CP WIRELESS CAPSULE Proc Cnc Lathe Machinist's Choice [facility] Dec 13, 2024 01:47 PM Consult Order MED CARDIOLOGY OUTPATIENT Cons [facility] Dec 14, 2024 01:23 PM Consult Order MED GASTROENTEROLOGY OUTPATIENT Cons [facility]in[facility] Dec 27, 2024 07:30 AM Imaging - CT Scan Order CT CHEST W/CONTRAST [facility] Lab Results: +/- 30 days of the encounter This section includes the Chemistry and Hematology Lab Results on record with [place] for the patient. Radiology Reports and Pathology Reports are provided separately, in subsequent sections. Lab Results This section contains the Chemistry/Hematology Results that were resulted 30 days before or 30 daysafter the date of the Encounter. Date/Time Source Result Type Result - Unit Interpretation Reference Range Specimen Type Comment Nov 06, 2024 03:32 PM [facility] WN TRANSFERRIN SERUM Specimen Type: SERUM No comment entered. Ordering Provider: BLAYNE SANDHU Report Released Date/Time: Nov 06, 2024 02:56 PM Reporting Lab: [facility] [address] [facility] [address] Performing Lab: [facility] [address] [address] TRANSFERRIN 386 mg/dL H 177-329 Nov 06, 2024 03:32 PM [facility] FOLATE PLASMA Specimen Type: PLASM [...] Nov 06, 2024 02:56 PM Reporting Lab: [address] [address] Performing Lab: [address] [address] FOLATE 8.2 ng/mL 7.0-31.4 Nov 06, 2024 [...] Nov 06, 2024 02:56 PM Reporting Lab: [address] [address] Performing Lab: [address] [address] IRON 358 ug/dL H 65-175 TIBC 433 mg/dL H 250-425 IRON SATURATION 83 H 20-50 Nov 06, 2024 03:32 PM [facility] FERRITIN PLASMA Specimen Type: PLASM [...] Nov 06, 2024 02:56 PM Reporting Lab: [address] [address] Performing Lab: [address] [address] FERRITIN 15.7 ng/mL L 21.8-274.7 Nov 06, 2024 03:32 PM [facility] CBC/PLT BLOOD Specimen Type: BLOOD No comment entered. Ordering Provider: BLAYNE SANDHU Report Released Date/Time: Nov 06, 2024 02:56 PM Reporting Lab: [address] [address] Performing Lab: [address] [address] WBC 8.3 10*3/uL 5.0-10.0 RBC 3.81 10*6/uL L 4.6-6.2 HGB 9.1 g/dL L 14.0-18.0 HCT 30.9 L 42.0-52.0 MCV 81.1 fL 80.0-94.0 MCH 23.9 pg L 27.0-31.0 MCHC 29.4 g/dL L 32.0-36.0 PLT 215 10*3/uL 150-450 MPV 9.7 fL 9.0-13.1 RDW 19.0 H 11.0-16.0 NRBC 0.0 0.0-0.0 Nov 06, 2024 03:32 PM [facility] AUTOMATED DIFF BLOOD Specimen Type: BLOOD No comment entered. Ordering Provider: BLAYNE SANDHU Report Released Date/Time: Nov 06, 2024 02:56 PM Reporting Lab: [address] [address] Performing Lab: [address] [address] A-LYMPH % 25.2 24.0-44.0 A-MONO % 9.4 H 0.1-6.0 A-GRAN % 60.4 42.0-75.0 A-LYMPH # 2.10 10*3/uL 1.20-3.40 A-MONO # 0.78 10*3/uL H 0.00-0.60 A-GRAN # 5.03 10*3/uL 1.40-6.50 A-BASO % 0.8 0.0-3.0 A-BASO # 0.07 10*3/uL 0.00-0.20 A-EOS % 3.8 0.0-10.0 A-EOS # 0.32 10*3/uL 0.00-0.70 A-IG % 0.4 0.0-0.5 A-IG # 0.03 10*3/uL 0.00-0.06 Nov 06, 2024 03:32 PM [facility] PANEL 5 PLASMA Specimen Type: PLASM A [...] Nov 06, 2024 02:56 PM Reporting Lab: [address] [address] Performing Lab: [address] [address] CREATININE 0.93 mg/dL 0.72-1.25 UREA NITROGEN 17 [...] 08, 2023 09:30 AM VA-TOBACCO NEVER USED [facility] Tobacco Use History This section includes a history of the smoking, or tobacco-related health factors, that were collected on or before the date of the Encounter. The data comes from the [place] facility where the Encounter took place. Date/Time Smoking Status/Tobacco Use Comment F acility Dec 12, 2006 07:57 AM V9 LIFETIME NON-US ER OF TOBACCO [facility] Aug 21, 2004 09:09 AM HF V9 CURRENT NON-SMOKER quit smoking 5 yrs ago [facility] May 28, 2003 10:30 AM HF V9 CURRENT NON-SMOKER quit 5 years ago [facility] Jun 23, 2001 08:08 AM HF V9 CURRENT NON-SMOKER quit 1 1/2year ago [facility] Encounter Notes: All associated encounter notes This section contains the clinical notes associated to the Encounter. Date/Time Encounter Note(s) Provider Source Dec 05, 2024 09:08 AM NURSING OUTPATIENT NOTE: LOCAL TITLE: [facility]INIC INTAKE NOTE STANDARD TITLE: NURSING OUTPATIENT NOTE DATE OF NOTE: DEC 05, 2024@09:08 ENTRY DATE: DEC 05, 2024@09:08:17 AUTHOR: LINK CARSON COSIGNER: URGENCY: STATUS: COMPLETED Reason for visit/chief complaint: B/P: 110/65 (12/05/2024 08:46) P: 51 (12/05/2024 08:46) R: 18 (05/08/2024 11:31) T: 98.3 F [36.8 C] (12/05/2024 08:46) HT: 69 in [175.3 cm] (11/06/2024 14:31) WT: 173.8 lb [78.83 kg] (12/05/2024 08:46) Are you having any pain or recurrent pain in the last several weeks/months? No Location: Duration: Characteristics: Pain education material offered to patient (for pain > 3) No Risk factors history: Hypertension No Have you taken your blood pressure medication today? No Do you have a BP cuff at home? No BP Rechecked: No Manual blood pressure taken: No Primary Care plant cytologist notified of elevated BP greater of 140/90: No Patient notified electrical solderer available upon request for any examinations/procedures. The [...] patient Medication Reconciliation ACTIVE OUTPATIENT MEDICATIONS LOCAL/REMOTE PANTOPRAZOLE NA 40MG EC TAB Directions: TAKE ONE TABLET BY MOUTH TWICE A DAY FOR HEARTBURN -TAKE ON AN EMPTY STOMACH. Quantity: 180 for 90 days Issued: 05/08/24 Filled: 11/29/24 Expires: 05/09/25 Refills: 2 Status: ACTIVE ASCORBIC ACID 500MG TAB Directions: TAKE ONE TABLET BY MOUTH DAILY FOR NUTRITION Quantity: 100 for 90 days Issued: 11/07/24 Filled: 01/26/25 Expires: 11/08/25 Refills: 2 Status: ACTIVE/SUSP BUPROPION HCL 75MG TAB Directions: TAKE TWO TABLETS BY MOUTH DAILY FOR MOOD OR SMOKING CESSATION Quantity: 60 for 30 days Issued: 11/04/24 Filled: 12/19/24 Expires: 11/05/25 Refills: 1 Status: ACTIVE/SUSP CITALOPRAM HYDROBROMIDE 40MG TAB Directions: TAKE ONE TABLET BY MOUTH DAILY FOR MOOD Quantity: 90 for 90 days Issued: 03/04/24 Filled: 01/02/25 Expires: 03/05/25 Refills: 0 Status: ACTIVE/SUSP FAMOTIDINE 40MG TAB Directions: TAKE ONE TABLET BY MOUTH AT BEDTIME NEEDED FOR STOMACH Quantity: 90 for 90 days Issued: 05/08/24 Filled: 01/25/25 Expires: 05/09/25 Refills: 0 Status: ACTIVE/SUSP FERROUS SULFATE 324MG EC TAB Directions: TAKE ONE TABLET BY MOUTH DAILY FOR IRON SUPPLEMENT TAKE WITH VIT C Quantity: 100 for 90 days Issued: 11/07/24 Filled: 01/26/25 Expires: 11/08/25 Refills: 2 Status: ACTIVE/SUSP No remote medications found. PENDING OUTPATIENT MEDICATONS (LOCAL/REMOTE): No local medications found. No remote medications found. ACTIVE NONVA MEDICATIONS (LOCAL): ACETAMINOPHEN/ASPIRIN/CAFFEIN E Directions: 2 TABLETS MOUTH NEEDED Status: ACTIVE NAPROXEN 250MG TAB Directions: 250MG MOUTH NEEDED Status: ACTIVE POLYETHYLENE GLYCOL 3350 ORAL PWDR Directions: 1 HEAPING TABLESPOONFUL IN LIQUID MOUTH DAILY Status: ACTIVE OUTPATIENT MEDICATIONS (LOCAL)WITHIN 90 DAYS: ASCORBIC ACID 500MG TAB Directions: TAKE ONE TABLET BY MOUTH DAILY FOR NUTRITION Quantity: 100 for 90 days Issued: 11/07/24 Filled: 01/26/25 Expires: 11/08/25 Refills: 2 Status: ACTIVE/SUSP BUPROPION HCL 75MG TAB Directions: TAKE TWO TABLETS BY MOUTH DAILY FOR MOOD OR SMOKING CESSATION Quantity: 60 for 30 days Issued: 11/04/24 Filled: 12/19/24 Expires: 11/05/25 Refills: 1 Status: ACTIVE/SUSP CITALOPRAM HYDROBROMIDE 40MG TAB Directions: TAKE ONE TABLET BY MOUTH DAILY FOR MOOD Quantity: 90 for 90 days Issued: 03/04/24 Filled: 01/02/25 Expires: 03/05/25 Refills: 0 Status: ACTIVE/SUSP FAMOTIDINE 40MG TAB Directions: TAKE ONE TABLET BY MOUTH AT BEDTIME NEEDED FOR STOMACH Quantity: 90 for 90 days Issued: 05/08/24 Filled: 01/25/25 Expires: 05/09/25 Refills: 0 Status: ACTIVE/SUSP FERROUS SULFATE 324MG EC TAB Directions: TAKE ONE TABLET BY MOUTH DAILY FOR IRON SUPPLEMENT TAKE WITH VIT C Quantity: 100 for 90 days Issued: 11/07/24 Filled: 01/26/25 Expires: 11/08/25 Refills: 2 Status: ACTIVE/SUSP ATORVASTATIN CALCIUM 80MG TAB Directions: TAKE ONE-HALF TABLET BY MOUTH DAILY FOR CHOLESTEROL -DO NOT DRINK GRAPEFRUIT JUICE WHILE ON THIS DRUG Quantity: 45 for 90 days Issued: 11/23/23 Filled: 11/12/24 Expires: 11/23/24 Refills: 0 Status: DISCONTINUED OUTPATIENT MEDICATIONS (LOCAL) WITHIN 90 DAYS: ASCORBIC ACID 500MG TAB Directions: TAKE ONE TABLET BY MOUTH DAILY FOR NUTRITION Quantity: 100 for 90 days Issued: 11/07/24 Filled: 01/26/25 Expires: 11/08/25 Refills: 2 Status: ACTIVE/SUSP BUPROPION HCL 75MG TAB Directions: TAKE TWO TABLETS BY MOUTH DAILY FOR MOOD OR SMOKING CESSATION Quantity: 60 for 30 days Issued: 11/04/24 Filled: 12/19/24 Expires: 11/05/25 Refills: 1 Status: ACTIVE/SUSP CITALOPRAM HYDROBROMIDE 40MG TAB Directions: TAKE ONE TABLET BY MOUTH DAILY FOR MOOD Quantity: 90 for 90 days Issued: 03/04/24 Filled: 01/02/25 Expires: 03/05/25 Refills: 0 Status: ACTIVE/SUSP FAMOTIDINE 40MG TAB Directions: TAKE ONE TABLET BY MOUTH AT BEDTIME NEEDED FOR STOMACH Quantity: 90 for 90 days Issued: 05/08/24 Filled: 01/25/25 Expires: 05/09/25 Refills: 0 Status: ACTIVE/SUSP FERROUS SULFATE 324MG EC TAB Directions: TAKE ONE TABLET BY MOUTH DAILY FOR IRON SUPPLEMENT TAKE WITH VIT C Quantity: 100 for 90 days Issued: 11/07/24 Filled: 01/26/25 Expires: 11/08/25 Refills: 2 Status: ACTIVE/SUSP ALOH 160/MG CARB 105MG CHEW TAB Directions: CHEW 1 TABLET BY MOUTH DIRECTED FOR STOMACH Quantity: 100 for 90 days Issued: 09/08/23 Filled: 09/11/23 Expires: 09/08/24 Refills: 3 Status: DISCONTINUED BUPROPION HCL 75MG TAB Directions: TAKE TWO TABLETS BY MOUTH DAILY FOR MOOD OR SMOKING CESSATION Quantity: 60 for 30 days Issued: 01/25/24 Filled: 04/26/24 Expires: 01/25/25 Refills: 0 Status: DISCONTINUED BUPROPION HCL 75MG TAB Directions: TAKE TWO TABLETS BY MOUTH DAILY FOR MOOD OR SMOKING CESSATION Quantity: 60 for 30 days Issued: 06/21/24 Filled: 08/11/24 Expires: 06/22/25 Refills: 0 Status: DISCONTINUED BUPROPION HCL 75MG TAB Directions: TAKE TWO TABLETS BY MOUTH DAILY FOR MOOD OR SMOKING CESSATION Quantity: 60 for 30 days Issued: 08/25/24 Filled: 10/30/24 Expires: 08/26/25 Refills: 0 Status: DISCONTINUED CARBOXYMETHYLCELLULOSE 1% OPH GEL 0.4ML Directions: APPLY 1 DROP TO BOTH EYES FOUR TIMES A DAY FOR DRY EYES Quantity: 30 for 90 days Issued: 09/26/23 Filled: 09/26/23 Expires: 09/26/24 Refills: 3 Status: DISCONTINUED FAMOTIDINE 40MG TAB Directions: TAKE ONE TABLET BY MOUTH AT BEDTIME NEEDED FOR STOMACH Quantity: 90 for 90 days Issued: 12/12/23 Filled: 03/04/24 Expires: 12/12/24 Refills: 2 Status: DISCONTINUED (EDIT) PANTOPRAZOLE NA 40MG EC TAB Directions: TAKE ONE TABLET BY MOUTH DAILY FOR HEARTBURN -TAKE ON AN EMPTY STOMACH. Quantity: 90 for 90 days Issued: 09/08/23 Filled: 09/08/23 Expires: 09/08/24 Refills: 3 Status: DISCONTINUED (EDIT) PANTOPRAZOLE NA 40MG EC TAB Directions: TAKE ONE TABLET BY MOUTH TWICE A DAY BEFORE MEALS FOR HEARTBURN -TAKE ON AN EMPTY STOMACH. Quantity: 180 for 90 days Issued: 12/12/23 Filled: 03/04/24 Expires: 12/12/24 Refills: 2 Status: DISCONTINUED (EDIT) CLINIC MEDICATIONS (LOCAL): No local medications found. Reviewed current medications with patient/signficant other, patient/significant other reports patient taking ALL VA, Non VA & OTC medications as listed on [facility] medication list provided. Vet provided medication list to review prior to appointment and physician will update this medication list with any changes at time of visit. Yes *Printed copy of medication list provided to patient and reviewed. Yes *Explained to the patient the importance of keeping providers updated on medication changes and to carrying an updated list of medication at all times in case of an emergency situation. Yes /saji/ LINK CARSON License Practial Nurse Signed: 12/05/2024 09:09 LINK CARSON-[facility] Dec 05, 2024 09:01 AM GASTROENTEROLOGY P SAYRA NOTE: LOCAL TITLE: GASTROENTEROLOGY CLINIC PHYSICIAN NOTE STANDARD TITLE: GASTROENTEROLOGY PHYSICIAN NOTE DATE OF NOTE: DEC 05, 2024@09:01 ENTRY DATE: DEC 05, 2024@09:01:51 AUTHOR: YOMI PAPPAS EXP COSIGNER: URGENCY: STATUS: COMPLETED GASTROENTEROLOGY CLINIC PHYSICIAN NOTE Has ADDENDA Subjective: 74 yo here for follow up. Last seen in Sep 2023. Since the last visit: - says has been seeing Dr. Phillips in [place] - had Iron transfusion yesteday, despite Iron elevation on labs Nov 06, 2024@15:32 PLASMA FERRITIN: 15.7 L ng/mL 21.8 - 274.7 Nov 06, 2024@15:32 PLASMA TIBC: 433 H mg/dL 250 - 425 Nov 06, 2024@15:32 PLASMA IRON : 358 H ug/dL 65 - 175 Nov 06, 2024@15:32 PLASMA IRON SATURATION: 83 H % 20 - 50 Nov 06, 2024@15:32 PLASMA FOLATE: 8.2 ng/mL 7.0 - 31.4 - had EGD locally again, no blood loss source found - planning to have pillcam locally - Had EGD and colonoscopy in 12/27 - [place] Grade B reflux esophagitis. - Gastritis. Biopsied. - A gastrojejunostomy was found, characterized by healthy appearing mucosa. -Mild non-specific chronic gastritis. -Alcian yellow negative for Helicobacter organisms - Moderate diverticulosis in the entire examined colon. - Protonix increased to 40 mg bid and famotidine added at night - feels better Previous records: Reports had perforated gastric [...] Had colonoscopy about 3-4 years ago. UGI seriws 11/18/21 Report: Exam: Double contrast Upper GI [...] neuralgia 5. Carcinoma of prostate (SNOMED CT 936776724) 6. Iron deficiency anemia (SNOMED CT 34770823) 7. History of malignant neoplasm of lung (SNOMED CT 898437257) 8. 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 Back pain (SNOMED CT 367688509) 10. Hyperlipidemia (SNOMED CT 82177251) 11. Depression (SNOMED CT 88071712) 12. Atherosclerotic occlusive disease (SNOMED CT 099413265) Reviewed Active Outpatient Medications (including Supplies): Active Outpatient Medications Status 1) ASCORBIC ACID 500MG TAB TAKE ONE TABLET BY MOUTH DAILY ACTIVE (S) Indication: FOR NUTRITION 2) BUPROPION HCL 75MG TAB TAKE TWO TABLETS BY MOUTH DAILY FOR ACTIVE (S) MOOD OR SMOKING CESSATION 3) CITALOPRAM HYDROBROMIDE 40MG TAB TAKE ONE TABLET BY MOUTH ACTIVE (S) DAILY Indication: FOR MOOD 4) FAMOTIDINE 40MG TAB TAKE ONE TABLET BY MOUTH AT BEDTIME ACTIVE (S) NEEDED Indication: FOR STOMACH 5) FERROUS SULFATE 324MG EC TAB TAKE ONE TABLET BY MOUTH DAILY ACTIVE (S) TAKE WITH VIT C Indication: FOR IRON SUPPLEMENT 6) PANTOPRAZOLE NA 40MG EC TAB TAKE ONE TABLET BY MOUTH TWICE A ACTIVE DAY -TAKE ON AN EMPTY STOMACH. Indication: FOR HEARTBURN Active Non-VA Medications Status 1) Non-VA ACETAMINOPHEN/ASPIRIN/CAFFEIN E 2 TABLETS MOUTH ACTIVE NEEDED 2) Non-VA NAPROXEN 250MG TAB 250MG MOUTH NEEDED ACTIVE 3) Non-VA POLYETHYLENE GLYCOL 3350 ORAL PWDR 1 HEAPING ACTIVE TABLESPOONFUL IN LIQUID MOUTH DAILY 9 Total Medications SVS - Vital Signs Selected Measurement DT BP TEMP RESP PULSE POx F(C) (L/MIN)(%) 12/05/2024 08:46 110/65 98.3(36.8) 51 98 Measurement DT WEIGHT LB(KG)[BMI] 12/05/2024 08:46 173.8(78.83)[26] PE: General: NAD Eyes: EOMI, no scleral icterus HENT: Moist oral mucosa, no oral ulceration CV: perfused, No peripheral edema Lungs: symmetric chest rise. Abdomen: Soft nontender nondistended BS+ Psych: Appropriate mood and affect LABS: CBC: CBC/PLT, BLOOD - Partial Panel found WBC , BLOOD, 11/06/24@1532 8.3 K/cmm (5.0 - 10.0) RBC, BLOOD, 11/06/24@1532 3.81 LM/cmm (4.6 - 6.2) HGB, BLOOD, 11/06/24@1532 9.1 Lg/dL (14.0 - 18.0) HCT, BLOOD, 11/06/24@1532 30.9 L% (42.0 - 52.0) MCV, BLOOD, 11/06/241532 81.1 fL (80.0 - 94.0) MCH, BLOOD, 11/06/24@1532 23.9 Lpg (27.0 - 31.0) MCHC, BLOOD, 11/06/24@1532 29.4 Lg/dL (32.0 - 36.0) RDW, BLOOD, 11/06/24@1532 19.0 H% (11.0 - 16.0) PLT, BLOOD, 11/06/241532 215 K/cmm (150 - 450) MPV, BLOOD, 11/06/24@1532 9.7 fL (9.0 - 13.1) NRBC, BLOOD, 11/06/24@1532 0.0 % (0.0 - 0.0) PANEL 1: PANEL 1 Cindy. date GLUCOSE BUN CREAT SODIUM K CHLOR CO2 11/06/24 15:32 89 17 0.93 140 4.3 108 H 22 PANEL 2: PANEL 2 Cindy. date TOT PRO ALBUMIN SGOT SGPT Z ALK PHZ DIRECTZ TOTAL 11/06/24 15:32 7.6 3.9 15 14 105 0.5 PT:____ PTT:____ URINALYSIS - NONE FOUND Pertinent Imaging/Findings: Assessment and plan: 74 yo with GERD/esophagitis Anemia, not Iron deficient currently hg 9.1 in November down from 11.1 in September had Iron infusion yesterday H/O perforated gastric ulcer in 1982 and had surgery for that on emergent basis. H/o Enteryx for GERD Reflux esophagitis 2022 ED visit for hematuria, urologic work up negative Constipation Diverticulosis continue Protonix bid dose, continue Famotidine continue stool softner, and bisacodyl prn patient to follow locally, no return appointment requested I spent 32 minutes, reviewing history, performing an exam and evaluation, entering clinical information in EHR, interpreting results, and counseling patient/family/caregiver. reviewing xrays, ordering meds/test/procedures, referring and communicating with consulting health toddler caregiver and care coordination. /saji/ YOMI PAPPAS MD GI Attending Signed: 12/05/2024 09:19 12/05/2024 ADDENDUM STATUS: COMPLETED Addendum: patient needs capsule endoscopy, service provided by [place] will request follow up in 3 months /saji/ YOMI PAPPAS MD GI Attending Signed: 12/05/2024 09:30 12/06/2024 ADDENDUM STATUS: COMPLETED Pt exited clinic per provider. Treatment plan and medications discussed with patient per provider. Return to clinic 3 months with GI/F1 if unavailable at that time may be scheduled with any available GI fellow or attending. Appointment will be mailed. [place] requested [facility], provider did not agree with request compromised on trying a different provider. /saji/ ЮЛИЯ CASTAÑEDA GI Janitor And Cleaner Signed: 12/06/2024 13:43 YOMI PAPPAS-[facility]
--- OUTSIDE RECORDS SUMMARY | 2024-12-18 12:35 | XMS_ITS | Encounter Summary ---
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 Date/Time Encounter Type Encounter Description Reason Provider Source Dec 26, 2023 10:40 AM INTRM OPH EXAM EST PATIENT OPTOMETRY ICD-10-CM H40.1112 Primary open-angle glaucoma, right eye, moderate stage TIGIST ZUNIGA IH[facility]erie Encounter Template Text not used by [place] Assessments - Encounter Diagnoses This section includes the primary and secondary diagnoses documented for the Encounter. Date/Time Primary/Secondary Diagnosis Diagnosis Name Provider Source Dec 26, 2023 12:02 PM PRIMARY Primary open-angle glaucoma, right eye, moderate stage SHEYLA ESTEVEZ [facility] Dec 26, 2023 12:02 PM SECONDARY Age-related nuclear cataract, bilateral SHEYLA ESTEVEZ [facility] Dec 26, 2023 12:02 PM SECONDARY Primary open-angle glaucoma, left eye, mild stage SHEYLA ESTEVEZ [facility] Plan of Treatment: Future Appointments (+ 6 months) and Future Tests (+/- 45 days) The Plan of Treatment section includes future care activities for the patient from all [place] treatmentfacilities. This section includes future appointments and future orders which are active, pending or scheduled. Future Appointments This section includes appointments that were scheduled to occur 6 months from the date of the Encounter, up to a maximum of 20 appointments. The data comes from all [place] treatment facilities. Appointment Date/Time Appointment Type Appointme nt Facility Name January 27, 2024 10:45 AM AMBULATORY - SURGERY [facility] May 08, 2024 11:30 AM AMBULATORY - MEDICINE [facility] Lab Results: +/- 30 days of the encounter This section includes the Chemistry and Hematology Lab Results on record with [place] for the patient. Radiology Reports and Pathology Reports are provided separately, in subsequent sections. Lab Results This section contains the Chemistry/Hematology Results that were resulted 30 days before or 30 daysafter the date of the Encounter. Date/Time Source Result Type Result - Unit Interpretation Reference Range Specimen Type Comment Dec 05, 2023 10:55 AM [facility] N PANEL 1 PLASMA Specimen Type: PLASMA Comment: Estimated Glomerular Filtration Rate (eGFR) calculated using the 2020 Chronic Kidney Disease-Epidemio logy (CKD-EPI) Collaboration creatinine equation; units of measure [...] or structural abnormalities does not represent CKD. ====== eGFR CKD Interpretation (mL/min/1.73 m2) stage >=90 G1 Normal 60-89 G2 Mild decrease 45-59 G3A Mild to moderate decrease 30-44 G3B Moderate to severe decrease 15-29 G4 Severe decrease <15 G5 Kidney failure Ordering Provider: JANEL OSUNA Report Released Date/Time: Dec 05, 2023 07:08 AM Reporting Lab: [address] [address] Performing Lab: [address] [address] CREATININE 0.87 mg/dL 0.72-1.25 UREA NITROGEN 18 mg/dL 9-25 GLUCOSE 87 mg/dL 74-100 SODIUM 141 mmol/L 136-145 POTASSIUM 4.2 mmol/L 3.5-5.1 CHLORIDE 108 mmol/L H 98-107 CO2 23 mmol/L 22-29 CALCIUM 10.0 mg/dL 8.4-10.2 ANION GAP 10 meq/L 3-19 eGFR (CKD-EPI) >90 Social History: Smoking Status (Most current) and Tobacco Use (All prior to encounter date) This section includes the most current, and the historical, smoking and tobacco- related health factors from the [place] facility where the Encounter took place. Current Smoking Status This section includes the most current smoking, or tobacco-related health factor, from the [place] facility where the Encounter took place. Date/Time Current Smoking Status Comment Henry ity Jun 11, 2022 08:30 AM VA-TOBACCO FORMER USER [facility] Tobacco Use History This section includes a history of the smoking, or tobacco-related health factors, that were collected on or before the date of the Encounter. The data comes from the [place] facility where the Encounter took place. Date/Time Smoking Status/Tobacco Use Comment F acility Jun 11, 2022 08:30 AM VA-TOBACCO QUIT 15 YRS OR MORE [facility] Jun 17, 2021 09:30 AM VA-TOBACCO FORMER USER [facility] Jun 17, 2021 09:30 AM VA-TOBACCO QUIT 15 YRS OR MORE [facility] Sep 20, 2019 08:27 AM VA-TOBACCO FORMER USER [facility] Sep 20, 2019 08:27 AM VA-TOBACCO QUIT 15 YRS OR MORE [facility] Feb 17, 2018 08:09 AM V9 LIFETIME NON-USER OF TOBACCO [facility] Feb 16, 2017 10:14 AM V9 QUIT TOBACCO >7 YEARS AGO [facility] Dec 05, 2015 08:59 AM V9 LIFETIME NON-USER OF TOBACCO [facility] January 03, 2015 08:38 AM V9 QUIT TOBACCO >7 YEARS AGO [facility] Dec 31, 2013 09:49 AM V9 QUIT TOBACCO >7 YEARS AGO [facility] Nov 27, 2012 09:16 AM V9 QUIT TOBACCO >7 YEARS AGO [facility] Oct 12, 2011 09:04 AM V9 QUIT TOBACCO >7 YEARS AGO [facility] Pathology Reports: +/- 30 days of the encounter Pathology Reports For cases when an order for pathology services may have been completed prior to the date of the Encounter, the report list includes the Pathology Reports that were completed up to 30 days before dateof the Encounter. For cases when an order for pathology services may have been completed after the date of the Encounter, the report list also includes the Pathology Reports that were completed up to30 days after date of the Encounter. The data comes from all [place] treatment facilities. Date/Time Pathology Report Provider Source Dec 16, 2023 03:33 PM LR SURGICAL PATHOL OGY REPORT: LOCAL TITLE: LR SURGICAL PATHOLOGY REPORT DATE OF NOTE: DEC 16, 2023@15:33:40 ENTRY DATE: DEC 16, 2023@15:33:40 AUTHOR: LOUIE TALAVERA EXP COSIGNER: URGENCY: STATUS: COMPLETED $APHDR Reporting Lab: [facility] [IA# [id number]] [address] [place] [address] - - - - - - - [...] - - - - - - - $TEXT Submitted by: ENDO Date obtained: Dec 12, 2023 - - - - - - - - - - - - - - - - - - - - - - - - - - - - - - - - - - - - - - - - Specimen (Received Dec 13, 2023 08:38): GASTRIC BIOPSY - - - - - - - - - - - - - - - - - - - - - - - - - - - - - - - - - - - - - - - - BRIEF CLINICAL HISTORY: IRON DEF ANEMIA. - - - - - - - - - - - - - - - - - - - - - - - - - - - - - - - - - - - - - - - - PREOPERATIVE DIAGNOSIS: IRON DEF ANEMIA. - - - - - - - - - - - - - - - - - - - - - - - - - - - - - - - - - - - - - - - - OPERATIVE FINDINGS: PORCEDURE & FINDINGS - NOT GIVEN. - - - - - - - - - - - - - - - - - - - - - - - - - - - - - - - - - - - - - - - - POSTOPERATIVE DIAGNOSIS: NOT GIVEN. Surgeon/physician: DEVIN COON MD =-=-=-=-=-=-=-=-=-=-=-=-=-=-=-= -=-=-=-=-=-=-=-=-=-=-=-=-=-=-=- =-=-=-=-=-=-=-=-= - - - - - - - [...] - - - - - - - Pathology Resident: KOKO CAMARGO The specimen is received in formalin labeled gastric biopsy and consists of five mercado/white fragments of soft tissue measuring 0.1 cm up to 0.3 cm in greatest dimension. The specimen is entirely submitted in one cassette. CPT CODE - [id number], [id number] MICROSCOPIC EXAM/DIAGNOSIS: Stomach, biopsy: -Mild non-specific chronic gastritis. -Alcian yellow negative for Helicobacter organisms. Appropriate controls for histochemical stain(s) were reviewed and acceptable. /es/ Louie Talavera MD Pathologist Signed Dec 16, 2023@15:33 Performing Laboratory: Surgical Pathology Report Performed By: [facility] [CLIA# [id number]] [address] [place] [address] $FTR - - - - - - - - - - - - - - - - - - - - - - - - - - - - - - - - - - - - - - - - (End of report) LOUIE TALAVERA MD kl Date Dec 16, 2023 - - - - - - - - - - - - - - - - - - - - - - - - - - - - - - - - - - - - - - - - ANEUDY BUSTAMANTE STANDARD FORM 515 ID:[id number] SEX:M :1950 AGE: 73 LOC:PATH PCP: Niyah Callejas MD /saji/ Louie Talavera MD Pathologist Signed: 12/16/2023 15:33 LOUIE TALAVERA-[facility] Encounter Notes: All associated encounter notes This section contains the clinical notes associated to the Encounter. Date/Time Encounter Note(s) Provider Source Dec 26, 2023 01:16 PM SURGERY SCANNED NOTE: LOCAL TITLE: OPTOMETRY SCANNING NOTE STANDARD TITLE: SURGERY SCANNED NOTE DATE OF NOTE: DEC 26, 2023@13:16 ENTRY DATE: DEC 29, 2023@13:16:37 AUTHOR: PB MORALES EXP COSIGNER: URGENCY: STATUS: COMPLETED The scanned document may be viewed in stickapps. /saji/ PB MORALES ADMINISTRATIVE AIDE Signed: 12/29/2023 13:16 PB MORALES [facility] Dec 26, 2023 11:44 AM STUDENT NOTE: LOCAL TITLE: MEDICAL STUDENT SOAP NOTE STANDARD TITLE: STUDENT NOTE DATE OF NOTE: DEC 26, 2023@11:44 ENTRY DATE: DEC 26, 2023@11:44:39 AUTHOR: L[place] EXP COSIGNER: BENITO ESTEVEZ URGENCY: STATUS: COMPLETED I participated in this patient care encounter with Dr. Estevez /saji/ LILIAM [place] Optometry Student Signed: 12/26/2023 11:44 /saji/ BENITO ESTEVEZ Optometry Resident Cosigned: 12/26/2023 12:02 [place]IAM [place] [facility] Dec 26, 2023 11:04 AM OPTOMETRY RESIDENT NOTE: LOCAL TITLE: OPTOMETRY RESIDENT NOTE STANDARD TITLE: OPTOMETRY RESIDENT NOTE DATE OF NOTE: DEC 26, 2023@11:04 ENTRY DATE: DEC 26, 2023@11:05:03 AUTHOR: BENITO ESTEVEZ EXP COSIGNER: TIGIST ZUNIGA URGENCY: STATUS: COMPLETED OPTOMETRY RESIDENT NOTE Has ADDENDA Type of exam: Comprehensive Chief complaint/Reason for visit: 73YO WHITE patient presents for a comprehensive exam. Reports vison is stable since last exam. Reports discontinuing latanoprost OU for past two months due to burning sensation upon instillation. No other ocular or visual complaints. Ocular History: MARY: 09/26/23 (+) Eye Injury: wood foreign body OS 07/26 (-) Eye Surgery/Laser Tx: (-) Eye Infection: (+) Other: PVD OS 01/22, cataracts OU, choroidal nevus OD, POAG OU (+) History of Cancer Type: Testicular, Lung, Prostate Date of diagnosis: 1988 Treatment: surgery, chemo, pinpoint radiation. (-) History of Known CVA (-) Use of anticoagulant Ocular Medications: 1. Latanoprost OU, LD: not taking for 2 months (-) History of allergies to ocular medications Family history: None Smoking history: (+) Previous smoker Duration, packs per day: 3 ppd When did pt quit smokin Additional Risk Factors for Macular Degeneration: (+) Patient is over age 60 (-) Obesity (Centers for Disease Control and Prevention definition: BMI of 30 or more) (+) Pt has heritage (-) Female sex Glaucoma History: Reason for Suspicion: POAG - mod OD, mild OS Date of last HVF: 12/26/23 Date of last DFE: 09/26/23 Date of last OCT: 09/26/23 Date of last gonioscopy and findings: 12/26/23 - open angles OU Pachymetry date and values: 10/19/21 - 594/600 (std 03/06) Additional Glaucoma Risk Hx: (-) over age 40 (+) Pt is over age 60 (-) Pt has [place] heritage Medical history: Active problems - Computerized Problem List is the source for the followin. Open angle glaucoma 2. Gastroesophageal reflux disease 3. Postherpetic neuralgia 4. Carcinoma of prostate (SNOMED CT 749452709) 5. Iron deficiency anemia (SNOMED CT 42805322) 6. History of malignant neoplasm of lung (SNOMED CT 200136491) 7. 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 Back pain (SNOMED CT 319372680) 9. Hyperlipidemia (SNOMED CT 46732412) 10. Depression (SNOMED CT 03426737) 11. Atherosclerotic occlusive disease (SNOMED CT 598422997) Allergies: TOPAMAX 25MG TABLET Medications: Active Outpatient Medications (including Supplies): Active Outpatient Medications Status ========= 1) ATORVASTATIN CALCIUM 80MG TAB TAKE ONE-HALF [...] 40MG TAB TAKE ONE TABLET BY ACTIVE MOUTH DAILY FOR MOOD 5) FAMOTIDINE 40MG TAB TAKE ONE TABLET BY MOUTH AT ACTIVE BEDTIME NEEDED FOR STOMACH 6) GAVISCON ES CHEW TAB CHEW 1 TABLET BY MOUTH ACTIVE DIRECTED FOR STOMACH 7) LATANOPROST 0.005% OPH SOLN PUT 1 DROP IN EYE(S) AT ACTIVE BEDTIME FOR GLAUCOMA 8) PANTOPRAZOLE NA 40MG EC TAB TAKE ONE TABLET BY MOUTH ACTIVE TWICE A DAY BEFORE MEALS FOR HEARTBURN -TAKE ON AN EMPTY STOMACH. Active Non-VA Medications Status ========= 1) Non-VA ACETAMINOPHEN/ASPIRIN/CAFFEINE 2 TABLETS MOUTH ACTIVE NEEDED 2) Non-VA NAPROXEN 250MG TAB 250MG MOUTH NEEDED ACTIVE 3) Non-VA POLYETHYLENE GLYCOL 3350 ORAL PWDR 1 HEAPING ACTIVE TABLESPOONFUL IN LIQUID MOUTH DAILY 11 Total Medications Medication list reviewed by: OVick Medication list is accurate per patient/doctor review, Pt/significant other reports patient taking ALL VA, Non VA,OTC medications as listed on medication tab. Describe Discrepancies: Printed copy of medication list provided to patient and/or significant other and reviewed: Yes Explained to patient and/or significant other the importance of keeping providers updated on medication changes and to carrying an updated list of medication at all times in case of an emergency situation. Yes Medication changes reviewed, patient/significant other verbalized understanding, provided updated list. VA: cc 2025 20/25 Habitual Rx: OD: -3.00 -1.50 x095 OS: -2.75 -2.25 x085 EOMs: Full and unrestricted OU, No Diplopia Confrontation VF: Full to finger count OU Pupils: PERRL, no APD SLIT LAMP EXAM: Lids/lashes: MGD OU Conj/sclera: Clear/white OU Cornea: Clear OU Anterior chamber: D/q OU Iris/pupil: Flat/round OU Informed consent obtained prior to instillation of all diagnostic pharmaceutical agents. IOPs (Goldmann applanation): igt Altafluor Benox OD, OS DATE OD OS TIME MEDS Dilated C/D 03/26/20 20 19 0843 None 04/08/21 24 23 0845 None 0.20/0.20;0.15/0.15 10/19/21 27 0856 None 12/16/21 22 1358 None 0.55/0.55; 0.25/0.30 03/17/22 21 1305 None 0.40/0.45; 0.30/0.30 07/26/22 19 19 1317 Latanoprost qhs OU 12/01/22 18 16 0742 Latanoprost 2-3x/wk OU 0.40/0.45; 0.30/0.30 03/31/23 18 18 1012 Latanoprost QAM OU 0.55/0.60; 0.30/0.30 05/31/23 20 20 0830 Latanoprost QAM OU 09/26/23 23 21 0850 Latanoprost QAM OU 12/26/23 22 20 1117 Pt is not using drops for 2 months Gonio: Open to CB 360 OU, (-) PAS, AR 360 OU OCULAR HEALTH: Lenses used for viewing: undilated 90 LENS: OD: 1-2+ NS OS: 1-2+ NS C/D: H/ V OD: 0.45/0.60 Shallow, Sloping inf, No Hemes, No Pallor, No Edema OS: 0.35/0.35 NRRI, No Hemes, No Pallor, No Edema Size: average ADDITIONAL TESTING: HVF 24-2 OD: GHT: outside normal limits Cluster: none MD: -4.55 dB Reliability: 2/10 FL; 9% FP; 0% FN Comments: sup arcuate defect with possible progression OS: GHT: within normal limits Cluster: none MD: -2.14 dB Reliability: 4/10 FL; 0% FP; 0% FN Comments: no repeatable defect on test today, improved from previous A: 1. Primary open angle glaucoma - moderate stage OD, mild stage OS - IOP today 22/20 treated with poor compliance (patient has discontinued latanoprost OU), highest untreated 27/27 - Target goal from Tmax: 18-19 - Asymmetry OD>OS with shallow cupping OD. Stable to photos - HVF (12/26/23) shows sup arcuate defect with possible progression OD, no repeatable defect OS - OCT (09/26/23) shows inf RNFL thinning with corresponding GCL thinning OD stable, moderate inf RNFL thinning OS stable - Gonioscopy confirmed open angles OU (12/26/23) - Thicker than average corneas 594/600 (CV = -4/-4) - Photos taken OU (04/08/21) - (+) Family history - father 2. Age-related nuclear cataracts OU - BCVA 20/20- OD, 20/25 OS P: 1. Patient educated on today's findings. Due to higher IOPs and poor compliance with drops, will refer to glaucoma. Patient educated on glaucoma and risk of permanent painless vision loss. Educated on importance of continued follow-up to monitor for changes. IOP remains above goal and patient continues to have issues with drop compliance. Due to possible progression of HVF defect OD and IOP above goal range best course of action at this time is to refer for SLT evaluation. Consult entered for glaucoma. Monitor as needed. 2. Patient educated about cataracts, their effect on vision and the typical time for extraction is when they begin to affect the patient's activities of daily living. Patient was advised on the typical gradual course of cataracts and instructed to RTC if vision changes significantly before next F/U. The /caregiver voiced understanding of topics covered/discussed in today's visit. Next visit: D/c to glaucoma /saji/ TIGIST ZUNIGA [employer] Signed: 12/26/2023 13:08 for BENITO ESTEVEZ Optometry Resident /saji/ TIGIST ZUNIGA [employer] Cosigned: 12/26/2023 13:08 12/26/2023 ADDENDUM STATUS: COMPLETED This service was performed in whole or in part by a resident at a [place] Medical Center or Clinic, supervised in accordance with [place] policy. I have discussed the patient with the examining resident. I agree with the clinical findings and the assessment and plan. /saji/ TIGIST ZUNIGA [employer] Signed: 12/26/2023 13:10 TIGIST ZUNIGA [facility]
[2024-12-18] MEDS: IRON SUCROSE COMPLEX 300 MG in 0.9 % SODIUM CHLORIDE 250 ML 176.667 MG IV (12:46)
[2024-12-18] MEDS: SODIUM CHLORIDE 0.9% 50ML BAG 50 ML IV (12:47)
[2024-12-18] MEDS: SODIUM CHLORIDE 0.9% 10ML FLUSH SYRINGE 10 ML IV (12:48)
[2024-12-18 12:53] VITALS: BP 99/53; PULSE 68; RESP 18; TEMP 36.7; O2SAT 97
[2024-12-18 13:30] VITALS: BP 106/64; PULSE 61
[2024-12-18 14:00] VITALS: BP 102/61; PULSE 53
[2024-12-18 14:20] VITALS: BP 112/57; PULSE 52
== END 2024-12-18 14:39 | disposition home or self-care (01) ==
LOC: INF 12:31
PROVIDERS: PCP Family Medicine; Visit Provider Internal Medicine Gastroenterology
DX: D50.9 Iron deficiency anemia, unspecified (principal)
CPT/HCPCS: 96365; J1756

== ENCOUNTER 2025-01-01 08:59 | Outpatient (CLI) | payer MEDICARE, OTHER, SELFPAY ==
--- OUTSIDE RECORDS SUMMARY | 2025-01-01 09:05 | XMS_ITS | Encounter Summary ---
Author Name [facility] [place] [facility] [place] Address [address] [place] [id number] Care Team Providers Care Supervisor [employer] Name Role Phone NIYAH CALLEJAS Primary Care [...] Tariq's Name Patient's Relationship to Policy Tariq [facility] [place] (BLUECARD) PREFERRED PROVIDER ORGANIZAT ION (PPO) TOYOT A MOTOR MANUF AC Sep 05, 2014 [id number] [phone] [place] BUSTAMANTE PATIENT EXPRESS SCRIPTS ([id number]) PRESCRIPT ION TMMK ACTIV E PPO Sep 05, 2014 [place] [id number] [place] BUSTAMANTE PATIENT INGENIO RX PRESCRIPT ION NONE* Sep 05, 2014 NONE [id number] [place] BUSTAMANTE PATIENT MEDICARE (WNR) MEDICARE (M) PART A Apr 05, 2015 PART A [id number] [place] BUSTAMANTE PATIENT MEDICARE (WNR) MEDICARE (M) PART B Apr 05, 2015 PART B [id number] [facility] DIANNACHARLOTTE Clover PATIENT Selected Encounter This section includes the information on record at [place] for the Encounter. Date/Time Encounter Type Encounter Description Reason Provider Source Nov 30, 2024 12:30 PM EVOKED AUDITORY TST COMPLETE AUDIOLOGY ICD-10-CM H90.3 Sensorineural hearing loss, bilateral MARIELY DENNISON IHE Encounter Template Text not used by [place] Assessments - Encounter Diagnoses This section includes the primary and secondary diagnoses documented for the Encounter. Date/Time Primary/Secondary Diagnosis Diagnosis Name Provider Source Nov 30, 2024 01:23 PM PRIMARY Sensorineural hearing loss, bilateral KIKI ZULETA [facility] Plan of Treatment: Future Appointments (+ 6 months) and Future Tests (+/- 45 days) The Plan of Treatment section includes future care activities for the patient from all [place] [facility]. This section includes future appointments and future orders which are active, pending or scheduled. Future Appointments This section includes appointments that were scheduled to occur 6 months from the date of the Encounter, up to a maximum of 20 appointments. The data comes from all [facility]. Appointment Date/Time Appointment Type Appointme nt Facility Name Dec 05, 2024 09:00 AM [facility] Dec 19, 2024 02:00 PM [facility] Dec 27, 2024 07:30 AM [facility] - [facility]ONE [place] [facility] Feb 11, 2025 08:09 AM [facility] - [facility]ONE [place] [facility] Mar 12, 2025 09:30 AM [facility] - NONE [place] [facility] Active, Pending, and Scheduled Orders This section includes a listing of several types of active, pending, and scheduled orders, including clinic medications orders, diagnostic test orders, procedure orders and consult orders; where the start date of the order is 45 days before the date of the Encounter or 45 days after the date of theEncounter. The data comes from all [facility]. Test Date/Time Test Type Test Details Facility Name Dec 05, 2024 09:30 AM Procedure Order CP WIRELES S CAPSULE CP WIRELESS CAPSULE Proc Change Of Address Clerk's Choice [facility] Dec 19, 2024 12:00 AM Laboratory - Chemi stry Order EGFR + CREAT DATE SENSITIVE [id number] SP [facility] Lab Results: +/- 30 days of the encounter This section includes the Chemistry and Hematology Lab Results on record with [place] for the patient. Radiology Reports and Pathology Reports are provided separately, in subsequent sections. Lab Results This section contains the Chemistry/Hematology Results that were resulted 30 days before or 30 daysafter the date of the Encounter. Date/Time Source Result Type Result - Unit Interpretation Reference Range Specimen Type Comment Dec 27, 2024 07:03 AM [facility] EGFR + CREAT DATE SENSITIVE PLASMA Specime n Type: PLASMA Comment: Estimated Glomerular Filtration Rate (eGFR) calculated using the 2020 Chronic Kidney Disease-Epidemiol ogy (CKD-EPI) Collaboration creatinine equation; units of measure [...] or structural abnormalities does not represent CKD. === eGFR CKD Interpretation (mL/min/1.73 m2) stage >=90 G1 Normal 60-89 G2 Mild decrease 45-59 G3A Mild to moderate decrease 30-44 G3B Moderate to severe decrease 15-29 G4 Severe decrease <15 G5 Kidney failure Ordering Provider: NIYAH CALLEJAS Report Released Date/Time: Dec 19, 2024 10:19 PM Reporting Lab: [address] [address] Performing Lab: [address] [address] CREATININE 0.99 mg/dL 0.72-1.25 eGFR (CKD-EPI) 80 Nov 06, 2024 03:32 PM [facility] TRANSFERRIN SERUM Specimen Type: SERUM No comment entered. Ordering Provider: BLAYNE SANDHU Report Released Date/Time: Nov 06, 2024 02:56 PM Reporting Lab: [address] [address] Performing Lab: [address] TRANSFERRIN 386 mg/dL H 177-329 Nov 06, 2024 03:32 PM [facility] FOLATE PLASMA Specimen Type: PLASM A Comment: [...] Nov 06, 2024 02:56 PM Reporting Lab: [address] [address] Performing Lab: [address] [address] FOLATE 8.2 ng/mL 7.0-31.4 Nov 06, 2024 03:32 PM [facility] IRON/TIBC PLASMA Specimen Type: PLASM A Comment: [...] Nov 06, 2024 02:56 PM Reporting Lab: [address] [address] Performing Lab: [address] [address] IRON 358 ug/dL H 65-175 TIBC 433 mg/dL H 250-425 IRON SATURATION 83 H 20-50 Nov 06, 2024 03:32 PM [facility] FERRITIN PLASMA Specimen Type: PLASM [...] Nov 06, 2024 02:56 PM Reporting Lab: [address] [address] Performing Lab: [address] [address] FERRITIN 15.7 ng/mL L 21.8-274.7 Nov 06, 2024 03:32 PM [facility] CBC/PLT BLOOD Specimen Type: BLOOD No comment entered. Ordering Provider: BLAYNE SANDHU Report Released Date/Time: Nov 06, 2024 02:56 PM Reporting Lab: [address] [address] Performing Lab: [address] [address] WBC 8.3 10*3/uL 5.0-10.0 RBC 3.81 10*6/uL L 4.6-6.2 HGB 9.1 g/dL L 14.0-18.0 HCT 30.9 L 42.0-52.0 MCV 81.1 fL 80.0-94.0 MCH 23.9 pg L 27.0-31.0 MCHC 29.4 g/dL L 32.0-36.0 PLT 215 10*3/uL 150-450 MPV 9.7 fL 9.0-13.1 RDW 19.0 H 11.0-16.0 NRBC 0.0 0.0-0.0 Nov 06, 2024 03:32 PM [facility] AUTOMATED DIFF BLOOD Specimen Type: BLOOD No comment entered. Ordering Provider: BLAYNE SANDHU Report Released Date/Time: Nov 06, 2024 02:56 PM Reporting Lab: [address] [address] Performing Lab: [address] [address] A-LYMPH % 25.2 24.0-44.0 A-MONO % 9.4 H 0.1-6.0 A-GRAN % 60.4 42.0-75.0 A-LYMPH # 2.10 10*3/uL 1.20-3.40 A-MONO # 0.78 10*3/uL H 0.00-0.60 A-GRAN # 5.03 10*3/uL 1.40-6.50 A-BASO % 0.8 0.0-3.0 A-BASO # 0.07 10*3/uL 0.00-0.20 A-EOS % 3.8 0.0-10.0 A-EOS # 0.32 10*3/uL 0.00-0.70 A-IG % 0.4 0.0-0.5 A-IG # 0.03 10*3/uL 0.00-0.06 Nov 06, 2024 03:32 PM [facility] PANEL 5 PLASMA Specimen Type: [...] Nov 06, 2024 02:56 PM Reporting Lab: [address] [address] Performing Lab: [address] [address] CREATININE 0.93 mg/dL 0.72-1.25 UREA NITROGEN 17 [...] and tobacco- related health factors from the [place] facility where the Encounter took place. Current Smoking Status This section includes the most current smoking, or tobacco-related health factor, from the [place] facility where the Encounter took place. Date/Time Current Smoking Status Comment Henry ity Nov 06, 2024 02:30 PM VA-TOBACCO USE FOR CASTRO CIGARETTES [facility] Tobacco Use History This section includes a history of the smoking, or tobacco-related health factors, that were collected on or before the date of the Encounter. The data comes from the [place] facility where the Encounter took place. Date/Time Smoking Status/Tobacco Use Comment Mary cid Nov 06, 2024 02:30 PM VA-TOBACCO USE FOR CASTRO CIGARETTES [facility] Jun 11, 2022 08:30 AM VA-TOBACCO FORMER USER [facility] Jun 11, 2022 08:30 AM VA-TOBACCO QUIT 15 YRS OR MORE [facility] Jun 17, 2021 09:30 AM VA-TOBACCO FORMER USER [facility] Jun 17, 2021 09:30 AM VA-TOBACCO QUIT 15 YRS OR MORE [facility] Sep 20, 2019 08:27 AM VA-TOBACCO FORMER USER [facility] Sep 20, 2019 08:27 AM VA-TOBACCO QUIT 15 YRS OR MORE [facility] Feb 17, 2018 08:09 AM V9 LIFETIME NON-USER OF TOBACCO [facility] Feb 16, 2017 10:14 AM V9 QUIT TOBACCO >7 YEARS AGO [facility] Dec 05, 2015 08:59 AM V9 LIFETIME NON-USER OF TOBACCO [facility] January 03, 2015 08:38 AM V9 QUIT TOBACCO >7 YEARS AGO [facility] Dec 31, 2013 09:49 AM V9 QUIT TOBACCO >7 YEARS AGO [facility] Nov 27, 2012 09:16 AM V9 QUIT TOBACCO >7 YEARS AGO [facility] Oct 12, 2011 09:04 AM V9 QUIT TOBACCO >7 YEARS AGO [facility] Radiology Reports: +/- 30 days of [...] the Encounter. The data comes from all [place] treatment facilities. Date/Time Radiology Report Provider Source Dec 27, 2024 06:[address] CHEST W/CONTRAS T: ANEUDY BUSTAMANTE [id number] -1950 M Exm Date: DEC 27, 2024@06:47 Req Phys: NIYAH CALLEJAS Loc: POLLY PACT ALPHA 1-3 (Req'g Loc) Img Loc: CT SCAN Service: [place] [address] (Case [id number] COMPLETE)CT CHEST W/CONTRAST (CT Detailed) CPT:26682 Contrast Media : Non-ionic Iodinated Reason for Study: SEE CLINICAL HISTORY Pharmaceutical: IOHEXOL INJ 350MG I/ML 500ML BOTTLE, 80ml Clinical History: REASON FOR SEND OUT: ATTENDING PHYSICIAN NAME: Cancer HISTORY/REASON FOR EXAM: Pt is requesting to have CT chest With contrast due to his h/o lung cancer. Report Status: Verified Date Reported: DEC 31, 2024 Date Verified: DEC 31, 2024 Account Liaison E-Sig: Report: CT CHEST W/CONTRAST HISTORY: SEE CLINICAL HISTORY COMPARISON: 07/19/2022 TECHNIQUE: CT of the chest, with multiplanar reformats, was performed at the local [place] facility. 1150 images were received by the [place] National Teler[facility] Program (NTP) for interpretation. RADIATION DOSE (mGy*cm): 240 IV CONTRAST: Omnipaque 350, Volume (mL): 80 FINDINGS: LUNGS: Bibasilar linear atelectasis. No suspicious nodules identified. PLEURA: Normal appearance. AIRWAYS: Normal appearance. MEDIASTINUM: Postsurgical changes in the distal esophagus, associated with some thickening in the distal esophagus, which is not specific. HEART, GREAT VESSELS: Coronary artery calcifications. Mild scattered vascular calcifications in the aortic arch and in the great vessels. LYMPH NODES: No lymphadenopathy by size criteria. UPPER ABDOMEN: A small soft tissue outpouching from the greater curvature of the stomach measuring 0.8 cm (2:100), is unchanged from 2021, and therefore most likely to be benign entity such as a small diverticulum. Colonic diverticulosis. Postsurgical changes in the retroperitoneum. Mild to moderate scattered vascular calcifications in the aorta and its branches. SPINE, SOFT TISSUE, BONES: Degenerative disc changes of the spine. Median sternotomy. Impression: 1. Postsurgical changes near the GE junction with some thickening which is nonspecific. If indicated, EGD can be helpful. READING PHYSICIAN: Ravindra Navarro MD -[id number] 12/31/2024 15:22 EDT [facility] [phone] (For Medical Practitioner Use Only) Attention Patients / Veterans: If you have questions or concerns about these test results, please contact your ordering provider or primary care team. Primary Diagnostic Code: NO ALERT REQUIRED Primary Interpreting Staff: OUTSIDE SERVICE RADIOLOGY, Staff Physician / RADIOLOGY,OUTSIDE SERVICE [facility] Encounter Notes: All associated encounter notes This [...] COMPLETED AUDIOLOGICAL EVALUATION NOTE Has ADDENDA S: Vichy requested evaluation of their hearing and consideration [...] kanwal in scalp. 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 The meets [place] Central Office Criteria for amplification. It was recommended the be evaluated by ENT prior to pursuing binaural amplification due to the high-frequency asymmetry. The agreed. P: ENT consult entered. Once is medically cleared by ENT for binaural amplification, he will call to schedule a 30-minute hearing aid discussion with [facility]. was advised to wear hearing protection when exposed to high levels of noise. I have seen and evaluated this patient with Dr. Mariely Dennison who agrees with the assessment and plan above. /saji/ MARIE ZULETA AUDIOLOGY TRAINMASTER Signed: 11/30/2024 13:38 /es/ Ariadna Aguilar, [facility]-A Staff Solderer Production Line Cosigned: 11/30/2024 13:44 11/30/2024 ADDENDUM STATUS: COMPLETED I discussed this patient with AUD TRAINMASTER Marie Zuleta and agree with her assessment and plan. /saji/ Ariadna Aguilar, CCC-A Staff [employer] Production Line Signed: 11/30/2024 13:44 MARIE ZU[facility]TA [facility]
--- OUTSIDE RECORDS SUMMARY | 2025-01-01 09:05 | XMS_ITS | Encounter Summary ---
Author Name [facility] [place] Address [address] [place] [id number] Care Team Providers Care Cargo Trimmer Name Role Phone NIYAH CALLEJAS Primary Care [...] A MOTOR MANUF AC Sep 05, 2014 [id number] [phone] [place] BUSTAMANTE PATIENT EXPRESS SCRIPTS ([id number]) PRESCRIPT ION TMMK ACTIV E PPO Sep 05, 2014 [place] [id number] [place] BUSTAMANTE PATIENT INGENIO RX PRESCRIPT ION NONE* Sep 05, 2014 NONE [id number] [place] BUSTAMANTE PATIENT MEDICARE (WNR) MEDICARE (M) PART A Apr 05, 2015 PART A [id number] [place] BUSTAMANTE PATIENT MEDICARE (WNR) MEDICARE (M) PART B Apr 05, 2015 PART B [id number] [facility] [phone] [id number] [place] BUSTAMANTE PATIENT Selected Encounter This section includes the information on record at [place] for the Encounter. Date/Time Encounter Type Encounter Description Reason Pro vider Source Dec 12, 2024 03:55 PM Outpatient Encounter TELEPHONE PRIMARY CARE IHE Encounter Template Text not used by [place] Plan of Treatment: Future Appointments (+ 6 months) and Future Tests (+/- 45 days) The Plan of Treatment section includes future care activities for the patient from all [place] [facility]. This section includes future appointments and future orders which are active, pending or scheduled. Future Appointments This section includes appointments that were scheduled to occur 6 months from the date of the Encounter, up to a maximum of 20 appointments. The data comes from all [place] treatment facilities. Appointment Date/Time Appointment Type Appointme nt Facility Name Dec 19, 2024 02:00 PM [facility] Dec 27, 2024 07:30 AM [facility] [place] [facility] Feb 11, 2025 08:09 AM [facility] [place] [facility] Mar 12, 2025 09:30 AM [facility] [place] [facility] Active, Pending, and [...] of theEncounter. The data comes from all [facility]. Test Date/Time Test Type Test Details Facility Name Dec 05, 2024 09:30 AM Procedure Order CP WIRELES S CAPSULE CP WIRELESS CAPSULE Proc Licensed Mental Health Professional's Choice [facility] Dec 19, 2024 12:00 AM Laboratory - Chemi stry Order EGFR + CREAT DATE SENSITIVE [id number] SP [facility] Lab Results: +/- 30 days of the encounter This section includes the Chemistry and Hematology Lab Results on record with [place] for the patient. Radiology Reports and Pathology Reports are provided separately, in subsequent sections. Lab Results This section contains the Chemistry/Hematology Results that were resulted 30 days before or 30 daysafter the date of the Encounter. Date/Time Source Result Type Result - Unit Interpretation Reference Range Specimen Type Comment Dec 27, 2024 07:03 AM [facility] EGFR + CREAT DATE SENSITIVE PLASMA Specime [...] Dec 19, 2024 10:19 PM Reporting Lab: [address] [address] Performing Lab: [address] [address] CREATININE 0.99 mg/dL 0.72-1.25 eGFR (CKD-EPI) 80 Social History: Smoking Status (Most current) and Tobacco Use (All prior to encounter date) This section includes the most current, and the historical, smoking and tobacco- related health factors from the [place] facility where the Encounter took place. Current Smoking Status This section includes the most current smoking, or tobacco-related health factor, from the [place] facility where the Encounter took place. Date/Time Current Smoking Status Comment Facil stefani Nov 06, 2024 02:30 PM VA-TOBACCO USE FOR CASTRO CIGARETTES [facility] Tobacco Use History This section includes a history of the smoking, or tobacco-related health factors, that were collected on or before the date of the Encounter. The data comes from the [place] facility where the Encounter took place. Date/Time Smoking Status/Tobacco Use Comment F jose roberto Nov 06, 2024 02:30 PM VA-TOBACCO USE FOR CASTRO CIGARETTES [facility] Jun 11, 2022 08:30 AM VA-TOBACCO FORMER USER [facility] Jun 11, 2022 08:30 AM VA-TOBACCO QUIT 15 YRS OR MORE [facility] Jun 17, 2021 09:30 AM VA-TOBACCO FORMER USER [facility] Jun 17, 2021 09:30 AM VA-TOBACCO QUIT 15 YRS OR MORE [facility] Sep 20, 2019 08:27 AM VA-TOBACCO FORMER USER [facility] Sep 20, 2019 08:27 AM VA-TOBACCO QUIT 15 YRS OR MORE [facility] Feb 17, 2018 08:09 AM V9 LIFETIME NON-USER OF TOBACCO [facility] Feb 16, 2017 10:14 AM V9 QUIT TOBACCO >7 YEARS AGO [facility] Dec 05, 2015 08:59 AM V9 LIFETIME NON-USER OF TOBACCO [facility] January 03, 2015 08:38 AM V9 QUIT TOBACCO >7 YEARS AGO [facility] Dec 31, 2013 09:49 AM V9 QUIT TOBACCO >7 YEARS AGO [facility] Nov 27, 2012 09:16 AM V9 QUIT TOBACCO >7 YEARS AGO [facility] Oct 12, 2011 09:04 AM V9 QUIT TOBACCO >7 YEARS AGO [facility] Radiology Reports: +/- 30 days [...] the Encounter. The data comes from all [place] treatment facilities. Date/Time Radiology Report Provider Source Dec 27, 2024 06:[address] CHEST W/CONTRAS T: ANEUDY BUSTAMANTE [id number] -1950 M Exm Date: DEC 27, 2024@06:47 Req Phys: NIYAH CALLEJAS Loc: POLLY PACT ALPHA 1-3 (Req'g Loc) Img Loc: CT SCAN Service: [place] [address] (Case [id number] COMPLETE)CT CHEST W/CONTRAST (CT Detailed) CPT:09481 Contrast Media : Non-ionic Iodinated Reason for Study: SEE CLINICAL HISTORY Pharmaceutical: IOHEXOL INJ 350MG I/ML 500ML BOTTLE, 80ml Clinical History: REASON FOR SEND OUT: ATTENDING PHYSICIAN NAME: Cancer HISTORY/REASON FOR EXAM: Pt is requesting to have CT chest With contrast due to his h/o lung cancer. Report Status: Verified Date Reported: DEC 31, 2024 Date Verified: DEC 31, 2024 Shift Lab Technician E-Sig: Report: CT CHEST W/CONTRAST HISTORY: SEE CLINICAL HISTORY COMPARISON: 07/19/2022 TECHNIQUE: CT of the chest, with multiplanar reformats, was performed at the local [place] facility. 1150 images [place] by the [place] [facility] ([facility]P) for interpretation. RADIATION [...] be helpful. READING PHYSICIAN: Ravindra Navarro MD -[id number] 12/31/2024 15:22 EDT [facility] [phone] (For Medical Practitioner Use Only) Attention Patients / Veterans: If you have questions or concerns about these test results, please contact your ordering provider or primary care team. Primary Diagnostic Code: NO ALERT REQUIRED Primary Interpreting Staff: OUTSIDE SERVICE RADIOLOGY, Staff Physician / RADIOLOGY,OUTSIDE SERVICE [facility] Encounter Notes: All associated encounter [...] NO voicemail. VOICEMAIL BOX NOT SET UP /saji/ TARIK ANDREWS,RN PC TEAM ASSEMBLY LINE MACHINE OPERATOR Signed: 12/12/2024 15:56 FUAD CORDERO [facility]
--- OUTSIDE RECORDS SUMMARY | 2025-01-01 09:05 | XMS_ITS | Encounter Summary ---
Author Name [facility] Organization [facility] [place] Address [address] [place] [id number] Care Team Providers Care Ordnance Equipment Worker Name Role Phone NIYAH CALLEJAS Primary Care [...] Tariq's Name Patient's Relationship to Policy Tariq [facility] [place] ([facility]UECARD) PREFERRED PROVIDER ORGANIZAT ION (PPO) SUMEETOT A MOTOR MANUF AC Sep 05, 2014 [id number] [place] PATIENT EXPRESS SCRIPTS ([id number]) PRESCRIPT ION TMMK ACTIV E PPO Sep 05, 2014 [place] [id number] [phone] [place] PATIENT INGENIO RX PRESCRIPT ION NONE* Sep 05, 2014 NONE [id number] [place] PATIENT MEDICARE (WNR) MEDICARE (M) PART A Apr 05, 2015 PART A [id number] [place] PATIENT MEDICARE (WNR) MEDICARE (M) PART B Apr 05, 2015 PART B [id number] [place] PATIENT Selected Encounter This section includes the information on record at MD for the Encounter. Date/Time Encounter Type Encounter [...] glaucoma, right eye, moderate stage SARA KABA [facility] Plan of Treatment: Future Appointments (+ 6 months) and Future Tests (+/- 45 days) The Plan of Treatment section includes future care activities for the patient from all MD treatmentfacilities. This section includes future appointments and future orders which are active, pending or scheduled. Future Appointments This section includes appointments that were scheduled to occur 6 months from the date of the Encounter, up to a maximum of 20 appointments. The data comes from all MD treatment facilities. Appointment Date/Time Appointment Type Appointme nt Facility Name May 08, 2024 11:30 AM AMBULATORY - MEDICINE [facility] Social History: Smoking Status (Most current) and Tobacco Use (All prior to encounter date) This section includes the most current, and the historical, smoking and tobacco- related health factors from the MD facility where the Encounter took place. Current Smoking Status This section includes the most current smoking, or tobacco-related health factor, from the MD facility where the Encounter took place. Date/Time Current Smoking Status Comment [place] Sep 08, 2023 09:30 AM VA-TOBACCO NEVER USED [facility] Tobacco Use History This section includes a history of the smoking, or tobacco-related health factors, that were collected on or before the date of the Encounter. The data comes from the MD facility where the Encounter took place. Date/Time Smoking Status/Tobacco Use Comment F acility Dec 12, 2006 07:57 AM V9 LIFETIME NON-US ER OF TOBACCO [facility] Aug 21, 2004 09:09 AM HF V9 CURRENT NON-SMOKER quit smoking 5 yrs ago [facility] May 28, 2003 10:30 AM HF V9 CURRENT NON-SMOKER quit 5 years ago [place] Jun 23, 2001 08:08 AM HF V9 CURRENT NON-SMOKER quit 1 1/2year ago [place] Encounter Notes: All associated encounter notes [...] - plan for SLT OD. Patient wants front loader residential driver. Will bring back in one month for slt od. Left Eye: # age related NS - not VS. obs # POAG, mild - HVF 10/2023 with full field - pt intolerant of Lprost. Has been off for three months. - IOP 22 18 on no gtts - RNFL with inf polar thinning OU - plan for SLT OD. Patient wants front loader residential driver. Will bring back in one month for slt od. Plan: bring back in one month for slt od F/U: 1 month for slt od * In VA column= without correction * In IOP column= didn't take most recent dose, or otherwise non-adherent In A/P= Not Addressed at this visit /asji/ SARA KABA RESIDENT Signed: 01/27/2024 13:11 /saji/ REMBERTO SALCEDO ATTENDING PHYSICIAN Cosigned: 02/07/2024 08:36 01/31/2024 ADDENDUM STATUS: COMPLETED [facility] Ophthal/Gla/Att1/Cd 02/27/2024@09:15 Future RTC GLAUCOMA ONE MONTH FOR SLT OD PER 01/27/24 RTC ORDERS /saji/ GARFIELD JACKSON Signed: 01/31/2024 13:49 02/15/2024 ADDENDUM STATUS: COMPLETED Johnny Ophthal/Gla/Att1/Cd 02/27/2024@09:15 Cancelled By Clinic Johnny Ophthal/Gla/Att1/Cd 03/26/2024@11:00 Above scheduled with patient on phone per rtc order. /saji/ LUZ CHOE Raise Drill Operator Signed: 02/15/2024 10:25 [facility] January 27, 2024 10:59 AM OPHTHALMOLOGY [...] with SLT - will come back with front loader residential driver. CE/IOL with MIGS when ready/needed (discussed). Mod, Mild/Mod OAG R/L Tmax high 20s Intolerant of drops CCT 594/600 Lives in [place] /saji/ REMBERTO SALCEDO ATTENDING PHYSICIAN Signed: 01/27/2024 12:04 EJ RODRIGUEZ-AYLIND [facility] January 27, 2024 09:36 AM SURGERY SCANNED NO TE: LOCAL TITLE: OPHTHALMOLOGY SCANNING NOTE STANDARD TITLE: SURGERY SCANNED NOTE DATE OF NOTE: JANUARY 27, 2024@09:36 ENTRY DATE: JANUARY 31, 2024@09:36:15 AUTHOR: TRICIA,PEPITO A EXP COSIGNER: URGENCY: STATUS: COMPLETED The scanned document may be viewed in [facility]. /saji/ PEPITO CLARKE CHRONIC CONDITION NURSE Signed: 01/31/2024 09:36 PEPITO CLARKE-REBEKA [facility]
--- OUTSIDE RECORDS SUMMARY | 2025-01-01 09:06 | XMS_ITS | Encounter Summary ---
Author Name [facility] [place] Organization [facility] [place] Address [address] [place] [id number] Care Team Providers Care Internet Merchant Name Role Phone NIYAH CALLEJAS Primary Care [...] A MOTOR MANUF AC Sep 05, 2014 [id number] [phone] [place] PATIENT EXPRESS SCRIPTS ([id number]) PRESCRIPT ION TMMK ACTIV E PPO Sep 05, 2014 [place] [id number] [place] PATIENT INGENIO RX PRESCRIPT ION NONE* Sep 05, 2014 NONE [id number] [phone] [place] PATIENT MEDICARE (WNR) MEDICARE (M) PART A Apr 05, 2015 PART A [id number] [phone] [place] PATIENT MEDICARE (WNR) MEDICARE (M) PART B Apr 05, 2015 PART B [id number] [place] PATIENT Selected Encounter This section includes the information on record at [place] for the Encounter. Date/Time Encounter Type Encounter Description Reason Pro vider Source Dec 18, 2024 08:34 AM Outpatient Encounter GI ENDOSCOPY IHE Encounter Template Text not used by [place] Plan of Treatment: Future Appointments (+ 6 months) and Future Tests (+/- 45 days) The Plan of Treatment section includes future care activities for the patient from all [place] treatmentfacilities. This section includes future appointments and future orders which are active, pending or scheduled. Future Appointments This section includes appointments that were scheduled to occur 6 months from the date of the Encounter, up to a maximum of 20 appointments. The data comes from all [place] treatment facilities. Appointment Date/Time Appointment Type Appointme nt Facility Name Dec 19, 2024 02:00 PM AMBULATORY - SURGERY [facility] [facility] Dec 27, 2024 07:30 AM AMBULATORY - NONE [place] Feb 11, 2025 08:09 AM [facility] - NONE [facility] Mar 12, 2025 09:30 AM AM[facility]UL[facility]ORY - NONE [facility] Active, Pending, and Scheduled Orders This section includes a listing of several types of active, pending, and scheduled orders, including clinic medications orders, diagnostic test orders, procedure orders and consult orders; where the start date of the order is 45 days before the date of the Encounter or 45 days after the date of theEncounter. The data comes from all [facility]. Test Date/Time Test Type Test Details Facility Name Dec 05, 2024 09:30 AM Procedure Order CP WIRELES S CAPSULE CP WIRELESS CAPSULE Proc Psychiatric Security Nurse's Choice [facility] Dec 19, 2024 12:00 AM Laboratory - Chemi stry Order EGFR + CREAT DATE SENSITIVE [id number] SP [facility] Lab Results: +/- 30 days of the encounter This section includes the Chemistry and Hematology Lab Results on record with [place] for the patient. Radiology Reports and Pathology Reports are provided separately, in subsequent sections. Lab Results This section contains the Chemistry/Hematology Results that were resulted 30 days before or 30 daysafter the date of the Encounter. Date/Time Source Result Type Result - Unit Interpretation Reference Range Specimen Type Comment Dec 27, 2024 07:03 AM [facility] EGFR + CREAT DATE SENSITIVE PLASMA [...] Dec 19, 2024 10:19 PM Reporting Lab: [address] [id number] Performing Lab: [address] [address] CREATININE 0.99 mg/dL 0.72-1.25 eGFR (CKD-EPI) 80 Social History: Smoking Status (Most current) and Tobacco Use (All prior to encounter date) This section includes the most current, and the historical, smoking and tobacco- related health factors from the [place] facility where the Encounter took place. Current Smoking Status This section includes the most current smoking, or tobacco-related health factor, from the [place] facility where the Encounter took place. Date/Time Current Smoking Status Comment Facil ity Sep 08, 2023 09:30 AM VA-TOBACCO NEVER USED [facility] Tobacco Use History This section includes a history of the smoking, or tobacco-related health factors, that were collected on or before the date of the Encounter. The data comes from the [place] facility where the Encounter took place. Date/Time Smoking Status/Tobacco Use Comment F acility Dec 12, 2006 07:57 AM V9 LIFETIME NON-US ER OF TOBACCO [facility] Aug 21, 2004 09:09 AM HF V9 CURRENT NON-SMOKER quit smoking 5 yrs ago [facility] May 28, 2003 10:30 AM HF V9 CURRENT NON-SMOKER quit 5 years ago [facility] Jun 23, 2001 08:08 AM HF V9 CURRENT NON-SMOKER quit 1 1/2year ago [facility] Radiology Reports: +/- 30 days [...] the Encounter. The data comes from all [place] treatment facilities. Date/Time Radiology Report Provider Source Dec 27, 2024 06:[address] CHEST W/CONTRAS T: DIANNAANEUDY PHYLLIS [id number] -1950 M Exm Date: DEC 27, 2024@06:47 Req Phys: NIYAH CALLEJAS Pat Loc: POLLY PACT ALPHA 1-3 (Req'g Loc) Img Loc: CT SCAN Service: Unknown [place] [id number] (Case [id number] COMPLETE)CT CHEST W/CONTRAST (CT Detailed) CPT:29103 Contrast Media : Non-ionic Iodinated Reason for Study: SEE CLINICAL HISTORY Pharmaceutical: IOHEXOL INJ 350MG I/ML 500ML BOTTLE, 80ml Clinical History: REASON FOR SEND OUT: ATTENDING PHYSICIAN NAME: Cancer HISTORY/REASON FOR EXAM: Pt is requesting to have CT chest With contrast due to his h/o lung cancer. Report Status: Verified Date Reported: DEC 31, 2024 Date Verified: DEC 31, 2024 Switchman E-Sig: Report: CT CHEST W/CONTRAST HISTORY: SEE CLINICAL HISTORY COMPARISON: 07/19/2022 TECHNIQUE: CT of the chest, with multiplanar reformats, was performed at the local [place] facility. 1150 images were received by the [place] National Teleradiology Program (NTP) for interpretation. RADIATION [...] measuring 0.8 cm (2:100), is unchanged from 2022, and therefore most likely to be benign [...] be helpful. READING PHYSICIAN: Ravindra Navarro MD -[id number] 12/31/2024 15:22 EDT [facility] National [employer] Program [phone] (For Medical Practitioner Use Only) Attention Patients / Veterans: If you have questions or concerns about these test results, please contact your ordering provider or primary care team. Primary Diagnostic Code: NO ALERT REQUIRED Primary Interpreting Staff: OUTSIDE SERVICE RADIOLOGY, Staff Physician / RADIOLOGY,OUTSIDE SERVICE [facility] Encounter Notes: All associated encounter notes This section contains the clinical notes associated to the Encounter. Date/Time Encounter Note(s) Provider Source Dec 18, 2024 08:34 AM LETTERS: LOCAL TITLE: SPECIALTY CONTACT LETTER STANDARD TITLE: LETTERS DATE OF NOTE: DEC 18, 2024@08:34 ENTRY DATE: DEC 18, 2024@08:34:20 AUTHOR: DEBBIE JONES COSIGNER: URGENCY: STATUS: COMPLETED [facility] [address] [place] [address] ANEUDY BUSTAMANTE [address] [place] [address] DEC 18, 2024 Dear ANEUDY BUSTAMANTE, We have been unable to contact you by telephone to schedule an appointment in our Endo Endoscopy clinic. Your health and well-being are important to us. Please call us at or . Select Option #2 and then #3. We look forward to hearing from you soon. Sincerely yours, [facility] DEBBIE JONES [facility]
--- OUTSIDE RECORDS SUMMARY | 2025-01-01 09:06 | XMS_ITS | Continuity of Care Document ---
Author Name [facility] Organization [facility] Care Team Providers Care Tribal Council Member Name Role Phone [facility] Unavailable Unavailable Problems Combined list of problems from Department of Defense and Veterans Affairs facilities. It does not include entries that were removed or entered in error. Problem Status Onset Date Problem Type Date of Resolution Comments Source Testicular Carcinoma Inactive 12/04/18 90 Condition 12/12/[address] [facility] D [facility] Atherosclerotic occlusive disease (SNOMED CT 246810848) Active Condition [facility] D [facility] Back pain (SNOMED CT 878294438) Active Condition [facility] Carcinoma of prostate (SNOMED CT 246921104) Active Condition [facility] D [facility] Depression (SNOMED CT 15571959) [facility] Gastroesophageal reflux disease Active Condition [facility] H/O: malignant neoplasm of male genital organ (SNOMED CT 284211303) Active Condition [facility] D [facility] History of colonoscopy Active Condition February 01, 2024 Entered By: HALEY WHITLEY Comment: Cscope 12/12/23 - Tics otherwise wnl - No further screen/surv due to age. [facility] History of malignant neoplasm of lung (SNOMED CT 079653078) Active Condition [facility] D [facility] Hyperlipidemia (SNOMED CT 99475161) Active Condition [place] Iron deficiency anemia (SNOMED CT 24872543) Active Condition [facility] Open angle glaucoma Active Condition [facility] Postherpetic neuralgia Active Condition [facility] Abdominal Aortic Aneurysm, Ruptured Inactive Condition 12/05/2015 [facility] COUGHLIN [facility] Abdominal Aortic Aneurysm, without Rupture Inactive Condition 07/09/2016 [facility] Cataract Inactive Condition 02/12/2022 [place] Degeneration of posterior vitreous body Inactive Condition 02/12/2022 [facility] Depressive disorder Inactive Condition 12/12/2006 [facility] Dissection of Abdominal Aorta Inactive Condition 12/05/2015 [facility] Diagnosis: ICD-10-CM H90.3 Sensorineural hearing loss, bilateral Active Diagnosis [facility] Diagnosis: ICD-10-CM D64.9 Anemia, unspecified Active Diagnosis [facility] Diagnosis: ICD-10-CM Z71.89 Other specified counseling Active Diagnosis [facility] Diagnosis: ICD-10-CM D64.89 Other specified anemias Active Diagnosis [facility] Diagnosis: ICD-10-CM D50.9 Iron deficiency anemia, unspecified Active Diagnosis [facility] Diagnosis: ICD-10-CM K21.00 Gastro-esophageal reflux dis with esophagitis, without bleed Active Diagnosis [facility] Diagnosis: ICD-10-CM H40.1112 Primary open-angle glaucoma, right eye, moderate stage Active Diagnosis [facility] Diagnosis: ICD-10-CM Z98.890 Other specified postprocedural states Active Diagnosis [facility] Diagnosis: ICD-10-CM K21.9 Gastro-esophageal reflux disease without esophagitis Active Diagnosis [facility] Diagnosis: ICD-10-CM Z01.818 Encounter for other preprocedural examination Active Diagnosis [facility] Medications Combined list of outpatient medications from Department of Defense and [facility] Affairs facilities.Medications provided include 1) outpatient medications from the last 15 months, and 2) patient-reported medications. Medication Details Route Status Patient Instructions Prescription Expires Prescription Number Last Dispense Date Ordering Provider Order Date Order Qty Source APAP 250MG/ASA 250MG/CAFN 65MG TAB TAKE TWO TABLETS BY MOUTH PRN ORAL ACTIVE Chiquita DIAZ 2017 [place] [facility] ASCORBIC ACID 500MG TAB TAKE ONE TABLET BY MOUTH DAILY FOR NUTRITIO N ORAL SUSPEND ED 11/08/2025 [id number] WINNIE SANDHU 2024 100 [place] [facility] atorvastati n (U/D) 80 MG ORAL TAB TAKE ONE-HALF TABLET BY MOUTH DAILY FOR CHOLESTE ROL -DO NOT DRINK GRAPEFRU IT JUICE WHILE ON THIS DRUG 11/23/2024 [id number] 4 BRITTA DANTESUZIE 2023 45 [place] [facility] ATORVASTATI N CA 80MG TAB TAKE ONE-HALF TABLET BY MOUTH DAILY FOR CHOLESTE ROL -DO NOT DRINK GRAPEFRU IT JUICE WHILE ON THIS DRUG ORAL 11/23/2024 [id number] 5 Harjinder BENÍTEZ 2023 45 [place] [facility] BISACODYL 5 MG ORAL TBEC TAKE FOUR TABLETS BY MOUTH DIRECTED FOR BOWEL PREP AT 7PM THE NIGHT BEFORE YOUR COLONOSC OPY. DO NOT TAKE UNTIL YOU RECEIVE YOUR APPT. DATE AND INSTRUCT IONS IN MAIL. 11/12/2023 [id number] 4 ELYSE , YOMI 2023 4 [place] [facility] BISACODYL 5 MG ORAL TBEC TAKE FOUR TABLETS BY MOUTH DIRECTED FOR BOWEL PREP AT 7PM THE NIGHT BEFORE YOUR COLONOSC OPY. DO NOT TAKE UNTIL YOU RECEIVE YOUR APPT. DATE AND INSTRUCT IONS IN MAIL. 11/12/2023 [id number] ELYSE , YOMI 2023 4 [place] [facility] BISACODYL 5MG TAB,EC TAKE FOUR TABLETS BY MOUTH DIRECTED FOR BOWEL PREP TAKE AT 7PM THE NIGHT BEFORE WIRELESS CAPSULE PROCEDUR E ORAL ACTIVE 01/16/2025 [id number] SANTO,AND SHAHAB [place] 2024 4 [place] [facility] BISACODYL 5MG TAB,EC TAKE FOUR TABLETS BY MOUTH DIRECTED FOR BOWEL PREP AT 7PM THE NIGHT BEFORE YOUR COLONOSC OPY. DO NOT TAKE UNTIL YOU RECEIVE YOUR APPT. DATE AND INSTRUCT IONS IN MAIL. AT 7PM THE NIGHT BEFORE YOUR COLONOSC OPY. DO NOT TAKE UNTIL YOU RECEIVE YOUR APPT. DATE AND INSTRUCT IONS IN MAIL. ORAL 11/12/2023 [id number] ELYSE ,YOMI 2023 4 [place] [facility] buPROPion HCl (U/D) 75 MG ORAL TAB TAKE TWO TABLETS BY MOUTH DAILY FOR MOOD OR SMOKING CESSATIO N Active 01/25/2025 [id number] NIYAH CALLEJAS 2023 60 [place] [facility] buPROPion HCl (U/D) 75 MG ORAL TAB TAKE TWO TABLETS BY MOUTH DAILY FOR MOOD OR SMOKING CESSATIO N Discont inued 05/13/2024 [id number] PALMER FARIAS 2023 60 [place] [facility] BUPROPION HCL 75MG TAB TAKE TWO TABLETS BY MOUTH DAILY FOR MOOD OR SMOKING CESSATIO N ORAL SUSPEND ED 11/05/2025 [id number] DANTE CALLEJAS 2024 60 [place] [facility] BUPROPION HCL 75MG TAB TAKE TWO TABLETS BY MOUTH DAILY FOR MOOD OR SMOKING CESSATIO N ORAL DISCONT INUED 08/26/2025 [id number] 5 DANTE CALLEJAS 2024 60 [place] [facility] BUPROPION HCL 75MG TAB TAKE TWO TABLETS BY MOUTH DAILY FOR MOOD OR SMOKING CESSATIO N ORAL DISCONT INUED 06/22/2025 [id number] DANTE CALLEJAS 2023 60 [place] [facility] BUPROPION HCL 75MG TAB TAKE TWO TABLETS BY MOUTH DAILY FOR MOOD OR SMOKING CESSATIO N ORAL DISCONT INUED 01/25/2025 [id number] Harjinder BENÍTEZ 2023 60 [place] [facility] BUPROPION HCL 75MG TAB TAKE TWO TABLETS BY MOUTH DAILY FOR MOOD OR SMOKING CESSATIO N ORAL DISCONT INUED 05/13/2024 [id number] 4 Harjinder BENÍTEZ 2022 60 [place] [facility] CIPROFLOXAC IN HCL (CIPROFLOXA CODEY HCL), 500MG, TABLET, ORAL, PACK PHARMACEUT, 100 ea. BOTTLE Active [id number] 2023 10 Pharmac y Data Transac tion Service Facilit y CITALOPRAM (U/D) 40 MG ORAL TAB TAKE ONE TABLET BY MOUTH DAILY FOR MOOD 03/03/2024 [id number] 4 FORTUNATO BENÍTEZ 2023 90 [place] [facility] CITALOPRAM HYDROBROMID E 40MG TAB TAKE ONE TABLET BY MOUTH DAILY FOR MOOD ORAL ACTIVE 03/05/2025 [id number] 5 Harjinder BENÍTEZ 2023 90 [place] [facility] CITALOPRAM HYDROBROMID E 40MG TAB TAKE ONE TABLET BY MOUTH DAILY FOR MOOD ORAL DISCONT INUED 03/03/2024 [id number] Harjinder BENÍTEZ 2022 90 [place] [facility] FAMOTIDINE 40 MG ORAL TAB TAKE ONE TABLET BY MOUTH AT BEDTIME NEEDED FOR STOMACH 12/12/2024 [id number] 4 JENNA, PETE 2023 90 [place] [facility] FAMOTIDINE 40MG TAB TAKE ONE TABLET BY MOUTH AT BEDTIME NEEDED FOR STOMACH ORAL ACTIVE 12/06/2025 [id number] 5 ELYSE ,YOMI 2024 90 [place] [facility] FAMOTIDINE 40MG TAB TAKE ONE TABLET BY MOUTH AT BEDTIME NEEDED FOR STOMACH ORAL DISCONT INUED (EDIT) 05/09/2025 [id number] 5 ELYSE ,YOMI 2023 90 [place] [facility] FAMOTIDINE 40MG TAB TAKE ONE TABLET BY MOUTH AT BEDTIME NEEDED FOR STOMACH ORAL DISCONT INUED (EDIT) 12/12/2024 [id number] JENNA, PETE 2023 90 [place] [facility] FERROUS SO4 324MG TAB,EC TAKE ONE TABLET BY MOUTH DAILY FOR IRON SUPPLEME NT TAKE WITH VIT C ORAL DISCONT INUED BY PROVIDE R 11/08/2025 [id number] WINNIE SANDHU 2024 100 [place] [facility] METRONIDAZO LE (METRONIDAZ OLE), 500MG, TABLET, ORAL, PLIVA, INC, 500 ea. BOTTLE Active [id number] 2023 15 Pharmac y Data Transac tion Service Facilit y NAPROXEN 250MG TAB TAKE ONE TABLET BY MOUTH PRN ORAL ACTIVE Chiquita DIAZ 2017 [place] [facility] PANTOPRAZOL E (U/D) 40 MG ORAL TBEC TAKE ONE TABLET BY MOUTH TWICE A DAY BEFORE MEALS FOR [facility]ART[facility] N -TAKE ON AN EMPTY STOMACH. 12/12/2024 [id number] 4 JENNAPETE GRIMALDO 2023 180 [place] [facility] PANTOPRAZOL E NA 40MG TAB,EC TAKE ONE TABLET BY MOUTH TWICE A DAY FOR HEARTBUR N -TAKE ON AN EMPTY STOMACH. ORAL SUSPEND ED 12/06/2025 [id number] ELYSE ,YOMI 2024 180 [place] [facility] PANTOPRAZOL E NA 40MG TAB,EC TAKE ONE TABLET BY MOUTH TWICE A DAY FOR HEARTBUR N -TAKE ON AN EMPTY STOMACH. ORAL DISCONT INUED (EDIT) 05/09/2025 [id number] 5 ELYSE ,YOMI 2023 180 [place] [facility] PANTOPRAZOL E NA 40MG TAB,EC TAKE ONE TABLET BY MOUTH TWICE A DAY BEFORE ME[facility] FOR [facility] N -TAKE ON AN EMPTY STOMACH. ORAL DISCONT INUED (EDIT) 12/12/2024 [id number] JENNAPETE 2023 180 [place] [facility] PEG-3350/EL ECTROLYTES PWDR TAKE COLONOSC OPY PREP BY MOUTH DIRECTED FOR BOWEL PREP -TAKE PER WRITTEN DIRECTIO NS PROVIDED BY CLINIC. WRITTEN INSTRUCT IONS FROM CLINIC WILL COME SEPARATE WITH YOUR APPOINTM ENT LETTER. DO NOT TAKE UNTIL YOU RECEIVE YOUR APPOINTM ENT DATE AND INSTRUCT IONS IN MAIL. ORAL 11/12/2023 [id number] ELYSE ,YOMI 2023 1 [place] [facility] POLYETHYLEN E GLYCOL 3350 PWDR,ORAL MIX ONE BOTTLE OF POWDER AND TAKE BY MOUTH DIRECTED FOR BOWEL PREP -MIX WITH 64 [employer] GATORADE . DRINK HALF AT 6PM THE NIGHT BEFORE YOUR PROCEDUR E. DRINK LAST HALF 4 HOURS PRIOR TO YOUR PROCEDUR E. -MIX WITH 64 [employer]ATORADE . DRINK HALF AT 6PM THE NIGHT BEFORE YOUR PROCEDUR E. DRINK LAST HALF 4 HOURS PRIOR TO YOUR PROCEDUR E. ORAL ACTIVE 01/16/2025 [id number] SANTO,AND SHAHAB M 2024 238 [place] [facility] POLYETHYLEN E GLYCOL 3350 PWDR,ORAL MIX 1 HEAPING TABLESPO ONFUL IN LIQUID AND TAKE BY MOUTH DAILY ORAL ACTIVE [facility]ita DIAZ 2017 [facility] Allergies, Adverse Reactions, Alerts Combined list of allergies from Department of Defense and Veterans Affairs facilities. It does not include entries that were removed or entered in error. Substance Category Reaction Severity Reaction type Status Date Reported Comments Source TOPAMAX 25MG TABLET Propensity to adverse reactions to drug (finding) Sedated, Abdominal pain, Disturbance in speech active 1 [facility] TOPIRAMATE Drug allergy (disorder) Sedated, Abdominal pain, Disturbance in speech active 1 [facility] Immunizations Combined list of available immunizations from the Department of Defense and Veterans Affairs facilities. Immunization Series Date Given Administered By Site Reaction Lot Number CVX Code Drug Business Development Specialist Status Comments Source INFLUENZA, HIGH-DOSE, TRIVALENT, PF 2024 JOSHUA JO RRA E RIGHT DELTO ID [id number] 135 complet ed [facility] [place] COVID-19 (MODERNA), MRNA, LNP-S, PF, 50 MCG/0.5 ML (AGES 12+ YEARS) 2024 JOSHUA JO RRA E LEFT DELTO ID [id number] 312 complet ed [facility] [place], [place] [facility] PNEUMOCOCCAL CONJUGATE PCV20, POLYSACCHARID E [id number] CONJUGATE, ADJUVANT, PF 2022 LEDA TOBIAS RIGHT DELTO ID [id number] 216 complet ed Completed Series, [facility] [place], [place] [facility] COVID-19, MRNA, LNP-S, BIVALENT BOOSTER, PF, 30 MCG/0.3 ML DOSE 1 2021 300 complet ed PFR; [id number]; 3 [place] [facility] INFLUENZA, INJECTABLE, QUADRIVALENT, PRESERVATIVE FREE 2021 150 complet ed [place] [facility] TDAP 2021 115 complet ed [place] [facility] COVID-19 (Hyperpublic), MRNA, LNP-S, PF, 30 MCG/0.3 ML DOSE 3 2020 208 complet ed PFR; [id number]; 2 [place] [facility] INFLUENZA, INJECTABLE, QUADRIVALENT, PRESERVATIVE FREE 2020 150 complet ed [place] [facility] COVID-19 (Hyperpublic), MRNA, LNP-S, PF, 30 MCG/0.3 ML DOSE 2 2020 208 complet ed PFR; [id number]; 1 [place] [facility] COVID-19 (Hyperpublic), MRNA, LNP-S, PF, 30 MCG/0.3 ML DOSE 1 2020 208 complet ed PFR; [id number]; 1 [place] [facility] INFLUENZA, INJECTABLE, QUADRIVALENT, PRESERVATIVE FREE 2019 150 complet ed [place] [facility] PNEUMOCOCCAL POLYSACCHARID E [id number] 2019 33 complet ed [place] [facility] INFLUENZA, INJECTABLE, QUADRIVALENT, PRESERVATIVE FREE 4 2018 150 complet ed HISTORICA L INFORMATI ON - FROM OTHER REGISTRY, [place] [facility] INFLUENZA, SEASONAL, INJECTABLE 2018 141 complet ed computer [place] [facility] INFLUENZA, UNSPECIFIED FORMULATION 3 2018 88 complet [...] 88 complet ed [place] [facility] [id number] (HISTORICAL) 2015 133 complet ed [place] [facility] INFLUENZA A & B (HISTORICAL) 2014 88 complet ed [place] [facility] INFLUENZA A & B (HISTORICAL) 2013 88 complet ed [place] [facility] [id number] (HISTORICAL) 2013 33 complet ed [place] [facility] [place] PNEUMOCOCCAL, UNSPECIFIED FORMULATION 2013 109 complet ed [place] [facility] INFLUENZA A & B (HISTORICAL) 2012 88 complet ed [place] [facility] FLU,3 YRS (HISTORICAL) 2012 88 complet ed [place] [facility] TDAP 2011 115 complet ed computer [place] [facility] INFLUENZA A & B (HISTORICAL) 2010 88 complet ed [place] [facility] TDAP (HISTORICAL) 2010 115 complet ed [place] [facility] INFLUENZA A & B (HISTORICAL) 2009 88 complet ed [place] [facility] INFLUENZA A & B (HISTORICAL) 2008 88 complet ed [place] [facility] TD(ADULT) UNSPECIFIED FORMULATION 2008 NONE 139 complet ed Booster for Series, lot# [id number] exp 12-04-2009 [place] [facility] NOVEL INFLUENZA-H1N 1-09, ALL FORMULATIONS 2008 128 complet ed work [place] [facility] INFLUENZA A & B (HISTORICAL) 2007 88 complet ed COMPLETE [place] [facility] INFLUENZA A & B (HISTORICAL) 2006 88 complet ed [place] [facility] PNEUMOCOCCAL, UNSPECIFIED FORMULATION 2006 109 complet ed COMPLETE [place] [facility] INFLUENZA A & B (HISTORICAL) 2005 88 complet ed [place] [facility] INFLUENZA A & B (HISTORICAL) 2004 88 complet ed [place] [facility] INFLUENZA, UNSPECIFIED FORMULATION 2002 88 complet ed [place] [facility] INFLUENZA, UNSPECIFIED FORMULATION 2001 88 complet ed flu shot given in (R) deltoid no reaction noted [place] [facility] TD(ADULT) UNSPECIFIED FORMULATION 1998 139 complet ed [place] [facility] Results Combined list of recent chemistry, hematology and other laboratory results from Department of Defense and Veterans Affairs, ranging from 15 months to all on record, depending upon the facility. Order Name Results Value Reference Range Date Interpretation Specimen Comments Source EGFR + CREAT DATE SENSITIVE CREATININE [MASS/VOLUM E] IN SERUM OR PLASMA 0.99 mg/dL 0.72 - 1.25 12/27 Specimen Type: PLASMA Comment: Estimated Glomerular Filtration [...] Dec 19, 2024 10:19 PM Reporting Lab: [facility] [address] [address] Performing Lab: [facility] [address] [address] [place] FatouBraden [facility] EGFR + CREAT DATE SENSITIVE GLOMERULAR FILTRATION RATE/1.73 SQ M.PREDICTED [VOLUME RATE/AREA] IN SERUM, PLASMA OR BLOOD BY CREATININE- BASED FORMULA (CKD-EPI 2020) 80 12/27 Specimen Type: PLASMA Comment: Estimated Glomerular Filtration [...] Dec 19, 2024 10:19 PM Reporting Lab: [facility] [address] [address] Performing Lab: [facility] [address] [facility] TRANSFERR IN TRANSFERRIN [MASS/VOLUM E] IN SERUM OR PLASMA 386 mg/dL 177 - 329 11/06 H Specimen Type: SERUM No comment entered. Ordering Provider: LUCRECIA SANDHU Report Released Date/Time: Nov 06, 2024 02:56 PM Reporting Lab: [facility] [address] [address] Performing Lab: [facility] [address] [facility] [address] [facility] FOLATE FOLATE [MASS/VOLUM E] IN SERUM OR [...] 02:56 PM Reporting Lab: [facility] [address] [address] Performing Lab: [facility] [address] [place] [address] [facility] IRON/TIBC IRON [MOLES/VOLU ME] IN SERUM OR [...] 2024 02:56 PM Reporting Lab: [facility] [address] [facility] [address] Performing Lab: [facility] [address] [facility] [address] [facility] IRON/TIBC IRON BINDING CAPACITY [MASS/VOLUM E] IN [...] 2024 02:56 PM Reporting Lab: [facility] [address] [facility] [address] Performing Lab: [facility] [address] [place] [phone] [facility] IRON/TIBC IRON SATURATION [MOLAR FRACTION] IN SERUM [...] Nov 06, 2024 02:56 PM Reporting Lab: [address] [address] Performing Lab: [address] [address] [facility] FERRITIN FERRITIN [MASS/VOLUM E] IN SERUM OR [...] Nov 06, 2024 02:56 PM Reporting Lab: [place] [address] Performing Lab: [address] CBC/PLT LEUKOCYTES [#/VOLUME] IN BLOOD BY AUTOMATED COUNT 8.3 10*3/u L 5.0 - 10.0 11/06 Specimen Type: BLOOD No comment entered. Ordering Provider: LUCRECIA SANDHU Report Released Date/Time: Nov 06, 2024 02:56 PM Reporting Lab: [place] [id number] Performing Lab: [address] CBC/PLT ERYTHROCYTE S [#/VOLUME] IN BLOOD BY AUTOMATED COUNT 3.81 10*6/u L 4.6 - 6.2 11/06 L Specimen Type: BLOOD No comment entered. Ordering Provider: LUCRECIA SANDHU Report Released Date/Time: Nov 06, 2024 02:56 PM Reporting Lab: [place] [id number] Performing Lab: [place] [id number] [place] [address] CBC/PLT HEMOGLOBIN [MASS/VOLUM E] IN BLOOD 9.1 g/dL 14.0 - 18.0 11/06 L Specimen Type: BLOOD No comment entered. Ordering Provider: LUCRECIA SANDHU Report Released Date/Time: Nov 06, 2024 02:56 PM Reporting Lab: [place] [address] Performing Lab: [address] [address] [facility] CBC/PLT HEMATOCRIT [VOLUME FRACTION] OF BLOOD BY AUTOMATED COUNT 30.9 42.0 - 52.0 11/06 L Specimen Type: BLOOD No comment entered. Ordering Provider: LUCRECIA SANDHU Report Released Date/Time: Nov 06, 2024 02:56 PM Reporting Lab: [address] [address] Performing Lab: [address] [facility] CBC/PLT MCV [ENTITIC VOLUME] BY AUTOMATED COUNT 81.1 fL 80.0 - 94.0 11/06 Specimen Type: BLOOD No comment entered. Ordering Provider: LUCRECIA SANDHU Report Released Date/Time: Nov 06, 2024 02:56 PM Reporting Lab: [place] [id number] Performing Lab: [address] [address] [facility] CBC/PLT MCH [ENTITIC MASS] BY AUTOMATED COUNT 23.9 pg 27.0 - 31.0 11/06 L Specimen Type: BLOOD No comment entered. Ordering Provider: LUCRECIA SANDHU Report Released Date/Time: Nov 06, 2024 02:56 PM Reporting Lab: [place] [id number] Performing Lab: [place] [id number] [facility] CBC/PLT MCHC [MASS/VOLUM E] BY AUTOMATED COUNT 29.4 g/dL 32.0 - 36.0 11/06 L Specimen Type: BLOOD No comment entered. Ordering Provider: LUCRECIA SANDHU Report Released Date/Time: Nov 06, 2024 02:56 PM Reporting Lab: [address] [address] Performing Lab: [address] [address] [facility] CBC/PLT PLATELETS [#/VOLUME] IN BLOOD 215 10*3/u L 150 - 450 11/06 Specimen Type: BLOOD No comment entered. Ordering Provider: LUCRECIA SANDHU Report Released Date/Time: Nov 06, 2024 02:56 PM Reporting Lab: [place] [id number] Performing Lab: [place] [id number] [place] [address] CBC/PLT PLATELET MEAN VOLUME [ENTITIC VOLUME] IN BLOOD 9.7 fL 9.0 - 13.1 11/06 Specimen Type: BLOOD No comment entered. Ordering Provider: LUCRECIA SANDHU Report Released Date/Time: Nov 06, 2024 02:56 PM Reporting Lab: [place] [id number] Performing Lab: [place] [id number] [place] [address] CBC/PLT ERYTHROCYTE DISTRIBUTIO N WIDTH [ENTITIC VOLUME] BY AUTOMATED COUNT 19.0 11.0 - 16.0 11/06 H Specimen Type: BLOOD No comment entered. Ordering Provider: LUCRECIA SANDHU Report Released Date/Time: Nov 06, 2024 02:56 PM Reporting Lab: [place] [id number] Performing Lab: [place] [id number] [place] [address] CBC/PLT NUCLEATED ERYTHROCYTE S/100 ERYTHROCYTE S IN BLOOD 0.0 0.0 - 0.0 11/06 Specimen Type: BLOOD No comment entered. Ordering Provider: LUCRECIA SANDHU Report Released Date/Time: Nov 06, 2024 02:56 PM Reporting Lab: [place] [id number] Performing Lab: [place] [id number] [place] [address] PANEL 5 CREATININE [MASS/VOLUM E] IN SERUM [...] 02:56 PM Reporting Lab: [facility] [address] [address] Performing Lab: [facility] [address] [address] [facility] PANEL 5 UREA NITROGEN [MASS/VOLUM E] IN SERUM OR PLASMA 17 mg/dL 9 11/06 Specimen Type: PLASMA Comment: Estimated Glomerular [...] 2024 02:56 PM Reporting Lab: [facility] [address] [address] Performing Lab: [facility] [address] [address] [facility] PANEL 5 GLUCOSE [MASS/VOLUM E] IN SERUM OR PLASMA 89 mg/dL 74 - 100 11/06 Specimen Type: PLASMA Comment: Estimated Glomerular [...] 02:56 PM Reporting Lab: [facility] [address] [address] Performing Lab: [facility] [address] [address] [facility] PANEL 5 SODIUM [MOLES/VOLU ME] IN SERUM [...] 2024 02:56 PM Reporting Lab: [facility] [address] [address] Performing Lab: [facility] [address] [place] [phone] [facility] PANEL 5 POTASSIUM [MOLES/VOLU ME] IN SERUM [...] Nov 06, 2024 02:56 PM Reporting Lab: [facility] [address] [address] Performing Lab: [facility] [address] [facility] PANEL 5 CHLORIDE [MOLES/VOLU ME] IN SERUM [...] 02:56 PM Reporting Lab: [facility] [address] [address] Performing Lab: [facility] MCALL[facility] [address] [address] [facility] PANEL 5 CARBON DIOXIDE, TOTAL [MOLES/VOLU ME] IN SERUM OR PLASMA 22 mmol/L 22 - 11/06 Specimen Type: PLASMA Comment: Estimated Glomerular [...] 02:56 PM Reporting Lab: [facility] [address] [address] Performing Lab: [facility] [address] [address] [facility] PANEL 5 CALCIUM [MASS/VOLUM E] IN SERUM [...] 02:56 PM Reporting Lab: BR[facility] [address] [address] Performing Lab: BR[facility] [address] [address] [facility] PANEL 5 PROTEIN [MASS/VOLUM E] IN SERUM [...] 02:56 PM Reporting Lab: BR[facility]ALL[facility] [address] [address] Performing Lab: BROOK [facility] [address] [address] [facility] PANEL 5 ALBUMIN [MASS/VOLUM E] IN SERUM [...] 02:56 PM Reporting Lab: BR[facility] [address] [address] Performing Lab: BR[facility] [address] [address] [facility] PANEL 5 BILIRUBIN.T OTAL [MASS/VOLUM E] IN [...] 02:56 PM Reporting Lab: BR[facility] [address] [address] Performing Lab: BR[facility] [address] [address] [facility] PANEL 5 ASPARTATE AMINOTRANSF ERASE [ENZYMATIC ACTIVITY/VO [...] 02:56 PM Reporting Lab: BR[facility] [address] [address] Performing Lab: BR[facility] [address] [address] [facility] PANEL 5 ALANINE AMINOTRANSF ERASE [ENZYMATIC ACTIVITY/VO [...] 02:56 PM Reporting Lab: BR[facility] [address] [address] Performing Lab: BR[facility] [address] [address] [facility] PANEL 5 ANION GAP 3 IN SERUM [...] 2024 02:56 PM Reporting Lab: BROOK MCALLISTER [facility] [address] [address] Performing Lab: BROOK [facility] [address] [address] [facility] PANEL 5 ALKALINE PHOSPHATASE [ENZYMATIC ACTIVITY/VO LUME] [...] 2024 02:56 PM Reporting Lab: BROOK ARY [facility] [address] [place] [address] Performing Lab: BROOK MCALLISTER [facility] [address] [address] [facility] PANEL 5 GLOMERULAR FILTRATION RATE/1.73 SQ M.PREDICTED [...] Nov 06, 2024 02:56 PM Reporting Lab: [place] [address] Performing Lab: [place] [id number] [place] [address] AUTOMATED DIFF LYMPHOCYTES /100 LEUKOCYTES IN BLOOD BY AUTOMATED COUNT 25.2 24.0 - 44.0 11/06 Specimen Type: BLOOD No comment entered. Ordering Provider: LUCRECIA SANDHU Report Released Date/Time: Nov 06, 2024 02:56 PM Reporting Lab: [place] [id number] Performing Lab: [place] [id number] [facility] AUTOMATED DIFF MONOCYTES/1 00 LEUKOCYTES IN BLOOD BY AUTOMATED COUNT 9.4 0.1 - 6.0 11/06 H Specimen Type: BLOOD No comment entered. Ordering Provider: LUCRECIA SANDHU Report Released Date/Time: Nov 06, 2024 02:56 PM Reporting Lab: [place] [id number] Performing Lab: [place] [id number] [place] [address] AUTOMATED DIFF GRANULOCYTE S/100 LEUKOCYTES IN BLOOD BY AUTOMATED COUNT 60.4 42.0 - 75.0 11/06 Specimen Type: BLOOD No comment entered. Ordering Provider: LUCRECIA SANDHU Report Released Date/Time: Nov 06, 2024 02:56 PM Reporting Lab: [place] [id number] Performing Lab: [place] [id number] [facility] AUTOMATED DIFF LYMPHOCYTES [#/VOLUME] IN BLOOD BY AUTOMATED COUNT 2.10 10*3/u L 1.20 - 3.40 11/06 Specimen Type: BLOOD No comment entered. Ordering Provider: LUCRECIA SANDHU Report Released Date/Time: Nov 06, 2024 02:56 PM Reporting Lab: [place] [id number] Performing Lab: [place] [id number] [place] [address] AUTOMATED DIFF MONOCYTES [#/VOLUME] IN BLOOD BY AUTOMATED COUNT 0.78 10*3/u L 0.00 - 0.60 11/06 H Specimen Type: BLOOD No comment entered. Ordering Provider: LUCRECIA SANDHU Report Released Date/Time: Nov 06, 2024 02:56 PM Reporting Lab: [address] Performing Lab: [address] AUTOMATED DIFF GRANULOCYTE S [#/VOLUME] IN BLOOD BY AUTOMATED COUNT 5.03 10*3/u L 1.40 - 6.50 11/06 Specimen Type: BLOOD No comment entered. Ordering Provider: LUCRECIA SANDHU Report Released Date/Time: Nov 06, 2024 02:56 PM Reporting Lab: [place] [id number] Performing Lab: [place] [id number] [place] [address] AUTOMATED DIFF BASOPHILS/1 00 LEUKOCYTES IN BLOOD BY AUTOMATED COUNT 0.8 0.0 - 3.0 11/06 Specimen Type: BLOOD No comment entered. Ordering Provider: LUCRECIA SANDHU Report Released Date/Time: Nov 06, 2024 02:56 PM Reporting Lab: [place] [id number] Performing Lab: [place] [id number] [place] [address] AUTOMATED DIFF BASOPHILS [#/VOLUME] IN BLOOD BY AUTOMATED COUNT 0.07 10*3/u L 0.00 - 0.20 11/06 Specimen Type: BLOOD No comment entered. Ordering Provider: LUCRECIA SANDHU Report Released Date/Time: Nov 06, 2024 02:56 PM Reporting Lab: [place] [id number] Performing Lab: [address] [address] [facility] AUTOMATED DIFF EOSINOPHILS /100 LEUKOCYTES IN BLOOD BY AUTOMATED COUNT 3.8 0.0 - 10.0 11/06 Specimen Type: BLOOD No comment entered. Ordering Provider: LUCRECIA SANDHU Report Released Date/Time: Nov 06, 2024 02:56 PM Reporting Lab: [place] [id number] Performing Lab: [place] [id number] [facility] AUTOMATED DIFF EOSINOPHILS [#/VOLUME] IN BLOOD BY AUTOMATED COUNT 0.32 10*3/u L 0.00 - 0.70 11/06 Specimen Type: BLOOD No comment entered. Ordering Provider: LUCRECIA SANDHU Report Released Date/Time: Nov 06, 2024 02:56 PM Reporting Lab: [place] [id number] Performing Lab: [place] [id number] [place] [address] AUTOMATED DIFF IMMATURE GRANULOCYTE S/100 LEUKOCYTES IN BLOOD 0.4 0.0 - 0.5 11/06 Specimen Type: BLOOD No comment entered. Ordering Provider: LUCRECIA SANDHU Report Released Date/Time: Nov 06, 2024 02:56 PM Reporting Lab: [address] [address] Performing Lab: [address] [address] [facility] AUTOMATED DIFF IMMATURE GRANULOCYTE S [#/VOLUME] IN BLOOD 0.03 10*3/u L 0.00 - 0.06 11/06 Specimen Type: BLOOD No comment entered. Ordering Provider: LUCRECIA SANDHU Report Released Date/Time: Nov 06, 2024 02:56 PM Reporting Lab: [place] [id number] Performing Lab: BROOK MCALL[facility] [address] [address] [facility] PANEL 1 CREATININE [MASS/VOLUM E] IN SERUM [...] 2023 07:08 AM Reporting Lab: BROOK [facility] [address] [address] Performing Lab: BROOK MCALL[facility] [address] [address] [facility] PANEL 1 UREA NITROGEN [MASS/VOLUM E] IN SERUM OR PLASMA 18 mg/dL 9 12/04 Specimen Type: PLASMA Comment: Estimated Glomerular [...] 05, 2023 07:08 AM Reporting Lab: [facility] [address] [address] Performing Lab: [place] [address] [facility] PANEL 1 GLUCOSE [MASS/VOLUM E] IN SERUM [...] Dec 05, 2023 07:08 AM Reporting Lab: [facility] [address] [address] Performing Lab: JUAN ALBERTO-Bakari [address] [address] [facility] PANEL 1 SODIUM [MOLES/VOLU ME] IN SERUM [...] 07:08 AM Reporting Lab: BROOK [facility] [address] [address] Performing Lab: BROOK [facility] [address] [address] [facility] PANEL 1 POTASSIUM [MOLES/VOLU ME] IN SERUM [...] 07:08 AM Reporting Lab: BR[facility] [address] [address] Performing Lab: BROOK [facility] [address] [address] [facility] PANEL 1 CHLORIDE [MOLES/VOLU ME] IN SERUM [...] 07:08 AM Reporting Lab: BR[facility] [address] [address] Performing Lab: BROOK [facility] [address] [address] [facility] PANEL 1 CARBON DIOXIDE, TOTAL [MOLES/VOLU ME] IN SERUM OR PLASMA 23 mmol/L - 12/04 Specimen Type: PLASMA Comment: Estimated Glomerular [...] 07:08 AM Reporting Lab: BR[facility] [address] [address] Performing Lab: BROOK [facility] [address] [address] [facility] PANEL 1 CALCIUM [MASS/VOLUM E] IN SERUM [...] 07:08 AM Reporting Lab: BR[facility] [address] [address] Performing Lab: BROOK [facility]ALL[facility] [address] [address] [facility] PANEL 1 ANION GAP 3 IN SERUM [...] 07:08 AM Reporting Lab: BR[facility] [address] [address] Performing Lab: BROOK [facility] [address] [address] [facility] PANEL 1 GLOMERULAR FILTRATION RATE/1.73 SQ M.PREDICTED [...] 07:08 AM Reporting Lab: BROOK [facility]ALL[facility] [address] [address] Performing Lab: BROOK [facility]ALL[facility] [address] [address] [facility] FERRITIN FERRITIN [MASS/VOLUM E] IN SERUM OR PLASMA 13.8 ng/mL 21.8 - 274.7 09/08 L Specimen Type: PLASMA No comment entered. Ordering Provider: Kareem PAPPAS Report Released Date/Time: Sep 08, 2023 09:49 AM Reporting Lab: BR[facility] [address] [address] Performing Lab: BROOK MCALL[facility] [address] [address] JUAN ALBERTO KAUFMAN [facility] Vital Signs Combined list of inpatient and outpatient Vital Signs from Department of Defense and Veterans Affairs, ranging from 12 months to all on record, depending upon the facility. Vital Sign Value Date Comments Source SYSTOLIC BLOOD PRESSURE 113 12/19/2024 13:57:00 [facility] DIASTOLIC BLOOD PRESSURE 63 12/19/2024 13[facility]57[facility] WE[facility] 170.0 12/19/2024 13:57:00 [place] [facility] BMI 25 kg/m2 12/19/2024 13:57:00 [place] [facility] PAIN 0 12/19/2024 13:57:00 [place] [facility] TEMPERATURE 98.4 12/19/2024 13:57:00 YUKO NGTON [facility] PULSE 51 12/19/2024 13:57:00 [place] [facility] SYSTOLIC BLOOD PRESSURE 110 12/05/2024 08:46:00 [place] [facility] DIASTOLIC BLOOD PRESSURE 65 12/05/2024 08:46:00 [facility] PULSE OXIMETRY 98 12/05/2024 08:46:00 L [place] [facility] WEIGHT 173.8 12/05/2024 08:46:00 [place] [facility] BMI 26 kg/m2 12/05/2024 08:46:00 [place] [facility] PAIN 0 12/05/2024 08:46:00 [place] [facility] TEMPERATURE 98.3 12/05/2024 08:46:00 YUKO NGTON [facility] PULSE 51 12/05/2024 08:46:00 [place] [facility] SYSTOLIC BLOOD PRESSURE 99 11/06/2024 14:31:41 [place] [facility] DIASTOLIC BLOOD PRESSURE 61 11/06/2024 14:31:41 [facility] PULSE OXIMETRY 96 11/06/2024 14:31:41 [place] [facility] WEIGHT 170 11/06/2024 14:31:41 [place] [facility] BMI 25 kg/m2 11/06/2024 14:31:41 [place] [facility] PAIN 0 11/06/2024 14:31:41 [place] [facility] HEIGHT 69 11/06/2024 14:31:41 [place] [facility] TEMPERATURE 98.8 11/06/2024 14:31:41 [place] [facility] PULSE 57 11/06/2024 14:31:41 [place] [facility] SYSTOLIC BLOOD PRESSURE 120 05/08/2024 11:31:29 [place] [facility] DIASTOLIC BLOOD PRESSURE 67 05/08/2024 11:31:29 [place] [facility] PULSE OXIMETRY 98 05/08/2024 11:31:29 L [place]-D [facility] WEIGHT 168 05/08/2024 11:31:29 [place] [facility] BMI 28 kg/m2 05/08/2024 11:31:29 [place] [facility] PAIN 0 05/08/2024 11:31:29 [place] [facility] HEIGHT 65 05/08/2024 11:31:29 [place] [facility] TEMPERATURE 98.3 05/08/2024 11:31:29 [place]-D [facility] PULSE 50 05/08/2024 11:31:29 [place] [facility] RESPIRATION 18 05/08/2024 11:31:29 [place] NGT[place]-D [facility] Encounters Combined list of: 1) Encounters from Department of Veterans Affairs facilities going backup to the last 18 months, not all VA inpatient encounters are included; 2) Encounters from the Department of Defense facilities going backup to 280 months. 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 15 MIN [id number] Diagnos is: ICD-10- CM K21.00 Gastro- esophag eal reflux dis with esophag itis, without bleed KAREN,AND REW L 09/08 [place] [facility] COMPRE OPH EXAM EST PT 1/> [id number] Diagnos is: ICD-10- CM H40.111 2 Primary open-an gle glaucom a, right eye, moderat e stage ZOHREH NEVES Y 09/26 [place] [facility] Outpatient Encounter [id number] 10/13 [place] [facility] Outpatient Encounter [id number] 10/19 [place] [facility] OFFICE O/P EST MOD 30 MIN [id number] Diagnos is: ICD-10- CM Z01.818 Encount er for other preproc edural examina MARY ALICE Salazar 12/04 [place] [facility] HC PRO PHONE CALL 5-10 MIN [id number] Diagnos is: ICD-10- CM Z01.818 Encount er for other preproc edural examina LILLIE Abdullahi 12/04 [place] Outpatient Encounter [id number] MARY COON 12/11 [place] Outpatient Encounter [id number] 12/11 [place] [facility] Outpatient Encounter [id number] MARY COON 12/11 [place] Outpatient Encounter [id number] AJ ESCOTO 12/11 [place] Outpatient Encounter [id number] 12/11 [place] [facility] Outpatient Encounter [id number] STU SHIPLEY 12/11 [place] [facility] [place] [id number] Diagnos is: ICD-10- CM K21.9 Gastro- esophag eal reflux disease without esophag itis STU SHIPLEY 12/11 [place] [facility] Outpatient Encounter [id number] 12/12 [place] Outpatient Encounter [id number] 12/12 [place] [facility] HC PRO PHONE CALL 5-10 MIN [id number] Diagnos is: ICD-10- CM Z98.890 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 IVETTE SALINAS 12/12 [place] Outpatient Encounter [id number] SHARON BESS 12/15 [place] [facility] Outpatient Encounter [id number] 12/21 [place] [facility] INTRM OPH EXAM EST PATIENT [id number] Diagnos is: ICD-10- CM H40.111 2 Primary open-an gle glaucom a, right eye, moderat e stage ARLENE ZUNIGA LAMBERT N 12/25 [place] [facility] INTRM OPH EXAM NEW PATIENT [id number] Diagnos is: ICD-10- CM H40.111 2 Primary open-an gle glaucom a, right eye, moderat e stage VIKRAM SALCEDO 01/26 [place] [facility] OFFICE O/P EST MOD 30 MIN [id number] Diagnos is: ICD-10- CM K21.00 Gastro- esophag eal reflux dis with esophag itis, without bleed YOMI PAPPAS 05/08 [place] [facility] Outpatient Encounter [id number] 06/21 [place] [facility] Outpatient Encounter [id number] 09/26 [place] [facility] Outpatient Encounter [id number] 10/10 [place] [facility] Outpatient Encounter [id number] 10/25 [place] [facility] Outpatient Encounter [id number] 11/02 [place] [facility] OFF/OP EST MAY X REQ PHY/QHP [id number] Diagnos is: ICD-10- CM D50.9 Iron deficie ncy anemia, unspeci fied LEXUS SANDHU M 11/06 [place] [facility] Outpatient Encounter [id number] 11/06 [place] [facility] Outpatient Encounter [id number] 11/13 [place] [facility] Outpatient Encounter [id number] 11/26 [place] [facility] EVOKED AUDITORY TST COMPLETE [id number] Diagnos is: ICD-10- CM H90.3 Sensori neural hearing loss, WALTER Mendez M 11/30 [place] [facility] Outpatient Encounter [id number] 12/04 [place] [facility] OFFICE O/P EST MOD 30 MIN [id number] Diagnos is: ICD-10- CM D64.89 Other specifi ed anemias ELYSE, YOMI 12/05 [place] [facility] Outpatient Encounter [id number] 12/12 [place] [facility] PH1 ASSMT&MGMT NQHP 11-20 [id number] Diagnos is: ICD-10- CM 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 Sen Jones 12/13 [place] [facility] SYNCH AUDIO-ONLY EST LOW 20 [id number] Diagnos is: ICD-10- CM D64.9 Anemia, unspeci CARMEN Yates CIA 12/14 [place] [facility] Outpatient Encounter [id number] 12/18 [place] [facility] Outpatient Encounter [id number] 12/18 [place] [facility] OFF/OP CNSLTJ NEW/EST MOD 40 [id number] Diagnos is: ICD-10- CM H90.3 Sensori neural hearing loss, bilater al WINDON,GAURAV ADYD J 12/19 [place] [facility] Outpatient Encounter [id number] 12/25 [place] [facility] Social History Combined list of available smoking, tobacco, and other social history from Department of Defense and Veterans Affairs facilities. Social History Type Response Date Comment Source Tobacco smoking status [facility]-TO[facility] USE FORMER CIGARETTES 11/06/2024 [facility] OTHER TYPE 11/06/2024 [facility] History of tobacco [facility] 09[facility]08/2023 [facility] History of tobacco use [facility]-TOBACCO QUIT 15 YRS OR MORE 06/11/2022 [facility] History of [facility] 06/17/2021 [facility] History [facility] OR MORE 09/20/2019 [facility] History of tobacco use V9 LIFETIME NON-USER OF TOBACCO 02/17/2018 [facility] History of tobacco use QUIT TOBACCO >7 YEARS AGO 02/16/2017 [facility] History of tobacco use V9 LIFETIME NON-USER OF TOBACCO 12/05/2015 [facility] History of tobacco use V9 QUIT TOBACCO >7 YEARS AGO 01/03/2015 [facility] History of tobacco use V9 QUIT TOBACCO >7 YEARS AGO 12/31/2013 [facility] History of tobacco use V9 QUIT TOBACCO >7 YEARS AGO 11/27/2012 [facility] History of tobacco use V9 QUIT TOBACCO >7 YEARS AGO 10/12/2011 [facility] History of tobacco use V9 LIFETIME NON-USER OF TOBACCO 12/12/2006 [facility] History of tobacco use HF V9 CURRENT NON-SMOKER 08/21/2004 quit smoking 5 yrs ago [facility] History of tobacco use HF V9 CURRENT NON-SMOKER 05/28/2003 quit 5 years ago [facility] History of tobacco use HF V9 CURRENT NON-SMOKER 06/23/2001 quit 1 1/2year ago [facility] This section is an empty social history section. [facility] Plan of Care List of future care activities from Department of [facility] Affairs facilities. Additional future care activities may be listed in the Assessment and Plan section. Date/Time Care Activity Care Activity Detail Facili ty 02/11/2025 AMBULATORY - NONE [facility]
--- OUTSIDE RECORDS SUMMARY | 2025-01-01 09:06 | XMS_ITS ---
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 Sep 05, 2014 [id number] [place] PATIENT EXPRESS SCRIPTS ([id number]) PRESCRIPT ION TMMK ACTIV E PPO Sep 05, 2014 [place] [id number] [place] PATIENT INGENIO RX PRESCRIPT ION NONE* Sep 05, 2014 NONE [id number] [place] PATIENT MEDICARE (WNR) MEDICARE (M) PART A Apr 05, 2015 PART A [id number] [id number] [place] PATIENT MEDICARE (WNR) MEDICARE (M) PART B Apr 05, 2015 PART B [id number] [place] PATIENT Selected Encounter This section [...] activities for the patient from all [place] [facility]. This section includes future appointments and future orders which are active, pending or scheduled. Future Appointments This section includes appointments that were scheduled to occur 6 months from the date of the Encounter, up to a maximum of 20 appointments. The data comes from all [facility]. Appointment Date/Time Appointment Type Appointme nt Facility Name Nov 30, 2024 12:30 PM AMBULATORY - REHAB MEDICIN E [facility] Dec 05, 2024 09:00 AM [facility] Dec 19, 2024 02:00 PM [facility] Dec 27, 2024 07:30 AM [facility] Feb 11, 2025 08:09 AM [facility] - NONE [facility] Mar 12, 2025 09:30 AM [facility] Active, Pending, and Scheduled Orders This section includes a listing of several types of active, pending, and scheduled orders, including clinic medications orders, diagnostic test orders, procedure orders and consult orders; where the start date of the order is 45 days before the date of the Encounter or 45 days after the date of theEncounter. The data comes from all [facility]. Test Date/Time Test Type Test Details Facility Name Dec 05, 2024 09:30 AM Procedure Order CP WIRELES S CAPSULE CP WIRELESS CAPSULE Proc Contact Lens Manufacturer's Choice [facility] Dec 19, 2024 12:00 AM Laboratory - Chemi stry Order EGFR + CREAT DATE SENSITIVE AID-ULOMZ-OMHMBM SP [facility] Lab Results: +/- 30 days of the encounter This section includes the Chemistry and Hematology Lab Results on record with [place] for the patient. Radiology Reports and Pathology Reports are provided separately, in subsequent sections. Lab Results This section contains the Chemistry/Hematology Results that were resulted 30 days before or 30 daysafter the date of the Encounter. Date/Time Source Result Type Result - Unit Interpretation Reference Range Specimen Type Comment Nov 06, 2024 03:32 PM [facility] TRANSFERRIN SERUM Specimen Type: SERUM No comment entered. Ordering Provider: BLAYNE SANDHU Report Released Date/Time: Nov 06, 2024 02:56 PM Reporting Lab: [facility] [address] [facility] [phone] Performing Lab: [facility] [address] [facility] [address] TRANSFERRIN 386 mg/dL H 177-329 Nov 06, 2024 03:32 PM [facility] FOLATE PLASMA Specimen Type: PLASM A Comment: [...] 06, 2024 02:56 PM Reporting Lab: [address] [address] Performing Lab: [address] [address] FOLATE 8.2 ng/mL 7.0-31.4 Nov 06, 2024 03:32 PM [facility] IRON/TIBC PLASMA Specimen Type: PLASM A Comment: [...] Nov 06, 2024 02:56 PM Reporting Lab: [facility] [address] [place] [id number] Performing Lab: [address] [address] IRON 358 ug/dL H 65-175 TIBC 433 mg/dL H 250-425 IRON SATURATION 83 H 20-50 Nov 06, 2024 03:32 PM [facility] FERRITIN PLASMA Specimen Type: PLASM A Comment: [...] 06, 2024 02:56 PM Reporting Lab: [address] [address] Performing Lab: [address] [address] FERRITIN 15.7 ng/mL L 21.8-274.7 Nov 06, 2024 03:32 PM [facility] CBC/PLT BLOOD Specimen Type: BLOOD No comment entered. Ordering Provider: BLAYNE SANDHU Report Released Date/Time: Nov 06, 2024 02:56 PM Reporting Lab: [address] [address] Performing Lab: [address] [address] WBC 8.3 10*3/uL 5.0-10.0 RBC 3.81 10*6/uL L 4.6-6.2 HGB 9.1 g/dL L 14.0-18.0 HCT 30.9 L 42.0-52.0 MCV 81.1 fL 80.0-94.0 MCH 23.9 pg L 27.0-31.0 MCHC 29.4 g/dL L 32.0-36.0 PLT 215 10*3/uL 150-450 MPV 9.7 fL 9.0-13.1 RDW 19.0 H 11.0-16.0 NRBC 0.0 0.0-0.0 Nov 06, 2024 03:32 PM [facility] PANEL 5 PLASMA Specimen Type: PLASM A [...] 06, 2024 02:56 PM Reporting Lab: [address] [address] Performing Lab: [address] [address] CREATININE 0.93 mg/dL 0.72-1.25 UREA NITROGEN 17 [...] (CKD-EPI) 86 Nov 06, 2024 03:32 PM [facility] AUTOMATED DIFF BLOOD Specimen Type: BLOOD No comment entered. Ordering Provider: BLAYNE SANDHU Report Released Date/Time: Nov 06, 2024 02:56 PM Reporting Lab: [address] [address] Performing Lab: [address] [address] A-LYMPH % 25.2 24.0-44.0 A-MONO % 9.4 [...] and tobacco- related health factors from the [facility] where the Encounter took place. Current Smoking Status This section includes the most current smoking, or tobacco-related health factor, from the [facility] facility where the [facility]counter took place. Date/Time Current Smoking Status Comment Henry nettlesy Sep 08, 2023 09:30 AM VA-TOBACCO NEVER USED [facility] Tobacco Use History This section includes a history of the smoking, or tobacco-related health factors, that were collected on or before the date of the Encounter. The data comes from the [place] facility where the Encounter took place. Date/Time Smoking Status/Tobacco Use Comment F acility Dec 12, 2006 07:57 AM V9 LIFETIME NON-US ER OF TOBACCO [facility] Aug 21, 2004 09:09 AM HF V9 CURRENT NON-SMOKER quit smoking 5 yrs ago [facility] May 28, 2003 10:30 AM HF V9 CURRENT NON-SMOKER quit 5 years ago [facility] Jun 23, 2001 08:08 AM HF V9 CURRENT NON-SMOKER quit 1 1/2year ago [facility] Encounter Notes: All associated encounter notes This section contains the clinical notes associated to the Encounter. 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 Ordered. Pt is aware of that. /saji/ NIYAH CALLEJAS MD Signed: 11/30/2024 13:50 Receipt Acknowledged By: 11/30/2024 15:25 /es/ Nellie Koch portfolio manager RN for FUAD Juan Jose CORDERO --- Original Document --- 11/13/24 CLERICAL/ADMIN NOTE: Attempted to contact to schedule CT CHEST W/O PER 11/09 DD, [facility] and said he would have to call back. LOC mailed- if [facility] fails to respond by 11/28/24, will notify requesting provider. ORDER PLACED ON HOLD PER SOP GUIDELINES. /saji/ Anusha Gutierrez Advanced Test Developer Signed: 11/13/2024 12:18 11/19/2024 ADDENDUM STATUS: COMPLETED Pt's returned call to schedule, however she declined b/c the order is for Chest CT w/o and pt normally has Ct for Abd/Chest WITH cont. Wants to double check that the order is correct before scheduling. Please contact. Thanks! /saji/ YARELIS ALVARADO Test Developer Signed: 11/19/2024 09:21 Receipt Acknowledged By: 11/19/2024 09:39 /saji/ Anusha Gutierrez Advanced Test Developer 11/19/2024 14:35 /heri SANDHU APRN family nurse practitioner 11/19/2024 ADDENDUM STATUS: COMPLETED The last 2 ct of chest have been without contrast. Is vet willing to do ct without contrast? /heri SANDHU APRN family nurse practitioner Signed: 11/19/2024 14:34 Receipt Acknowledged By: 11/21/2024 10:16 /saji/ TARIK ANDREWS,RN PC TOOLING SPECIALIST 11/21/2024 ADDENDUM STATUS: COMPLETED Spoke with r/t provider comments above. [facility] does NOT want to do CT W/O contrast. is REQUESTING CT W/CONTRAST. Advised he may need to have some blood work prior to CT W/CONTRAST, is agreeable if provider wants to order. No other issues or concerns at this time. /TARIK Silva,RN PC TOOLING SPECIALIST Signed: 11/21/2024 10:18 Receipt Acknowledged By: 11/22/2024 [...] Acknowledged By: 11/26/2024 10:09 /TARIK Silva,RN PC TOOLING SPECIALIST 11/26/2024 ADDENDUM STATUS: COMPLETED Spoke with r/t pcp statement above. Per he does NOT see urology, thoracic oncology or pulmonology. [facility] was ordered LDCT w/o contrast, [facility] is REQUESTING LDCT W/CONTRAST. Will alert provider to review for LDCT. No other issues or concerns at this time. /TARIK Silva,RN PC TOOLING SPECIALIST Signed: 11/26/2024 10:12 Receipt Acknowledged By: 11/30/2024 13:48 /heri CALLEJAS MD 11/28/2024 ADDENDUM STATUS: COMPLETED We have attempted to contact the to schedule CT CHEST W/O PER 11/09/24 DD, the patient has failed to respond to our calls and LOC. We have cancelled the order and a new one will need to be placed if wishes to proceed with scheduling. /heri Escoto Advanced Test Developer Signed: 11/28/2024 09:12 Receipt Acknowledged By: 11/28/2024 09:42 /saji/ BLAYNE SANDHU APRN family nurse practitioner * AWAITING SIGNATURE * NIYAH CALLEAJS [place]-CDBraden [facility] Nov 28, 2024 09:11 AM ADDENDUM: LOCAL TITLE: Addendum STANDARD TITLE: ADDENDUM DATE OF NOTE: NOV 28, 2024@09:11:49 ENTRY DATE: NOV 28, 2024@09:11:50 AUTHOR: NIDHI ESCOTO COSIGNER: URGENCY: STATUS: COMPLETED We have attempted to contact the [facility] to schedule CT CHEST W/O PER 11/09/24 DD, the patient has failed to respond to our calls and LOC. We have cancelled the order and a new one will need to be placed if [facility] wishes to proceed with scheduling. /es/ Nidhi Escoto Advanced Test Developer Signed: 11/28/2024 09:12 Receipt Acknowledged By: 11/28/2024 09:42 /es/ BLAYNE SANDHU APRN family nurse practitioner 12/03/2024 05:54 /es/ NIYAH CALLEJAS MD --- Original Document --- 11/13/24 CLERICAL/ADMIN NOTE: Attempted to contact [facility] to schedule CT CHEST W/O PER 11/09 DD, [facility] was at his local [facility] and said he would have to call back. LOC mailed- if fails to respond by 11/28/24, will notify requesting provider. ORDER PLACED ON HOLD PER SOP GUIDELINES. /saji/ Anusha Gutierrez Advanced Test Developer Signed: 11/13/2024 12:18 11/19/2024 ADDENDUM STATUS: COMPLETED Pt's returned call to schedule, however she declined b/c the order is for Chest CT w/o and pt normally has Ct for Abd/Chest WITH cont. Wants to double check that the order is correct before scheduling. Please contact. Thanks! /es/ YARELIS ALVRAADO Test Developer Signed: 11/19/2024 09:21 Receipt Acknowledged By: 11/19/2024 09:39 /es/ Anusha Gutierrez Advanced Test Developer 11/19/2024 14:35 /es/ BLAYNE SANDHU APRN family nurse practitioner 11/19/2024 ADDENDUM STATUS: COMPLETED The last 2 ct of chest have been without contrast. Is vet willing to do ct without contrast? /saji/ BLAYNE SANDHU APRN family nurse practitioner Signed: 11/19/2024 14:34 Receipt Acknowledged By: 11/21/2024 10:16 /TARIK Silva,RN PC TOOLING SPECIALIST 11/21/2024 ADDENDUM STATUS: COMPLETED Spoke with r/t provider comments above. does NOT want to do CT W/O contrast. [facility] is REQUESTING CT W/CONTRAST. Advised he may need to have some blood work prior to CT W/CONTRAST, is agreeable if provider wants to order. No other issues or concerns at this time. /TARIK Silva,RN PC TOOLING SPECIALIST Signed: 11/21/2024 10:18 Receipt Acknowledged By: 11/22/2024 [...] Acknowledged By: 11/26/2024 10:09 /TARIK Silva,RN PC TOOLING SPECIALIST 11/26/2024 ADDENDUM STATUS: COMPLETED Spoke with r/t pcp statement above. Per he does NOT see urology, thoracic oncology or pulmonology. [facility] was ordered LDCT w/o contrast, is REQUESTING LDCT W/CONTRAST. Will alert provider to review for LDCT. No other issues or concerns at this time. /TARIK Silva,RN PC TOOLING SPECIALIST Signed: 11/26/2024 10:12 Receipt Acknowledged By: 11/30/2024 13:48 /heri CALLEJAS MD 11/30/2024 ADDENDUM STATUS: COMPLETED Pt walked in to the 3rd floor building 1 net front end developer requesting to have chest CT with contrast be done. Ordered. Pt is aware of that. /saji/ NIYAH CALLEJAS MD Signed: 11/30/2024 13:50 Receipt Acknowledged By: 11/30/2024 15:25 /saji/ Nellie Koch portfolio manager RN for [facility] NIDHI KING-CDD [facility] Nov 26, 2024 10:09 AM ADDENDUM: LOCAL TITLE: Addendum STANDARD TITLE: ADDENDUM DATE OF NOTE: NOV 26, 2024@10:09:39 ENTRY DATE: NOV 26, 2024@10:09:41 AUTHOR: FUAD CORDERO EXP COSIGNER: URGENCY: STATUS: COMPLETED Spoke with r/t pcp statement above. Per he does NOT see urology, thoracic oncology or pulmonology. [facility] was ordered LDCT w/o contrast, is REQUESTING LDCT W/CONTRAST. Will alert provider to review for LDCT. No other issues or concerns at this time. /saji/ TARIK ANDREWS,RN PC TOOLING SPECIALIST Signed: 11/26/2024 10:12 Receipt Acknowledged By: 11/30/2024 13:48 /saji/ NIYAH CALLEJAS MD --- Original Document --- 11/13/24 CLERICAL/ADMIN NOTE: Attempted to contact to schedule CT CHEST W/O PER 11/09 DD, Wilmot was at his local [facility] and said he would have to call back. LOC mailed- if [facility] fails to respond by 11/28/24, will notify requesting provider. ORDER PLACED ON HOLD PER SOP GUIDELINES. /saji/ Anusha Gutierrez Advanced Test Developer Signed: 11/13/2024 12:18 11/19/2024 ADDENDUM STATUS: COMPLETED Pt's returned call to schedule, however she declined b/c the order is for Chest CT w/o and pt normally has Ct for Abd/Chest WITH cont. Wants to double check that the order is correct before scheduling. Please contact. Thanks! /saji/ YARELIS ALVARADO Test Developer Signed: 11/19/2024 09:21 Receipt Acknowledged By: 11/19/2024 09:39 /saji/ Anusha Gutierrez Advanced Test Developer 11/19/2024 14:35 /saji/ BLAYNE SANDHU APRN family nurse practitioner 11/19/2024 ADDENDUM STATUS: COMPLETED The last 2 ct of chest have been without contrast. Is vet willing to do ct without contrast? /heri SANDHU APRN family nurse practitioner Signed: 11/19/2024 14:34 Receipt Acknowledged By: 11/21/2024 10:16 /TARIK Silva,RN PC TOOLING SPECIALIST 11/21/2024 ADDENDUM STATUS: COMPLETED Spoke with r/t provider comments above. does NOT want to do CT W/O contrast. is REQUESTING CT W/CONTRAST. Advised he may need to have some blood work prior to CT W/CONTRAST, is agreeable if provider wants to order. No other issues or concerns at this time. /TARIK Silva,RN PC TOOLING SPECIALIST Signed: 11/21/2024 10:18 Receipt Acknowledged By: 11/22/2024 [...] By: 11/26/2024 10:09 /saji/ TARIK ANDREWS,RN PC TOOLING SPECIALIST 11/28/2024 ADDENDUM STATUS: COMPLETED We have attempted to contact the [facility] to schedule CT CHEST W/O PER 11/09/24 DD, the patient has failed to respond to our calls and LOC. We have cancelled the order and a new one will need to be placed if [facility] wishes to proceed with scheduling. /es/ Nidhi Escoto Advanced Test Developer Signed: 11/28/2024 09:12 Receipt Acknowledged By: 11/28/2024 09:42 /saji/ BLAYNE SANDHU APRN family nurse practitioner * AWAITING SIGNATURE * NIYAH CALLEJAS 11/30/2024 ADDENDUM STATUS: UNSIGNED You may not VIEW this UNSIGNED Addendum. [facility] Nov 25, 2024 09:14 AM [...] F/Us CTs at this time. Thank you. /saji/ NIYAH CALLEJAS MD Signed: 11/25/2024 09:17 Receipt Acknowledged By: 11/26/2024 10:09 /saji/ TARIK ANDREWS,RN PC TOOLING SPECIALIST --- Original Document --- 11/13/24 CLERICAL/ADMIN NOTE: Attempted to contact to schedule CT CHEST W/O PER 11/09 DD, was at his local [facility] and said he would have to call back. LOC mailed- if [facility] fails to respond by 11/28/24, will notify requesting provider. ORDER PLACED ON HOLD PER SOP GUIDELINES. /saji/ Anusha Gutierrez Advanced Test Developer Signed: 11/13/2024 12:18 11/19/2024 ADDENDUM STATUS: COMPLETED Pt's returned call to schedule, however she declined b/c the order is for Chest CT w/o and pt normally has Ct for Abd/Chest WITH cont. Wants to double check that the order is correct before scheduling. Please contact. Thanks! /saji/ YARELIS ALVARADO Test Developer Signed: 11/19/2024 09:21 Receipt Acknowledged By: 11/19/2024 09:39 /saji/ Anusha Gutierrez Advanced Test Developer 11/19/2024 14:35 /heri SANDHU APRN family nurse practitioner 11/19/2024 ADDENDUM STATUS: COMPLETED The last 2 ct of chest have been without contrast. Is vet willing to do ct without contrast? /heri SANDHU APRN family nurse practitioner Signed: 11/19/2024 14:34 Receipt Acknowledged By: 11/21/2024 10:16 /saji/ TARIK ANDREWS,RN PC TOOLING SPECIALIST 11/21/2024 ADDENDUM STATUS: COMPLETED Spoke with r/t provider comments above. does NOT want to do CT W/O contrast. is REQUESTING CT W/CONTRAST. Advised he may need to have some blood work prior to CT W/CONTRAST, is agreeable if provider wants to order. No other issues or concerns at this time. /TARIK Silva,RN PC TOOLING SPECIALIST Signed: 11/21/2024 10:18 Receipt Acknowledged By: 11/22/2024 06:42 /heri SANDHU APRN family nurse practitioner 11/22/2024 ADDENDUM STATUS: COMPLETED defer to pcp /heri SANDHU APRN family nurse practitioner Signed: 11/22/2024 06:42 Receipt Acknowledged By: 11/25/2024 09:09 /saji/ NIYAH CALLEJAS MD 11/26/2024 ADDENDUM STATUS: UNSIGNED You may not VIEW this UNSIGNED Addendum. NIYAH CALLEJAS-CDD [facility] Nov 22, 2024 06:42 AM ADDENDUM: LOCAL TITLE: Addendum STANDARD TITLE: ADDENDUM DATE OF NOTE: NOV 22, 2024@06:42:41 ENTRY DATE: NOV 22, 2024@06:42:42 AUTHOR: BLAYNE SANDHU COSIGNER: URGENCY: STATUS: COMPLETED defer to pcp /saji/ BLAYNE SANDHU APRN family nurse practitioner Signed: 11/22/2024 06:42 Receipt Acknowledged By: 11/25/2024 09:09 /saji/ NIYAH CALLEJAS MD --- Original Document --- 11/13/24 CLERICAL/ADMIN NOTE: Attempted to contact [facility] to schedule CT CHEST W/O PER 11/09 DD, [facility] and said he would have to call back. LOC mailed- if [facility] fails to respond by 11/28/24, will notify requesting provider. ORDER PLACED ON HOLD PER SOP GUIDELINES. /heri Gutierrez Advanced Test Developer Signed: 11/13/2024 12:18 11/19/2024 ADDENDUM STATUS: COMPLETED Pt's returned call to schedule, however she declined b/c the order is for Chest CT w/o and pt normally has Ct for Abd/Chest WITH cont. Wants to double check that the order is correct before scheduling. Please contact. Thanks! /heri ALVARADO Test Developer Signed: 11/19/2024 09:21 Receipt Acknowledged By: 11/19/2024 09:39 /heri Gutierrez Advanced Test Developer 11/19/2024 14:35 /heri SANDHU APRN family nurse practitioner 11/19/2024 ADDENDUM STATUS: COMPLETED The last 2 ct of chest have been without contrast. Is vet willing to do ct without contrast? /heri SANDHU APRN family nurse practitioner Signed: 11/19/2024 14:34 Receipt Acknowledged By: 11/21/2024 10:16 /TARIK Silva,RN PC TOOLING SPECIALIST 11/21/2024 ADDENDUM STATUS: COMPLETED Spoke with r/t provider comments above. does NOT want to do CT W/O contrast. [facility] is REQUESTING CT W/CONTRAST. Advised he may need to have some blood work prior to CT W/CONTRAST, is agreeable if provider wants to order. No other issues or concerns at this time. /TARIK Silva,RN PC TOOLING SPECIALIST Signed: 11/21/2024 10:18 Receipt Acknowledged By: 11/22/2024 06:42 /heri SANDHU APRN family nurse practitioner BLAYNE SANDHUREBEKA [facility] Nov 21, 2024 10:16 AM ADDENDUM: LOCAL TITLE: Addendum STANDARD TITLE: ADDENDUM DATE OF NOTE: NOV 21, 2024@10:16:27 ENTRY DATE: NOV 21, 2024@10:16:28 AUTHOR: FUAD CORDERO COSIGNER: URGENCY: STATUS: COMPLETED Spoke with r/t provider comments above. does NOT want to do CT W/O contrast. [facility] is REQUESTING CT W/CONTRAST. Advised he may need to have some blood work prior to CT W/CONTRAST, is agreeable if provider wants to order. No other issues or concerns at this time. /TARIK Silva,RN PC TOOLING SPECIALIST Signed: 11/21/2024 10:18 Receipt Acknowledged By: 11/22/2024 06:42 /heri SANDHU APRN family nurse practitioner --- Original Document --- 11/13/24 CLERICAL/ADMIN NOTE: Attempted to contact [facility] to schedule CT CHEST W/O PER 11/09 DD, [facility]mot was at his local [facility] and said he would have to call back. LOC mailed- if fails to respond by 11/28/24, will notify requesting provider. ORDER PLACED ON HOLD PER SOP GUIDELINES. /saji/ Anusha Gutierrez Advanced Test Developer Signed: 11/13/2024 12:18 11/19/2024 ADDENDUM STATUS: COMPLETED Pt's returned call to schedule, however she declined b/c the order is for Chest CT w/o and pt normally has Ct for Abd/Chest WITH cont. Wants to double check that the order is correct before scheduling. Please contact. Thanks! /saji/ YARELIS ALVARADO Test Developer Signed: 11/19/2024 09:21 Receipt Acknowledged By: 11/19/2024 09:39 /saji/ Anusha Gutierrez Advanced Test Developer 11/19/2024 14:35 /saji/ BLAYNE SANDHU APRN family nurse practitioner 11/19/2024 ADDENDUM STATUS: COMPLETED The last 2 ct of chest have been without contrast. Is vet willing to do ct without contrast? /heri SANDHU APRN family nurse practitioner Signed: 11/19/2024 14:34 Receipt Acknowledged By: 11/21/2024 10:16 /saji/ TARIK ANDREWS,RN PC TOOLING SPECIALIST 11/22/2024 ADDENDUM STATUS: UNSIGNED You may not VIEW this UNSIGNED Addendum. FUAD CORDERO-AYLIND [facility] Nov 19, 2024 02:33 PM ADDENDUM: LOCAL [...] By: 11/21/2024 10:16 /es/ TARIK ANDREWS,RN PC TOOLING SPECIALIST --- Original Document --- 11/13/24 CLERICAL/ADMIN NOTE: Attempted to contact [facility] to schedule CT CHEST W/O PER 11/09 DD, [facility] was at his local [facility] and said he would have to call back. LOC mailed- if fails to respond by 11/28/24, will notify requesting provider. ORDER PLACED ON HOLD PER SOP GUIDELINES. /saji/ Anusha Gutierrez Advanced Test Developer Signed: 11/13/2024 12:18 11/19/2024 ADDENDUM STATUS: COMPLETED Pt's returned call to schedule, however she declined b/c the order is for Chest CT w/o and pt normally has Ct for Abd/Chest WITH cont. Wants to double check that the order is correct before scheduling. Please contact. Thanks! /saji/ YARELIS ALVARADO Test Developer Signed: 11/19/2024 09:21 Receipt Acknowledged By: 11/19/2024 09:39 /saji/ Anusha Gutierrez Advanced Test Developer 11/19/2024 14:35 /saji/ BLAYNE SANDHU APRN family nurse practitioner BLAYNE SANDHU-Braden [facility] Nov 19, 2024 09:20 AM ADDENDUM: LOCAL TITLE: Addendum STANDARD TITLE: ADDENDUM DATE OF NOTE: NOV 19, 2024@09:20:42 ENTRY DATE: NOV 19, 2024@09:20:42 AUTHOR: YARELIS ALVARADOIGNER: URGENCY: STATUS: COMPLETED Pt's returned call to schedule, however she declined b/c the order is for Chest CT w/o and pt normally has Ct for Abd/Chest WITH cont. Wants to double check that the order is correct before scheduling. Please contact. Thanks! /heri ALVARADO Test Developer Signed: 11/19/2024 09:21 Receipt Acknowledged By: 11/19/2024 09:39 /saji/ Anusha Gutierrez Advanced Test Developer 11/19/2024 14:35 /saji/ BLAYNE SANDHU APRN family nurse practitioner --- Original Document --- 11/13/24 CLERICAL/ADMIN NOTE: Attempted to contact to schedule CT CHEST W/O PER 11/09 DD, was at his local [facility] and said he would have to call back. LOC mailed- if [facility] fails to respond by 11/28/24, will notify requesting provider. ORDER PLACED ON HOLD PER SOP GUIDELINES. /saji/ Anusha Gutierrez Advanced Test Developer Signed: 11/13/2024 12:18 11/19/2024 ADDENDUM STATUS: COMPLETED The last 2 ct of chest have been without contrast. Is vet willing to do ct without contrast? /saji/ BLAYNE SANDHU APRN family nurse practitioner Signed: 11/19/2024 14:34 Receipt Acknowledged By: * AWAITING SIGNATURE * FUAD CORDERO ALLISON [facility] Nov 13, 2024 12:19 PM LETTERS: LOCAL TITLE: SPECIALTY CONTACT LETTER STANDARD TITLE: LETTERS DATE OF NOTE: NOV 13, 2024@12:19 ENTRY DATE: NOV 13, 2024@12:19:12 AUTHOR: ANUSHA GUTIERREZ EXP COSIGNER: URGENCY: STATUS: COMPLETED [facility] [address] [place] [address] Mr. ANEUDY BUSTAMANTE [address] [place] [id number] NOV 13, 2024 Dear ANEUDY BUSTAMANTE, We have been unable to contact you by telephone to schedule an appointment in our Radiology clinic. Your health and well-being are important to us. Please call us at or . Select Option #2 and then #3. We look forward to hearing from you soon. Sincerely yours, Radiology [facility] ANUSHA GUTIERREZ [place] Nov 13, 2024 12:18 PM ADMINISTRATIVE NOT E: LOCAL TITLE: CLERICAL/ADMIN NOTE STANDARD TITLE: ADMINISTRATIVE NOTE DATE OF NOTE: NOV 13, 2024@12:18 ENTRY DATE: NOV 13, 2024@12:18:26 AUTHOR: ANUSHA GUTIERREZ EXP COSIGNER: URGENCY: STATUS: COMPLETED CLERICAL/ADMIN NOTE Has ADDENDA Attempted to contact to schedule CT CHEST W/O PER 11/09 DD, Wilmot was at his local [facility] and said he would have to call back. LOC mailed- if fails to respond by 11/28/24, will notify requesting provider. ORDER PLACED ON HOLD PER SOP GUIDELINES. /heri Gutierrez Advanced Test Developer Signed: 11/13/2024 12:18 11/19/2024 ADDENDUM STATUS: COMPLETED Pt's returned call to schedule, however she declined b/c the order is for Chest CT w/o and pt normally has Ct for Abd/Chest WITH cont. Wants to double check that the order is correct before scheduling. Please contact. Thanks! /saji/ YARELIS ALVARADO Test Developer Signed: 11/19/2024 09:21 Receipt Acknowledged By: 11/19/2024 09:39 /saji/ Anusha Gutierrez Advanced Test Developer 11/19/2024 14:35 /saji/ BLAYNE SANDHU APRN family nurse practitioner 11/19/2024 ADDENDUM STATUS: COMPLETED The last 2 ct of chest have been without contrast. Is vet willing to do ct without contrast? /saji/ BLAYNE SANDHU APRN family nurse practitioner Signed: 11/19/2024 14:34 Receipt Acknowledged By: 11/21/2024 10:16 /saji/ TARIK ANDREWS,RN PC TOOLING SPECIALIST 11/21/2024 ADDENDUM STATUS: COMPLETED Spoke with r/t provider comments above. does NOT want to do CT W/O contrast. is REQUESTING CT W/CONTRAST. Advised he may need to have some blood work prior to CT W/CONTRAST, is agreeable if provider wants to order. No other issues or concerns at this time. /TARIK Silva,RN PC TOOLING SPECIALIST Signed: 11/21/2024 10:18 Receipt Acknowledged By: 11/22/2024 [...] Acknowledged By: 11/26/2024 10:09 /TARIK Silva,RN PC TOOLING SPECIALIST 11/26/2024 ADDENDUM STATUS: COMPLETED Spoke with r/t pcp statement above. Per he does NOT see urology, thoracic oncology or pulmonology. Wilmot was ordered LDCT w/o contrast, is REQUESTING LDCT W/CONTRAST. Will alert provider to review for LDCT. No other issues or concerns at this time. /TARIK Silva,RN PC TOOLING SPECIALIST Signed: 11/26/2024 10:12 Receipt Acknowledged By: 11/30/2024 13:48 /heri CALLEJAS MD 11/28/2024 ADDENDUM STATUS: COMPLETED We have attempted to contact the Wilmot to schedule CT CHEST W/O PER 11/09/24 DD, the patient has failed to respond to our calls and LOC. We have cancelled the order and a new one will need to be placed if wishes to proceed with scheduling. 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 Ordered. Pt is aware of that. /es/ NIYAH CALLEJAS MD Signed: 11/30/2024 13:50 Receipt Acknowledged By: * AWAITING SIGNATURE * FUAD CORDERO,ANUSHA AVENDANO-REBEKA [facility]
--- OUTSIDE RECORDS SUMMARY | 2025-01-01 09:06 | XMS_ITS ---
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 Date/Time Encounter Type Encounter Description Reason Pro vider Source Dec 04, 2024 10:42 AM Outpatient Encounter ADMIN PAT ACTIVTIES (MASNONCT) IHE Encounter Template Text not used by [place] Plan of Treatment: Future Appointments (+ 6 months) and Future Tests (+/- 45 days) The Plan of Treatment section includes future care activities for the patient [facility] [place] [facility] This section includes future appointments and future orders which are active, pending or scheduled. Future Appointments This section includes appointments that were scheduled to occur 6 months from the date of the Encounter, up to a maximum of 20 appointments. The data comes from all [facility]. Appointment Date/Time Appointment Type Appointme nt Facility Name Dec 05, 2024 09:00 AM AMBULATORY - MEDICINE [facility] Dec 19, 2024 02:00 PM AMBULATORY - SURGERY [place] [facility] Dec 27, 2024 07:30 AM AMBULATORY - NONE [place] [facility] Feb 11, 2025 08:09 AM AMBULATORY - NONE [place] [facility] Mar 12, 2025 09:30 AM AMBULATORY - NONE [place] [facility] Active, Pending, and Scheduled Orders This [...] WIRELES S CAPSULE CP WIRELESS CAPSULE Proc Fixed Capital Clerk's Choice [facility] Dec 19, 2024 12:00 AM Laboratory - Chemi stry Order EGFR + CREAT DATE SENSITIVE [id number] SP [facility] Lab Results: +/- 30 days of the encounter This section includes the Chemistry and Hematology Lab Results on record with [place] for the patient. Radiology Reports and Pathology Reports are provided separately, in subsequent sections. Lab Results This section contains the Chemistry/Hematology Results that were resulted 30 days before or 30 daysafter the date of the Encounter. Date/Time Source Result Type Result - Unit Interpretation Reference Range Specimen Type Comment Dec 27, 2024 07:03 AM [facility] EGFR + CREAT DATE SENSITIVE PLASMA Specime [...] Dec 19, 2024 10:19 PM Reporting Lab: [facility] [address] [facility] [address] Performing Lab: [address] [address] CREATININE 0.99 mg/dL 0.72-1.25 eGFR (CKD-EPI) 80 Nov 06, 2024 03:32 PM [facility] TRANSFERRIN SERUM Specimen Type: SERUM No comment entered. Ordering Provider: BLAYNE SANDHU Report Released Date/Time: Nov 06, 2024 02:56 PM Reporting Lab: [address] [address] Performing Lab: [facility] [address] [facility] [address] TRANSFERRIN 386 mg/dL H 177-329 Nov 06, 2024 03:32 PM [facility] FOLATE PLASMA Specimen Type: PLASM A [...] Nov 06, 2024 02:56 PM Reporting Lab: [address] [address] Performing Lab: [address] [address] FOLATE 8.2 ng/mL 7.0-31.4 Nov 06, 2024 03:32 PM [facility] IRON/TIBC PLASMA Specimen Type: PLASM [...] decrease <15 G5 Kidney failure Ordering Provider: BLYANE SANDHU Report Released Date/Time: Nov 06, 2024 02:56 PM Reporting Lab: [address] [address] Performing Lab: [address] [address] IRON 358 ug/dL H 65-175 TIBC 433 mg/dL H 250-425 IRON SATURATION 83 H 20-50 Nov 06, 2024 03:32 PM [facility] FERRITIN PLASMA Specimen Type: PLASM A Comment: [...] Nov 06, 2024 02:56 PM Reporting Lab: [address] [address] Performing Lab: [address] [address] FERRITIN 15.7 ng/mL L 21.8-274.7 Nov 06, 2024 03:32 PM [facility] CBC/PLT BLOOD Specimen Type: BLOOD No comment entered. Ordering Provider: BLAYNE SANDHU Report Released Date/Time: Nov 06, 2024 02:56 PM Reporting Lab: [address] [address] Performing Lab: [address] [address] WBC 8.3 10*3/uL 5.0-10.0 RBC 3.81 10*6/uL L 4.6-6.2 HGB 9.1 g/dL L 14.0-18.0 HCT 30.9 L 42.0-52.0 MCV 81.1 fL 80.0-94.0 MCH 23.9 pg L 27.0-31.0 MCHC 29.4 g/dL L 32.0-36.0 PLT 215 10*3/uL 150-450 MPV 9.7 fL 9.0-13.1 RDW 19.0 H 11.0-16.0 NRBC 0.0 0.0-0.0 Nov 06, 2024 03:32 PM [facility] AUTOMATED DIFF BLOOD Specimen Type: BLOOD No comment entered. Ordering Provider: BLAYNE SANDHU Report Released Date/Time: Nov 06, 2024 02:56 PM Reporting Lab: [facility] [address] [facility] [address] Performing Lab: [address] [address] A-LYMPH % 25.2 24.0-44.0 A-MONO % 9.4 H 0.1-6.0 A-GRAN % 60.4 42.0-75.0 A-LYMPH # 2.10 10*3/uL 1.20-3.40 A-MONO # 0.78 10*3/uL H 0.00-0.60 A-GRAN # 5.03 10*3/uL 1.40-6.50 A-BASO % 0.8 0.0-3.0 A-BASO # 0.07 10*3/uL 0.00-0.20 A-EOS % 3.8 0.0-10.0 A-EOS # 0.32 10*3/uL 0.00-0.70 A-IG % 0.4 0.0-0.5 A-IG # 0.03 10*3/uL 0.00-0.06 Nov 06, 2024 03:32 PM [facility] PLASMA Specimen [...] Nov 06, 2024 02:56 PM Reporting Lab: [address] [address] Performing Lab: [address] [address] CREATININE 0.93 mg/dL 0.72-1.25 UREA NITROGEN 17 [...] and tobacco- related health factors from the [facility] where the Encounter took place. Current Smoking Status This section includes the most current smoking, or tobacco-related health factor, from the [place] facility where the Encounter took place. Date/Time Current Smoking Status Comment Facil ity Sep 08, 2023 09:30 AM VA-TOBACCO NEVER USED [facility] Tobacco Use History This section includes a history of the smoking, or tobacco-related health factors, that were collected on or before the date of the Encounter. The data comes from the [place] facility where the Encounter took place. Date/Time Smoking Status/Tobacco Use Comment F acility Dec 12, 2006 07:57 AM V9 LIFETIME NON-US ER OF TOBACCO [facility] Aug 21, 2004 09:09 AM HF V9 CURRENT NON-SMOKER quit smoking 5 yrs ago [facility] May 28, 2003 10:30 AM HF V9 CURRENT NON-SMOKER quit 5 years ago [facility] Jun 23, 2001 08:08 AM HF V9 CURRENT NON-SMOKER quit 1 1/2year ago [facility] Radiology Reports: +/- 30 days [...] the Encounter. The data comes from all [place] treatment facilities. Date/Time Radiology Report Provider Source Dec 27, 2024 06:[address] CHEST W/CONTRAS T: ANEUDY BUSTAMANTE [id number] -[id number] M Exm Date: DEC 27, 2024@06:47 Req Phys: KOUSA,KITTA Pat Loc: POLLY PACT ALPHA 1-3 (Req'g Loc) Img Loc: CT SCAN Service: Unknown [place] [id number] (Case [id number] COMPLETE)CT CHEST W/CONTRAST (CT Detailed) CPT:34342 Contrast Media : Non-ionic Iodinated Reason for Study: SEE CLINICAL HISTORY Pharmaceutical: IOHEXOL INJ 350MG I/ML 500ML BOTTLE, 80ml Clinical History: REASON FOR SEND OUT: ATTENDING PHYSICIAN NAME: Cancer HISTORY/REASON FOR EXAM: Pt is requesting to have CT chest With contrast due to his h/o lung cancer. Report Status: Verified Date Reported: DEC 31, 2024 Date Verified: DEC 31, 2024 Chief Security And Safety Officer E-Sig: Report: CT CHEST W/CONTRAST HISTORY: SEE CLINICAL HISTORY COMPARISON: 07/19/2022 TECHNIQUE: CT of the chest, with multiplanar reformats, was performed at the local [place] facility. 1150 images were received by the [place] National T[facility] Program (NTP) for interpretation. RADIATION [...] measuring 0.8 cm (2:100), is unchanged from 202, and therefore most likely to be benign [...] be helpful. READING PHYSICIAN: Ravindra Navarro MD -[id number] 12/31/2024 15:22 EDT [facility] National Teleradiology Program [phone] (For Medical Practitioner Use Only) Attention Patients / Veterans: If you have questions or concerns about these test results, please contact your ordering provider or primary care team. Primary Diagnostic Code: NO ALERT REQUIRED Primary Interpreting Staff: OUTSIDE SERVICE RADIOLOGY, Staff Physician / RADIOLOGY,OUTSIDE SERVICE [facility] Encounter Notes: All associated encounter notes This section contains the clinical notes associated to the Encounter. Date/Time Encounter Note(s) Provider Source Dec 04, 2024 10:42 AM LETTERS: LOCAL TITLE: SPECIALTY CONTACT LETTER STANDARD TITLE: LETTERS DATE OF NOTE: DEC 04, 2024@10:42 ENTRY DATE: DEC 04, 2024@10:42:33 AUTHOR: WINNIE JOLLY EXP COSIGNER: URGENCY: STATUS: COMPLETED [facility] [address] [place] [address] Mr. AMADO PHYLLIS DIANNA [address] [place] [address] DEC 04, 2024 Dear ANEUDY BUSTAMANTE, We have been unable to contact you by telephone to schedule an appointment in our ENT/Head/Neck clinic. Your health and well-being are important to us. Please call us at or . Select Option #2 and then #3. We look forward to hearing from you soon. Sincerely yours, ENT/Head/Neck [facility] LISSA JOLLY-[facility]
--- OUTSIDE RECORDS SUMMARY | 2025-01-01 09:07 | XMS_ITS | Encounter Summary ---
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 Date/Time Encounter Type Encounter Description Reason Provider Source Dec 19, 2024 02:00 PM OFF/OP CNSLTJ NEW/EST MOD 40 OTOLARYNGOLOGY/EN T ICD-10-CM H90.3 Sensorineural hearing loss, bilateral WINDON,THERESA J IHE Encounter Template Text not used by [facility] Assessments - Encounter Diagnoses This section includes the primary and secondary diagnoses documented for the Encounter. Date/Time Primary/Secondary Diagnosis Diagnosis Name Provider Source Dec 19, 2024 04:15 PM PRIMARY Sensorineural hearing loss, bilateral FLUTY,ANGELA G [facility] Plan of Treatment: Future Appointments (+ 6 months) and Future Tests (+/- 45 days) The Plan of Treatment section includes future care activities for the patient [facility] [place] [facility] This section includes future appointments and future orders which are active, pending or scheduled. Future Appointments This section includes appointments that were scheduled to occur 6 months from the date of the Encounter, up to a maximum of 20 appointments. The data comes from all [place] treatment facilities. Appointment Date/Time Appointment Type Appointme nt Facility Name Dec 27, 2024 07:30 AM AMBULATORY - NONE [facility] Feb 11, 2025 08:09 AM [facility] Mar 12, 2025 09:30 AM AMBULATORY - NONE [facility] Active, Pending, and Scheduled Orders This section includes a listing of several types of active, pending, and scheduled orders, including clinic medications orders, diagnostic test orders, procedure orders and consult orders; where the start date of the order is 45 days before the date of the Encounter or 45 days after the date of theEncounter. The data comes from all [place] treatment [facility]. Test Date/Time Test Type Test Details Facility Name Dec 05, 2024 09:30 AM Procedure Order CP WIRELES S CAPSULE CP WIRELESS CAPSULE Proc Diet Assistant's Choice [facility] Dec 19, 2024 12:00 AM Laboratory - Chemi stry Order EGFR + CREAT DATE SENSITIVE SOL-TNYSY-[id number] SP [facility] Lab Results: +/- 30 days of the encounter This section includes the Chemistry and Hematology Lab Results on record with [place] for the patient. Radiology Reports and Pathology Reports are provided separately, in subsequent sections. Lab Results This section contains the Chemistry/Hematology Results that were resulted 30 days before or 30 daysafter the date of the Encounter. Date/Time Source Result Type Result - Unit Interpretation Reference Range Specimen Type Comment Dec 27, 2024 07:03 AM [facility] EGFR + CREAT DATE SENSITIVE PLASMA [...] Dec 19, 2024 10:19 PM Reporting Lab: [facility] [address] [place] [phone] Performing Lab: [facility] [address] [place] [phone] CREATININE 0.99 mg/dL 0.72-1.25 eGFR (CKD-EPI) 80 Social History: Smoking Status (Most current) and Tobacco Use (All prior to encounter date) This section includes the most current, and the historical, smoking and tobacco- related health factors from the [place] facility where the Encounter took place. Current Smoking Status This section includes the most current smoking, or tobacco-related health factor, from the [place] facility where the Encounter took place. Date/Time Current Smoking Status Comment Facil ity Sep 08, 2023 09:30 AM VA-TOBACCO NEVER USED [facility] Tobacco Use History This section includes a history of the smoking, or tobacco-related health factors, that were collected on or before the date of the Encounter. The data comes from the [place] facility where the Encounter took place. Date/Time Smoking Status/Tobacco Use Comment F acility Dec 12, 2006 07:57 AM V9 LIFETIME NON-US ER OF TOBACCO [facility] Aug 21, 2004 09:09 AM HF V9 CURRENT NON-SMOKER quit smoking 5 yrs ago [facility] May 28, 2003 10:30 AM HF V9 CURRENT NON-SMOKER quit 5 years ago [facility] Jun 23, 2001 08:08 AM HF V9 CURRENT NON-SMOKER quit 1 1/2year ago [facility] Radiology Reports: +/- 30 days of [...] the Encounter. The data comes from all [place] treatment facilities. Date/Time Radiology Report Provider Source Dec 27, 2024 06:[address] CHEST W/CONTRAS T: RAY,ANEUDY FERGUSON [id number] -[id number] M Exm Date: DEC 27, 2024@06:47 Req Phys: NIYAH CALLEJAS Pat Loc: POLLY PACT ALPHA 1-3 (Req'g Loc) Img Loc: CT SCAN Service: [place] [address] (Case [id number] COMPLETE)CT CHEST W/CONTRAST (CT Detailed) CPT:46767 Contrast Media : Non-ionic Iodinated Reason for Study: SEE CLINICAL HISTORY Pharmaceutical: IOHEXOL INJ 350MG I/ML 500ML BOTTLE, 80ml Clinical History: REASON FOR SEND OUT: ATTENDING PHYSICIAN NAME: Cancer HISTORY/REASON FOR EXAM: Pt is requesting to have CT chest With contrast due to his h/o lung cancer. Report Status: Verified Date Reported: DEC 31, 2024 Date Verified: DEC 31, 2024 Super[employer] E-Sig: Report: CT CHEST W/CONTRAST HISTORY: SEE CLINICAL HISTORY COMPARISON: 07/19/2022 TECHNIQUE: CT of the chest, with multiplanar reformats, was performed at the local [place] facility. 1150 images were received by the [place] National Teleradiology Program (NTP) for interpretation. RADIATION [...] be helpful. READING PHYSICIAN: Ravindra Navarro MD -[id number] 12/31/2024 15:22 EDT [facility] National Teleradiology Program [phone] (For Medical Practitioner Use Only) Attention Patients / Veterans: If you have questions or concerns about these test results, please contact your ordering provider or primary care team. Primary Diagnostic Code: NO ALERT REQUIRED Primary Interpreting Staff: OUTSIDE SERVICE RADIOLOGY, Staff Physician / RADIOLOGY,OUTSIDE SERVICE [facility] Encounter Notes: All associated encounter notes This section contains the clinical notes associated to the Encounter. Date/Time Encounter Note(s) Provider Source Dec 19, 2024 04:15 PM OTOLARYNGOLOGY NURSING OUTPATIENT NOTE: LOCAL TITLE: HEAD & NECK CLINIC NURSING EXIT NOTE STANDARD TITLE: OTOLARYNGOLOGY NURSING OUTPATIENT NOTE DATE OF NOTE: DEC 19, 2024@16:15 ENTRY DATE: DEC 19, 2024@16:15:32 AUTHOR: ELYSIA MAYES EXP COSIGNER: URGENCY: STATUS: COMPLETED H&N PROVIDER CLINIC NOTE REVIEWED. EXITED H&N SURGERY CLINIC BY MD/PA, WHO PROVIDED INSTRUCTION TO THE PATIENT. Per /PA, to return to Head and Neck Follow-up clinic in: - Medical clearance for hearing aids pending MRI IAC to r/o vestibular schwannoma - Will chart check and call patient with results /saji/ ELYSIA MAYES SURGERY CASE MANAGEMENT Signed: 12/19/2024 16:15 [facility] Dec 19, 2024 02:18 PM OTOLARYNGOLOGY CONSULT: LOCAL TITLE: OTOLARYNGOLOGY/H&N CONSULT RESPONSE STANDARD TITLE: OTOLARYNGOLOGY CONSULT DATE OF NOTE: DEC 19, 2024@14:18 ENTRY DATE: DEC 19, 2024@14:18:40 AUTHOR: ANGELA PORRAS EXP COSIGNER: THERESA SILVER URGENCY: STATUS: COMPLETED CC: asymmetric hearing loss HPI: 74M recently seen by audiology regarding hearing loss. He was found to have asymmetric SNHL, left ear worse. He was sent to us for medical clearance for hearing aids. He has a long noise exposure history in the . He denies ear pain, drainage, or infections. He has imbalance upon rising quickly, but no drainage. ROS: Const: Denies unexplained weight loss, fever Hem/L: Denies swollen glands or nodes PMH: Active problems - Computerized Problem List is the source for the followin. History of colonoscopy Cscope 12/12/23 - Tics otherwise wnl - No further screen/surv due to age. 2. Open angle glaucoma 3. Gastroesophageal reflux disease 4. Postherpetic neuralgia 5. Carcinoma of prostate (SNOMED CT 005218125) 6. Iron deficiency anemia (SNOMED CT 58872487) 7. History of malignant neoplasm of lung (SNOMED CT 626277964) 8. 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 Back pain (SNOMED CT 750360038) 10. Hyperlipidemia (SNOMED CT 59211850) 11. Depression (SNOMED CT 44988471) 12. Atherosclerotic occlusive disease (SNOMED CT 885025742) PSH: no ear surgeries SH: Denies ETOH, tobacco or illicits. FH: non-contributory Active Outpatient Medications (including Supplies): ASCORBIC ACID 500MG TAB TAKE ONE TABLET BY MOUTH DAILY ACTIVE (S) Indication: FOR NUTRITION BISACODYL 5MG EC TAB TAKE FOUR TABLETS BY MOUTH ACTIVE DIRECTED TAKE AT 7PM THE NIGHT BEFORE WIRELESS CAPSULE PROCEDURE Indication: FOR BOWEL PREP BUPROPION HCL 75MG TAB TAKE TWO TABLETS BY MOUTH DAILY FOR ACTIVE MOOD OR SMOKING CESSATION CITALOPRAM HYDROBROMIDE 40MG TAB TAKE ONE TABLET BY MOUTH ACTIVE DAILY Indication: FOR MOOD FAMOTIDINE 40MG TAB TAKE ONE TABLET BY MOUTH AT BEDTIME ACTIVE NEEDED Indication: FOR STOMACH PANTOPRAZOLE NA 40MG EC TAB TAKE ONE TABLET BY MOUTH TWICE ACTIVE (S) A DAY -TAKE ON AN EMPTY STOMACH. Indication: FOR HEARTBURN POLYETHYLENE GLYCOL 3350 ORAL PWDR MIX ONE BOTTLE OF ACTIVE POWDER AND TAKE BY MOUTH DIRECTED -MIX WITH 64 OUNCES GATORADE. DRINK HALF AT 6PM THE NIGHT BEFORE YOUR PROCEDURE. DRINK LAST HALF 4 HOURS PRIOR TO YOUR PROCEDURE. Indication: FOR BOWEL PREP Non-VA ACETAMINOPHEN/ASPIRIN/CAFFEINE 2 TABLETS MOUTH ACTIVE NEEDED Non-VA NAPROXEN 250MG TAB 250MG MOUTH NEEDED ACTIVE Non-VA POLYETHYLENE GLYCOL 3350 ORAL PWDR 1 HEAPING ACTIVE TABLESPOONFUL IN LIQUID MOUTH DAILY 10 Total Medications ALLERGIES/ADR: TOPAMAX 25MG TABLET PHYSICAL EXAM: Vital signs: Temperature: 98.4 F [36.9 C] (12/19/2024 13:57) Blood Pressure: 113/63 (12/19/2024 13:57) Pulse: 51 (12/19/2024 13:57) Weight: 170.0 lb [77.11 kg] (12/19/2024 13:57) Pain: 0 (12/19/2024 13:57) GENERAL: Patient is awake, non-toxic appearing, and in no acute distress. conversant with normal voice. SKIN: No overtly ulcerated, cellulitic, or indurated lesions of the head or neck. HEAD: Normocephalic and atraumatic. EARS: Bilateral well-formed pinnae. External auditory canals are non-stenotic without cerumen impaction bilaterally. Tympanic membranes are intact bilaterally without evidence of effusion or active infection appreciated. EYES: Extraocular muscles are intact. The sclera and conjunctiva are normal. Pupils are equal and reactive to light without evidence of afferent pupillary defect. No ptosis is appreciated. NOSE: The nasal dorsum is without scar or deformity. ORAL CAVITY: MMM NEUROLOGICAL: GCS 15. Cranial nerves II-XII are grossly intact. PSYCHIATRIC: Alert and oriented *3. Mood and affect are otherwise appropriate. RESPIRATORY: Breathing is non-labored without use of accessory muscles. There is symmetric chest wall expansion. CARDIOVASCULAR: No peripheral cyanosis is appreciated. Audio 11/30/24: Otoscopy revealed clear external ear canals with [...] dBHL left ear: 96% @ 65 dBHL Assessment/Plan: 74M with L>R SNHL. Significant noise exposure history. - Medical clearance for hearing aids pending MRI IAC to r/o vestibular schwannoma - Will chart check and call patient with results /saji/ ANGELA PORRAS RESIDENT PHYSICIAN Signed: 12/19/2024 14:23 /saji/ THERESA SILVER OTOLARYNGOLOGY- HEAD & NECK SURGERY ATTENDING Cosigned: 12/27/2024 08:40 ANGELA PORRAS-REBEKA [facility] Dec 19, 2024 02:00 PM SURGERY NURSING NOTE: LOCAL TITLE: SURGERY CLINIC INTAKE NOTE STANDARD TITLE: SURGERY NURSING NOTE DATE OF NOTE: DEC 19, 2024@14:00 ENTRY DATE: DEC 19, 2024@14:00:23 AUTHOR: ROXANA RUFFIN COSIGNER: URGENCY: STATUS: COMPLETED The patient was given a list of his/her medications, instructed to review and discuss any changes or problems with their provider. Patient advised to carry a list of current medications and any allergies with them in the event of emergency situations. Allergies: local and remote TOPAMAX 25MG TABLET No Remote Allergy/ADR Data available for this patient Medication Reconciliation MRR1 - Med Reconciliation INCLUDED IN THIS LIST: Alphabetical list of active outpatient prescriptions dispensed from this [place] (local) and dispensed from another [facility] or [facility] facility (remote) as well as inpatient orders (local pending and active), local clinic medications, locally documented non-VA medications, and local prescriptions that have or been discontinued in the past 90 days. Non-VA Meds Last Documented On: Mar 21, 2018 NOTE The display of VA prescriptions dispensed from another VA or [facility]D facility (remote) is limited to active outpatient prescription entries matched to National Drug File at the originating site and may not include some items such as investigational drugs, compounds, etc. NOT INCLUDED IN THIS LIST: Medications self-entered by the patient into personal health records (i.e. [facility]) are NOT included in this list. Non-VA medications documented outside this [place], remote inpatient orders (regardless of status) and remote clinic medications are NOT included in this list. The patient and provider must always discuss medications the patient is taking, regardless of where the medication was dispensed or obtained. -------- Non-[place] ACETAMINOPHEN/ASPIRIN/CAFFEINE TAKE TWO TABLETS BY MOUTH NEEDED Patient wants to buy from Non-[place] pharmacy. OUTPT ASCORBIC ACID 500MG TAB (Status = Active/Suspended) TAKE ONE TABLET BY MOUTH DAILY FOR NUTRITION Rx# [id number] Last Released: 11/13/24 Qty/Days Supply: 100 Rx Expiration Date: 11/08/25 Refills Remainin Indication: FOR NUTRITION OUTPT ATORVASTATIN CALCIUM 80MG TAB (Status = ) TAKE ONE-HALF TABLET BY MOUTH DAILY FOR CHOLESTEROL -DO NOT DRINK GRAPEFRUIT JUICE WHILE ON THIS DRUG Rx# [id number] Last Released: 11/15/24 Qty/Days Supply: 45 Rx Expiration Date: 11/23/24 Refills Remainin OUTPT BISACODYL 5MG EC TAB (Status = Active) TAKE FOUR TABLETS BY MOUTH DIRECTED FOR BOWEL PREP TAKE AT 7PM THE NIGHT BEFORE WIRELESS CAPSULE PROCEDURE Rx# [id number] Last Released: Qty/Days Supply: 12/18 Rx Expiration Date: 01/16/25 Refills Remainin Indication: FOR BOWEL PREP OUTPT BUPROPION HCL 75MG TAB (Status = Discontinued) TAKE TWO TABLETS BY MOUTH DAILY FOR MOOD OR SMOKING CESSATION Rx# [id number] Last Released: 10/17/24 Qty/Days Supply: 6030 Rx Expiration Date: 08/26/25 Refills Remainin OUTPT BUPROPION HCL 75MG TAB (Status = Active) TAKE TWO TABLETS BY MOUTH DAILY FOR MOOD OR SMOKING CESSATION Rx# [id number] Last Released: 12/11/24 Qty/Days Supply: 6030 Rx Expiration Date: 11/05/25 Refills Remainin OUTPT CARBOXYMETHYLCELLULOSE 1% OPH GEL 0.4ML (Status = Discontinued) APPLY 1 DROP TO BOTH EYES FOUR TIMES A DAY FOR DRY EYES Rx# [id number] Last Released: 09/28/23 Qty/Days Supply: Rx Expiration Date: 09/26/24 Refills Remainin Indication: FOR DRY EYES OUTPT CITALOPRAM HYDROBROMIDE 40MG TAB (Status = Active) TAKE ONE TABLET BY MOUTH DAILY FOR MOOD Rx# [id number] Last Released: 10/19/24 Qty/Days Supply: 90 Rx Expiration Date: 03/05/25 Refills Remainin Indication: FOR MOOD OUTPT FAMOTIDINE 40MG TAB (Status = Discontinued) TAKE ONE TABLET BY MOUTH AT BEDTIME NEEDED FOR STOMACH Rx# [id number] Last Released: 11/01/24 Qty/Days Supply: 90 Rx Expiration Date: 05/09/25 Refills Remainin Indication: FOR STOMACH OUTPT FAMOTIDINE 40MG TAB (Status = Active) TAKE ONE TABLET BY MOUTH AT BEDTIME NEEDED FOR STOMACH Rx# [id number] Last Released: 12/06/24 Qty/Days Supply: 90 Rx Expiration Date: 12/06/25 Refills Remainin Indication: FOR STOMACH OUTPT FERROUS SULFATE 324MG EC TAB (Status = Discontinued) TAKE ONE TABLET BY MOUTH DAILY FOR IRON SUPPLEMENT TAKE WITH VIT C Rx# [id number] Last Released: 11/13/24 Qty/Days Supply: 100/90 Rx Expiration Date: 11/08/25 Refills Remainin Indication: FOR IRON SUPPLEMENT Non-VA NAPROXEN 250MG TAB TAKE ONE TABLET BY MOUTH NEEDED Patient wants to buy from Non-VA pharmacy. OUTPT PANTOPRAZOLE NA 40MG EC TAB (Status = Discontinued) TAKE ONE TABLET BY MOUTH TWICE A DAY FOR HEARTBURN -TAKE ON AN EMPTY STOMACH. Rx# [id number] Last Released: 12/03/24 Qty/Days Supply: 180/90 Rx Expiration Date: 05/09/25 Refills Remainin Indication: FOR HEARTBURN OUTPT PANTOPRAZOLE NA 40MG EC TAB (Status = Active/Suspended) TAKE ONE TABLET BY MOUTH TWICE A DAY FOR HEARTBURN -TAKE ON AN EMPTY STOMACH. Rx# [id number] Last Released: Qty/Days Supply: 180 Rx Expiration Date: 12/06/25 Refills Remainin Indication: FOR HEARTBURN Non-VA POLYETHYLENE GLYCOL 3350 ORAL PWDR MIX 1 HEAPING TABLESPOONFUL IN LIQUID AND TAKE BY MOUTH DAILY Medication prescribed by Non-VA provider. OUTPT POLYETHYLENE GLYCOL 3350 ORAL PWDR (Status = Active) MIX ONE BOTTLE OF POWDER AND TAKE BY MOUTH DIRECTED FOR BOWEL PREP -MIX WITH 64 OUNCES GATORADE. DRINK HALF AT 6PM THE NIGHT BEFORE YOUR PROCEDURE. DRINK LAST HALF 4 HOURS PRIOR TO YOUR PROCEDURE. Rx# [id number] Last Released: Qty/Days Supply: Rx Expiration Date: 01/16/25 Refills Remainin Indication: FOR BOWEL PREP -------- SUPPLIES -------- /saji/ ROXANA RUFFIN CNA Ancillary Termite Treater Signed: 12/19/2024 14:00 ROXANA RUFFIN-REBEKA [facility] Dec 19, 2024 02:00 PM SURGERY NOTE: LOCAL TITLE: KELLEY FRAILTY TOOL STANDARD TITLE: SURGERY NOTE DATE OF NOTE: DEC 19, 2024@14:00 ENTRY DATE: DEC 19, 2024@14:01:01 AUTHOR: ROXANA RUFFIN COSIGNER: URGENCY: STATUS: COMPLETED FRAILTY CALCULATION: Risk Analysis Index (KELLEY) score is: Score: 25 CALCULATED SCORE Variable Score Sex: 3 Cancer Status: No Weight Loss: 0 Poor Appetite: 0 Renal Insufficiency: 0 Chronic/Congestive Heart Failure: 0 Shortness of Breath: 0 Dependent Livin Cognitive Decline: No ADL*Cognitive Decline: 0 Mobility: Can get around without any help Eating: Can plan and prepare his/her own meals Toileting: Can use the toilet without help Personal Hygiene: Can shower or bathe without prompting or help KELLEY Score: 25 /saji/ ROXANA M [place] [employer] MERCHANDISER Ancillary Termite Treater Signed: 12/19/2024 14:02 ROXANA RUFFIN-REBEKA [facility]
--- OUTSIDE RECORDS SUMMARY | 2025-01-01 09:07 | XMS_ITS ---
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 AC Sep 05, 2014 [id number] CHARLOTTE BUSTAMANTE PATIENT EXPRESS SCRIPTS ([id number]) PRESCRIPT ION TMMK ACTIV E PPO Sep 05, 2014 [place] [id number] [phone] DIANNACHARLOTTE Galo PATIENT INGENIO RX PRESCRIPT ION NONE* Sep 05, 2014 NONE [id number] [phone] DIANNACHARLOTTE Galo PATIENT MEDICARE (WNR) MEDICARE (M) PART A Apr 05, 2015 PART A [id number] [phone] DIANNACHARLOTTE Galo PATIENT MEDICARE (WNR) MEDICARE (M) PART B Apr 05, 2015 PART B [id number] [place]TE BUSTAMANTE PATIENT Selected Encounter This section includes the information on record at [place] for the [place]counter. Date/Time Encounter Type Encounter Description Reason Provider Source Nov 06, 2024 02:30 PM OFF/OP EST JANUARY X REQ PHY/QHP PRIMARY CARE/MEDICINE ICD-10-CM D50.9 Iron deficiency anemia, unspecified BLAYNE SANDHU Valerie Encounter Template Text not used by [place] Assessments - Encounter Diagnoses This section includes the primary and secondary diagnoses documented for the Encounter. Date/Time Primary/Secondary Diagnosis Diagnosis Name Provider Source Nov 07, 2024 08:17 AM PRIMARY Iron deficiency anemia, unspecified BLAYNE SANDHU [facility] Nov 07, 2024 08:17 AM SECONDARY Athscl heart disease of [place] coronary artery w/o ang pctrs BLAYNE SANDHU [facility] Nov 07, 2024 08:17 AM SECONDARY Encounter for immunization SANDRO,KAELA Padilla [facility] Nov 07, 2024 08:17 AM SECONDARY Gastro-esophageal reflux disease without esophagitis BLAYNE SANDHU [facility] Nov 07, 2024 08:17 AM SECONDARY Impacted cerumen, right ear BLAYNE RODRIGUEZ [facility] Plan of Treatment: Future Appointments (+ 6 months) and Future Tests (+/- 45 days) The Plan of Treatment section includes future care activities for the patient from all [place] treatmentfacilities. This section includes future appointments and future orders which are active, pending or scheduled. Future Appointments This section includes appointments that were scheduled to occur 6 months from the date of the Encounter, up to a maximum of 20 appointments. The data comes from all [place] treatment facilities. Appointment Date/Time Appointment Type Appointme nt Facility Name Nov 30, 2024 12:30 PM AMBULATORY - REHAB MEDICIN E [facility] Dec 05, 2024 09:00 AM [facility] Dec 19, 2024 02:00 PM [facility]BULAT[facility] - SURGERY [facility] Dec 27, 2024 07:30 AM AMBULATORY - NONE [place] [facility] Feb 11, 2025 08:09 AM AMBULATORY - NONE [place] [facility] Mar 12, 2025 09:30 AM AMBULATORY - NONE [facility] Active, Pending, and Scheduled Orders This section includes a listing of several types of active, pending, and scheduled orders, including clinic medications orders, diagnostic test orders, procedure orders and consult orders; where the start date of the order is 45 days before the date of the Encounter or 45 days after the date of theEncounter. The data comes from all [place] treatment facilities. 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 TRANSFERRIN SERUM Specimen Type: SERUM No comment entered. Ordering Provider: BLAYNE SANDHU Report Released Date/Time: Nov 06, 2024 02:56 PM Reporting Lab: [facility] [address] [facility] [address] Performing Lab: [facility] [address] [facility] [address] TRANSFERRIN 386 mg/dL H 177-329 Nov 06, 2024 03:32 PM [facility] FOLATE PLASMA Specimen Type: PLASM A Comment: [...] Nov 06, 2024 02:56 PM Reporting Lab: [address] [address] Performing Lab: [address] [address] FOLATE 8.2 ng/mL 7.0-31.4 Nov 06, 2024 [...] Nov 06, 2024 02:56 PM Reporting Lab: [address] [address] Performing Lab: [address] [address] IRON 358 ug/dL H 65-175 TIBC 433 mg/dL H 250-425 IRON SATURATION 83 H 20-50 Nov 06, 2024 03:32 PM [facility] FERRITIN PLASMA Specimen Type: PLASM A Comment: [...] Nov 06, 2024 02:56 PM Reporting Lab: [address] [address] Performing Lab: [address] [address] FERRITIN 15.7 ng/mL L 21.8-274.7 Nov 06, 2024 03:32 PM [facility] CBC/PLT BLOOD Specimen Type: BLOOD No comment entered. Ordering Provider: BLAYNE SANDHU Report Released Date/Time: Nov 06, 2024 02:56 PM Reporting Lab: [address] [address] Performing Lab: [address] [address] WBC 8.3 10*3/uL 5.0-10.0 RBC 3.81 10*6/uL [...] Nov 06, 2024 02:56 PM Reporting Lab: [address] [address] Performing Lab: [address] [address] A-LYMPH % 25.2 24.0-44.0 A-MONO % 9.4 H 0.1-6.0 A-GRAN % 60.4 42.0-75.0 A-LYMPH # 2.10 10*3/uL 1.20-3.40 A-MONO # 0.78 10*3/uL H 0.00-0.60 A-GRAN # 5.03 10*3/uL 1.40-6.50 A-BASO % 0.8 0.0-3.0 A-BASO # 0.07 10*3/uL 0.00-0.20 A-EOS % 3.8 0.0-10.0 A-EOS # 0.32 10*3/uL 0.00-0.70 A-IG % 0.4 0.0-0.5 A-IG # 0.03 10*3/uL 0.00-0.06 Nov 06, 2024 03:32 PM [facility] 5 PLASMA Specimen Type: PLASM A [...] Nov 06, 2024 02:56 PM Reporting Lab: [address] [address] Performing Lab: [address] [address] CREATININE 0.93 mg/dL 0.72-1.25 UREA NITROGEN 17 [...] PHOS 105 U/L 40-150 eGFR (CKD-EPI) 86 Vital Signs: All taken on the encounter date This section contains inpatient and outpatient Vital Signs collected on the date of the Encounter. Date/Time Temperature Pulse Blood Pressure Respiratory Rate SP02 Pain Height Weight Body Mass Index Source Nov 06, 2024 02:31 PM 61 101/62 [place] [facility] Nov 06, 2024 02:31 PM 98.8 57 99/61 96 0 69 170 [facility] Immunizations: All administered on the encounter date This section contains immunizations associated to the Encounter. Immunization Series Date Issued Administered By Site Reaction Lot Number CVX Code Drug Compensation Consulting Manager Comment(s) Source INFLUENZA, HIGH-DOSE, TRIVALENT, PF Nov 06, 2024 JOSHUA BARFIELDA E RIGHT DELTO ID [id number] [employer] PASTEUR ADMINISTERE [place], [facility] COVID-19 (MODERNA), MRNA, LNP-S, PF, 50 MCG/0.5 ML (AGES 12+ YEARS) Nov 06, 2024 JOSHUA BARFIELDA E LEFT DELTO ID [id number] [employer] ADMINISTERE [place], [facility] Social History: Smoking Status (Most current) and Tobacco Use (All prior to encounter date) This section includes the most current, and the historical, smoking and tobacco- related health factors from the [place] facility where the Encounter took place. Current Smoking Status This section includes the most current smoking, or tobacco-related health factor, from the [place] facility where the Encounter took place. Date/Time Current Smoking Status Comment Henry ko Nov 06, 2024 02:30 PM VA-TOBACCO USE FOR CASTRO CIGARETTES [facility] Tobacco Use History This section includes a history of the smoking, or tobacco-related health factors, that were collected on or before the date of the Encounter. The data comes from the [place] facility where the Encounter took place. Date/Time Smoking Status/Tobacco Use Comment Mary cid Nov 06, 2024 02:30 PM VA-TOBACCO USE FOR CASTRO CIGARETTES [facility] Jun 11, 2022 08:30 AM VA-TOBACCO FORMER USER [facility] Jun 11, 2022 08:30 AM VA-TOBACCO QUIT 15 YRS OR MORE [facility] Jun 17, 2021 09:30 AM VA-TOBACCO FORMER USER [facility] Jun 17, 2021 09:30 AM VA-TOBACCO QUIT 15 YRS OR MORE [facility] Sep 20, 2019 08:27 AM VA-TOBACCO FORMER USER [facility] Sep 20, 2019 08:27 AM VA-TOBACCO QUIT 15 YRS OR MORE [facility] Feb 17, 2018 08:09 AM V9 LIFETIME NON-USER OF TOBACCO [facility] Feb 16, 2017 10:14 AM V9 QUIT TOBACCO >7 YEARS AGO [facility] Dec 05, 2015 08:59 AM V9 LIFETIME NON-USER OF TOBACCO [facility] January 03, 2015 08:38 AM V9 QUIT TOBACCO >7 YEARS AGO [facility] Dec 31, 2013 09:49 AM V9 QUIT TOBACCO >7 YEARS AGO [facility] Nov 27, 2012 09:16 AM V9 QUIT TOBACCO >7 YEARS AGO [facility] Oct 12, 2011 09:04 AM V9 QUIT TOBACCO >7 YEARS AGO [facility] Radiology Reports: +/- 30 days of the [...] the Encounter. The data comes from all [place] treatment facilities. Date/Time Radiology Report Provider Source Oct 10, 2024 10:00 AM [id number] RADIOLOGY EX AM PERF/INTER BY OTHER FACILITY: ANEUDY BUSTAMANTE [id number] M Exm Date: OCT 10, 2024@10:00 Req Phys: KOUSADANTETA Pat Loc: POLLY PACT ALPHA 1-3 (Req'g Loc) Img Loc: OUTSIDE2 LD RAD Service: Unknown (Case [id number] COMPLETE) [id number] RADIOLOGY EXAM PERF/INTER B(RAD Detailed) CPT:97395 Reason for Study: EXAM PERFORMED BY OUTSIDE FACILITY Clinical History: EXAM PERFORMED BY OUTSIDE FACILITY XR CHEST 1 VW EXAM SENT BY [facility] Report Status: Electronically Filed Date Reported: DEC 17, 2024 Report: Electronically generated report for outside study. Impression: Electronically generated report for outside study. Primary Diagnostic Code: VERIFIED BY: / *ELECTRONICALLY FILED* [facility] Oct 08, 2024 09:[id number] PERFORMED BY OTHER FACILITY: ANEUDY BUSTAMANTE [id number] -1950 M Exm Date: OCT 08, 2024@09:09 Req Phys: NIYAH CALLEJAS Pat Loc: POLLY PACT ALPHA 1-3 (Req'g Loc) Img Loc: OUTSIDE2 LD CT Service: Unknown (Case [id number] COMPLETE) [id number] CT PERFORMED BY OTHER FACIL(CT Detailed) CPT:90610 Reason for Study: EXAM PERFORMED BY OUTSIDE FACILITY Clinical History: EXAM PERFORMED BY OUTSIDE FACILITY CT ANGIOGRAM CHEST EXAM SENT BY [employer] Report Status: Electronically Filed Date Reported: DEC 17, 2024 Report: Electronically generated report for outside study. Impression: Electronically generated report for outside study. Primary Diagnostic Code: VERIFIED BY: / *ELECTRONICALLY FILED* [facility] Oct 08, 2024 08:[id number] PERFORMED BY OTHER FACILITY: ANEUDY BUSTAMANTE [id number] 1950 M Exm Date: OCT 08, 2024@08:00 Req Phys: KOUSA,KITTA Pat Loc: POLLY PACT ALPHA 1-3 (Req'g Loc) Img Loc: OUTSIDE2 LD CT Service: Unknown (Case [id number] COMPLETE) [address] CT PERFORMED BY OTHER FACIL(CT Detailed) CPT:97127 Reason for Study: EXAM PERFORMED BY OUTSIDE FACILITY Clinical History: EXAM PERFORMED BY OUTSIDE FACILITY CT ABDOMEN PELVIS W CONTRAST EXAM SENT BY [facility] Report Status: Electronically Filed Date Reported: DEC 17, 2024 Report: Electronically generated report for outside study. Impression: Electronically generated report for outside study. Primary Diagnostic Code: VERIFIED BY: / *ELECTRONICALLY FILED* [facility] Oct 08, 2024 07:33 AM [id number] RADIOLOGY EX AM PERF/INTER BY OTHER FACILITY: ANEUDY BUSTAMANTE [id number] -1950 M Exm Date: OCT 08, 2024@07:33 Req Phys: KOUSA,KITTA Pat Loc: POLLY PACT ALPHA 1-3 (Req'g Loc) Img Loc: OUTSIDE2 LD RAD Service: Unknown (Case [id number] COMPLETE) 53524 RADIOLOGY EXAM PERF/INTER B(RAD Detailed) CPT:06334 Reason for Study: EXAM PERFORMED BY OUTSIDE FACILITY Clinical History: EXAM PERFORMED BY OUTSIDE FACILITY XR CHEST 1 VW EXAM SENT BY [employer] Report Status: Electronically Filed Date Reported: DEC 17, 2024 Report: Electronically generated report for outside study. Impression: Electronically generated report for outside study. Primary Diagnostic Code: VERIFIED BY: / *ELECTRONICALLY FILED* [facility] Encounter Notes: All associated encounter notes This section contains the clinical notes associated to the Encounter. Date/Time Encounter Note(s) Provider Source Nov 08, 2024 10:09 AM PRIMARY CARE LETTERS: LOCAL TITLE: PC LETTER TEST RESULTS STANDARD TITLE: PRIMARY CARE LETTERS DATE OF NOTE: NOV 08, 2024@10:09 ENTRY DATE: NOV 08, 2024@10:09:57 AUTHOR: BLAYNE SANDHU COSIGNER: URGENCY: STATUS: COMPLETED [facility] [address] [place] [address] Mr. ANEUDY BUSTAMANTE [address] [place] [id number] NOV 08, 2024 Dear Mr. ANEUDY BUSTAMANTE [...] reach us at (toll free number) or [phone] (local number). If you are enrolled in My [employer] Vet, and utilize those services, you [...] APRN family nurse practitioner Patient Record Number [id number] BLAYNE SANDHU [facility] Nov 06, 2024 03:18 PM PRIMARY CARE [...] to audiology for appt today Yes - Ericson/Caregiver verbalized understanding of topics discussed and education provided /heri RODRIGUEZ Signed: 11/06/2024 15:22 BLAYNE RODRIGUEZ [facility] Nov 06, 2024 02:38 PM PRIMARY CARE [...] severe dyspnea in Sep and went to [facility] and they were going to do heartcath but could not because of severe anemia. Was seen by [place] at [place] in 2023 but no FU and would [...] every year Dr. Phillips is gastorenterologist in [place] is going to do an EGD November [...] neuralgia 5. Carcinoma of prostate (SNOMED CT 286434835) 6. Iron deficiency anemia (SNOMED CT 79325994) 7. History of malignant neoplasm of lung (SNOMED CT 988284816) 8. 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 Back pain (SNOMED CT 460528613) 10. Hyperlipidemia (SNOMED CT 66697563) 11. Depression (SNOMED CT 31851623) 12. 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 FAMILY MEDICAL HISTORY: MOTHER: breast ca, UTI, CAD, HTN, HL, PVD FATHER:aug/ MVA, ETOH abuse SIBLINGS: 1 sister: hx [...] COVID-19 (PFIZER), MRNA, LNP-S, * 1 11/24/2020 JUAN ALBERTO* <C> FLU,3 YRS (HISTORICAL) 11/27/2012 [place]* FLU,3 YRS (HISTORICAL) 06/20/2009 [place]* INFLUENZA, HIGH-DOSE, TRIVALENT,* 11/06/2024 [facility]BERTO* NOVEL [id number], ALL FOR* No Site <C> [id number] (HISTORICAL) 12/05/2015 [place]* [id number] (HISTORICAL) 12/31/2013 [place]* PNEUMOCOCCAL CONJUGATE PCV20, PO* C 10/15/2022 [place]* PNEUMOCOCCAL POLYSACCHARIDE PPV23 08/04/2020 [place]* PNEUMOCOCCAL, UNSPECIFIED FORMUL* 12/31/2013 [place]* PNEUMOCOCCAL, UNSPECIFIED FORMUL* 07/10/2007 LocAL MD <C> [...] Correlate with patient history. BLOOD Mar Sep 04 Feb 03 Reference 2024 2023 2022 [...] 393 mg/dL 250 - 425 Sep 08, 2023@:56 PLASMA IRON : 57 L ug/dL 65 [...] (POC): Negative mg/dL Ref: neg Jun 02, 202309:58 URINE .KETONES Ur (POC): Negative mg/dL Ref: neg Jun 02, 2023@09:58 URINE .BLOOD Ur (POC): Negative Ref: neg Jun 02, 2023@09:58 URINE .PH Ur (POC): 5.5 5.0 - 8.5 Jun 02, 202309:58 URINE .PROTEIN Ur (POC): Negative mg/dL Ref: neg Jun 02, 2023@09:58 URINE .NITRITE Ur (POC): Negative Ref: neg Jun 02, 2023@09:58 URINE .LEUKOCYTES Ur (POC): Negative Ref: neg Jun 02, 2023:58 URINE .SG Ur (POC): 1.025 Ref: >=1.000 Feb 03, 202312:37 PLASMA TIBC: 391 mg/dL 250 - 425 Feb 03, 2023@12:37 PLASMA IRON : 63 L ug/dL 65 - 175 Feb 03, 2023@12:37 PLASMA IRON SATURATION: 16 L % 20 - 50 Feb 03, 202312:37 PLASMA B12 VITAMIN: 718 pg/mL 213 - 816 Reporting Lab: [facility] [IA# [id number]] [address] [place] [address] - - - - - - - [...] - - - - - Submitted by: ENDO Date obtained: Dec 12, 2023 The specimen is received in formalin labeled gastric biopsy and consists of five mercado/white fragments of soft tissue measuring 0.1 cm up to 0.3 cm in greatest dimension. The specimen is entirely submitted in one cassette. CPT CODE - 46163, 03786 MICROSCOPIC EXAM/DIAGNOSIS: Stomach, biopsy: -Mild non-specific chronic gastritis. -Alcian yellow negative for Helicobacter organisms. ASSESSMENT/PLAN: Plan reflects shared decision making between vet and provider -dyspnea thought to be 2/2 anemia -iron def anemia cbc,diff, ferritin, iron/tibc, folate, transferrin ferrous sulfate 324mg daily, add vitamin c -PUD-vet [facility] app[facility] [place] [facility] week cont ppi abd H2 finn [facility] per [facility] request -CAD CABG x 3 -Dr. 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 Yes - Ericson/Caregiver verbalized understanding of topics discussed and education [...] Not at all Suicide Screen: C-SSRS Screening [place] Suicide Severity Rating Scale (C-SSRS) screener 1. [...] Not worried about housing near future The Ericson reports the following: Within the past 12 [...] Straight or Heterosexual Toxic Exposure Screening: The Ericson/caregiver was asked if they believe the experienced any toxic exposure(s), such as Airborne Hazards and Open Burn [place], [place] War related exposures, Agent [place], Radiation, contaminated water at [place] or other such exposures, while serving in the [employer]. Ericson/caregiver doesn't know of concerns about Ericson exposure to harmful substances while serving in the [employer]. Printed information was offered and contact information for local resources were provided if requested. No questions at this time Ericson/caregiver was informed of local points of contact. Contact information for local resources: Benefits/Claim Questions: Veterans Benefits Administration (VBA): [place] [facility] Enrollment: Health Benefits: [phone] Ext. [phone] Registry Coordinator: Ext. [phone] Learning Readiness Assessment: Preferred language for discussing health care Yi NEW ASSESSMENT LEARNING BARRIERS Hearing Barrier Comment: [...] 04/23/2022@11:00 I25.10 (ICD-10-CM) Atherosclerotic Heart Disease of [place] Coronary Artery without Angina Pectoris rank: SECONDARY Prov. Narr. - Atherosclerotic occlusive disease ([facility] [id number]) GLAUCOMA: Glaucoma Risk Factors Information: Encounter Diagnosis: 01/27/2024@10:45 H40.1112 (ICD-10-CM) Primary open-angle glaucoma, right eye, moderate stage rank: PRIMARY Prov. Narr. - Open angle glaucoma ([facility] [id number]) Action: No Referral Ordered: The patient declined/refused [...] YEARS) Date Administered: Nov 06, 2024 14:29 Compensation Consulting Manager: [employer] [facility]. Lot: [id number] Exp Date: Feb 16, 2025 [facility]: [id number] Admin Route/Site: INTRAMUSCULAR/LEFT DELTOID Dosage: 0.5mL Vaccine Information Statement(s): COVID-19 MRNA VACCINE (12+ YRS) VIS Jun 21, 2024 (TAJIK) Order By: Policy Administered By: Charo Barfield Vaccine administered without complications. Influenza Immunization: Influenza, High-Dose, Trivalent, Preservative Free (Fluzone-Syringe) Administered: INFLUENZA, HIGH-DOSE, TRIVALENT, PF Date Administered: Nov 06, 2024 14:30 Compensation Consulting Manager: SANOFI PASTEUR Lot: [id number] Exp Date: Mar 04, 2025 [facility]: [id number] Admin Route/Site: INTRAMUSCULAR/RIGHT DELTOID Dosage: 0.5mL Vaccine Information Statement(s): INFLUENZA(FLU) VACC(INACTIVATED OR RECOMBINANT)VIS Apr 10, 2021 (TAJIK) Order By: Policy Administered By: Charo Barfield [...] PRACTICAL NURSE Signed: 11/06/2024 14:31 CHARO BARFIELD [facility]
--- OUTSIDE RECORDS SUMMARY | 2025-01-01 09:07 | XMS_ITS | Encounter Summary ---
Author Name [facility] [place] Address [address] [place] [address] Care Team Providers Care Doll Surgeon Name Role Phone NIYAH CALLEJAS Primary Care [...] A MOTOR MANUF AC Sep 05, 2014 [id number] [phone] CHARLOTTE BUSTAMANTE PATIENT EXPRESS SCRIPTS ([id number]) PRESCRIPT ION TMMK ACTIV E PPO Sep 05, 2014 [place] [id number] [phone] CHARLOTTE BUSTAMANTE PATIENT INGENIO RX PRESCRIPT ION NONE* Sep 05, 2014 NONE [id number] CHARLOTTE BUSTAMANTE PATIENT MEDICARE (WNR) MEDICARE (M) PART A Apr 05, 2015 PART A [id number] [place]TE BUSTAMANTE PATIENT MEDICARE (WNR) MEDICARE (M) PART B Apr 05, 2015 PART B [id number] CHARLOTTE BUSTAMANTE PATIENT Selected Encounter This section includes the information on record at [place] for the Encounter. Date/Time Encounter Type Encounter Description Reason Provider Source Dec 14, 2024 12:53 PM SYNCH AUDIO-ONLY EST LOW 20 TELEPHONE PRIMARY CARE ICD-10-CM D64.9 Anemia, unspecified SHUKRI MURRAY LATHAValerie Encounter Template Text not used by [place] Assessments - Encounter Diagnoses This section includes the primary and secondary diagnoses documented for the Encounter. Date/Time Primary/Secondary Diagnosis Diagnosis Name Provider Source Dec 14, 2024 12:53 PM PRIMARY Anemia, unspecified SHUKRI MURRAY [facility] Dec 14, 2024 12:53 PM SECONDARY Other nonspecific abnormal finding of lung field RODRÍGUEZCloverSHUKRI [facility]OWERS [facility] Dec 14, 2024 12:53 PM SECONDARY Personal history of malignant neoplasm of bronchus and lung SHUKRI MURRAY GABRIEL [facility] Plan of Treatment: Future Appointments (+ 6 months) and Future Tests (+/- 45 days) The Plan of Treatment section includes future care activities for the patient from all [place] [facility] This section includes future appointments and future orders which are active, pending or scheduled. Future Appointments This section includes appointments that were scheduled to occur 6 months from the date of the Encounter, up to a maximum of 20 appointments. The data comes from all [place] treatment [facility]. Appointment Date/Time Appointment Type Appointme nt Facility Name Dec 19, 2024 02:00 PM AMBULATORY - SURGERY [place] [facility] Dec 27, 2024 07:30 AM AM[place]ULATORY - NONE [place] [facility] Feb 11, 2025 08:09 AM AMBULATORY - NONE [place] [facility] Mar 12, 2025 09:30 AM AMBULATORY - NONE [place] [facility] Active, Pending, and Scheduled Orders This section includes a listing of several types of active, pending, and scheduled orders, including clinic medications orders, diagnostic test orders, procedure orders and consult orders; where the start date of the order is 45 days before the date of the Encounter or 45 days after the date of theEncounter. The data comes from all [place] treatment [facility]. Test Date/Time Test Type Test Details Facility Name Dec 05, 2024 09:30 AM Procedure Order CP WIRELES S CAPSULE CP WIRELESS CAPSULE Proc Brim Pouncer's Choice [facility] Dec 19, 2024 12:00 AM Laboratory - Chemi stry Order EGFR + CREAT DATE SENSITIVE [id number] SP [facility] Lab Results: +/- 30 days of [...] Type Comment Dec 27, 2024 07:03 AM [facility] EGFR + CREAT DATE SENSITIVE PLASMA [...] Dec 19, 2024 10:19 PM Reporting Lab: [facility] [address] [place] [id number] Performing Lab: [address] [address] CREATININE 0.99 mg/dL 0.72-1.25 eGFR (CKD-EPI) 80 Social History: Smoking Status (Most current) and Tobacco Use (All prior to encounter date) This section includes the most current, and the historical, smoking and tobacco- related health factors from the [place] facility where the Encounter took place. Current Smoking Status This section includes the most current smoking, or tobacco-related health factor, from the [place] facility where the Encounter took place. Date/Time Current Smoking Status Comment Henry ko Nov 06, 2024 02:30 PM VA-TOBACCO USE FOR CASTRO CIGARETTES [facility] Tobacco Use History This section includes a history of the smoking, or tobacco-related health factors, that were collected on or before the date of the Encounter. The data comes from the [place] facility where the Encounter took place. Date/Time Smoking Status/Tobacco Use Comment F jose roberto Nov 06, 2024 02:30 PM VA-TOBACCO USE FOR CASTRO CIGARETTES [facility] Jun 11, 2022 08:30 AM VA-TOBACCO FORMER USER [facility] Jun 11, 2022 08:30 AM VA-TOBACCO QUIT 15 YRS OR MORE [facility] Jun 17, 2021 09:30 AM VA-TOBACCO FORMER USER [facility] Jun 17, 2021 09:30 AM VA-TOBACCO QUIT 15 YRS OR MORE [facility] Sep 20, 2019 08:27 AM VA-TOBACCO FORMER USER [facility] Sep 20, 2019 08:27 AM VA-TOBACCO QUIT 15 YRS OR MORE [facility] Feb 17, 2018 08:09 AM V9 LIFETIME NON-USER OF TOBACCO [facility] Feb 16, 2017 10:14 AM V9 QUIT TOBACCO >7 YEARS AGO [facility] Dec 05, 2015 08:59 AM V9 LIFETIME NON-USER OF TOBACCO [facility] January 03, 2015 08:38 AM V9 QUIT TOBACCO >7 YEARS AGO [facility] Dec 31, 2013 09:49 AM V9 QUIT TOBACCO >7 YEARS AGO [facility] Nov 27, 2012 09:16 AM V9 QUIT TOBACCO >7 YEARS AGO [facility] Oct 12, 2011 09:04 AM V9 QUIT TOBACCO >7 YEARS AGO [facility] Radiology Reports: +/- 30 days of [...] the Encounter. The data comes from all [place] treatment facilities. Date/Time Radiology Report Provider Source Dec 27, 2024 06:[address] CHEST W/CONTRAS T: ANEUDY BUSTAMANTE [id number] -1950 M Exm Date: DEC 27, 2024@06:47 Req Phys: NIYAH CALLEJAS Pat Loc: POLLY PACT ALPHA 1-3 (Req'g Loc) Img Loc: CT SCAN Service: [place] [address] (Case [id number] COMPLETE)CT CHEST W/CONTRAST (CT Detailed) CPT:65537 Contrast Media : Non-ionic Iodinated Reason for Study: SEE CLINICAL HISTORY Pharmaceutical: IOHEXOL INJ 350MG I/ML 500ML BOTTLE, 80ml Clinical History: REASON FOR SEND OUT: ATTENDING PHYSICIAN NAME: Cancer HISTORY/REASON FOR EXAM: Pt is requesting to have CT chest With contrast due to his h/o lung cancer. Report Status: Verified Date Reported: DEC 31, 2024 Date Verified: DEC 31, 2024 E Commerce Merchant E-Sig: Report: CT CHEST W/CONTRAST HISTORY: SEE CLINICAL HISTORY COMPARISON: 07/19/2022 TECHNIQUE: CT of the chest, with multiplanar reformats, was performed at the local [place] facility. 1150 images were received by the [place] National Teleradiology Program (NTP) for interpretation. RADIATION [...] be helpful. READING PHYSICIAN: Ravindra Navarro MD -[id number] 12/31/2024 15:22 EDT [facility] National Teleradiology Program [phone] (For Medical Practitioner Use Only) Attention Patients / Veterans: If you have questions or concerns about these test results, please contact your ordering provider or primary care team. Primary Diagnostic Code: NO ALERT REQUIRED Primary Interpreting Staff: OUTSIDE SERVICE RADIOLOGY, Staff Physician / RADIOLOGY,OUTSIDE SERVICE [facility] Encounter Notes: All associated encounter notes This section contains the clinical notes associated to the Encounter. Date/Time Encounter Note(s) Provider Source Dec 14, 2024 12:53 PM PRIMARY CARE TELEP LUC ENCOUNTER NOTE: LOCAL TITLE: PC PROVIDER TELEPHONE CARE NOTE STANDARD TITLE: PRIMARY CARE TELEPHONE ENCOUNTER NOTE DATE OF NOTE: DEC 14, 2024@12:53 ENTRY DATE: DEC 14, 2024@12:53:48 AUTHOR: SHUKRI MURRAY EXP COSIGNER: URGENCY: STATUS: COMPLETED I contacted - Patient Patient Phone per record: Phone number for this contact: as above Reason for contact: referral requests ASSESSMENT: Anemia: Is currently undergoing iron infusions w/nonVA GI Dr Valerie Phillips. Dr Phillips was 's GI doctor in [place] from [phone] and was happy to re-establish care when Dr Phillips recently moved his practice to [place]. [place] states he has talked to staff in that office and was told they accept referrals from the [place]. Abnormal findings on diagnostic imaging of lung: [facility] appt 12/27/2024 07:30 X-RAY/CT2/NC. H/O metastatic lung cancer treated w/chemotherapy, states that this was caught early. endorses years of occupational exposures to chemicals including, but not limited to, industrial solvents, lubricants, and hydraulics. 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 states he smoked 3ppd of cigarettes from ages [age] when he stopped. App[place] reports h/o covid infection twice, denies known h/o Vally Fever or TB. Grandson and 91 yr-old [id number] lives in his home and he often cares for his very young great-grandson as well. [place] denies cough, dyspnea, chest pain. PLAN: Anemia: [...] 11-20 minutes /saji/ SHUKRI MURRAY PRIMARY CARE SHAKER OPERATOR Signed: 12/14/2024 13:26 SHUKRI MURRAY [facility]
--- OUTSIDE RECORDS SUMMARY | 2025-01-01 09:07 | XMS_ITS ---
Author Name [facility] [place] Address [address] [place] [address] Care Team Providers Care Cylinder Press Operator Helper Name Role Phone NIYAH CALLEJAS Primary Care [...] A MOTOR MANUF AC Sep 05, 2014 [id number] [phone] CHARLOTTE BUSTAMANTE PATIENT EXPRESS SCRIPTS ([id number]) PRESCRIPT ION TMMK ACTIV E PPO Sep 05, 2014 [place] [id number] [place]TE BUSTAMANTE PATIENT INGENIO RX PRESCRIPT ION NONE* Sep 05, 2014 NONE [id number] CHARLOTTE BUSTAMANTE PATIENT MEDICARE (WNR) MEDICARE (M) PART A Apr 05, 2015 PART A [id number] [phone] CHARLOTTE BUSTAMANTE PATIENT MEDICARE (WNR) MEDICARE (M) PART B Apr 05, 2015 PART B [id number] CHARLOTTE BUSTAMANTE PATIENT Selected Encounter This section includes the information on record at [place] for the Encounter. Date/Time Encounter Type Encounter Description Reason Pro vider Source Dec 25, 2024 04:27 PM Outpatient Encounter ADMIN PAT ACTIVTIES (MASNONCT) IHE Encounter Template Text not used by [place] Plan of Treatment: Future Appointments (+ 6 months) and Future Tests (+/- 45 days) The Plan of Treatment section includes future care activities for the patient from all [place] [facility] This section includes future appointments and future orders which are active, pending or scheduled. Future Appointments This section includes appointments that were scheduled to occur 6 months from the date of the Encounter, up to a maximum of 20 appointments. The data comes from all [place] treatment facilities. Appointment Date/Time Appointment Type Appointme nt Facility Name Dec 27, 2024 07:30 AM [facility] [place] [facility] Feb 11, 2025 08:09 AM AM[place]ULATORY - NONE [place] N[facility] Mar 12, 2025 09:30 AM AM[facility]ORY - NONE [facility] Active, Pending, and Scheduled Orders This section includes a listing of several types of active, pending, and scheduled orders, including clinic medications orders, diagnostic test orders, procedure orders and consult orders; where the start date of the order is 45 days before the date of the Encounter or 45 days after the date of theEncounter. The data comes from all [facility]. Test Date/Time Test Type Test Details Facility Name Dec 05, 2024 09:30 AM Procedure Order CP WIRELES S CAPSULE CP WIRELESS CAPSULE Proc Wilderness Guide's Choice [facility] Dec 19, 2024 12:00 AM Laboratory - Chemi stry Order EGFR + CREAT DATE SENSITIVE [id number] SP [facility] Lab Results: +/- 30 days of the encounter This section includes the Chemistry and Hematology Lab Results on record with [place] for the patient. Radiology Reports and Pathology Reports are provided separately, in subsequent sections. Lab Results This section contains the Chemistry/Hematology Results that were resulted 30 days before or 30 daysafter the date of the Encounter. Date/Time Source Result Type Result - Unit Interpretation Reference Range Specimen Type Comment Dec 27, 2024 07:03 AM [facility] EGFR + CREAT DATE SENSITIVE PLASMA [...] Dec 19, 2024 10:19 PM Reporting Lab: [address] [phone] Performing Lab: [address] [address] CREATININE 0.99 mg/dL 0.72-1.25 eGFR (CKD-EPI) 80 Social History: Smoking Status (Most current) and Tobacco Use (All prior to encounter date) This section includes the most current, and the historical, smoking and tobacco- related health factors from the [place] facility where the Encounter took place. Current Smoking Status This section includes the most current smoking, or tobacco-related health factor, from the [place] facility where the Encounter took place. Date/Time Current Smoking Status Comment Facil ity Sep 08, 2023 09:30 AM VA-TOBACCO NEVER USED [facility] Tobacco Use History This section includes a history of the smoking, or tobacco-related health factors, that were collected on or before the date of the Encounter. The data comes from the [place] facility where the Encounter took place. Date/Time [...] the Encounter. The data comes from all [place] treatment facilities. Date/Time Radiology Report Provider Source Dec 27, 2024 06:[address] CHEST W/CONTRAS T: ANEUDY BUSTAMANTE [id number] -1950 M Exm Date: DEC 27, 2024@06:47 Req Phys: NIYAH CALLEJAS Loc: POLLY PACT ALPHA 1-3 (Req'g Loc) Img Loc: CT SCAN Service: [place] [address] (Case [id number] COMPLETE)CT CHEST W/CONTRAST (CT Detailed) CPT:78287 Contrast Media : Non-ionic Iodinated Reason for Study: SEE CLINICAL HISTORY Pharmaceutical: IOHEXOL INJ 350MG I/ML 500ML BOTTLE, 80ml Clinical History: REASON FOR SEND OUT: ATTENDING PHYSICIAN NAME: Cancer HISTORY/REASON FOR EXAM: Pt is requesting to have CT chest With contrast due to his h/o lung cancer. Report Status: Verified Date Reported: DEC 31, 2024 Date Verified: DEC 31, 2024 Grease Buffer E-Sig: Report: CT CHEST W/CONTRAST HISTORY: SEE CLINICAL HISTORY COMPARISON: 07/19/2022 TECHNIQUE: CT of the chest, with multiplanar reformats, was performed at the local [place] facility. 1150 images were received by the [place] National Teleradiology Program (NTP) for interpretation. RADIATION [...] be helpful. READING PHYSICIAN: Ravindra Navarro MD -[id number] 12/31/2024 15:22 EDT [facility] National Teleradiology Program [phone] (For Medical Practitioner Use Only) Attention Patients [...] Encounter. Date/Time Encounter Note(s) Provider Source Dec 25, 2024 04:27 PM PRIMARY CARE ADMIN ISTRATIVE NOTE: LOCAL TITLE: PC ADMINISTRATIVE NOTE STANDARD TITLE: PRIMARY CARE ADMINISTRATIVE NOTE DATE OF NOTE: DEC 25, 2024@16:27 ENTRY DATE: DEC 25, 2024@16:27:34 AUTHOR: KIMI VEGA COSIGNER: URGENCY: STATUS: COMPLETED Attempted to contact patient but no answer and voicemail was not available. Mailing General Letter of Contact. /saji/ Kimi Vega AMSA Signed: 12/25/2024 16:27 KIMI VEGA [facility] Dec 25, 2024 04:27 PM LETTERS: LOCAL TITLE: PC GENERAL LETTER OF CONTACT STANDARD TITLE: LETTERS DATE OF NOTE: DEC 25, 2024@16:27 ENTRY DATE: DEC 25, 2024@16:27:54 AUTHOR: KIMI VEGA EXP COSIGNER: URGENCY: STATUS: COMPLETED [facility] [address] [place] [address] Mr. ANEUDY BUSTAMANTE [address] [place] [address] Dec Dear : Your Primary Care team has been unable to contact you by telephone regarding your healthcare. Your health and well-being are important to us. Please call us at or , then select option 2 and press 2 again to speak with Telephone care. We look forward to hearing from you very soon. Sincerely yours, Primary Care [facility] KIMI VEGA [facility]
--- OUTSIDE RECORDS SUMMARY | 2025-01-01 09:07 | XMS_ITS ---
Author Name [facility] [place] Organization [place] Address [address] [place] [address] Care Team Providers Care Lobby Porter Name Role Phone NIYAH CALLEJAS Primary Care [...] A MOTOR MANUF AC Sep 05, 2014 [id number] [phone] CHARLOTTE BUSTAMANTE PATIENT EXPRESS SCRIPTS ([id number]) PRESCRIPT ION TMMK ACTIV E PPO Sep 05, 2014 [place] [id number] [id number] [place]OTTE BUSTAMANTE PATIENT INGENIO RX PRESCRIPT ION NONE* Sep 05, 2014 NONE [id number] [phone] [place]TE BUSTAMANTE PATIENT MEDICARE (WNR) MEDICARE (M) PART A Apr 05, 2015 PART A [id number] BUSTAMANTE PATIENT MEDICARE (WNR) MEDICARE (M) PART B Apr 05, 2015 PART B [id number] CHARLOTTE BUSTAMANTE PATIENT Selected Encounter This section includes the information on record at [place] for the Encounter. Date/Time Encounter Type Encounter Description Reason Pro vider Source Dec 18, 2024 03:35 PM Outpatient Encounter ADMIN PAT ACTIVTIES (MASNONCT) IHE Encounter Template Text not used by [place] Plan of Treatment: Future Appointments (+ 6 months) and Future Tests (+/- 45 days) The Plan of Treatment section includes future care activities for the patient from all [place] [facility] This section includes future appointments and future orders which are active, pending or scheduled. Future Appointments This section includes appointments that were scheduled to occur 6 months from the date of the Encounter, up to a maximum of 20 appointments. The data comes from all [place] treatment facilities. Appointment Date/Time Appointment Type Appointme nt Facility Name Dec 19, 2024 02:00 PM [facility] [place] [facility] Dec 27, 2024 07:30 AM AM[place]ORY - NONE [place] [facility] Feb 11, 2025 08:09 AM AM[facility]ULATORY - NONE [place] [facility] Mar 12, 2025 09:30 AM [facility] [place] [facility] Active, Pending, and Scheduled Orders This section includes a listing of several types of active, pending, and scheduled orders, including clinic medications orders, diagnostic test orders, procedure orders and consult orders; where the start date of the order is 45 days before the date of the Encounter or 45 days after the date of theEncounter. The data comes from all [facility]. Test Date/Time Test Type Test Details Facility Name Dec 05, 2024 09:30 AM Procedure Order CP WIRELES S CAPSULE CP WIRELESS CAPSULE Proc Mill Operator Helper's Choice [facility] Dec 19, 2024 12:00 AM Laboratory - Chemi stry Order EGFR + CREAT DATE SENSITIVE [id number] SP [facility] Lab Results: +/- 30 days of [...] Type Comment Dec 27, 2024 07:03 AM [facility] EGFR + CREAT DATE SENSITIVE PLASMA [...] Dec 19, 2024 10:19 PM Reporting Lab: [facility] [address] [facility] [address] Performing Lab: [facility] [address] [facility] [address] CREATININE 0.99 mg/dL 0.72-1.25 eGFR (CKD-EPI) 80 [...] 08, 2023 09:30 AM VA-TOBACCO NEVER USED [facility] Tobacco Use History This section includes a history of the smoking, or tobacco-related health factors, that were collected on or before the date of the Encounter. The data comes from the [place] facility where the Encounter took place. Date/Time Smoking Status/Tobacco Use Comment F acility Dec 12, 2006 07:57 AM V9 LIFETIME NON-US ER OF TOBACCO [facility] Aug 21, 2004 09:09 AM HF V9 CURRENT NON-SMOKER quit smoking 5 yrs ago [facility] May 28, 2003 10:30 AM HF V9 CURRENT NON-SMOKER quit 5 years ago [facility] Jun 23, 2001 08:08 AM HF V9 CURRENT NON-SMOKER quit 1 1/2year ago [facility] Radiology Reports: +/- 30 days of [...] Dec 27, 2024 06:[address] CHEST W/LEONORA T: ANEUDY BUSTAMANTE [id number] -1950 M Exm Date: DEC 27, 2024@06:47 Req Phys: KOSARAYKITSUZIE Pat Loc: POLLY PACT ALPHA 1-3 (Req'g Loc) Img Loc: CT SCAN Service: [place] [address] (Case [id number] COMPLETE)CT CHEST W/CONTRAST (CT Detailed) CPT:61060 Contrast Media : Non-ionic Iodinated Reason for Study: SEE CLINICAL HISTORY Pharmaceutical: IOHEXOL INJ 350MG I/ML 500ML BOTTLE, 80ml Clinical History: REASON FOR SEND OUT: ATTENDING PHYSICIAN NAME: Cancer HISTORY/REASON FOR EXAM: Pt is requesting to have CT chest With contrast due to his h/o lung cancer. Report Status: Verified Date Reported: DEC 31, 2024 Date Verified: DEC 31, 2024 Show Worker E-Sig: Report: CT CHEST W/CONTRAST HISTORY: SEE CLINICAL HISTORY COMPARISON: 07/19/2022 TECHNIQUE: CT of the chest, with multiplanar reformats, was performed at the local [place] facility. 1150 images were received by the [place] National Teleradiology Program (NTP) for interpretation. RADIATION [...] be helpful. READING PHYSICIAN: Ravindra Navarro MD -[id number] 12/31/2024 15:22 EDT [facility] [employer] Program [phone] (For Medical Practitioner Use Only) Attention Patients / Veterans: If you have questions or concerns about these test results, please contact your ordering provider or primary care team. Primary Diagnostic Code: NO ALERT REQUIRED Primary Interpreting Staff: OUTSIDE SERVICE RADIOLOGY, Staff Physician / RADIOLOGY,OUTSIDE SERVICE [facility] Encounter Notes: All associated encounter notes This section contains the clinical notes associated to the Encounter. Date/Time Encounter Note(s) Provider Source Dec 18, 2024 03:38 PM ADDENDUM: LOCAL TITLE: Addendum STANDARD TITLE: ADDENDUM DATE OF NOTE: DEC 18, 2024@15:38:53 ENTRY DATE: DEC 18, 2024@15:38:55 AUTHOR: DEBBIE JONESIGNER: URGENCY: STATUS: COMPLETED Please contact pt and scheduled per the instructions provided in the consult. Thanks. [place] [facility] /saji/ DEBBIE JONES Advanced Coroner/Medical Examiner Signed: 12/18/2024 15:39 Receipt Acknowledged By: 12/18/2024 16:01 /es/ MICHELLE LUGO ADVANCED MSA --- Original Document --- 12/18/24 CLERICAL/ADMIN NOTE: please contact pt to sched CP WIRELESS CAPSULE /es/ MICHELLE Vivienne LUGO ADVANCED MSA Signed: 12/18/2024 15:36 Receipt Acknowledged By: 12/18/2024 15:38 /heri JONES Advanced Coroner/Medical Examiner DEBBIE JONESREBEKA [facility] Dec 18, 2024 03:35 PM ADMINISTRATIVE NOT E: LOCAL TITLE: CLERICAL/ADMIN NOTE STANDARD TITLE: ADMINISTRATIVE NOTE DATE OF NOTE: DEC 18, 2024@15:35 ENTRY DATE: DEC 18, 2024@15:36 AUTHOR: SANFORD LUGOIGNER: URGENCY: STATUS: COMPLETED CLERICAL/ADMIN NOTE Has ADDENDA please contact pt to sched CP WIRELESS CAPSULE /es/ MICHELLE S ST SAL ADVANCED MSA Signed: 12/18/2024 15:36 Receipt Acknowledged By: 12/18/2024 15:38 /saji/ DEBBIE JONES Advanced Coroner/Medical Examiner 12/18/2024 ADDENDUM STATUS: COMPLETED Please contact pt and scheduled per the instructions provided in the consult. Thanks. [place] [facility] /saji/ DEBBIE JONES Advanced Coroner/Medical Examiner Signed: 12/18/2024 15:39 Receipt Acknowledged By: * AWAITING SIGNATURE * MICHELLE LUGO [facility]
--- OUTSIDE RECORDS SUMMARY | 2025-01-01 09:07 | XMS_ITS ---
Author Name [facility] [place] [facility] [place] Address [address] [place] [address] Care Team Providers Care Neon Technician Name Role Phone NIYAH CALLEJAS Primary Care [...] A MOTOR MANUF AC Sep 05, 2014 [id number] [place]UST[place] PATIENT EXPRESS SCRIPTS ([id number]) PRESCRIPT ION TMMK ACTIV E PPO Sep 05, 2014 [place] [id number] [place] PATIENT INGENIO RX PRESCRIPT ION NONE* Sep 05, 2014 NONE [id number] [place] PATIENT MEDICARE (WNR) MEDICARE (M) PART A Apr 05, 2015 PART A [id number] [phone] [place] PATIENT MEDICARE (WNR) MEDICARE (M) PART B Apr 05, 2015 PART B [id number] [place] PATIENT Selected Encounter This section includes the information on record at [place] for the Encounter. Date/Time Encounter Type Encounter Description Reason Pro vider Source Nov 26, 2024 09:17 AM Outpatient Encounter ADMIN PAT ACTIVTIES (MASNONCT) IHE Encounter Template Text not used by [place] Plan of Treatment: Future Appointments (+ 6 months) and Future Tests (+/- 45 days) The Plan of Treatment section includes future care activities for the patient from all [place] [facility]. This section includes future appointments and future orders which are active, pending or scheduled. Future Appointments This section includes appointments that were scheduled to occur 6 months from the date of the Encounter, up to a maximum of 20 appointments. The data comes from all [facility]. Appointment Date/Time Appointment Type Appointme nt Facility Name Nov 30, 2024 12:30 PM AMBULATORY - REHAB MEDICIN E [facility] Dec 05, 2024 09:00 AM [facility] Dec 19, 2024 02:00 PM [facility] Dec 27, 2024 07:30 AM [facility] [place] [facility] Feb 11, 2025 08:09 AM [facility] - [facility]ONE [place] [facility] Mar 12, 2025 09:30 AM [facility] - [facility] [place] [facility] Active, Pending, and Scheduled Orders This section includes a listing of several types of active, pending, and scheduled orders, including clinic medications orders, diagnostic test orders, procedure orders and consult orders; where the start date of the order is 45 days before the date of the Encounter or 45 days after the date of theEncounter. The data comes from all [facility]. Test Date/Time Test Type Test Details Facility Name Dec 05, 2024 09:30 AM Procedure Order CP WIRELES S CAPSULE CP WIRELESS CAPSULE Proc Assessment Specialist's Choice [facility] Dec 19, 2024 12:00 AM Laboratory - Chemi stry Order EGFR + CREAT DATE SENSITIVE [id number] SP [facility] Lab Results: +/- 30 days of the encounter This section includes the Chemistry and Hematology Lab Results on record with [place] for the patient. Radiology Reports and Pathology Reports are provided separately, in subsequent sections. Lab Results This section contains the Chemistry/Hematology Results that were resulted 30 days before or 30 daysafter the date of the Encounter. Date/Time Source Result Type Result - Unit Interpretation Reference Range Specimen Type Comment Nov 06, 2024 03:32 PM [facility] TRANSFERRIN SERUM Specimen Type: SERUM No comment entered. Ordering Provider: BLAYNE SANDHU Report Released Date/Time: Nov 06, 2024 02:56 PM Reporting Lab: [facility] [address] [facility] [address] Performing Lab: [facility] [address] [facility] [address] TRANSFERRIN 386 mg/dL H 177-329 Nov 06, 2024 03:32 PM [facility] FOLATE PLASMA Specimen Type: PLASM A Comment: [...] Nov 06, 2024 02:56 PM Reporting Lab: [address] [address] Performing Lab: [address] [address] FOLATE 8.2 ng/mL 7.0-31.4 Nov 06, 2024 03:32 PM [facility] IRON/TIBC PLASMA Specimen Type: PLASM A [...] 2024 02:56 PM Reporting Lab: [facility] [address] [place] [address] Performing Lab: [address] [address] IRON 358 ug/dL H 65-175 TIBC 433 mg/dL H 250-425 IRON SATURATION 83 H 20-50 Nov 06, 2024 03:32 PM [facility] FERRITIN PLASMA Specimen Type: PLASM A [...] Nov 06, 2024 02:56 PM Reporting Lab: [address] [address] Performing Lab: [address] [address] FERRITIN 15.7 ng/mL L 21.8-274.7 Nov 06, 2024 03:32 PM [facility] CBC/PLT BLOOD Specimen Type: BLOOD No comment entered. Ordering Provider: BLAYNE SANDHU Report Released Date/Time: Nov 06, 2024 02:56 PM Reporting Lab: [address] [address] Performing Lab: [address] [address] WBC 8.3 10*3/uL 5.0-10.0 RBC 3.81 10*6/uL L 4.6-6.2 HGB 9.1 g/dL L 14.0-18.0 HCT 30.9 L 42.0-52.0 MCV 81.1 fL 80.0-94.0 MCH 23.9 pg L 27.0-31.0 MCHC 29.4 g/dL L 32.0-36.0 PLT 215 10*3/uL 150-450 MPV 9.7 fL 9.0-13.1 RDW 19.0 H 11.0-16.0 NRBC 0.0 0.0-0.0 Nov 06, 2024 03:32 PM [facility] PANEL 5 PLASMA Specimen Type: PLASM [...] Nov 06, 2024 02:56 PM Reporting Lab: [address] [address] Performing Lab: [address] [address] CREATININE 0.93 mg/dL 0.72-1.25 UREA NITROGEN 17 [...] (CKD-EPI) 86 Nov 06, 2024 03:32 PM [facility] AUTOMATED DIFF BLOOD Specimen Type: BLOOD No comment entered. Ordering Provider: BLAYNE SANDHU Report Released Date/Time: Nov 06, 2024 02:56 PM Reporting Lab: [address] [address] Performing Lab: [address] [address] A-LYMPH % 25.2 24.0-44.0 A-MONO % 9.4 [...] and tobacco- related health factors from the [facility] where the Encounter took place. Current Smoking Status This section includes the most current smoking, or tobacco-related health factor, from the [facility] facility where the [facility] took [facility]. Date/Time Current Smoking Status Comment [place] ko Sep 08, 2023 09:30 AM VA-TOBACCO NEVER USED [facility] Tobacco Use History This section includes a history of the smoking, or tobacco-related health factors, that were collected on or before the date of the Encounter. The data comes from the [place] facility where the Encounter took place. Date/Time Smoking Status/Tobacco Use Comment F acility Dec 12, 2006 07:57 AM V9 LIFETIME NON-US ER OF TOBACCO [facility] Aug 21, 2004 09:09 AM HF V9 CURRENT NON-SMOKER quit smoking 5 yrs ago [facility] May 28, 2003 10:30 AM HF V9 CURRENT NON-SMOKER quit 5 years ago [facility] Jun 23, 2001 08:08 AM HF V9 CURRENT NON-SMOKER quit 1 1/2year ago [facility] Encounter Notes: All associated encounter notes [...] Has ADDENDA Caller Verification Call Back Number: [phone] Emergency Contact: MARI BUSTAMANTE Emergency Contact Caller/Recipient Relation to Patient: Other If Other Describe Relation to Patient: Caller Name: Mari Administrative Administrative Note Reason: Other Administrative Note Comments: Pt's called regarding Ct scan, stated is supposed to with contrast, requesting call back please. IMPORTANT: This note was created by [facility] staff. Please do not alert the staff member by adding them as a signer for future communications. Alerts are not monitored by this user. /saji/ GARFIELD JACKSON Signed: 11/26/2024 09:17 Receipt Acknowledged By: 11/26/2024 10:12 /saji/ TARIK ANDREWS,RN PC LANGUAGES AND LITERATURE INSTRUCTOR 11/26/2024 ADDENDUM STATUS: COMPLETED See addendum on Clerical/admin note dated 11/13/24 /saji/ TARIK ANDREWS,RN PC LANGUAGES AND LITERATURE INSTRUCTOR Signed: 11/26/2024 10:13 GARFIELD JACKSON-REBEKA [facility]
--- OUTSIDE RECORDS SUMMARY | 2025-01-01 09:07 | XMS_ITS ---
Author Name [facility] [place] [facility] [place] [facility] [place] Address [address] [place] [address] Care Team Providers Care Lead Vulcanizing Operator Name Role Phone NIYAH CALLEJAS Primary [...] A MOTOR MANUF AC Sep 05, 2014 [id number] [place] PATIENT EXPRESS SCRIPTS ([id number]) PRESCRIPT ION TMMK ACTIV E PPO Sep 05, 2014 [place] [id number] [place] PATIENT INGENIO RX PRESCRIPT ION NONE* Sep 05, 2014 NONE [id number] [place] PATIENT MEDICARE (WNR) MEDICARE (M) PART A Apr 05, 2015 PART A [id number] [id number] [place] PATIENT MEDICARE (WNR) MEDICARE (M) PART B Apr 05, 2015 PART B [id number] [place] PATIENT Selected Encounter This section includes the information on record at [place] for the Encounter. Date/Time Encounter Type Encounter Description Reason Pro vider Source Nov 06, 2024 03:21 PM Outpatient Encounter ADMIN PAT ACTIVTIES (MASNONCT) IHE Encounter Template Text not used by [place] Plan of Treatment: Future Appointments (+ 6 months) and Future Tests (+/- 45 days) The Plan of Treatment section includes future care activities for the patient [facility] [place] [facility] This section includes future appointments and future orders which are active, pending or scheduled. Future Appointments This section includes appointments that were scheduled to occur 6 months from the date of the Encounter, up to a maximum of 20 appointments. The data comes from all [facility]. Appointment Date/Time Appointment Type Appointme nt Facility Name Nov 30, 2024 12:30 PM AMBULATORY - REHAB MEDICIN E [facility] Dec 05, 2024 09:00 AM [facility] Dec 19, 2024 02:00 PM [facility] [facility] Dec 27, 2024 07:30 AM [facility] [place] [facility] Feb 11, 2025 08:09 AM [facility] - [facility] [place] [facility] Mar 12, 2025 09:30 AM [facility]ORY - NONE [place] [facility] Active, Pending, and Scheduled Orders This section includes a listing of several types of active, pending, and scheduled orders, including clinic medications orders, diagnostic test orders, procedure orders and consult orders; where the start date of the order is 45 days before the date of the Encounter or 45 days after the date of theEncounter. The data comes from all [facility]. Test Date/Time Test Type Test Details Facility Name Dec 05, 2024 09:30 AM Procedure Order CP WIRELES S CAPSULE CP WIRELESS CAPSULE Proc Stock Feeder's Choice [facility] Dec 19, 2024 12:00 AM Laboratory - Chemi stry Order EGFR + CREAT DATE SENSITIVE [id number] [facility] Lab Results: +/- 30 days [...] Type Comment Nov 06, 2024 03:32 PM [facility]N TRANSFERRIN SERUM Specimen Type: SERUM No comment entered. Ordering Provider: BLAYNE SANDHU Report Released Date/Time: Nov 06, 2024 02:56 PM Reporting Lab: [facility] [address] [facility] [address] Performing Lab: [facility] [address] [facility] [address] TRANSFERRIN 386 mg/dL H 177-329 Nov 06, 2024 03:32 PM [facility] FOLATE PLASMA Specimen Type: PLASM A Comment: [...] Nov 06, 2024 02:56 PM Reporting Lab: [address] [address] Performing Lab: [address] [address] FOLATE 8.2 ng/mL 7.0-31.4 Nov 06, 2024 03:32 PM [facility] IRON/TIBC PLASMA Specimen Type: PLASM A [...] Nov 06, 2024 02:56 PM Reporting Lab: [facility] [address] [place] [address] Performing Lab: [address] [address] IRON 358 ug/dL H 65-175 TIBC 433 mg/dL H 250-425 IRON SATURATION 83 H 20-50 Nov 06, 2024 03:32 PM [facility] FERRITIN PLASMA Specimen Type: PLASM A [...] Nov 06, 2024 02:56 PM Reporting Lab: [address] [address] Performing Lab: [place] [id number] FERRITIN 15.7 ng/mL L 21.8-274.7 Nov 06, 2024 03:32 PM [facility] CBC/PLT BLOOD Specimen Type: BLOOD No comment entered. Ordering Provider: BLAYNE SANDHU Report Released Date/Time: Nov 06, 2024 02:56 PM Reporting Lab: [address] [address] Performing Lab: [address] [address] WBC 8.3 10*3/uL 5.0-10.0 RBC 3.81 10*6/uL L 4.6-6.2 HGB 9.1 g/dL L 14.0-18.0 HCT 30.9 L 42.0-52.0 MCV 81.1 fL 80.0-94.0 MCH 23.9 pg L 27.0-31.0 MCHC 29.4 g/dL L 32.0-36.0 PLT 215 10*3/uL 150-450 MPV 9.7 fL 9.0-13.1 RDW 19.0 H 11.0-16.0 NRBC 0.0 0.0-0.0 Nov 06, 2024 03:32 PM [facility] AUTOMATED DIFF BLOOD Specimen Type: BLOOD No comment entered. Ordering Provider: BLAYNE SANDHU Report Released Date/Time: Nov 06, 2024 02:56 PM Reporting Lab: [address] [address] Performing Lab: [address] [address] A-LYMPH % 25.2 24.0-44.0 A-MONO % 9.4 H 0.1-6.0 A-GRAN % 60.4 42.0-75.0 A-LYMPH # 2.10 10*3/uL 1.20-3.40 A-MONO # 0.78 10*3/uL H 0.00-0.60 A-GRAN # 5.03 10*3/uL 1.40-6.50 A-BASO % 0.8 0.0-3.0 A-BASO # 0.07 10*3/uL 0.00-0.20 A-EOS % 3.8 0.0-10.0 A-EOS # 0.32 10*3/uL 0.00-0.70 A-IG % 0.4 0.0-0.5 A-IG # 0.03 10*3/uL 0.00-0.06 Nov 06, 2024 03:32 PM [facility] PLASMA Specimen Type: PLASM [...] Nov 06, 2024 02:56 PM Reporting Lab: [address] [address] Performing Lab: [address] [address] CREATININE 0.93 mg/dL 0.72-1.25 UREA NITROGEN 17 [...] 08, 2023 09:30 AM VA-TOBACCO NEVER USED [facility] Tobacco Use History This section includes a history of the smoking, or tobacco-related health factors, that were collected on or before the date of the Encounter. The data comes from the [place] facility where the Encounter took place. Date/Time Smoking Status/Tobacco Use Comment F acility Dec 12, 2006 07:57 AM V9 LIFETIME NON-US ER OF TOBACCO [facility] Aug 21, 2004 09:09 AM HF V9 CURRENT NON-SMOKER quit smoking 5 yrs ago [facility] May 28, 2003 10:30 AM HF V9 CURRENT NON-SMOKER quit 5 years ago [facility] Jun 23, 2001 08:08 AM HF V9 CURRENT NON-SMOKER quit 1 1/2year ago [facility] Radiology Reports: +/- 30 days [...] Provider Source Oct 10, 2024 10:00 AM [id number] RADIOLOGY EX AM PERF/INTER BY OTHER FACILITY: ANEUDY BUSTAMANTE [id number] -1950 M Exm Date: OCT 10, 2024@10:00 Req Phys: KOUSA,KITTA Pat Loc: POLLY PACT ALPHA 1-3 (Req'g Loc) Img Loc: OUTSIDE2 LD RAD Service: Unknown (Case [id number] COMPLETE) [id number] RADIOLOGY EXAM PERF/INTER B(RAD Detailed) CPT:55119 Reason for Study: EXAM PERFORMED BY OUTSIDE FACILITY Clinical History: EXAM PERFORMED BY OUTSIDE FACILITY XR CHEST 1 VW EXAM SENT BY [facility] Report Status: Electronically Filed Date Reported: DEC 17, 2024 Report: Electronically generated report for outside study. Impression: Electronically generated report for outside study. Primary Diagnostic Code: VERIFIED BY: / *ELECTRONICALLY FILED* [facility] Oct 08, 2024 09:[id number] PERFORMED BY OTHER FACILITY: ANEUDY BUSTAMANTE [id number] -1950 M Exm Date: OCT 08, 2024@09:09 Req Phys: KOUSA,KITTA Pat Loc: POLLY PACT ALPHA 1-3 (Req'g Loc) Img Loc: OUTSIDE2 LD CT Service: Unknown (Case [id number] COMPLETE) [id number] CT PERFORMED BY OTHER FACIL(CT Detailed) CPT:31724 Reason for Study: EXAM PERFORMED BY OUTSIDE FACILITY Clinical History: EXAM PERFORMED BY OUTSIDE FACILITY CT ANGIOGRAM CHEST EXAM SENT BY [facility] Report Status: Electronically Filed Date Reported: DEC 17, 2024 Report: Electronically generated report for outside study. Impression: Electronically generated report for outside study. Primary Diagnostic Code: VERIFIED BY: / *ELECTRONICALLY FILED* [facility] Oct 08, 2024 08:[id number] PERFORMED BY OTHER FACILITY: ANEUDY BUSTAMANTE [id number] -1950 M Exm Date: OCT 08, 2024@08:00 Req Phys: KOUSA,KITTA Pat Loc: POLLY PACT ALPHA 1-3 (Req'g Loc) Img Loc: OUTSIDE2 LD CT Service: Unknown (Case [id number] COMPLETE) 23[address] CT PERFORMED BY OTHER FACIL(CT Detailed) CPT:09574 Reason for Study: EXAM PERFORMED BY OUTSIDE FACILITY Clinical History: EXAM PERFORMED BY OUTSIDE FACILITY CT ABDOMEN PELVIS W [facility] Report Status: Electronically Filed Date Reported: DEC 17, 2024 Report: Electronically generated report for outside study. Impression: Electronically generated report for outside study. Primary Diagnostic Code: VERIFIED BY: / *ELECTRONICALLY FILED* [facility] Oct 08, 2024 07:33 AM [id number] RADIOLOGY EX AM PERF/INTER BY OTHER FACILITY: ANEUDY BUSTAMANTE [id number] -1950 M Exm Date: OCT 08, 2024@07:33 Req Phys: KOUSA,KITTA Pat Loc: POLLY PACT ALPHA 1-3 (Req'g Loc) Img Loc: OUTSIDE2 LD RAD Service: Unknown (Case [id number] COMPLETE) [id number] RADIOLOGY EXAM PERF/INTER B(RAD Detailed) CPT:18607 Reason for Study: EXAM PERFORMED BY OUTSIDE FACILITY Clinical History: EXAM PERFORMED BY OUTSIDE FACILITY XR CHEST 1 VW EXAM SENT BY [facility] Report Status: Electronically Filed Date Reported: DEC 17, 2024 Report: Electronically generated report for outside study. Impression: Electronically generated report for outside study. Primary Diagnostic Code: VERIFIED BY: / *ELECTRONICALLY FILED* [facility] Encounter Notes: All associated encounter notes This section contains the clinical notes associated to the Encounter. Date/Time Encounter Note(s) Provider Source Nov 06, 2024 03:21 PM ADMINISTRATIVE NOT E: LOCAL TITLE: CLERICAL/ADMIN NOTE STANDARD TITLE: ADMINISTRATIVE NOTE DATE OF NOTE: NOV 06, 2024@15:21 ENTRY DATE: NOV 06, 2024@15:21:47 AUTHOR: BENITO CHOU EXP COSIGNER: URGENCY: STATUS: COMPLETED Date/Time: Tuesday 12:30 PM [facility] [place] Clinic: POLLY COHEN-2 LD scheduled with pt at front office attendant /saji/ BENITO CHOU [employer] Signed: 11/06/2024 15:22 [facility]
--- OUTSIDE RECORDS SUMMARY | 2025-01-01 09:07 | XMS_ITS | Encounter Summary ---
Author Name [facility] [place] Address [address] [place] [address] Care Team Providers Care Ultrasound Sonographer Name Role Phone NIYAH CALLEJAS Primary Care [...] A MOTOR MANUF AC Sep 05, 2014 [id number] [phone] CHARLOT[place] BUSTAMANTE PATIENT EXPRESS SCRIPTS ([id number]) PRESCRIPT ION TMMK ACTIV E PPO Sep 05, 2014 [place] TOAAN13 [id number] [place] BUSTAMANTE PATIENT INGENIO RX PRESCRIPT ION NONE* Sep 05, 2014 NONE [id number] [place] BUSTAMANTE PATIENT MEDICARE (WNR) MEDICARE (M) PART A Apr 05, 2015 PART A [id number] [place] BUSTAMANTE PATIENT MEDICARE (WNR) MEDICARE (M) PART B Apr 05, 2015 PART B [id number] [place] BUSTAMANTE PATIENT Selected Encounter This [...] activities for the patient from all [place] [facility] This section includes future appointments and future orders which are active, pending or scheduled. Future Appointments This section includes appointments that were scheduled to occur 6 months from the date of the Encounter, up to a maximum of 20 appointments. The data comes from all [facility]. Appointment Date/Time Appointment Type Appointme nt Facility Name Nov 06, 2024 02:30 PM [place]ORY - NONE [place] [facility]3] Nov 30, 2024 12:30 PM AMBULATORY - REHAB MEDICIN E [facility] Dec 05, 2024 09:00 AM AMBULATORY - MEDICINE [facility] Dec 19, 2024 02:00 PM AMBULATORY - SURGERY [place] [facility] Dec 27, 2024 07:30 AM [facility] Feb 11, 2025 08:09 AM [place]ORY - [place]ONE [place] Mar 12, 2025 09:30 AM [facility] - [facility]ONE [place] Active, Pending, and Scheduled Orders This [...] comes from all [facility]. Test Date/Time Test Type Test Details Facility Name Dec 05, 2024 09:30 AM Procedure Order CP WIRELES S CAPSULE CP WIRELESS CAPSULE Proc Icer Air Conditioning's Choice [facility] Lab Results: +/- 30 days of [...] Type Comment Nov 06, 2024 03:32 PM [facility] WN TRANSFERRIN SERUM Specimen Type: SERUM No comment entered. Ordering Provider: BLAYNE SANDHU Report Released Date/Time: Nov 06, 2024 02:56 PM Reporting Lab: [facility] [address] [facility] [address] Performing Lab: [facility] [address] [place] [address] TRANSFERRIN 386 mg/dL H 177-329 Nov 06, 2024 03:32 PM [facility] FOLATE PLASMA Specimen Type: PLASM A [...] Nov 06, 2024 02:56 PM Reporting Lab: [address] [address] Performing Lab: [address] [address] FOLATE 8.2 ng/mL 7.0-31.4 Nov 06, 2024 03:32 PM [facility] IRON/TIBC PLASMA Specimen Type: PLASM A [...] Nov 06, 2024 02:56 PM Reporting Lab: [address] [address] Performing Lab: [address] [address] IRON 358 ug/dL H 65-175 TIBC 433 mg/dL H 250-425 IRON SATURATION 83 H 20-50 Nov 06, 2024 03:32 PM [facility] FERRITIN PLASMA Specimen Type: PLASM A [...] Nov 06, 2024 02:56 PM Reporting Lab: [address] [address] Performing Lab: [address] [address] FERRITIN 15.7 ng/mL L 21.8-274.7 Nov 06, 2024 03:32 PM [facility] CBC/PLT BLOOD Specimen Type: BLOOD No comment entered. Ordering Provider: BLAYNE SANDHU Report Released Date/Time: Nov 06, 2024 02:56 PM Reporting Lab: [address] [address] Performing Lab: [address] [address] WBC 8.3 10*3/uL 5.0-10.0 RBC 3.81 10*6/uL L 4.6-6.2 HGB 9.1 g/dL L 14.0-18.0 HCT 30.9 L 42.0-52.0 MCV 81.1 fL 80.0-94.0 MCH 23.9 pg L 27.0-31.0 MCHC 29.4 g/dL L 32.0-36.0 PLT 215 10*3/uL 150-450 MPV 9.7 fL 9.0-13.1 RDW 19.0 H 11.0-16.0 NRBC 0.0 0.0-0.0 Nov 06, 2024 03:32 PM [facility] PANEL 5 PLASMA Specimen Type: PLASM [...] Nov 06, 2024 02:56 PM Reporting Lab: [address] [address] Performing Lab: [address] [address] CREATININE 0.93 mg/dL 0.72-1.25 UREA NITROGEN 17 [...] 86 Nov 06, 2024 03:32 PM [facility] AUTOMATED DIFF BLOOD Specimen Type: BLOOD No comment entered. Ordering Provider: BLAYEN SANDHU Report Released Date/Time: Nov 06, 2024 02:56 PM Reporting Lab: [address] [address] Performing Lab: [address] [address] A-LYMPH % 25.2 24.0-44.0 A-MONO % 9.4 [...] Date/Time Current Smoking Status Comment Facil ity Jun 11, 2022 08:30 AM VA-TOBACCO FORMER USER [facility] Tobacco Use History This section includes a history of the smoking, or tobacco-related health factors, that were collected on or before the date of the Encounter. The data comes from the [place] facility where the Encounter took place. Date/Time Smoking Status/Tobacco Use Comment Mary acility Jun 11, 2022 08:30 AM VA-TOBACCO QUIT 15 YRS OR MORE [facility] Jun 17, 2021 09:30 AM VA-TOBACCO FORMER USER [facility] Jun 17, 2021 09:30 AM VA-TOBACCO QUIT 15 YRS OR MORE [facility] Sep 20, 2019 08:27 AM VA-TOBACCO FORMER USER [facility] Sep 20, 2019 08:27 AM VA-TOBACCO QUIT 15 YRS OR MORE [facility] Feb 17, 2018 08:09 AM V9 LIFETIME NON-USER OF TOBACCO [facility] Feb 16, 2017 10:14 AM V9 QUIT TOBACCO >7 YEARS AGO [facility] Dec 05, 2015 08:59 AM V9 LIFETIME NON-USER OF TOBACCO [facility] January 03, 2015 08:38 AM V9 QUIT TOBACCO >7 YEARS AGO [facility] Dec 31, 2013 09:49 AM V9 QUIT TOBACCO >7 YEARS AGO [facility] Nov 27, 2012 09:16 AM V9 QUIT TOBACCO >7 YEARS AGO [facility] Oct 12, 2011 09:04 AM V9 QUIT TOBACCO >7 YEARS AGO [facility] Radiology Reports: +/- 30 days of [...] the Encounter. The data comes from all [facility] facilities. Date/Time Radiology Report Provider Source Oct 10, 2024 10:00 AM [id number] RADIOLOGY EX AM PERF/INTER BY OTHER FACILITY: ANEUDY BUSTAMANTE [id number] -1950 M Exm Date: OCT 10, 2024@10:00 Req Phys: KOUSA,KITTA Pat Loc: POLLY PACT ALPHA 1-3 (Req'g Loc) Img Loc: OUTSIDE2 LD RAD Service: Unknown (Case [id number] COMPLETE) [id number] RADIOLOGY EXAM PERF/INTER B(RAD Detailed) CPT:45169 Reason for Study: EXAM PERFORMED BY OUTSIDE FACILITY Clinical History: EXAM PERFORMED BY OUTSIDE FACILITY XR CHEST 1 VW EXAM SENT BY [facility] Report Status: Electronically Filed Date Reported: DEC 17, 2024 Report: Electronically generated report for outside study. Impression: Electronically generated report for outside study. Primary Diagnostic Code: VERIFIED BY: / *ELECTRONICALLY FILED* [facility] Oct 08, 2024 09:[address] PERFORMED BY OTHER FACILITY: ANEUDY BUSTAMANTE [id number] -1950 M Exm Date: OCT 08, 2024@09:09 Req Phys: KOUSA,KITTA Pat Loc: POLLY PACT ALPHA 1-3 (Req'g Loc) Img Loc: OUTSIDE2 LD CT Service: Unknown (Case [id number] COMPLETE) 55[address] CT PERFORMED BY OTHER FACIL(CT Detailed) CPT:74307 Reason for Study: EXAM PERFORMED BY OUTSIDE FACILITY Clinical History: EXAM PERFORMED BY OUTSIDE FACILITY CT ANGIOGRAM CHEST EXAM SENT BY [facility] Report Status: Electronically Filed Date Reported: DEC 17, 2024 Report: Electronically generated report for outside study. Impression: Electronically generated report for outside study. Primary Diagnostic Code: VERIFIED BY: / *ELECTRONICALLY FILED* [facility] Oct 08, 2024 08:[address] PERFORMED BY OTHER FACILITY: ANEUDY BUSTAMANTE [id number] -1950 M Exm Date: OCT 08, 2024@08:00 Req Phys: KOUSA,KITTA Pat Loc: POLLY PACT ALPHA 1-3 (Req'g Loc) Img Loc: OUTSIDE2 LD CT Service: Unknown (Case [id number] COMPLETE) [address] CT PERFORMED BY OTHER FACIL(CT Detailed) CPT:84689 Reason for Study: EXAM PERFORMED BY OUTSIDE FACILITY Clinical History: EXAM PERFORMED BY OUTSIDE FACILITY CT ABDOMEN PELVIS W CONTRAST EXAM SENT BY [facility] Report Status: Electronically Filed Date Reported: DEC 17, 2024 Report: Electronically generated report for outside study. Impression: Electronically generated report for outside study. Primary Diagnostic Code: VERIFIED BY: / *ELECTRONICALLY FILED* [facility] Oct 08, 2024 07:33 AM 78047 RADIOLOGY EX AM PERF/INTER BY OTHER FACILITY: DIANNAANEUDY FERGUSON [id number] -1950 M Exm Date: OCT 08, 2024@07:33 Req Phys: KOUSA,KITTA Pat Loc: POLLY PACT ALPHA 1-3 (Req'g Loc) Img Loc: OUTSIDE2 LD RAD Service: Unknown (Case [id number] COMPLETE) 09040 RADIOLOGY EXAM PERF/INTER B(RAD Detailed) CPT:37665 Reason for Study: EXAM PERFORMED BY OUTSIDE FACILITY Clinical History: EXAM PERFORMED BY OUTSIDE FACILITY XR CHEST 1 VW EXAM SENT BY [facility] Report Status: Electronically Filed Date Reported: DEC 17, 2024 Report: Electronically generated report for outside study. Impression: Electronically generated report for outside study. Primary Diagnostic Code: VERIFIED BY: / *ELECTRONICALLY FILED* [facility] Encounter Notes: All associated encounter [...] The scanned image may be viewed in [email or web address]. /saji/ ROXANA HERNANDEZ fileclerk Signed: 11/02/2024 11:17 ROXANA HERNANDEZ-[facility]
--- OUTSIDE RECORDS SUMMARY | 2025-01-01 09:07 | XMS_ITS ---
Author Name [facility] [place] Address [address] [place] [address] Care Team Providers Care Senior Hr Business Partner Name Role Phone NIYAH CALLEJAS Primary Care [...] A MOTOR MANUF AC Sep 05, 2014 [id number] [phone] [place] BUSTAMANTE PATIENT EXPRESS SCRIPTS ([id number]) PRESCRIPT ION TMMK ACTIV E PPO Sep 05, 2014 [place] [id number] [id number] [phone] [place] BUSTAMANTE PATIENT INGENIO RX PRESCRIPT ION NONE* Sep 05, 2014 NONE [id number] [place] BUSTAMANTE PATIENT MEDICARE (WNR) MEDICARE (M) PART A Apr 05, 2015 PART A [id number] BUSTAMANTE PATIENT MEDICARE (WNR) MEDICARE (M) PART B Apr 05, 2015 PART B [id number] [place] BUSTAMANTE PATIENT Selected Encounter This section [...] activities for the patient from all [place] treatmentfacilities. This section includes future appointments and future orders which are active, pending or scheduled. Future Appointments This section includes appointments that were scheduled to occur 6 months from the date of the Encounter, up to a maximum of 20 appointments. The data comes from all [place] treatment facilities. Appointment Date/Time Appointment Type Appointme nt Facility Name Nov 06, 2024 02:30 PM [place]ORY - [place]ONE [place] [facility] Nov 30, 2024 12:30 PM AMBULATORY - REHAB MEDICIN E [facility] Dec 05, 2024 09:00 AM AMBULATORY - MEDICINE [place] [facility] Dec 19, 2024 02:00 PM AMBULATORY - SURGERY [place] [facility] Dec 27, 2024 07:30 AM [place] - [place] Feb 11, 2025 08:09 AM [place]ORY - NONE [place] Mar 12, 2025 09:30 AM [place]ORY - NONE [place] Lab Results: +/- 30 days of [...] Type Comment Nov 06, 2024 03:32 PM [facility] WN TRANSFERRIN SERUM Specimen Type: SERUM No comment entered. Ordering Provider: BLAYNE SANDHU Report Released Date/Time: Nov 06, 2024 02:56 PM Reporting Lab: [facility] [address] [facility] [address] Performing Lab: [facility] [address] [facility] [address] TRANSFERRIN 386 mg/dL H 177-329 Nov 06, 2024 03:32 PM [facility] FOLATE PLASMA Specimen Type: PLASM A [...] Nov 06, 2024 02:56 PM Reporting Lab: [facility] [address] [facility] [address] Performing Lab: [facility] [address] [address] FOLATE 8.2 ng/mL 7.0-31.4 Nov 06, 2024 03:32 PM [facility] IRON/TIBC PLASMA Specimen Type: PLASM A [...] Nov 06, 2024 02:56 PM Reporting Lab: [facility] [address] [facility] [address] Performing Lab: [facility] [address] [address] IRON 358 ug/dL H 65-175 TIBC 433 mg/dL H 250-425 IRON SATURATION 83 H 20-50 Nov 06, 2024 03:32 PM [facility] FERRITIN PLASMA Specimen Type: PLASM A [...] Nov 06, 2024 02:56 PM Reporting Lab: [place] [phone] Performing Lab: [place] [phone] FERRITIN 15.7 ng/mL L 21.8-274.7 Nov 06, 2024 03:32 PM [facility] CBC/PLT BLOOD Specimen Type: BLOOD No comment entered. Ordering Provider: BLAYNE SANDHU Report Released Date/Time: Nov 06, 2024 02:56 PM Reporting Lab: [place] [phone] Performing Lab: [place] [phone] WBC 8.3 10*3/uL 5.0-10.0 RBC 3.81 10*6/uL L 4.6-6.2 HGB 9.1 g/dL L 14.0-18.0 HCT 30.9 L 42.0-52.0 MCV 81.1 fL 80.0-94.0 MCH 23.9 pg L 27.0-31.0 MCHC 29.4 g/dL L 32.0-36.0 PLT 215 10*3/uL 150-450 MPV 9.7 fL 9.0-13.1 RDW 19.0 H 11.0-16.0 NRBC 0.0 0.0-0.0 Nov 06, 2024 03:32 PM [facility] AUTOMATED DIFF BLOOD Specimen Type: BLOOD No comment entered. Ordering Provider: BLAYNE SANDHU Report Released Date/Time: Nov 06, 2024 02:56 PM Reporting Lab: [place] [phone] Performing Lab: [place] [phone] A-LYMPH % 25.2 24.0-44.0 A-MONO % 9.4 H 0.1-6.0 A-GRAN % 60.4 42.0-75.0 A-LYMPH # 2.10 10*3/uL 1.20-3.40 A-MONO # 0.78 10*3/uL H 0.00-0.60 A-GRAN # 5.03 10*3/uL 1.40-6.50 A-BASO % 0.8 0.0-3.0 A-BASO # 0.07 10*3/uL 0.00-0.20 A-EOS % 3.8 0.0-10.0 A-EOS # 0.32 10*3/uL 0.00-0.70 A-IG % 0.4 0.0-0.5 A-IG # 0.03 10*3/uL 0.00-0.06 Nov 06, 2024 03:32 PM [facility] PANEL 5 PLASMA Specimen Type: PLASM [...] Nov 06, 2024 02:56 PM Reporting Lab: [address] [address] Performing Lab: [address] [address] CREATININE 0.93 mg/dL 0.72-1.25 UREA NITROGEN 17 [...] and tobacco- related health factors from the [place] facility where the Encounter took place. Current Smoking Status This section includes the most current smoking, or tobacco-related health factor, from the [place] facility where the Encounter took place. Date/Time Current Smoking Status Comment [facility] Sep 08, 2023 09:30 AM VA-TOBACCO NEVER [...] Provider Source Oct 10, 2024 10:00 AM [id number] RADIOLOGY EX AM PERF/INTER BY OTHER FACILITY: ANEUDY BUSTAMANTEEver [id number] -1950 M Exm Date: OCT 10, 2024@10:00 Req Phys: KEVUSADANTETA Pat Loc: POLLY PACT ALPHA 1-3 (Req'g Loc) Img Loc: OUTSIDE2 LD RAD Service: Unknown (Case [id number] COMPLETE) 98430 RADIOLOGY EXAM PERF/INTER B(RAD Detailed) CPT:19352 Reason for Study: EXAM PERFORMED BY OUTSIDE FACILITY Clinical History: EXAM PERFORMED BY OUTSIDE FACILITY XR CHEST 1 VW EXAM SENT BY [facility] Report Status: Electronically Filed Date Reported: DEC 17, 2024 Report: Electronically generated report for outside study. Impression: Electronically generated report for outside study. Primary Diagnostic Code: VERIFIED BY: / *ELECTRONICALLY FILED* [facility] Oct 08, [facility] 09:[address] PERFORMED BY OTHER FACILITY: ANEUDY BUSTAMANTEEver [id number] -1950 M Exm Date: OCT 08, 2024@09:09 Req Phys: KOUSA,KITTA Pat Loc: POLLY PACT ALPHA 1-3 (Req'g Loc) Img Loc: OUTSIDE2 LD CT Service: Unknown (Case [id number] COMPLETE) [address] CT PERFORMED BY OTHER FACIL(CT Detailed) CPT:15760 Reason for Study: EXAM PERFORMED BY OUTSIDE FACILITY Clinical History: EXAM PERFORMED BY OUTSIDE FACILITY CT ANGIOGRAM CHEST EXAM SENT BY [facility] Report Status: Electronically Filed Date Reported: DEC 17, 2024 Report: Electronically generated report for outside study. Impression: Electronically generated report for outside study. Primary Diagnostic Code: VERIFIED BY: / *ELECTRONICALLY FILED* [facility] Oct 08, 2024 08:[address] PERFORMED BY OTHER FACILITY: ANEUDY BUSTAMANTE [id number] -1950 M Exm Date: OCT 08, 2024@08:00 Req Phys: KOUSA,KITTA Pat Loc: POLLY PACT ALPHA 1-3 (Req'g Loc) Img Loc: OUTSIDE2 LD CT Service: Unknown (Case [id number] COMPLETE) [address] CT PERFORMED BY OTHER FACIL(CT Detailed) CPT:99957 Reason for Study: EXAM PERFORMED BY OUTSIDE FACILITY Clinical History: EXAM PERFORMED BY OUTSIDE FACILITY CT ABDOMEN PELVIS W CONTRAST EXAM SENT BY [facility] Report Status: Electronically Filed Date Reported: DEC 17, 2024 Report: Electronically generated report for outside study. Impression: Electronically generated report for outside study. Primary Diagnostic Code: VERIFIED BY: / *ELECTRONICALLY FILED* [facility] Oct 08, 2024 07:33 AM 17082 RADIOLOGY EX AM PERF/INTER BY OTHER FACILITY: ANEUDY BUSTAMANTE [id number] -1950 M Exm Date: OCT 08, 2024@07:33 Req Phys: KOUSA,KITTA Pat Loc: POLLY PACT ALPHA 1-3 (Req'g Loc) Img Loc: OUTSIDE2 LD RAD Service: Unknown (Case [id number] COMPLETE) 43487 RADIOLOGY EXAM PERF/INTER B(RAD Detailed) CPT:14367 Reason for Study: EXAM PERFORMED BY OUTSIDE FACILITY Clinical History: EXAM PERFORMED BY OUTSIDE FACILITY XR CHEST 1 VW EXAM SENT BY [facility] Report Status: Electronically Filed Date Reported: DEC 17, 2024 Report: Electronically generated report for outside study. Impression: Electronically generated report for outside study. Primary Diagnostic Code: VERIFIED BY: / *ELECTRONICALLY FILED* [facility] Encounter Notes: All associated encounter notes This section contains the clinical notes associated to the Encounter. Date/Time Encounter Note(s) Provider Source Oct 10, 2024 10:54 AM ADDENDUM: LOCAL TITLE: Addendum STANDARD TITLE: ADDENDUM DATE OF NOTE: OCT 10, 2024@10:54:18 ENTRY DATE: OCT 10, 2024@10:54:19 AUTHOR: FUAD CORDERO EXP COSIGNER: URGENCY: STATUS: COMPLETED Called for follow up. Per he is still not feeling great, has appt with outside salvage cutter, Dr. Sanchez - [facility]. [place] is agreeable to see [place] PCP for annual visit and follow up but wanted to see Concrete F[employer] Builder first. Call forwarded to PACT [facility] to assist with scheduling appt and to request records for provider to review from Dr. Sanchez. /saji/ TARIK ANDREWS,RN PC SET MAKING MACHINE OPERATOR Signed: 10/10/2024 11:00 Receipt Acknowledged By: 10/10/2024 11:06 /saji/ Kimi HULL --- Original Document --- 10/08/24 [facility] SELF PRESENTING CARE COORD PLAN NOTE: Emergency Notification Intake Date Presenting to the Facility: Oct Method of Contact: Notified from ECR worklist Notification ID: [id number] [facility] Call Center makes eligibility determination and sends payment authorization and/or denial information directly to the healthcare provider. ANY QUESTIONS REGARDING DETERMINATION, CLAIMS, AND BILLING MAY BE MADE TO THE FOLLOWING [facility] Call [facility] Telephone Number: [phone] ([phone]) POM (Payment Operations and Management) Claims Status Line: [facility] Provider Services Region 2: [facility] Hospital Name: Hospital: [facility] Address: City: [place] State: [place] Zip Code: Phone : Community Facility Point of Contact: Name: Phone: Chief complaint: SOA Primary Diagnosis: Disposition ED DC Handoff to PACT/PCP [facility] was informed this was seen for emergent care. Records requested for upload and review: Pursuant to 38 CFR 17.4020(c) Authorized emergency treatments. Handoff to PACT/PCP for follow up/care coordination as deemed appropriate by the PACT/PCP. SUMMARY OF ED VISIT PER [facility] BELOW: Medical Decision Making Pt is a [...] Condition Stable Comment --Nikki Collins PA Physician Tmr Teacher Emergency Medicine ED Provider Notes The patient can view the shared note after they get an active [employer] account This note has been shared with the patient Attested Date of Service: 10/08/24 1359 /saji/ Yun MONTANEZ unmanned equipment operator Nurse Coordinator Signed: 10/10/2024 08:50 Receipt Acknowledged By: * AWAITING SIGNATURE * NIYAH CALLEJAS 10/10/2024 10:54 /saji/ TARIK ANDREWS,RN PC SET MAKING MACHINE OPERATOR [facility] Oct 08, 2024 01:48 PM NONVA NOTE: LOCAL TITLE: [facility] SELF PRESENTING CARE COORD PLAN STANDARD TITLE: NONVA NOTE DATE OF NOTE: OCT 08, 2024@13:48 ENTRY DATE: OCT 10, 2024@08:45:15 AUTHOR: YUN JOSHUA EXP COSIGNER: URGENCY: STATUS: COMPLETED [facility] SELF PRESENTING CARE COORD PLAN NOTE Has ADDENDA Emergency Notification Intake Date Presenting to the Facility: Oct Method of Contact: Notified from [employer] worklist Notification ID: [id number] [facility] makes eligibility determination and sends payment authorization and/or denial information directly to the healthcare provider. ANY QUESTIONS REGARDING DETERMINATION, CLAIMS, AND BILLING MAY BE MADE TO THE FOLLOWING [facility] Telephone Number: [phone] ([phone]) POM (Payment Operations and Management) Claims Status Line: [facility] Provider Services Region 2: [facility] Hospital Name: Hospital: [facility] Address: City: [place] State: [place] Zip Code: Phone : [facility] Facility Point of Contact: Name: Phone: Chief complaint: SOA Primary Diagnosis: Disposition ED DC Handoff to PACT/PCP [facility] was informed this was seen for emergent care. Records requested for upload and review: Pursuant to 38 CFR 17.4020(c) Authorized emergency treatments. Handoff to PACT/PCP for follow up/care coordination as deemed appropriate by the PACT/PCP. SUMMARY OF ED VISIT PER [facility] BELOW: Medical Decision Making Pt is a [...] Condition Stable Comment --Nikki Collins PA Physician Tmr Teacher Emergency Medicine ED Provider Notes The patient can view the shared note after they get an active [employer] account This note has been shared with the patient Attested Date of Service: 10/08/24 1359 /es/ Yun MONTANEZ unmanned equipment operator Nurse Coordinator Signed: 10/10/2024 08:50 Receipt Acknowledged By: 10/10/2024 11:17 /es/ NIYAH CALLEJAS MD 10/10/2024 10:54 /saji/ TARIK ANDREWS,RN PC SET MAKING MACHINE OPERATOR 10/10/2024 ADDENDUM STATUS: COMPLETED Called for follow up. Per he is still not feeling great, has appt with outside salvage cutter, Dr. Sanchez - [facility]. [place] agreeable to see [place] PCP for [place] visit and follow up but wanted to see [employer] Builder first. Call forwarded to PACT [facility] to assist with scheduling appt and to request records for provider to review from Dr. Sanchez. /saji/ TARIK ANDREWS,RN PC SET MAKING MACHINE OPERATOR Signed: 10/10/2024 11:00 Receipt Acknowledged By: 10/10/2024 11:06 /heri HULL 10/10/2024 ADDENDUM STATUS: COMPLETED Spoke w/ and per his request plus DD/T, scheduled the following for past due annual recall: POLLY PACT ALPHA 1-3 Nov 06, 2024@2:30 PM EST FUTURE PPDD/T LETTER MAILED /heri HULL Signed: 10/10/2024 11:08 10/25/2024 ADDENDUM STATUS: COMPLETED Records received from Dr. Sanchez's office. Total of 5 pages. Originals placed in scan box for medical records in building [address], 3rd floor. has an appointment on November 06 with PC. /heri HULL Signed: 10/25/2024 14:56 YUN JOSHUA-REBEKA [facility]
--- OUTSIDE RECORDS SUMMARY | 2025-01-01 09:08 | XMS_ITS | Encounter Summary ---
Author Name [facility] [place] Address [address] [place] [address] Care Team Providers Care Review Manager Name Role Phone NIYAH CALLEJAS Primary Care [...] A MOTOR MANUF AC Sep 05, 2014 [id number] [phone] [place] BUSTAMANTE PATIENT EXPRESS SCRIPTS ([id number]) PRESCRIPT ION TMMK ACTIV E PPO Sep 05, 2014 [place] [id number] [id number] [phone] DIANNACHARLOTTE PATIENT INGENIO RX PRESCRIPT ION NONE* Sep 05, 2014 NONE [id number] [phone] DIANNACHARLOTTE Galo PATIENT MEDICARE (WNR) MEDICARE (M) PART A Apr 05, 2015 PART A [id number] DIANNABRAYDONCHARLOTTE Clover PATIENT MEDICARE (WNR) MEDICARE (M) PART B Apr 05, 2015 PART B [id number] [place] BUSTAMANTE PATIENT Selected Encounter This section includes the information on record at [place] for the Encounter. Date/Time Encounter Type Encounter Description Reason Provider Source Dec 13, 2024 12:58 PM PH1 ASSMT&MGMT NQHP 11-20 TELEPHONE PRIMARY CARE ICD-10-CM Z71.89 Other specified counseling FUAD CORDERO IHValerie Encounter Template Text not used by [place] Assessments - Encounter Diagnoses This section includes the primary and secondary diagnoses documented for the Encounter. Date/Time Primary/Secondary Diagnosis Diagnosis Name Provider Source Dec 13, 2024 12:58 PM PRIMARY Other specified counseling FUAD CORDERO [facility] Plan of Treatment: Future Appointments (+ 6 months) and Future Tests (+/- 45 days) The Plan of Treatment section includes future care activities for the patient from all [place] treatmentfacilities. This section includes future appointments and future orders which are active, pending or scheduled. Future Appointments This section includes appointments that were scheduled to occur 6 months from the date of the Encounter, up to a maximum of 20 appointments. The data comes from all [place] treatment [facility]. Appointment Date/Time Appointment Type Appointme nt Facility Name Dec 19, 2024 02:00 PM [facility] Dec 27, 2024 07:30 AM AMBULATORY - NONE [place] [facility] Feb 11, 2025 08:09 AM AMBULATORY - NONE [place] [facility] Mar 12, 2025 09:30 AM AMBULATORY - NONE [place] [facility] Active, Pending, and Scheduled Orders This section includes a listing of several types of active, pending, and scheduled orders, including clinic medications orders, diagnostic test orders, procedure orders and consult orders; where the start date of the order is 45 days before the date of the Encounter or 45 days after the date of theEncounter. The data comes from all [facility]. Test Date/Time Test Type Test Details Facility Name Dec 05, 2024 09:30 AM Procedure Order CP WIRELES S CAPSULE CP WIRELESS CAPSULE Proc Federal Judicial Law Clerk's Choice [facility] Dec 19, 2024 12:00 AM Laboratory - Chemi stry Order EGFR + CREAT DATE SENSITIVE [id number] SP [facility] Lab Results: +/- 30 days of the encounter This section includes the Chemistry and Hematology Lab Results on record with [place] for the patient. Radiology Reports and Pathology Reports are provided separately, in subsequent sections. Lab Results This section contains the Chemistry/Hematology Results that were resulted 30 days before or 30 daysafter the date of the Encounter. Date/Time Source Result Type Result - Unit Interpretation Reference Range Specimen Type Comment Dec 27, 2024 07:03 AM [facility] EGFR + CREAT DATE SENSITIVE PLASMA [...] 2024 10:19 PM Reporting Lab: [facility] [address] [facility] [address] Performing Lab: [address] [address] CREATININE 0.99 mg/dL 0.72-1.25 eGFR (CKD-EPI) 80 Social History: Smoking Status (Most current) and Tobacco Use (All prior to encounter date) This section includes the most current, and the historical, smoking and tobacco- related health factors from the [place] facility where the Encounter took place. Current Smoking Status This section includes the most current smoking, or tobacco-related health factor, from the [place] facility where the Encounter took place. Date/Time Current Smoking Status Comment Henry nettlesy Nov 06, 2024 02:30 PM VA-TOBACCO USE FOR CASTRO CIGARETTES [facility] Tobacco Use History This section includes a history of the smoking, or tobacco-related health factors, that were collected on or before the date of the Encounter. The data comes from the [place] facility where the Encounter took place. Date/Time Smoking Status/Tobacco Use Comment F acian Nov 06, 2024 02:30 PM VA-TOBACCO USE FOR CASTRO CIGARETTES [facility] Jun 11, 2022 08:30 AM VA-TOBACCO FORMER USER [facility] Jun 11, 2022 08:30 AM VA-TOBACCO QUIT 15 YRS OR MORE [facility] Jun 17, 2021 09:30 AM VA-TOBACCO FORMER USER [facility] Jun 17, 2021 09:30 AM VA-TOBACCO QUIT 15 YRS OR MORE [facility] Sep 20, 2019 08:27 AM VA-TOBACCO FORMER USER [facility] Sep 20, 2019 08:27 AM VA-TOBACCO QUIT 15 YRS OR MORE [facility] Feb 17, 2018 08:09 AM V9 LIFETIME NON-USER OF TOBACCO [facility] Feb 16, 2017 10:14 AM V9 QUIT TOBACCO >7 YEARS AGO [facility] Dec 05, 2015 08:59 AM V9 LIFETIME NON-USER OF TOBACCO [facility] January 03, 2015 08:38 AM V9 QUIT TOBACCO >7 YEARS AGO [facility] Dec 31, 2013 09:49 AM V9 QUIT TOBACCO >7 YEARS AGO [facility] Nov 27, 2012 09:16 AM V9 QUIT TOBACCO >7 YEARS AGO [facility] Oct 12, 2011 09:04 AM V9 QUIT TOBACCO >7 YEARS AGO [facility] Radiology Reports: +/- 30 days of [...] the Encounter. The data comes from all [place] treatment facilities. Date/Time Radiology Report Provider Source Dec 27, 2024 06:[address] CHEST W/CONTRAS T: DIANNAANEUDY [id number] -1950 M Exm Date: DEC 27, 2024@06:47 Req Phys: NIYAH CALLEJAS Pat Loc: POLLY PACT ALPHA 1-3 (Req'g Loc) Img Loc: CT SCAN Service: [place] [address] (Case [id number] COMPLETE)CT CHEST W/CONTRAST (CT Detailed) CPT:41243 Contrast Media : Non-ionic Iodinated Reason for Study: SEE CLINICAL HISTORY Pharmaceutical: IOHEXOL INJ 350MG I/ML 500ML BOTTLE, 80ml Clinical History: REASON FOR SEND OUT: ATTENDING PHYSICIAN NAME: Cancer HISTORY/REASON FOR EXAM: Pt is requesting to have CT chest With contrast due to his h/o lung cancer. Report Status: Verified Date Reported: DEC 31, 2024 Date Verified: DEC 31, 2024 Base Engineer E-Sig: Report: CT CHEST W/CONTRAST HISTORY: SEE CLINICAL HISTORY COMPARISON: 07/19/2022 TECHNIQUE: CT of the chest, with multiplanar reformats, was performed at the local [place] facility. 1150 images were received by the [place] National Teleradiology Program (NTP) for interpretation. RADIATION [...] be helpful. READING PHYSICIAN: Ravindra Navarro MD -[id number] 12/31/2024 15:22 EDT [facility] National Teleradiology Program [phone] (For Medical Practitioner Use Only) Attention Patients / Veterans: If you have questions or concerns about these test results, please contact your ordering provider or primary care team. Primary Diagnostic Code: NO ALERT REQUIRED Primary Interpreting Staff: OUTSIDE SERVICE RADIOLOGY, Staff Physician / RADIOLOGY,OUTSIDE SERVICE [facility] Encounter Notes: All associated encounter [...] note he sent in to patient advocate. has outside GI and Cardiology doctors that he has seen for years and is REQUESTING [facility] consults for each speciality. Explained to that once these consults were placed, it is reviewed by [facility] and they may not approve it. [place] verbalized he saw [facility] and does NOT want to continue with that team. is also REQUESTING a consult with pulmonology due to nodule in lung that was seen on CT scan completed at [facility]. [place] is fine with seeing pulmonology at [place]. states understanding. No further questions or concerns at this time. [place] identified using two identifiers (name, last four). Spent 12 minutes on the call. /saji/ TARIK ANDREWS,RN PC FIXTURE MAKER Signed: 12/13/2024 13:05 Receipt Acknowledged By: 12/13/2024 13:39 /saji/ SHUKRI MURRAY PRIMARY CARE DATA REPORTING ANALYST for NIYAH CALLEJAS 12/13/2024 ADDENDUM STATUS: COMPLETED Attempt to contact to discuss requests for [facility] GI and cardiology. There is no answer and his voicemail box is not set up, so I am unable to leave a message. Will try again. /saji/ SHUKRI MURRAY PRIMARY CARE DATA REPORTING ANALYST Signed: 12/13/2024 13:40 12/13/2024 ADDENDUM STATUS: COMPLETED Second contact attempt by Primary Care Lela PINEDA. No answer. Unable to leave VM mailbox is not set up. Primary Care Lela PINEDA placed a request for [facility] cardiology for best medical interest d/t distance and continuity of care. Primary Care Lela PINEDA was hoping to speak w/ re: clarification on different [place] GI provider appt OR [facility] GI request for Dr Valerie Phillips. I am unbale to find this provider listed through va.gov care textile science technician tool, so I do not believe his office is contracted w/the [facility] but had hoped to confirm this w/the today. Primary Care Lela PINEDA calls Dr Phillips' office @ [phone] and was told by [facility] that they do accept VA as long as it has been approved by the [facility]. So this appears it MAY be possible to request Dr Phillips through [facility], IF this is in fact what the is wanting. In order to place pulmonology consult orders for a nodule, we will need the imaging from [facility] uploaded into his [facility] chart for specialty to review. If he [...] you pls obtain CT chest done by [facility] for this ? At least if we have the report then we will have findings if they are urgent. Pls notify Primary Care [facility] via MS Teams when received. Thank you for your help! /saji/ SHUKRI MURRAY PRIMARY CARE DATA REPORTING ANALYST Signed: 12/13/2024 14:34 12/13/2024 ADDENDUM STATUS: UNSIGNED You may not VIEW this UNSIGNED Addendum. FUAD CORDERO [facility]
--- OUTSIDE RECORDS SUMMARY | 2025-01-01 09:08 | XMS_ITS ---
Author Name [facility] [place] Address [address] [place] [address] Care Team Providers Care Procurement Analyst Name Role Phone NIYAH CALLEJAS Primary Care [...] A MOTOR MANUF AC Sep 05, 2014 [id number] [place] BUSTAMANTE PATIENT EXPRESS SCRIPTS ([id number]) PRESCRIPT ION TMMK ACTIV E PPO Sep 05, 2014 [place] [id number] [phone] [place] BUSTAMANTE PATIENT INGENIO RX PRESCRIPT ION NONE* Sep 05, 2014 NONE [id number] [phone] [place] BUSTAMANTE PATIENT MEDICARE (WNR) MEDICARE (M) PART B Apr 05, 2015 PART B [id number] [place] BUSTAMANTE PATIENT MEDICARE (WNR) MEDICARE (M) PART A Apr 05, 2015 PART A [id number] [place] BUSTAMANTE PATIENT Selected Encounter This section includes the information on record at [place] for the Encounter. Date/Time Encounter Type Encounter Description Reason Pro vider Source Dec 05, 2024 09:00 AM OFFICE O/P EST MOD 30 MIN GASTROENTEROLOGY ICD-10-CM D64.89 Other specified anemias ELYSE,ALL A IHE Encounter Template Text not used by [place] Assessments - Encounter Diagnoses This section includes the primary and secondary diagnoses documented for the Encounter. Date/Time Primary/Secondary Diagnosis Diagnosis Name Provider Source Dec 06, 2024 01:44 PM PRIMARY Other specified anemias [facility] Dec 06, 2024 01:44 PM SECONDARY Abdominal distension (gaseous) [facility] Dec 06, 2024 01:44 PM SECONDARY Gastro-esophageal reflux dis with esophagitis, with bleed [facility] Plan of Treatment: Future Appointments (+ 6 months) and Future Tests (+/- 45 days) The Plan of Treatment section includes future care activities for the patient from all [place] [facility]. This section includes future appointments and future orders which are active, pending or scheduled. Future Appointments This section includes appointments that were scheduled to occur 6 months from the date of the Encounter, up to a maximum of 20 appointments. The data comes from all [facility]. Appointment Date/Time Appointment Type Appointme nt Facility Name Dec 19, 2024 02:00 PM AMBULATORY - SURGERY [place] [facility] Dec 27, 2024 07:30 AM AMBULATORY - NONE [place] N-[facility] [facility] Feb 11, 2025 08:09 AM AMBULATORY - NONE [place] N-[facility] [facility] Mar 12, 2025 09:30 AM AMBULATORY - NONE [place] N-CD[place] [facility] Active, Pending, and Scheduled Orders This section includes a listing of several types of active, pending, and scheduled orders, including clinic medications orders, diagnostic test orders, procedure orders and consult orders; where the start date of the order is 45 days before the date of the Encounter or 45 days after the date of theEncounter. The data comes from all [place] treatment [facility]. Test Date/Time Test Type Test Details Facility Name Dec 05, 2024 09:30 AM Procedure Order CP WIRELES S CAPSULE CP WIRELESS CAPSULE Proc Paper Tube Machine Operator's Choice [facility] Dec 19, 2024 12:00 AM Laboratory - Chemi stry Order EGFR + CREAT DATE SENSITIVE [id number] SP [facility] Lab Results: +/- 30 days [...] Type Comment Dec 27, 2024 07:03 AM [facility] EGFR + CREAT DATE SENSITIVE PLASMA Specime [...] Dec 19, 2024 10:19 PM Reporting Lab: [address] [address] Performing Lab: [address] [address] CREATININE 0.99 mg/dL 0.72-1.25 eGFR (CKD-EPI) 80 Nov 06, 2024 03:32 PM [facility] TRANSFERRIN SERUM Specimen Type: SERUM No comment entered. Ordering Provider: BLAYNE SANDHU Report Released Date/Time: Nov 06, 2024 02:56 PM Reporting Lab: [address] [address] Performing Lab: [facility] [address] [place], [place] [address] TRANSFERRIN 386 mg/dL H 177-329 Nov 06, 2024 03:32 PM [facility] FOLATE PLASMA Specimen Type: PLASM A Comment: [...] Nov 06, 2024 02:56 PM Reporting Lab: [address] [address] Performing Lab: [address] [address] FOLATE 8.2 ng/mL 7.0-31.4 Nov 06, 2024 03:32 PM [facility] IRON/TIBC PLASMA Specimen Type: PLASM A Comment: [...] Nov 06, 2024 02:56 PM Reporting Lab: [address] [address] Performing Lab: [address] [address] IRON 358 ug/dL H 65-175 TIBC 433 mg/dL H 250-425 IRON SATURATION 83 H 20-50 Nov 06, 2024 03:32 PM [facility] PLASMA Specimen Type: PLASM [...] Nov 06, 2024 02:56 PM Reporting Lab: [address] [address] Performing Lab: [address] [address] CREATININE 0.93 mg/dL 0.72-1.25 UREA NITROGEN 17 [...] 06, 2024 03:32 PM [facility] AUTOMATED DIFF BLOOD Specimen Type: BLOOD No comment entered. Ordering Provider: BLAYNE SANDHU Report Released Date/Time: Nov 06, 2024 02:56 PM Reporting Lab: [address] [address] Performing Lab: [address] [address] A-LYMPH % 25.2 24.0-44.0 A-MONO % 9.4 H 0.1-6.0 A-GRAN % 60.4 42.0-75.0 A-LYMPH # 2.10 10*3/uL 1.20-3.40 A-MONO # 0.78 10*3/uL H 0.00-0.60 A-GRAN # 5.03 10*3/uL 1.40-6.50 A-BASO % 0.8 0.0-3.0 A-BASO # 0.07 10*3/uL 0.00-0.20 A-EOS % 3.8 0.0-10.0 A-EOS # 0.32 10*3/uL 0.00-0.70 A-IG % 0.4 0.0-0.5 A-IG # 0.03 10*3/uL 0.00-0.06 Nov 06, 2024 03:32 PM [facility] CBC/PLT BLOOD Specimen Type: BLOOD No comment entered. Ordering Provider: BLAYNE SANDHU Report Released Date/Time: Nov 06, 2024 02:56 PM Reporting Lab: [address] [address] Performing Lab: [place] [id number] WBC 8.3 10*3/uL 5.0-10.0 RBC 3.81 10*6/uL L 4.6-6.2 HGB 9.1 g/dL L 14.0-18.0 HCT 30.9 L 42.0-52.0 MCV 81.1 fL 80.0-94.0 MCH 23.9 pg L 27.0-31.0 MCHC 29.4 g/dL L 32.0-36.0 PLT 215 10*3/uL 150-450 MPV 9.7 fL 9.0-13.1 RDW 19.0 H 11.0-16.0 NRBC 0.0 0.0-0.0 Nov 06, 2024 03:32 PM [facility] FERRITIN PLASMA Specimen Type: PLASM A Comment: [...] Nov 06, 2024 02:56 PM Reporting Lab: [facility] [address] [facility] [address] Performing Lab: [facility] [address] [facility] [address] FERRITIN 15.7 ng/mL L 21.8-274.7 Social History: Smoking Status (Most current) and [...] 08, 2023 09:30 AM VA-TOBACCO NEVER USED [facility] Tobacco Use History This section includes a history of the smoking, or tobacco-related health factors, that were collected on or before the date of the Encounter. The data comes from the [place] facility where the Encounter took place. Date/Time Smoking Status/Tobacco Use Comment F acility Dec 12, 2006 07:57 AM V9 LIFETIME NON-US ER OF TOBACCO [facility] Aug 21, 2004 09:09 AM HF V9 CURRENT NON-SMOKER quit smoking 5 yrs ago [facility] May 28, 2003 10:30 AM HF V9 CURRENT NON-SMOKER quit 5 years ago [facility] Jun 23, 2001 08:08 AM HF V9 CURRENT NON-SMOKER quit 1 1/2year ago [facility] Radiology Reports: +/- 30 days [...] 06:[address] CHEST W/CONTRAS T: DIANNAANEUDY [id number] M Exm Date: DEC 27, 2024@06:47 Req Phys: NIYAH CALLEJAS Pat Loc: POLLY PACT ALPHA 1-3 (Req'g Loc) Img Loc: CT SCAN Service: [place] [address] (Case [id number] COMPLETE)CT CHEST W/CONTRAST (CT Detailed) CPT:61838 Contrast Media : Non-ionic Iodinated Reason for Study: SEE CLINICAL HISTORY Pharmaceutical: IOHEXOL INJ 350MG I/ML 500ML BOTTLE, 80ml Clinical History: REASON FOR SEND OUT: ATTENDING PHYSICIAN NAME: Cancer HISTORY/REASON FOR EXAM: Pt is requesting to have CT chest With contrast due to his h/o lung cancer. Report Status: Verified Date Reported: DEC 31, 2024 Date Verified: DEC 31, 2024 Derrick Car Operator E-Sig: Report: CT CHEST W/CONTRAST HISTORY: SEE CLINICAL HISTORY COMPARISON: 07/19/2022 TECHNIQUE: CT of the chest, with multiplanar reformats, was performed at the local [place] facility. 1150 images were received by the [place] National Teleradiology Program (NTP) for interpretation. RADIATION [...] be helpful. READING PHYSICIAN: Ravindra Navarro MD -[id number] 12/31/2024 15:22 EDT [facility] Appticlesradiology Program [phone] (For Medical Practitioner Use Only) Attention Patients / Veterans: If you have questions or concerns about these test results, please contact your ordering provider or primary care team. Primary Diagnostic Code: NO ALERT REQUIRED Primary Interpreting Staff: OUTSIDE SERVICE RADIOLOGY, Staff Physician / RADIOLOGY,OUTSIDE SERVICE [facility] Encounter Notes: All associated encounter notes This section contains the clinical notes associated to the Encounter. Date/Time Encounter Note(s) Provider Source Dec 05, 2024 09:08 AM NURSING OUTPATIENT NOTE: LOCAL TITLE: [facility] INTAKE NOTE STANDARD TITLE: NURSING OUTPATIENT NOTE DATE OF NOTE: DEC 05, 2024@09:08 ENTRY DATE: DEC 05, 2024@09:08:17 AUTHOR: LINK CARSON EXP COSIGNER: URGENCY: STATUS: COMPLETED Reason for [...] Manual blood pressure taken: No Primary Care data technician notified of elevated BP greater of 140/90: No Patient notified reference archivist available upon request for any examinations/procedures. The [...] Practial Nurse Signed: 12/05/2024 09:09 LINK CARSON-CDD [facility] Dec 05, 2024 09:01 AM GASTROENTEROLOGY P [...] says has been seeing Dr. Phillips in [place] - had Iron transfusion yesteday, despite Iron [...] [facility]: Exam: Double contrast Upper GI [...] neuralgia 5. Carcinoma of prostate (SNOMED CT 977705475) 6. Iron deficiency anemia (SNOMED CT 16740555) 7. History of malignant neoplasm of lung (SNOMED CT 031899645) 8. 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 Back pain (SNOMED CT 053377530) 10. Hyperlipidemia (SNOMED CT 29606715) 11. Depression (SNOMED CT 96413209) 12. Atherosclerotic occlusive disease (SNOMED CT 057975113) Reviewed Active Outpatient Medications (including Supplies): Active [...] 30.9 L% (42.0 - 52.0) MCV, BLOOD, 11/06/24@1532 81.1 fL (80.0 - 94.0) MCH, BLOOD, 11/06/241532 23.9 Lpg (27.0 - 31.0) MCHC, BLOOD, 11/06/24@1532 29.4 Lg/dL (32.0 - 36.0) RDW, BLOOD, 11/06/241532 19.0 H% (11.0 - 16.0) PLT, BLOOD, 11/06/24@1532 215 K/cmm (150 - 450) MPV, BLOOD, [...] meds/test/procedures, referring and communicating with consulting health palliative care nurse practitioner and care coordination. /saji/ OYMI PAPPAS MD GI Attending Signed: 12/05/2024 09:19 12/05/2024 ADDENDUM STATUS: COMPLETED Addendum: patient needs capsule endoscopy, service provided by [place] will request follow up in 3 months /saji/ YOMI PAPPAS MD GI Attending Signed: 12/05/2024 09:30 12/06/2024 ADDENDUM STATUS: COMPLETED Pt exited clinic per provider. Treatment plan and medications discussed with patient per provider. Return to clinic 3 months with GI/F1 if unavailable at that time may be scheduled with any available GI fellow or attending. Appointment will be mailed. [place] requested [facility], provider did not agree with request compromised on trying a different provider. /saji/ ЮЛИЯ CASTAÑEDA GI Instant Potato Processing Supervisor Signed: 12/06/2024 13:43 YOMI PAPPAS-REBEKA [facility]
--- OUTSIDE RECORDS SUMMARY | 2025-01-01 09:08 | XMS_ITS | Encounter Summary ---
Author Name [facility] Address [address] [place] [address] Care Team Providers Care Felt Finisher Name Role Phone NIYAH CALLEJAS Primary Care [...] A MOTOR MANUF AC Sep 05, 2014 [id number] [place] PATIENT [employer] ([id number]) PRESCRIPT ION TMMK ACTIV E PPO Sep 05, 2014 [place] [id number] [phone] [place] PATIENT INGENIO RX PRESCRIPT ION NONE* Sep 05, 2014 NONE [id number] [place] PATIENT MEDICARE (WNR) MEDICARE (M) PART A Apr 05, 2015 PART A [id number] [place] PATIENT MEDICARE (WNR) MEDICARE (M) PART B Apr 05, 2015 PART B [id number] PATIENT Selected Encounter This section includes the information on record at [place] for the Encounter. Date/Time Encounter Type Encounter Description Reason Pro vider Source May 08, 2024 11:30 AM OFFICE O/P EST MOD 30 MIN GASTROENTEROLOGY ICD-10-CM K21.00 Gastro-esopha geal reflux dis with esophagitis, without bleed ELYSE,ALL A [facility] Encounter Template Text not used by [place] Assessments - Encounter Diagnoses This section includes the primary and secondary diagnoses documented for the Encounter. Date/Time Primary/Secondary Diagnosis Diagnosis Name Provider Source May 08, 2024 11:57 AM PRIMARY Gastro-esophageal reflux dis with esophagitis, without bleed YOMI PAPPAS [facility] May 08, 2024 11:57 AM SECONDARY Chronic idiopathic constipation YOMI PAPPAS [facility] May 08, 2024 11:57 AM SECONDARY Dvrtclos of lg int w/o perforation or abscess w/o bleeding YOMI PAPPAS [facility] Plan of Treatment: Future Appointments (+ 6 months) and Future Tests (+/- 45 days) The Plan of Treatment section includes future care activities for the patient from all [place] treatmentfacilities. This section includes future appointments and [...] of theEncounter. The data comes from all [place] treatment facilities. Test Date/Time Test Type Test Details Facility Name May 08, 2024 12:00 AM Laboratory - Chemi stry Order CBC/PLT [id number] [id number] SP ONCE [facility] May 08, 2024 12:00 AM Laboratory - Chemi stry Order FERRITIN [id number] SP ONCE [facility] May 08, 2024 12:00 AM Laboratory - Chemi stry Order IRON/TIBC [id number] SP ONCE [facility] Vital Signs: All taken on the encounter date This section contains inpatient and outpatient Vital Signs collected on the date of the Encounter. Date/Time Temperature Pulse Blood Pressure Respiratory Rate SP02 Pain Height Weight Body Mass Index Source May 08, 2024 11:31 AM 98.3 50 120/67 18 98 0 65 168 28 [facility] Social History: Smoking Status (Most current) and Tobacco Use (All prior to encounter date) This section includes the most current, and the historical, smoking and tobacco- related health factors from the [place] facility where the Encounter took place. Current Smoking Status This section includes the most current smoking, or tobacco-related health factor, from the [place] facility where the Encounter took place. Date/Time Current Smoking Status Comment Henry ko Sep 08, 2023 09:30 AM [place]-TOBACCO NEVER USED [facility] Tobacco Use History This section includes a history of the smoking, or tobacco-related health factors, that were collected on or before the date of the Encounter. The data comes from the [place] facility where the Encounter took place. Date/Time [...] neuralgia 5. Carcinoma of prostate (SNOMED CT 380811718) 6. Iron deficiency anemia (SNOMED CT 40012024) 7. History of malignant neoplasm of lung (SNOMED CT 299469288) 8. 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 Back pain (SNOMED CT 797102618) 10. Hyperlipidemia (SNOMED CT 37518358) 11. Depression (SNOMED CT 23867052) 12. Atherosclerotic occlusive disease (SNOMED CT 470070318) Reviewed Active Outpatient Medications (including Supplies): Active [...] meds/test/procedures, referring and communicating with consulting health care transition mgr and care coordination. /saji/ YOMI PAPPAS MD [...] rtc. Letter sent. /saji/ DEBBIE JONES [employer] Signed: 11/12/2024 14:11 YOMI PAPPAS [facility] May 08, 2024 11:30 AM NURSING OUTPATIENT [...] No BP Rechecked No Comments: Patient notified phlebotomist prn available upon request for any examinations/procedures. The [...] By: 05/09/2024 08:19 /es/ NIYAH RENTERIA,LUCERO AVENDANO-CDD [facility]
[2025-01-01] MEDS: SODIUM CHLORIDE 0.9% 50ML BAG 50 ML IV (09:12)
[2025-01-01] MEDS: IRON SUCROSE COMPLEX 400 MG in 0.9 % SODIUM CHLORIDE 250 ML 108 MG IV (09:12)
[2025-01-01] MEDS: SODIUM CHLORIDE 0.9% 10ML FLUSH SYRINGE 10 ML IV (09:13)
[2025-01-01 09:15] VITALS: BP 108/74; PULSE 64; RESP 18; TEMP 36.7; O2SAT 99
[2025-01-01 09:45] VITALS: BP 112/64; PULSE 62
[2025-01-01 10:15] VITALS: BP 108/63; PULSE 64
[2025-01-01 10:45] VITALS: BP 110/69; PULSE 61
[2025-01-01 11:15] VITALS: BP 112/64; PULSE 60
== END 2025-01-01 11:20 | disposition home or self-care (01) ==
LOC: INF 09:01
PROVIDERS: Visit Provider Internal Medicine Gastroenterology
DX: D50.9 Iron deficiency anemia, unspecified (principal)
CPT/HCPCS: 96365; 96366; J1756

== ENCOUNTER 2025-01-14 11:12 | Outpatient (CLI) | payer MEDICARE, OTHER, SELFPAY ==
[2025-01-14 12:05] LABS: Occult Blood,Stool Negative (Negative)
== END 2025-01-14 23:59 | disposition home or self-care (01) ==
LOC: LAB 11:13
PROVIDERS: Visit Provider Internal Medicine Gastroenterology
DX: K59.00 Constipation, unspecified (principal); Z79.1 Long term (current) use of non-steroidal anti-inflammatories (NSAID)
CPT/HCPCS: 82272; G0328

== ENCOUNTER 2025-02-19 11:50 | Outpatient (CLI) | payer MEDICARE, OTHER, SELFPAY ==
--- OUTSIDE RECORDS SUMMARY | 2025-02-19 10:49 | XMS_ITS | Continuity of Care Document ---
Author Name [facility] Organization [facility] Care Team Providers Care Equipment Scheduler Name Role Phone [facility] Unavailable Unavailable Problems Combined list of problems from Department of Defense and Veterans Affairs facilities. It does not include entries that were removed or entered in error. Problem Status Onset Date Problem Type Date of Resolution Comments Source Testicular Carcinoma Inactive 12/04/18 90 Condition 12/12/2006 [facility] Back pain (SNOMED CT 570876063) Active Condition [facility] Carcinoma of prostate (SNOMED CT 602545713) Active Condition [facility] Coronary artery disease Active Condition January 21, 2025 Entered By: NIYAH CALLEJAS Comment: CABG x3 - in 1999 [facility] Depression (SNOMED CT 33404936) [facility] Gastroesophageal reflux disease [facility]: 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 [facility] History of coronary artery bypass grafting Active Condition [facility] History of malignant neoplasm of lung (SNOMED CT 460436156) Active Condition [facility] Hyperlipidemia (SNOMED CT 41207263) Active Condition [facility] Iron deficiency anemia (SNOMED CT 90872999) Active Condition [facility] Open angle glaucoma [facility] Postherpetic neuralgia [facility] Abdominal Aortic Aneurysm, Ruptured Inactive Condition 12/05/2015 [facility] COU[facility]HLIN [facility] Abdominal Aortic Aneurysm, without Rupture Inactive Condition 07/09[facility] Cataract Inactive Condition 02/12/2022 [facility] Degeneration of posterior vitreous body Inactive Condition 02/12/2022 [facility] Depressive disorder Inactive Condition 12/12/2006 [facility] Dissection of Abdominal Aorta Inactive Condition 12/05/2015 [facility] Diagnosis: ICD-10-CM K21.01 Gastro-esophageal reflux dis with esophagitis, with bleed Active Diagnosis [facility] Diagnosis: ICD-10-CM Z85.118 Personal history of malignant neoplasm of bronchus and lung Active Diagnosis [facility] Diagnosis: ICD-10-CM H90.3 Sensorineural hearing loss, bilateral Active Diagnosis [facility] Diagnosis: ICD-10-CM D64.9 Anemia, unspecified Active Diagnosis [facility] Diagnosis: ICD-10-CM Z71.89 Other specified counseling Active Diagnosis [facility] Diagnosis: ICD-10-CM D64.89 Other specified anemias Active Diagnosis [facility] Diagnosis: ICD-10-CM D50.9 Iron deficiency anemia, unspecified Active Diagnosis [facility] Diagnosis: ICD-10-CM K21.00 Gastro-esophageal reflux dis with esophagitis, without bleed Active Diagnosis [facility] Diagnosis: ICD-10-CM H40.1112 Primary open-angle glaucoma, right eye, moderate stage Active Diagnosis [facility] Diagnosis: ICD-10-CM Z98.890 Other specified postprocedural states Active Diagnosis [facility] Diagnosis: ICD-10-CM K21.9 Gastro-esophageal reflux disease without esophagitis Active Diagnosis [facility] Diagnosis: ICD-10-CM Z01.818 Encounter for other preprocedural examination Active Diagnosis [facility] Medications Combined list of outpatient medications from Department of Defense and [facility] Affairs facilities.Medications provided include 1) outpatient medications from the last 15 months, and 2) patient-reported medications. Medication Details Route Status Patient Instructions Prescription Expires Prescription Number Last Dispense Date Ordering Provider Order Date Order Qty Source APAP 250MG/ASA 250MG/CAFN 65MG TAB TAKE TWO TABLETS BY MOUTH PRN ORAL ACTIVE EMILY,J AN [place] [facility] 500MG TAB TAKE ONE TABLET BY MOUTH DAILY FOR NUTRITIO N ORAL ACTIVE 11/08/2025 [id number] WINNIE SANDHU 2024 100 [place] [facility] atorvastati n (U/D) 80 MG ORAL TAB TAKE ONE-HALF TABLET BY MOUTH DAILY FOR CHOLESTE ROL -DO NOT DRINK GRAPEFRU IT JUICE WHILE ON THIS DRUG 11/23/2024 [id number] 4 NIYAH CALLEJAS 2023 45 [place] [facility] ATORVASTATI N CA 80MG TAB TAKE ONE-HALF TABLET BY MOUTH DAILY FOR CHOLESTE ROL -DO NOT DRINK GRAPEFRU IT JUICE WHILE ON THIS DRUG ORAL ACTIVE 01/22/2026 [id number] 5 DANTE CALLEJAS 2024 45 [place] [facility] ATORVASTATI N CA 80MG TAB TAKE ONE-HALF TABLET BY MOUTH DAILY FOR CHOLESTE ROL -DO NOT DRINK GRAPEFRU IT JUICE WHILE ON THIS DRUG ORAL DISCONT INUED 11/23/2024 [id number] 5 Harjinder BENÍTEZ 2023 45 [place] [facility] BISACODYL 5MG TAB,EC TAKE FOUR TABLETS BY MOUTH DIRECTED FOR BOWEL PREP TAKE AT 7PM THE NIGHT BEFORE WIRELESS CAPSULE PROCEDUR E ORAL 01/16/2025 [id number] LYNDSAY BLANCHARD 2024 4 [place] [facility] buPROPion HCl (U/D) 75 MG ORAL TAB TAKE TWO TABLETS BY MOUTH DAILY FOR MOOD OR SMOKING CESSATIO N 01/25/2025 [id number] 4 NIYAH CALLEJAS 2023 60 [place] [facility] buPROPion HCl (U/D) 75 MG ORAL TAB TAKE TWO TABLETS BY MOUTH DAILY FOR MOOD OR SMOKING CESSATIO N Discont inued 05/13/2024 [id number] PALMER FARIAS 2023 60 [place] [facility] BUPROPION HCL 75MG TAB TAKE TWO TABLETS BY MOUTH DAILY FOR MOOD OR SMOKING CESSATIO N ORAL ACTIVE 11/05/2025 [id number] 5 DANTE CALLEJAS 2024 60 [place] [facility] BUPROPION HCL 75MG TAB TAKE TWO TABLETS BY MOUTH DAILY FOR MOOD OR SMOKING CESSATIO N ORAL DISCONT INUED 08/26/2025 [id number] 5 DANTE CALLEJAS 2024 60 [place] [facility] BUPROPION HCL 75MG TAB TAKE TWO TABLETS BY MOUTH DAILY FOR MOOD OR SMOKING CESSATIO N ORAL DISCONT INUED 06/22/2025 [id number] 4 DANTE CALLEJAS 2023 60 [place] [facility] BUPROPION HCL 75MG TAB TAKE TWO TABLETS BY MOUTH DAILY FOR MOOD OR SMOKING CESSATIO N ORAL DISCONT INUED 01/25/2025 [id number] 4 Harjinder BENÍTEZ 2023 60 [place] [facility] BUPROPION HCL 75MG TAB TAKE TWO TABLETS BY MOUTH DAILY FOR MOOD OR SMOKING CESSATIO N ORAL DISCONT INUED 05/13/2024 [id number] 4 Harjinder BENÍTEZ 2022 60 [place] [facility] CIPROFLOXAC IN HCL (CIPROFLOXA CODEY HCL), 500MG, TABLET, ORAL, PACK PHARMACEUT, 100 ea. BOTTLE Active [id number] 2023 10 Pharmac y Data Transac tion Service Facilit y CITALOPRAM (U/D) 40 MG ORAL TAB TAKE ONE TABLET BY MOUTH DAILY FOR MOOD 03/03/2024 [id number] 4 FORTUNATO BENÍTEZ 2023 90 [place] [facility] CITALOPRAM HYDROBROMID E 40MG TAB TAKE ONE TABLET BY MOUTH DAILY FOR MOOD ORAL SUSPEND ED 01/22/2026 [id number] 5 DANTE CALLEJAS 2024 90 [place] [facility] CITALOPRAM HYDROBROMID E 40MG TAB TAKE ONE TABLET BY MOUTH DAILY FOR MOOD ORAL DISCONT INUED 03/05/2025 [id number] 5 Harjinder BENÍTEZ MATHIEUAlcira A 2023 90 [place] [facility] CITALOPRAM HYDROBROMID E 40MG TAB TAKE ONE TABLET BY MOUTH DAILY FOR MOOD ORAL DISCONT INUED 03/03/2024 [id number] 4 Harjinder BENÍTEZ A 2022 90 [place] [facility] ESOMEPRAZOL E MAGNESIUM 40MG CAP,EC TAKE ONE CAPSULE BY MOUTH ONCE A DAY 30 MINUTES BEFORE A MEAL FOR STOMACH ORAL DISCONT INUED 01/23/2026 [id number] 5 DANTE CALLEJAS 2024 90 [place] [facility] FAMOTIDINE 40 MG ORAL TAB TAKE ONE TABLET BY MOUTH AT BEDTIME NEEDED FOR STOMACH 12/12/2024 [id number] 4 JENNA, PETE 2023 90 [place] [facility] FAMOTIDINE 40MG TAB TAKE ONE TABLET BY MOUTH AT BEDTIME NEEDED FOR STOMACH ORAL ACTIVE 12/06/2025 [id number] 5 ELYSE ,YOMI 2024 90 [place] FAMOTIDINE 40MG TAB TAKE ONE TABLET BY MOUTH AT BEDTIME NEEDED FOR STOMACH ORAL DISCONT INUED (EDIT) 05/09/2025 [id number] 5 ELYSE ,YOMI 2023 90 [place] [facility] FAMOTIDINE 40MG TAB TAKE ONE TABLET BY MOUTH AT BEDTIME NEEDED FOR STOMACH ORAL DISCONT INUED (EDIT) 12/12/2024 [id number] 4 JENNA, PETE 2023 90 [place] [facility] FERROUS SO4 324MG TAB,EC TAKE ONE TABLET BY MOUTH DAILY FOR IRON SUPPLEME NT TAKE WITH VIT C ORAL DISCONT INUED BY PROVIDE R 11/08/2025 [id number] 5 WINNIE SANDHU 2024 100 [place] [facility] METRONIDAZO LE (METRONIDAZ OLE), 500MG, TABLET, ORAL, PL[employer], INC, 500 ea. BOTTLE Active [id number] 2023 15 Pharmac y Data Transac tion Service Facilit y PANTOPRAZOL E (U/D) 40 MG ORAL TBEC TAKE ONE TABLET BY MOUTH TWICE A DAY BEFORE MEALS FOR HEARTBUR N -TAKE ON AN EMPTY STOMACH. 12/12/2024 [id number] 4 JENNA, PETE 2023 180 [place] [facility] PANTOPRAZOL E NA 40MG TAB,EC TAKE ONE TABLET BY MOUTH TWICE A DAY FOR HEARTBUR N -TAKE ON AN EMPTY STOMACH. ORAL DISCONT INUED 12/06/2025 [id number] 5 ELYSEYOMI 2024 180 [place] [facility] PANTOPRAZOL E NA 40MG TAB,EC TAKE ONE TABLET BY MOUTH TWICE A DAY FOR HEARTBUR N -TAKE ON AN EMPTY STOMACH. ORAL DISCONT INUED (EDIT) 05/09/2025 [id number] 5 ELYSE ,YOMI 2023 180 [place] [facility] PANTOPRAZOL E NA 40MG TAB,EC TAKE ONE TABLET BY MOUTH TWICE A DAY BEFORE MEALS FOR HEARTBUR N -TAKE ON AN EMPTY STOMACH. ORAL DISCONT INUED (EDIT) 12/12/2024 [id number] 4 JENNA, PETE 2023 180 [place] [facility] POLYETHYLEN E GLYCOL 3350 PWDR,ORAL MIX [...] HOURS PRIOR TO YOUR PROCEDUR E. ORAL 01/16/2025 [id number] 5 SANTO,AND SHAHAB M 2024 238 [place] [facility] Allergies, Adverse Reactions, Alerts Combined list of allergies from Department of Defense and Veterans Affairs facilities. It does not include entries that were removed or entered in error. Substance Category Reaction Severity Reaction type Status Date Reported Comments Source TOPAMAX 25MG TABLET Propensity to adverse reactions to drug (finding) Sedated, Abdominal pain, Disturbance in speech active 1 [facility] TOPIRAMATE Drug allergy (disorder) Sedated, Abdominal pain, Disturbance in speech active 1 [facility] Immunizations Combined list of available immunizations from the Department of Defense and Veterans Affairs facilities. Immunization Series Date Given Administered By Site Reaction Lot Number CVX Code Drug Director Of Food And Nutrition Status Comments Source ZOSTER RECOMBINANT 2024 SHANA ALMANZA LEFT DELTO ID [id number] 187 complet ed Completed Series, ADMINISTE RED AT ID, [place] [facility] INFLUENZA, HIGH-DOSE, TRIVALENT, PF 2024 JOSHUA JO RRA E RIGHT DELTO ID [id number] 135 complet ed ADMINISTE RED AT ID, [place] [facility] COVID-19 (MODERNA), MRNA, LNP-S, PF, 50 MCG/0.5 ML (AGES 12+ YEARS) 2024 JOSHUA JO RRA E LEFT DELTO ID [id number] 312 complet ed ADMINISTE RED AT ID, [place] [facility] PNEUMOCOCCAL CONJUGATE PCV20, POLYSACCHARID E [id number] CONJUGATE, ADJUVANT, PF 2022 LEDA TOBIAS RIGHT DELTO ID [id number] 216 complet ed Completed Series, ADMINISTE RED AT ID, [place] [facility] COVID-19, MRNA, LNP-S, BIVALENT BOOSTER, PF, 30 MCG/0.3 ML DOSE 1 2021 300 complet ed PFR; [id number]; 3 [place] [facility] INFLUENZA, INJECTABLE, QUADRIVALENT, PRESERVATIVE FREE 2021 150 complet ed [place] [facility] TDAP 2021 115 complet ed [place] [facility] (PFIZER), MRNA, LNP-S, PF, 30 MCG/0.3 ML DOSE 3 2020 208 complet ed PFR; [id number]; 2 [place] [facility] INFLUENZA, INJECTABLE, QUADRIVALENT, PRESERVATIVE FREE 2020 150 complet ed [place] [facility] (PFIZER), MRNA, LNP-S, PF, 30 MCG/0.3 ML DOSE 2 2020 208 complet ed PFR; [id number]; 1 [place] [facility] COVID-19 (PFIZER), MRNA, LNP-S, PF, 30 MCG/0.3 ML DOSE 1 2020 208 complet ed PFR; [id number]; 1 [place] [facility] INFLUENZA, INJECTABLE, QUADRIVALENT, PRESERVATIVE FREE 2019 150 complet ed [place] [facility] PNEUMOCOCCAL POLYSACCHARID E [id number] 2019 33 complet ed [place] [facility] INFLUENZA, INJECTABLE, QUADRIVALENT, PRESERVATIVE FREE 4 2018 150 complet ed HISTORICA L INFORMATI ON - FROM OTHER REGISTRY, [place] [facility] INFLUENZA, SEASONAL, INJECTABLE 2018 141 complet ed computer [place] [facility] INFLUENZA, UNSPECIFIED FORMULATION 3 2018 88 complet ed HISTORICA L INFORMATI ON - FROM OTHER REGISTRY, [place] [facility] INFLUENZA, HIGH DOSE SEASONAL 2 2017 135 complet ed HISTORICA L INFORMATI ON - FROM OTHER REGISTRY, [place] [facility] INFLUENZA A & B (HISTORICAL) 2017 88 complet ed [place] [facility] INFLUENZA, INJECTABLE, QUADRIVALENT, PRESERVATIVE FREE 1 2015 150 complet ed HISTORICA L INFORMATI ON - FROM OTHER REGISTRY, [place] [facility] INFLUENZA A & B (HISTORICAL) 2015 88 complet ed [place] [facility] [id number] (HISTORICAL) 2015 133 complet ed [place] [facility] INFLUENZA A & B (HISTORICAL) 2014 88 complet ed [place] [facility] INFLUENZA A & B (HISTORICAL) 2013 88 complet ed [place] [facility] [id number] (HISTORICAL) 2013 33 complet ed [place] [facility] PNEUMOCOCCAL, UNSPECIFIED FORMULATION 2013 109 complet [...] (HISTORICAL) 2010 115 complet ed [place] [facility] INFLUENZA A & B (HISTORICAL) 2009 88 complet ed [place] [facility] FLU,3 YRS (HISTORICAL) 2008 88 complet ed [place] [facility] TD(ADULT) UNSPECIFIED FORMULATION 2008 NONE 139 complet ed Booster for Series, lot# [id number] 12-04-2009 [place] [facility] NOVEL INFLUENZA-H1N 1-09, ALL FORMULATIONS 2008 128 complet ed work [place] [facility] INFLUENZA A & B (HISTORICAL) 2007 88 complet ed COMPLETE [place] [facility] INFLUENZA A & B (HISTORICAL) 2006 88 complet ed [place] [facility] PNEUMOCOCCAL, UNSPECIFIED FORMULATION 2006 109 complet ed COMPLETE [place] [facility] INFLUENZA A & B (HISTORICAL) 2005 88 complet ed [place] [facility] INFLUENZA A & B (HISTORICAL) 2004 88 complet ed [place] [facility] INFLUENZA, UNSPECIFIED FORMULATION 2002 88 complet ed [place] [facility] INFLUENZA, UNSPECIFIED FORMULATION 2001 88 complet ed flu shot given in (R) deltoid no reaction noted [place] [facility] TD(ADULT) UNSPECIFIED FORMULATION 1998 139 complet ed [place] [facility] Results Combined list of recent chemistry, hematology and other laboratory results from Department of Defense and Veterans Affairs, ranging from 15 months to all on record, depending upon the facility. Order Name Results Value Reference Range Date Interpretation Specimen Comments Source PSA PROSTATE SPECIFIC AG [MASS/VOLUM E] IN SERUM OR PLASMA <0.100 ng/mL 0 - 3.999 01/21 Specimen Type: SERUM No comment entered. Ordering Provider: NIYAH CALLEJAS Report Released Date/Time: January 21, 2025 10:36 AM Reporting Lab: [address] [phone] Performing Lab: [address] [address] [facility] EGFR + CREAT DATE SENSITIVE CREATININE [MASS/VOLUM [...] 2024 10:19 PM Reporting Lab: [facility] [address] [address] Performing Lab: [facility] [address] [address] [facility] EGFR + CREAT DATE SENSITIVE GLOMERULAR [...] Dec 19, 2024 10:19 PM Reporting Lab: [place] [phone] Performing Lab: [place] [phone] [facility] AUTOMATED DIFF LYMPHOCYTES /100 LEUKOCYTES IN BLOOD BY AUTOMATED COUNT 25.2 24.0 - 44.0 11/06 Specimen Type: BLOOD No comment entered. Ordering Provider: LUCRECIA SANDHU Report Released Date/Time: Nov 06, 2024 02:56 PM Reporting Lab: [address] [address] Performing Lab: [place] [phone] [facility] AUTOMATED DIFF MONOCYTES/1 00 LEUKOCYTES IN BLOOD BY AUTOMATED COUNT 9.4 0.1 - 6.0 11/06 H Specimen Type: BLOOD No comment entered. Ordering Provider: LUCRECIA SANDHU Report Released Date/Time: Nov 06, 2024 02:56 PM Reporting Lab: [place] [phone] Performing Lab: [place] [phone] [place] [address] AUTOMATED DIFF GRANULOCYTE S/100 LEUKOCYTES IN BLOOD BY AUTOMATED COUNT 60.4 42.0 - 75.0 11/06 Specimen Type: BLOOD No comment entered. Ordering Provider: LUCRECIA SANDHU Report Released Date/Time: Nov 06, 2024 02:56 PM Reporting Lab: [place] [phone] Performing Lab: [place] [phone] AUTOMATED DIFF LYMPHOCYTES [#/VOLUME] IN BLOOD BY AUTOMATED COUNT 2.10 10*3/u L 1.20 - 3.40 11/06 Specimen Type: BLOOD No comment entered. Ordering Provider: LUCRECIA SANDHU Report Released Date/Time: Nov 06, 2024 02:56 PM Reporting Lab: [place] [phone] Performing Lab: [place] [phone] [place] [address] AUTOMATED DIFF MONOCYTES [#/VOLUME] IN BLOOD BY AUTOMATED COUNT 0.78 10*3/u L 0.00 - 0.60 11/06 H Specimen Type: BLOOD No comment entered. Ordering Provider: LUCRECIA SANDHU Report Released Date/Time: Nov 06, 2024 02:56 PM Reporting Lab: [place] [phone] Performing Lab: [place] [phone] [facility] AUTOMATED DIFF GRANULOCYTE S [#/VOLUME] IN BLOOD BY AUTOMATED COUNT 5.03 10*3/u L 1.40 - 6.50 11/06 Specimen Type: BLOOD No comment entered. Ordering Provider: LUCRECIA SANDHU Report Released Date/Time: Nov 06, 2024 02:56 PM Reporting Lab: [address] [place] [address] Performing Lab: [address] [address] [facility] AUTOMATED DIFF BASOPHILS/1 00 LEUKOCYTES IN BLOOD BY AUTOMATED COUNT 0.8 0.0 - 3.0 11/06 Specimen Type: BLOOD No comment entered. Ordering Provider: LUCRECIA SANDUH Report Released Date/Time: Nov 06, 2024 02:56 PM Reporting Lab: [address] [phone] Performing Lab: [address] [phone] [facility] AUTOMATED DIFF BASOPHILS [#/VOLUME] IN BLOOD BY AUTOMATED COUNT 0.07 10*3/u L 0.00 - 0.20 11/06 Specimen Type: BLOOD No comment entered. Ordering Provider: LUCRECIA SANDHU Report Released Date/Time: Nov 06, 2024 02:56 PM Reporting Lab: [address] [phone] Performing Lab: [address] [address] [facility] AUTOMATED DIFF EOSINOPHILS /100 LEUKOCYTES IN BLOOD BY AUTOMATED COUNT 3.8 0.0 - 10.0 11/06 Specimen Type: BLOOD No comment entered. Ordering Provider: LUCRECIA SANDHU Report Released Date/Time: Nov 06, 2024 02:56 PM Reporting Lab: [address] [address] Performing Lab: [address] [address] [facility] AUTOMATED DIFF EOSINOPHILS [#/VOLUME] IN BLOOD BY AUTOMATED COUNT 0.32 10*3/u L 0.00 - 0.70 11/06 Specimen Type: BLOOD No comment entered. Ordering Provider: LUCRECIA SANDHU Report Released Date/Time: Nov 06, 2024 02:56 PM Reporting Lab: [address] [phone] Performing Lab: [address] [phone] [place] [address] AUTOMATED DIFF IMMATURE GRANULOCYTE S/100 LEUKOCYTES IN BLOOD 0.4 0.0 - 0.5 11/06 Specimen Type: BLOOD No comment entered. Ordering Provider: LUCRECIA SANDHU Report Released Date/Time: Nov 06, 2024 02:56 PM Reporting Lab: [place] [phone] Performing Lab: [place] [phone] [place] [address] AUTOMATED DIFF IMMATURE GRANULOCYTE S [#/VOLUME] IN BLOOD 0.03 10*3/u L 0.00 - 0.06 11/06 Specimen Type: BLOOD No comment entered. Ordering Provider: LUCRECIA SANDHU Report Released Date/Time: Nov 06, 2024 02:56 PM Reporting Lab: [place] [phone] Performing Lab: [place] [phone] [place] [address] CBC/PLT LEUKOCYTES [#/VOLUME] IN BLOOD BY AUTOMATED COUNT 8.3 10*3/u L 5.0 - 10.0 11/06 Specimen Type: BLOOD No comment entered. Ordering Provider: LUCRECIA SANDHU Report Released Date/Time: Nov 06, 2024 02:56 PM Reporting Lab: [place] [phone] Performing Lab: [place] [phone] [place] [address] CBC/PLT ERYTHROCYTE S [#/VOLUME] IN BLOOD BY AUTOMATED COUNT 3.81 10*6/u L 4.6 - 6.2 11/06 L Specimen Type: BLOOD No comment entered. Ordering Provider: LUCRECIA SANDHU Report Released Date/Time: Nov 06, 2024 02:56 PM Reporting Lab: [place] [phone] Performing Lab: [place] [phone] [facility] CBC/PLT HEMOGLOBIN [MASS/VOLUM E] IN BLOOD 9.1 g/dL 14.0 - 18.0 11/06 L Specimen Type: BLOOD No comment entered. Ordering Provider: LUCRECIA SANDHU Report Released Date/Time: Nov 06, 2024 02:56 PM Reporting Lab: [place] [address] Performing Lab: [address] CBC/PLT HEMATOCRIT [VOLUME FRACTION] OF BLOOD BY AUTOMATED COUNT 30.9 42.0 - 52.0 11/06 L Specimen Type: BLOOD No comment entered. Ordering Provider: LUCRECIA SANDHU Report Released Date/Time: Nov 06, 2024 02:56 PM Reporting Lab: [place] [address] Performing Lab: [address] CBC/PLT MCV [ENTITIC VOLUME] BY AUTOMATED COUNT 81.1 fL 80.0 - 94.0 11/06 Specimen Type: BLOOD No comment entered. Ordering Provider: LUCRECIA SANDHU Report Released Date/Time: Nov 06, 2024 02:56 PM Reporting Lab: [place] [address] Performing Lab: [address] CBC/PLT MCH [ENTITIC MASS] BY AUTOMATED COUNT 23.9 pg 27.0 - 31.0 11/06 L Specimen Type: BLOOD No comment entered. Ordering Provider: LUCRECIA SANDHU Report Released Date/Time: Nov 06, 2024 02:56 PM Reporting Lab: [place] [address] Performing Lab: [address] CBC/PLT MCHC [MASS/VOLUM E] BY AUTOMATED COUNT 29.4 g/dL 32.0 - 36.0 11/06 L Specimen Type: BLOOD No comment entered. Ordering Provider: LUCRECIA SANDHU Report Released Date/Time: Nov 06, 2024 02:56 PM Reporting Lab: [address] [address] Performing Lab: [place] [phone] [facility] CBC/PLT PLATELETS [#/VOLUME] IN BLOOD 215 10*3/u L 150 - 450 11/06 Specimen Type: BLOOD No comment entered. Ordering Provider: LUCRECIA SANDHU Report Released Date/Time: Nov 06, 2024 02:56 PM Reporting Lab: [address] [address] Performing Lab: [place] [phone] [facility] CBC/PLT PLATELET MEAN VOLUME [ENTITIC VOLUME] IN BLOOD 9.7 fL 9.0 - 13.1 11/06 Specimen Type: BLOOD No comment entered. Ordering Provider: LUCRECIA SANDHU Report Released Date/Time: Nov 06, 2024 02:56 PM Reporting Lab: [place] [phone] Performing Lab: [place] [phone] [facility] CBC/PLT ERYTHROCYTE DISTRIBUTIO N WIDTH [ENTITIC VOLUME] BY AUTOMATED COUNT 19.0 11.0 - 16.0 11/06 H Specimen Type: BLOOD No comment entered. Ordering Provider: LUCRECIA SANDHU Report Released Date/Time: Nov 06, 2024 02:56 PM Reporting Lab: [address] [phone] Performing Lab: [address] [address] [facility] CBC/PLT NUCLEATED ERYTHROCYTE S/100 ERYTHROCYTE S IN BLOOD 0.0 0.0 - 0.0 11/06 Specimen Type: BLOOD No comment entered. Ordering Provider: LUCRECIA SANDHU Report Released Date/Time: Nov 06, 2024 02:56 PM Reporting Lab: [address] [address] Performing Lab: [address] [place] [address] [facility] FERRITIN FERRITIN [MASS/VOLUM E] IN SERUM OR [...] 2024 02:56 PM Reporting Lab: [facility] [address] [facility] [address] Performing Lab: [facility] [address] [place] [phone] [facility] FOLATE FOLATE [MASS/VOLUM E] IN SERUM OR [...] 2024 02:56 PM Reporting Lab: [facility] [address] [place] [phone] Performing Lab: [facility] [address] [place] [phone] [facility] IRON/TIBC IRON [MOLES/VOLU ME] IN SERUM OR [...] Nov 06, 2024 02:56 PM Reporting Lab: [facility] [address] [address] Performing Lab: JUAN ALBERTO[address] [address] [facility] IRON/TIBC IRON BINDING CAPACITY [MASS/VOLUM E] IN [...] 2024 02:56 PM Reporting Lab: [facility] [address] [address] Performing Lab: [facility] [address] [address] [facility] IRON/TIBC IRON SATURATION [MOLAR FRACTION] IN SERUM [...] 2024 02:56 PM Reporting Lab: [facility] [address] [address] Performing Lab: [facility] [address] [address] [facility] PANEL 5 CREATININE [MASS/VOLUM E] IN SERUM [...] 2024 02:56 PM Reporting Lab: [facility] [address] [address] Performing Lab: [facility] [address] [address] [facility] PANEL 5 UREA NITROGEN [MASS/VOLUM E] IN SERUM OR PLASMA 17 mg/dL 11/06 Specimen Type: PLASMA Comment: Estimated Glomerular [...] 2024 02:56 PM Reporting Lab: [facility] [address] [address] Performing Lab: [facility] [address] [address] [facility] PANEL 5 GLUCOSE [MASS/VOLUM E] IN SERUM [...] 2024 02:56 PM Reporting Lab: [facility] [address] [address] Performing Lab: [facility] [address] [address] [facility] PANEL 5 SODIUM [MOLES/VOLU ME] IN SERUM [...] 2024 02:56 PM Reporting Lab: [facility] [address] [address] Performing Lab: [facility] [address] [address] [facility] PANEL 5 POTASSIUM [MOLES/VOLU ME] IN SERUM [...] decrease <15 G5 Kidney failure Ordering Provider: LCURECIA SANDHU Report Released Date/Time: Nov 06, 2024 02:56 PM Reporting Lab: [facility] [address] [address] Performing Lab: [facility] [address] [address] [facility] PANEL 5 CHLORIDE [MOLES/VOLU ME] IN SERUM [...] 2024 02:56 PM Reporting Lab: [facility] [address] [address] Performing Lab: [facility] [address] [address] [facility] PANEL 5 CARBON DIOXIDE, TOTAL [MOLES/VOLU ME] IN SERUM OR PLASMA 22 mmol/L 22 - 29 11/06 Specimen Type: PLASMA Comment: Estimated Glomerular [...] 2024 02:56 PM Reporting Lab: [facility] [address] [address] Performing Lab: [facility] [address] [address] [facility] PANEL 5 CALCIUM [MASS/VOLUM E] IN SERUM [...] 2024 02:56 PM Reporting Lab: [facility] [address] [facility] [address] Performing Lab: [facility] [address] [facility] [address] [facility] PANEL 5 PROTEIN [MASS/VOLUM E] IN SERUM [...] 2024 02:56 PM Reporting Lab: [facility] [address] [facility] [address] Performing Lab: [facility] [address] [facility] [address] [facility] PANEL 5 ALBUMIN [MASS/VOLUM E] IN SERUM [...] Nov 06, 2024 02:56 PM Reporting Lab: [facility] [address] [address] Performing Lab: JUAN ALBERTOBakari [address] [address] [facility] PANEL 5 BILIRUBIN.T OTAL [MASS/VOLUM E] IN [...] 2024 02:56 PM Reporting Lab: [facility] [address] [place] [address] Performing Lab: JUAN ALBERTOBakari [address] [address] [facility] PANEL 5 ASPARTATE AMINOTRANSF ERASE [ENZYMATIC ACTIVITY/VO [...] 2024 02:56 PM Reporting Lab: [facility] [address] [address] Performing Lab: [facility] [address] [address] [facility] PANEL 5 ALANINE AMINOTRANSF ERASE [ENZYMATIC ACTIVITY/VO [...] 2024 02:56 PM Reporting Lab: [facility] [address] [address] Performing Lab: [facility] [address] [address] [facility] PANEL 5 ANION GAP 3 IN SERUM [...] 2024 02:56 PM Reporting Lab: [facility] [address] [address] Performing Lab: [facility] [address] [address] [facility] PANEL 5 ALKALINE PHOSPHATASE [ENZYMATIC ACTIVITY/VO LUME] [...] 2024 02:56 PM Reporting Lab: [facility] [address] [address] Performing Lab: [facility] [address] [address] [facility] 5 GLOMERULAR FILTRATION RATE/1.73 SQ M.PREDICTED [VOLUME [...] 2024 02:56 PM Reporting Lab: [facility] [address] [address] Performing Lab: [facility] [address] [address] [facility]SFERRIN [MASS/VOLUM E] IN SERUM OR PLASMA 386 mg/dL 177 - 329 11/06 H Specimen Type: SERUM No comment entered. Ordering Provider: LUCRECIA SANDHU Report Released Date/Time: Nov 06, 2024 02:56 PM Reporting Lab: [facility] [address] [address] Performing Lab: [facility] [address] [address] [facility] PANEL 1 CREATININE [MASS/VOLUM E] IN SERUM [...] 2023 07:08 AM Reporting Lab: [facility] [address] [facility] [address] Performing Lab: [facility] [address] [facility] [address] [facility] PANEL 1 UREA NITROGEN [MASS/VOLUM E] IN SERUM OR PLASMA 18 mg/dL 9 - 25 12/04 Specimen Type: PLASMA Comment: Estimated Glomerular [...] 2023 07:08 AM Reporting Lab: [facility] [address] [facility] [address] Performing Lab: [facility] [address] [facility] [address] [facility] PANEL 1 GLUCOSE [MASS/VOLUM E] IN SERUM [...] Dec 05, 2023 07:08 AM Reporting Lab: [facility] [address] [address] Performing Lab: [facility] [address] [address] [facility] PANEL 1 SODIUM [MOLES/VOLU ME] IN SERUM [...] Dec 05, 2023 07:08 AM Reporting Lab: [place] [address] [address] Performing Lab: [place] [address] [facility] PANEL 1 POTASSIUM [MOLES/VOLU ME] IN SERUM [...] 2023 07:08 AM Reporting Lab: [facility] [address] [address] Performing Lab: [facility] [address] [address] [facility] PANEL 1 CHLORIDE [MOLES/VOLU ME] IN SERUM [...] 2023 07:08 AM Reporting Lab: [facility] [address] [address] Performing Lab: [facility] [address] [address] [facility] PANEL 1 CARBON DIOXIDE, TOTAL [MOLES/VOLU ME] [...] 2023 07:08 AM Reporting Lab: [facility] [address] [address] Performing Lab: [facility] [address] [address] [facility] PANEL 1 CALCIUM [MASS/VOLUM E] IN SERUM [...] 2023 07:08 AM Reporting Lab: [facility] [address] [address] Performing Lab: [facility] [address] [address] [facility] PANEL 1 ANION GAP 3 IN SERUM [...] 2023 07:08 AM Reporting Lab: [facility] [address] [address] Performing Lab: [facility] [address] [address] [facility] PANEL 1 GLOMERULAR FILTRATION RATE/1.73 SQ M.PREDICTED [...] 2023 07:08 AM Reporting Lab: [facility] [address] [address] Performing Lab: [facility] [address] [address] [facility] Vital Signs Combined list of inpatient and outpatient Vital Signs from Department of Defense and Veterans Affairs, ranging from 12 months to all on record, depending upon the facility. Vital Sign Value Date Comments Source SYSTOLIC BLOOD PRESSURE 116 02/11/2025 09:34:13 [facility] DIASTOLIC BLOOD PRESSURE 74 02/11/2025 09:34:13 [facility] PULSE OXIMETRY 100 02/11/2025 09:34:13 [place] PAIN 0 02/11/2025 09:34:13 [place] [facility] TEMPERATURE 97.5 02/11/2025 09:34:13 [place] PULSE 48 02/11/2025 09:34:13 [place] [facility] RESPIRATION 14 02/11/2025 09:34:13 [facility] [facility] SYSTOLIC BLOOD PRESSURE 116 01/21/2025 09:42:18 [place] [facility] DIASTOLIC BLOOD PRESSURE 64 01/21/2025 09:42:18 [place] [facility] PULSE OXIMETRY 98 01/21/2025 09:42:18 [place] [facility] WEIGHT 174 01/21/2025 09:42:18 [place] [facility] BMI 26 kg/m2 01/21/2025 09:42:18 [place] [facility] PAIN 0 01/21/2025 09:42:18 [place] [facility] HEIGHT 69 01/21/2025 09:42:18 [place] [facility] 97 01/21/2025 09:42:18 [place] [facility] PULSE 46 01/21/2025 09:42:18 [place] [facility] RESPIRATION 12 01/21/2025 09:42:18 [place] [facility] SYSTOLIC BLOOD PRESSURE 113 12/19/2024 13:57:00 [place] [facility] DIASTOLIC BLOOD PRESSURE 63 12/19/2024 13:57:00 [place] [facility] WEIGHT 170.0 12/19/2024 13:57:00 [place] [facility] BMI 25 kg/m2 12/19/2024 13:57:00 [place] [facility] PAIN 0 12/19/2024 13:57:00 [place] [facility] TEMPERATURE 98.4 12/19/2024 13:57:00 [place] [facility] PULSE 51 12/19/2024 13:57:00 [place] [facility] SYSTOLIC BLOOD PRESSURE 110 12/05/2024 08:46:00 [place] [facility] DIASTOLIC BLOOD PRESSURE 65 12/05/2024 08:46:00 [place] [facility] PULSE OXIMETRY 98 12/05/2024 08:46:00 [place] [facility] WEIGHT 173.8 12/05/2024 08:46:00 [place] [facility] BMI 26 kg/m2 12/05/2024 08:46:00 [place] [facility] PAIN 0 12/05/2024 08:46:00 [place] [facility] TEMPERATURE 98.3 12/05/2024 08:46:00 [place] [facility] PULSE 51 12/05/2024 08:46:00 [place] [facility] SYSTOLIC BLOOD PRESSURE 99 11/06/2024 14:31:41 [place] [facility] DIASTOLIC BLOOD PRESSURE 61 11/06/2024 14:31:41 [place] [facility] PULSE OXIMETRY 96 11/06/2024 14:31:41 [place] [facility] WEIGHT 170 11/06/2024 14:31:41 [place] [facility] BMI 25 kg/m2 11/06/2024 14:31:41 [place] [facility] PAIN 0 11/06/2024 14:31:41 [place] [facility] HEIGHT 69 11/06/2024 14:31:41 [place] [facility] TEMPERATURE 98.8 11/06/2024 14:31:41 [place] [facility] PULSE 57 11/06/2024 14:31:41 [place] [facility] Encounters Combined list of: 1) Encounters from Department of Veterans Affairs facilities going backup to the last 18 months, not all VA inpatient encounters are included; 2) Encounters from the Department of Defense facilities going backup to 280 months. Location Location Details Encounter Type Encounter Number Reason For Visit Attending Provider ADM Date DC Date Status Disposition Source [facility] OFFICE O/P EST MOD 30 MIN [id number] Diagnos is: ICD-10- CM K21.9 Gastro- esophag eal reflux disease without esophag itis YOMI PAPPAS 09/08 [place] [facility] MTMS BY PHARM TECHNICAL ACCOUNT REPRESENTATIVE 15 MIN [id number] Diagnos is: ICD-10- CM K21.00 Gastro- esophag eal reflux dis with esophag itis, without bleed KAREN,AND REW L 09/08 [place] [facility] COMPRE OPH EXAM EST PT 1/> [id number] Diagnos is: ICD-10- CM H40.111 2 Primary open-an gle glaucom a, right eye, moderat e stage PURAZOHREH Y 09/26 [place] [facility] Outpatient Encounter [id number] 10/13 [place] [facility] Outpatient Encounter [id number] 10/19 [place] [facility] OFFICE O/P EST MOD 30 MIN [id number] Diagnos is: ICD-10- CM Z01.818 Encount er for other preproc edural examina MARY ALICE Salazar 12/04 [place] [facility] HC PRO PHONE CALL 5-10 MIN [id number] Diagnos is: ICD-10- CM Z01.818 Encount er for other preproc edural examina LILLIE Abdullahi 12/04 [place] [facility] Outpatient Encounter [id number] MARY COON 12/11 [place] [facility] Outpatient Encounter [id number] 12/11 [place] [facility] Outpatient Encounter [id number] JAYMIEMARY ORTEGA 12/11 [place] [facility] Outpatient Encounter [id number] AJ ESCOTO 12/11 [place] [facility] Outpatient Encounter [id number] 12/11 [place] [facility] Outpatient Encounter [id number] STU SHIPLEY 12/11 [place] [facility] [place] [id number] Diagnos is: ICD-10- CM K21.9 Gastro- esophag eal reflux disease without esophag itis STU SHIPLEY 12/11 [place] [facility] Outpatient Encounter [id number] 12/12 [place] [facility] Outpatient Encounter [id number] 12/12 [place] [facility] HC PRO PHONE CALL 5-10 MIN [id number] Diagnos is: ICD-10- CM Z98.890 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 IVETTE SALINAS 12/12 [place] [facility] Outpatient Encounter [id number] SHARON BESS 12/15 [place] [facility] Outpatient Encounter [id number] 12/21 [place] [facility] INTRM OPH EXAM EST PATIENT [id number] Diagnos is: ICD-10- CM H40.111 2 Primary open-an gle glaucom a, right eye, moderat e stage ARLENE ZUNIGA N 12/25 [place] [facility] INTRM OPH EXAM NEW PATIENT [id number] Diagnos is: ICD-10- CM H40.111 2 Primary open-an gle glaucom a, right eye, moderat e stage VIKRAM SALCEDO 01/26 [place] [facility] OFFICE O/P EST MOD 30 MIN [id number] Diagnos is: ICD-10- CM K21.00 Gastro- esophag eal reflux dis with esophag itis, without bleed YOMI PAPPAS 05/08 [place] [facility] Outpatient Encounter [id number] 06/21 [place] [facility] Outpatient Encounter [id number] 09/26 [place] [facility] Outpatient Encounter [id number] 10/10 [place] [facility] Outpatient Encounter [id number] 10/25 [place] [facility] Outpatient Encounter [id number] 11/02 [place] [facility] OFF/OP EST MAY X REQ PHY/QHP [id number] Diagnos is: ICD-10- CM D50.9 Iron deficie ncy anemia, unspeci fied LEXUS SANDHU 11/06 [place] [facility] Outpatient Encounter [id number] 11/06 [place] [facility] Outpatient Encounter [id number] 11/13 [place] [facility] Outpatient Encounter [id number] 11/26 [place] [facility] EVOKED AUDITORY TST COMPLETE [id number] Diagnos is: ICD-10- CM H90.3 Sensori neural hearing loss, WALTER Mendez 11/30 [place] [facility] Outpatient Encounter [id number] 12/04 [place] [facility] OFFICE O/P EST MOD 30 MIN [id number] Diagnos is: ICD-10- CM D64.89 Other specifi ed anemias ELYSE, YOMI 12/05 [place] [facility] Outpatient Encounter [id number] 12/12 [place] [facility] PH1 ASSMT&MGMT NQHP 11-20 [id number] Diagnos is: ICD-10- CM 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.89 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 Sen Jones 12/13 [place] [facility] SYNCH AUDIO-ONLY EST LOW 20 [id number] Diagnos is: ICD-10- CM D64.9 Anemia, unspeci fied CARMEN MURRAY CIA 12/14 [place] [facility] Outpatient Encounter [id number] 12/18 [place] Out[facility] Encounter [id number] 12/18 [place] [facility] OFF/OP CNSLTJ NEW/EST MOD 40 [id number] Diagnos is: ICD-10- CM H90.3 Sensori neural hearing loss, bilater al WINDON,GAURAV ADDY J 12/19 [place] [facility] Outpatient Encounter [id number] 12/25 [place] [facility] Outpatient Encounter [id number] 01/08 [place] [facility] Outpatient Encounter [id number] 01/10 [place] [facility] Outpatient Encounter [id number] 01/10 [place] [facility] Outpatient Encounter [id number] 01/14 [place] [facility] OFFICE O/P EST HI 40 MIN [id number] Diagnos is: ICD-10- CM 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 KOUSA,NITA A 01/21 [place] [facility] DIG ASSMT&MGMT 5-10 [id number] Diagnos is: ICD-10- CM K21.01 Gastro- esophag eal reflux dis with esophag itis, with bleed KAREN,AND REW L 01/22 [place] [facility] Outpatient Encounter [id number] 01/24 [place] [facility] Outpatient Encounter [id number] Sen CORDERO 01/24 [place] [facility] Outpatient Encounter [id number] 01/24 [place] [facility] Outpatient Encounter [id number] 01/25 [place] [facility] Outpatient Encounter [id number] 01/28 [place] [facility] Outpatient Encounter [id number] 02/01 [place] [facility] Outpatient Encounter [id number] 02/04 [place] [facility] Outpatient Encounter [id number] 02/11 [place] [facility] Outpatient Encounter [id number] 02/11 [place] [facility] Social History Combined list of available smoking, tobacco, and other social history from Department of Defense and [facility] Affairs facilities. Social History Type Response Date Comment Source Tobacco smoking status SCIS VA-TOBACCO USE FORMER CIGARETTES 11/06/2024 [facility] History of tobacco use ID-TOBACCO NEVER USED OTHER TYPE 11/06/2024 [facility] History of tobacco use VA-TOBACCO NEVER USED 09/08/2023 [facility] History of tobacco use ID-TOBACCO QUIT 15 YRS OR MORE 06/11/2022 [facility] History of tobacco use VA-TOBACCO FORMER USER 06/17/2021 [facility] History of tobacco use ID-TOBACCO QUIT 15 YRS OR MORE 09/20/2019 [facility] History of tobacco use V9 LIFETIME NON-USER OF TOBACCO 02/17/2018 [facility] History of tobacco use V9 QUIT TOBACCO >7 YEARS AGO 02/16/2017 [facility] History of tobacco use V9 LIFETIME NON-USER OF TOBACCO 12/05/2015 [facility] History of tobacco use V9 QUIT TOBACCO >7 YEARS AGO 01/03/2015 [facility] History of tobacco use V9 QUIT TOBACCO >7 YEARS AGO 12/31/2013 [facility] History of tobacco use V9 QUIT TOBACCO >7 YEARS AGO 11/27/2012 [facility] History of tobacco use V9 QUIT TOBACCO >7 YEARS AGO 10/12/2011 [facility] History of tobacco use V9 LIFETIME NON-USER OF TOBACCO 12/12/2006 [facility] History of tobacco use HF V9 CURRENT NON-SMOKER 08/21/2004 quit smoking 5 yrs ago [facility] History of tobacco use HF V9 CURRENT NON-SMOKER 05/28/2003 quit 5 years ago [facility] History of tobacco use HF V9 CURRENT NON-SMOKER 06/23/2001 quit 1 1/2year ago [facility] This section is an empty social history section. [facility] Plan of Care List of future care activities from Department of [facility] Affairs facilities. Additional future care activities may be listed in the Assessment and Plan section. Date/Time Care Activity Care Activity Detail Henryi ty 03/12/2025 AMBULATORY - NONE AMBULATORY - NONE [facility]
--- OUTSIDE RECORDS SUMMARY | 2025-02-19 11:53 | XMS_ITS | Encounter Summary ---
Author Organization Healthcare Address [address] [place] [address] Care Team Providers Care Vet Tech Name Role Phone Rita Scott MD Primary Care Provider [phone] Enriqueta Carias Unavailabl e Encounter Details Date Type Department Care Team (Late st Contact Info) Description 02/16/2024 Outside Procedure External Location [address] [place] [address] Provider, [facility] Social History Tobacco Use Types Packs/Day Years Used Date Smoking Tobacco: Never Smokeless Tobacco: Never Alcohol Use Standard Drinks/Week Comments No 0 (1 standard drink = 0.6 oz pur e alcohol) PHQ-2 Answer Date Recorded Patient Health Questionnaire-2 Score 0 06/22/2022 Sex and Gender Information Value Date Recorded Sex Assigned at Not on file Legal Sex Male 8:44 PM EDT Gender Identity Not on file Sexual Orientation Not on file documented as of this encounter Plan of Treatment Not on file documented as of this encounter Procedures Procedure Name Priority Date/Time Associated Diagnosis Comments CT ABDOMEN PELVIS WO IV CONTRAST 02/16/2024 3:51 PM EDT documented in this encounter Results * CT Abdomen Pelvis wo IV Contrast (02/16/2024 3:51 PM EDT) Anatomical Region Laterality Modality Abdomen, Pelvis Computed Tomogra phy 02/16/2024 3:51 PM EDT Narrative 02/16/2024 7:50 PM EDT [facility] [address] [place] [address] Name: ANEUDY LR Exam Date: 02/16/2024 : 1950 Age 73 years Gender: M Physician: ADDIE WILD Facility: [facility] Facility HSV: Outpatient Exam: CT ABD PEL W/O FINAL REPORT TECHNIQUE: Routine axial images through the abdomen and pelvis were obtained. CLINICAL HISTORY: Abdominal Pain // left lower abdominal pain since yesterday FINDINGS: Abdomen:The gallbladder is normal.Contrast is being excreted from the kidneys from previously administered contrast.The solid abdominal organs and ureters are otherwise unremarkable. There is extensive sigmoid diverticulosis without evidence of diverticulitis.The GI tract is otherwise unremarkable, with no sign of appendicitis.Pelvis: The urinary bladder is normal. There has been prior retroperitoneal node dissection.There is no pelvic or abdominal ascites, adenopathy or acute osseous abnormality. IMPRESSION: No acute disease. Reviewed, Interpreted and Dictated by Jose Antonio Ramirez M.D. Transcribed by Cristiana Rosales Authenticated and EASTERN Dictated By: Jose Antonio Ramirez Transcribed By: Transcribed On: 02/16/2024 7:38 PM Electronically signed by: Jose Antonio Ramirez 02/16/2024 Thank you for referring ANEUDY LR to [facility]. Legally authenticated by KELIN NAVARRETE 2024-02-16 19:38:11 Procedure Note Provider, Bradley Isabella - 02/16/2024 [place] [address] Name: ANEUDY LR Exam Date: 02/16/2024 : 1950 Age 73 years Gender: M Physician: ADDIE WILD Facility: [facility] Facility HSV: Outpatient Exam: CT ABD PEL W/O FINAL REPORT TECHNIQUE: Routine axial images through the abdomen and pelvis were obtained. CLINICAL HISTORY: Abdominal Pain // left lower abdominal pain since yesterday FINDINGS: Abdomen:The gallbladder is normal.Contrast is being excreted from the kidneys from previously administered contrast.The solid abdominal organs and ureters are otherwise unremarkable. There is extensive sigmoid diverticulosis without evidence of diverticulitis.The GI tract is otherwise unremarkable, with no sign of appendicitis.Pelvis: The urinary bladder is normal. There has been prior retroperitoneal node dissection.There is no pelvic or abdominal ascites, adenopathy or acute osseous abnormality. IMPRESSION: No acute disease. Reviewed, Interpreted and Dictated by Jose Antonio Ramirez M.D. Transcribed by Cristiana Rosales Authenticated and EASTERN Dictated By: Jose Antonio Ramirez Transcribed By: Transcribed On: 02/16/2024 7:38 PM Electronically signed by: Jose Antonio Ramirez 02/16/2024 Thank you for referring ANEUDY LR to [facility]. Legally authenticated by KELIN NAVARRETE 2024-02-16 19:38:11 us Generic Isabella Provider IMG CT PROCEDURES Fi nal Result documented in this encounter Visit Diagnoses Not on filedocumented in this encounter Additional Health Concerns Infection Onset Date Last Indicated Resolved Time COVID-19 Rule-Out 10/04/2024 10/04/2024 10/04/2024 7:51 PM EST Influenza 10/04/2024 10/04/2024 11/01/2024 5:23 AM EST Assessment Noted Time A fall risk assessment has been complete d for the patient 06/22/2022 10:26 AM EDT documented as of this encounter Care Teams Vet Tech Relationship Specialty Start Date End Date Rita Scott MD [address] [place] [phone] PCP - General 01/16/21 Enriqueta Carias Clinical Paste Up Artist Apprentice 10/04/24 11/07/24 documented as of this encounter
--- OUTSIDE RECORDS SUMMARY | 2025-02-19 11:53 | XMS_ITS | Encounter Summary ---
Author Organization Healthcare Address [address] [place] [address] Care Team Providers Care Gas Engine Mechanic Name Role Phone Rita Scott MD Primary Care Provider [phone] Enriqueta Carias Unavailabl e Encounter Details Date Type Department Care Team (Late st Contact Info) Description 03/31/2021 Outside Procedure External Location [address] [place] [address] Provider, [facility] Social History Tobacco Use Types Packs/Day Years Used Date Smoking Tobacco: Never Alcohol Use Standard Drinks/Week Comments No 0 (1 standard drink = 0.6 oz pur e alcohol) Sex and Gender Information Value Date Recorded Sex Assigned at Not on file Legal Sex Male 8:44 PM EDT Gender Identity Not on file Sexual Orientation Not on file documented as of this encounter Plan of Treatment Not on file documented as of this encounter Procedures Procedure Name Priority Date/Time Associated Diagnosis Comments CT RENAL STONE WO IV CONTRAST 03/31/2021 11:07 AM EDT documented in this encounter Results * CT Renal Stone wo IV Contrast (03/31/2021 11:07 AM EDT) Anatomical Region Laterality Modality Abdomen, Pelvis Computed Tomogra phy 03/31/2021 11:0 7 AM EDT Narrative 03/31/2021 11:38 AM EDT [address] [address] Name: ANEUDY LR Exam Date: 03/31/2021 : 1950 Age 70 Gender: M Physician: SANDRO BALDWIN Facility: [facility] Facility HSV: Outpatient Exam: CT RENAL STONE ABD/PEL(NO CON) CT abdomen and pelvis without IV contrast History: Right upper quadrant pain Findings: Noncontrast imaging was performed utilizing techniques to keep radiation dose as low as reasonably achievable. Comparison date is 10/02/15. There are no renal stones or hydronephrosis. The bladder is poorly distended. There are radiation implant seeds in the prostate gland. There is diverticulosis without acute diverticulitis. There is a large amount of stool. There is no significant colonic dilatation and there are no pericolonic inflammatory changes. Small bowel is fluid-filled with mild small bowel wall thickening and air-fluid levels. There is no significant small bowel dilatation. The stomach is moderately distended with food particles. There are multiple surgical clips at the GE junction. There is a small hiatal hernia. Evaluation of solid organs is limited without IV contrast. The nonopacified solid organs are normal in size. The gallbladder and biliary tree are nondilated. There are multiple surgical clips in the retroperitoneum. The distal abdominal aorta at the bifurcation measures 3.1 cm transversely which is stable. 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 No enlarged pelvic or abdominal nodes are identified although the exam is less sensitive without IV contrast. Impression: The appearance of the small bowel suggest enteritis. Postsurgical and other chronic findings as detailed. Dictated By: JOSHUA BARKSDALE Transcribed By: JOSHUA BARKSDALE Transcribed On: 03/31/2021 11:27 AM Electronically signed by: JOSHUA BARKSDALE 03/31/2021 Thank you for referring ANEUDY LR to [facility]. Legally authenticated by SHAMIR LEWIS 2021-03-31 11:27:10 Procedure Note Provider, [facility] - 03/31/[address] [address] Name: ANEUDY LR Exam Date: 03/31/2021 : 1950 Age 70 Gender: M Physician: SANDRO BALDWIN Facility: [facility] Facility HSV: Outpatient Exam: CT RENAL STONE ABD/PEL(NO CON) CT abdomen and pelvis without IV contrast History: Right upper quadrant pain Findings: Noncontrast imaging was performed utilizing techniques to keep radiation dose as low as reasonably achievable. Comparison date is10/02/15. There are no renal stones or hydronephrosis. The bladder is poorlydistended. There are radiation implant seeds in the prostate gland. There is diverticulosis without acute diverticulitis. There is a large amount ofstool. There is no significant colonic dilatation and there are no pericolonic inflammatory changes. Small bowel is fluid-filled with mild small bowelwall thickening and air-fluid levels. There is no significant small bowel dilatation. The stomach is moderately distended with food particles. Thereare multiple surgical clips at the GE junction. There is a small hiatalhernia. Evaluation of solid organs is limited without IV contrast. Thenonopacified solid organs are normal in size. The gallbladder and biliary tree are nondilated. There are multiple surgical clips in the retroperitoneum.The distal abdominal aorta at the bifurcation measures 3.1 cm transverselywhich is stable. 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 No enlarged pelvic or abdominal nodes are identified although theexam is less sensitive without IV contrast. Impression: The appearance of the small bowel suggest enteritis.Postsurgical and other chronic findings as detailed. Dictated By: JOSHUA BARKSDALE Transcribed By: JOSHUA BARKSDALE Transcribed On: 03/31/2021 11:27 AM Electronically signed by: JOSHUA BARKSDALE 03/31/2021 Thank you for referring DIANNA ANEUDY to [facility]. Legally authenticated by SHAMIR LEWIS 2021-03-31 11:27:10 Generic Ironside Provider IMG CT PROCEDURES Fi nal Result documented in this encounter Visit Diagnoses Not on filedocumented in this encounter Additional Health Concerns Infection Onset Date Last Indicated Resolved Time COVID-19 Rule-Out 10/04/2024 10/04/2024 10/04/2024 7:51 PM EST Influenza 10/04/2024 10/04/2024 11/01/2024 5:23 AM EST documented as of this encounter Care Teams Gas Engine Mechanic Relationship Specialty Start Date End Date Rita Scott MD [address] [place] [id number] PCP - General 01/16/21 Enriqueta Carias Clinical Division Merchandise Manager 10/04/24 11/07/24 documented as of this encounter
--- OUTSIDE RECORDS SUMMARY | 2025-02-19 11:55 | XMS_ITS | Clinical Summary ---
Author Organization Healthcare Address [address] [place] [address] Care Team Providers Care Assistant Manager/Embalmer Name Role Phone Rita Scott MD Primary Care Provider [phone] Allergies Active Allergy Reactions Criticality Noted Date Comments Bacitracin Rash Medium 06/18/2022 Hcr-Aywka-Lort-Lidocaine Rash Low 03/12/2014 Neomycin Rash Medium 06/18/2022 Polymyxin B Rash Medium 06/18/2022 Topiramate Other - please docum ent in the comment field Low 10/09/2010 Medications atorvastatin (Lipitor) 80 MG tablet 0.5 tablets (40 mg) 2 (two) times a day. 2 Active buPROPion (Wellbutrin) 75 MG tablet TAKE TWO TABLETS BY MOUTH DAILY FOR MOOD OR SMOKING CESSATION 0 Active citalopram (CeleXA) 40 MG tablet 1 tablet (40 mg). 9 Active aspirin 81 MG EC tablet 1 (one) time. 0 Active methylPREDNISol one (Medrol Dospak) 4 MG tabletsIndicati ons:Acute cough Take as directed on package. 21 tablet 5 Active Active Problems Problem Noted Date Diagnosed Date Primary open-angle glaucoma, right eye, moderate stage 06/22/2022 Peptic ulcer disease 06/22/2022 Overview (06/22/2022): 1. Peptic ulcer disease: a. History of perforated ulcer. Ocular hypertension, bilateral 06/22/2022 Hyperlipidemia 06/22/2022 Gastro-esophageal reflux disease without esophag itis 06/22/2022 Carcinoma of prostate 06/22/2022 Arthritis 06/22/2022 Coronary artery disease invo lving unga coronary artery of unga heart 09/25/2020 Overview (06/22/2022): Added automatically from request for surgery [id number] 1. Coronary artery disease: a. August 2000, coronary artery bypass grafting ([facility], database unknown). Essential hypertension 11/30/2014 Depressive disorder 11/30/2014 Hearing loss 02/18/2011 Overview (06/22/2022): Immunizations Immunization Administration Dates Next Due Influenza, High-dose, Split Virus, Trivalent, Injectable, preservative free 08/02/2018 Influenza, Unspecified 05/15/2019,2015,04/14/2015,06/05,06/05/2013,11/27/2012,07/06/2011 ,07/06/2010,06/20/2009,07/08/2008,12/0 09/2006,07/06/2006,07/06/2005, 3,06/08/2002 Influenza, high-dose, quadrivalent 08/02/2018 Influenza, injectable, quadr ivalent, preservative free 06/11/2022,06/17/2021,08/04/2020,06/27,07/01/2016 Influenza, seasonal, injectable 06/14/2019 Influenza, seasonal, injecta ble, preservative free 09/14/2017 Novel [id number], all formulations 06/05/2009 Novel [id number] 08/18/2009 Pfizer-BioNTech COVID-19 Biv alent (Joiner Cap) 12+ years (marcelina-sucrose) 06/11/2022 Pfizer-BioNTech COVID-19 Vac cine (Purple Cap) 12+ 08/07/2021,12/15/2020,11/24/2020 Pneumococcal 20-daxa Conj Vaccine 10/15/2022 Pneumococcal Conjugate PCV 13 12/05/2015 Pneumococcal Polysaccharide PPV23 08/04/2020, Pneumococcal, Unspecified 12/31/2013,07/10/2007 Td (adult), unspecified 06/20/2009,04/05/1999 Tdap 10/14/2021,03/09/2012,06/05/2011 Family History Medical History Relation Name Comments Conversions - Other Other Family h istory unknown Relation Name Status Comments Other Social History Tobacco Use Types Packs/Day Years Used Date Smoking Tobacco: Never Smokeless Tobacco: Never Tobacco Cessation:Counseling Given: Not Answered Alcohol Use Standard Drinks/Week Comments No 0 (1 standard drink = 0.6 oz pur e alcohol) Humiliation, Afraid, Rape, and Kick questionnair e Answer Date Recorded Within the last year, have y ou been afraid of your partner or ex-partner? No 10/04/2024 Within the last year, have y ou been humiliated or emotionally abused in other ways by your partner or ex-partner? No Within the last year, have y ou been kicked, hit, slapped, or otherwise physically hurt by your partner or ex-partner? No 10/04/2024 Within the last year, have y ou been raped or forced to have any kind of sexual activity by your partner or ex-partner? No 10/04/2024 PHQ-2 Answer Date Recorded Patient Health Questionnaire-2 Score 0 10/04/2024 Hunger Vital Sign Answer Date Recorded Within the past 12 months, y ou worried that your food would run out before you got the money to buy more. Never true 10/04/19 25 Within the past 12 months, t he food you bought just didn't last and you didn't have money to get more. Never true 10/04/2024 PRAPARE - Transportation Answer Date Re corded In the past 12 months, has l ack of transportation kept you from medical appointments or from getting medications? No 09/07 In the past 12 months, has l ack of transportation kept you from meetings, work, or from getting things needed for daily living? No 10/04/2024 PHQ-9 Answer Date Recorded Patient Health Questionnaire-9 Score 0 10/04/2024 Housing Stability Vital Sign Answer Atul e Recorded In the last 12 months, was t here a time when you were not able to pay the mortgage or rent on time? No 10/04/2024 In the past 12 months, how m any times have you moved where you were living? 0 10/04/2024 At any time in the past 12 m [facility], were you homeless or living in a nursing home (including now)? No 10/04/2024 Safety and Environment Answer Date Jose rded Do you worry that your child may have been physically abused? No 10/04/2024 Do you worry that your child may have been sexua lly abused? No 10/04/2024 Are there any guns kept in o r around your home or where your child spends time? No 10/04/2024 Guns Unloaded or Locked Away Not on file Utilities Answer Date Recorded In the past 12 months has e electric, gas, oil, or water company threatened to shut off services in your home? No 10/04/2024 Sex and Gender Information Value Date Recorded Sex Assigned at Not on file Legal Sex Male 8:44 PM EDT Gender Identity Not on file Sexual Orientation Not on file Last Filed Vital Signs Vital Sign Reading Time Taken Comments Blood Pressure 88/54 10/04/2024 10:18 AM EST Pulse 59 10/04/2024 10:07 AM EST Temperature 36.8 C (98.3 F) 10/04/2024 10:07 AM EST Respiratory Rate 15 10/04/2024 10:07 AM EST Oxygen Saturation 99% 10/04/2024 10:07 AM EST Inhaled Oxygen Concentration - - Weight 79.9 kg (176 lb 2.4 oz) 10/04/2024 10:07 AM EST Height 175.3 cm (5' 9 ) 10/04/2024 10:07 AM EST Body Mass Index 26.01 10/04/2024 10:07 AM EST Plan of Treatment Health Maintenance Due Date Last Done Comments [facility]-Hepatitis C Screening 1950 [facility]-Medicare Annual Wellness (AWV) 1950 [facility]-Zoster Vaccines (1 of 2) 1969 CT Colonography 1995 FIT-DNA 1995 FIT 1995 FOBT 1995 Sigmoidoscopy 1995 [id number] Vaccine (5 - 2024-25 season) 2024 06/11/2022, 08/07/2021, 12/15/2020, Additional history exists [facility]- SDOH Screenings 04/03/2025 [facility]-Adult SDOH Screenings 04/03/2025 10/04/2024 [facility]-/Child/Adol SDOH Screenings 04/03/2025 10/04/2024 [facility]-RSV Vaccine: 60+ Years or (1 - 1-dose 75+ series) 2025 [facility]-Influenza Vaccine (Season Ended) 2025 06/11/2022, 06/17/2021, 08/04/2020, Additional history exists [facility]-Depression Screening 10/04/2025 10/04/2024, 09/07 [facility]-DTaP,Tdap,and Td Vaccines (4 - Td or Tdap) 10/14/2031 10/14/2021, 03/09/2012, 06/05/2011, Additional history exists Colonoscopy 12/11/2033 12/12/2023 [facility]-Colorectal Cancer Screening 12/11/2033 [facility]-Diabetes: Hemoglobin A1C Discontinued 10/22/2020, 10/10/2020 [facility]-Pneumococcal Vaccine: 50+ Years Completed 10/15/2022, 08/04/2020, 12/05/2015, Additional history exists [facility]-Obesity Intervention Completed 10/04/2024, 06/05 HPV Vaccines Aged Out No longer eligi ble based on patient's age to complete this topic [facility]-HIB Vaccines Aged Out No longer e ligible based on patient's age to complete this topic [facility]-Hepatitis A Vaccines Aged Out No longer eligible based on patient's age to complete this topic [facility]-IPV Vaccines Aged Out No longer e ligible based on patient's age to complete this topic [facility]-Rotavirus Vaccines Aged Out No lo nger eligible based on patient's age to complete this topic Procedures Procedure Name Priority Date/Time Associated Diagnosis Comments COLONOSCOPY EXTERNAL RESULT 12/12/2023 HEMOGLOBIN A1C Routine 10/22/2020 11:30 AM EST from Last 3 Months or Most Recently Relevant to Health Maintenance Results * Colonoscopy External Result (12/12/2023) Anatomical Region Laterality Modality Endoscopy Narrative 12/12/2023 Ordered by an unspecified provider. External Provider GI PROCEDURE ORDERABLES Final Result * Hemoglobin A1c (10/22/2020 11:30 AM EST) Hemoglobin A1c 5.9 4.7 - 6.0 % [facility] Comment: Glycohemoglobin Reference Range, 0 years and up: 4.7 to 6.0% . HA1C Interpretive Data: Diagnosis of Diabetes: Diabetic > or = 6.5% Pre-diabetic 5.7 to 6.4% Non-diabetic < or = 5.6% . Glycemic Targets for Type I and Type II Diabetics: Non- Adults <7.0% Adults <6.0% Children and Adolescents <7.5% . Source: [place] [employer]. Standards of medical care in diabetes, 2017. Diabetes Care.2017:40 (suppl 1):S1-S135. . HbA1c assay performed by an ion-exchange chromatography method that is certified traceable to the DCCT. 10/22/2020 11:3 0 AM EST 10/22/2020 1:04 PM EST Rita Scott MD LAB BLOOD ORDERABLES Final Re sult [facility] from Last 3 Months or Most Recently Relevant to Health Maintenance Insurance MEDICARE [employer] MEDICARE [facility] Care Teams Assistant Manager/Embalmer Relationship Specialty Start Date End Date Rita Scott MD [address] [place] [id number] PCP - General 01/16/21
[2025-02-19 12:29] LABS: Basophils % 0.7 % (0.1-2.0); Eosinophils # 0.3 Kmm3 (0.0-0.4); Eosinophils % 5.3 % (0.1-12.0); Hemoglobin 11.8 g/dL (14.1-18.0); Immature Granulocytes # 0.02 10^3uL; Immature Granulocytes % 0.4 %; Lymphocytes # 1.6 K/mm3 (0.7-4.5); Lymphocytes % 29.2 % (10-50); Mean Corpuscular HGB Conc 31.1 g/dL (31.8-35.4); Mean Corpuscular Hemoglobin 28.2 pg (27.0-31.2); Mean Corpuscular Volume 90.9 fl (80-94); Monocytes # 0.7 K/mm3 (0.1-1.0); Monocytes % 12.2 % (1.7-9.3); Neutrophils # 2.9 K/mm3 (1.8-7.8); Neutrophils % 52.2 % (37.0-80.0); Nucleated Red Blood Cells # 0 10^3/uL; Nucleated Red Blood Cells % 0 %; Platelet Count 145 K/mm3 (142-424); Red Blood Count 4.18 M/mm3 (4.60-6.20); Red Cell Distribution Width 14.3 % (11.5-17.5); Red Cell Distribution Width-SD 47.1 fL; White Blood Count 5.5 K/mm3 (4.8-10.8)
[2025-02-19 13:01] LABS: Iron 89 ug/dL (49-181)
[2025-02-19 13:10] LABS: Total Iron Binding Capacity 325 ug/dL (261-462)
== END 2025-02-19 23:59 | disposition home or self-care (01) ==
LOC: LAB 11:51
PROVIDERS: PCP Family Medicine; Visit Provider Nurse Practitioner Family
DX: D50.9 Iron deficiency anemia, unspecified (principal)
CPT/HCPCS: 36415; 82728; 83540; 83550; 85025